=== PATIENT | female | born 1960 | race Two or more races ===

== ENCOUNTER 2023-05-12 13:50 | Inpatient (IN) | payer BC, OTHER ==
[~2023-05-12] VITALS: Ht 157.5 cm; Wt 95.5 kg
[2023-05-12 15:27] LABS: Red Cell Distribution Width 15.4 % (11.8-14.3)
[2023-05-12 15:30] LABS: Hematocrit 18.1 % (36.0-46.0); Mean Corpuscular Hemoglobin 36.2 pg (28.0-32.0); Mean Corpuscular Hgb Conc. 34.4 g/dL (32.0-36.0); Mean Corpuscular Volume 105.3 fL (80.0-100.0); Red Blood Cells 1.72 10^6/uL (4.0-5.20)
[2023-05-12 15:32] LABS: Anion Gap 6 (5-15); Carbon Dioxide 26 mmol/L (20-30); Chloride 99 mmol/L (98-107); Potassium 3.9 mmol/L (3.5-5.1); Sodium 131 mmol/L (136-145)
[2023-05-12 15:33] LABS: Calcium 8.7 mg/dL (8.7-10.4)
[2023-05-12 15:36] LABS: White Blood Cell 0.9 10^3/uL (4.4-10.8)
[2023-05-12 15:37] LABS: Basophils % (manual) 0 (0.0-2.0); Blast Cells 0; Eosinophils % (manual) 0 (0-7); Hemoglobin 6.2 g/dL (12.2-16.2); Metamyelocytes % 0; Myelocytes % 0; Promyelocytes % 0; Reactive Lymphocytes 0
[2023-05-12 15:38] LABS: Blood Urea Nitrogen 12 mg/dL (9-23); Glucose 89 mg/dL (74-106)
[2023-05-12 15:45] LABS: INR 0.95 (0.9-1.15); Partial Thromboplastin Time 32.9 SEC (24.5-34.5)
[2023-05-12 16:24] LABS: Anisocytosis Slight; Band Neutrophils % (manual) 1; Lymphocytes % (manual) 29 (10.0-50.0); Macrocytosis Moderate; Monocytes % (manual) 7 (0-12); Platelet Estimate Decreased
[2023-05-12 23:29] VITALS: PULSE 58; RESP 20; O2SAT 100
[2023-05-12] MEDS ORDERED: ACETAMINOPHEN 325 MG TAB PO PRN (23:30)
[2023-05-12] MEDS ORDERED: ONDANSETRON HCL 4 MG/2 ML VIAL IV PRN (23:30)
[2023-05-12] MEDS ORDERED: MORPHINE SULFATE INJ 2 MG/ml SYRG IV PRN (23:30)
[2023-05-12] MEDS ORDERED: METOCLOPRAMIDE HCL 5MG/ml INJ 2ml VIAL IV PRN (23:30)
[2023-05-12] MEDS ORDERED: NITROGLYCERIN 0.4 MG SL TAB SL PRN (23:30)
[2023-05-13] VITALS (7 sets, daily range): BP systolic 123–154; BP diastolic 51–68; PULSE 70–83; RESP 11–20; TEMP 97.7–98.8; O2SAT 93–97
[2023-05-13] MEDS ORDERED: ATOR20TA50 PO (10:54)
[2023-05-13] MEDS ORDERED: LEVO112T4 PO (10:55)
[2023-05-13] MEDS ORDERED: CLOP75TA70 PO (10:56)
[2023-05-13] MEDS ORDERED: BENZ1TAB6 PO (10:57)
[2023-05-13] MEDS ORDERED: METO25TA93 PO (10:58)
[2023-05-13] MEDS ORDERED: FLUO20TA36 PO (10:59)
[2023-05-13] MEDS ORDERED: RIS1T PO (10:59)
[2023-05-13] MEDS ORDERED: PRIM125T PO (11:00)
[2023-05-13] MEDS: HYDROcodone-ACET 5/325MG TAB PO PRN (12:43)
[2023-05-13 14:22] LABS: Hemoglobin 7.4 g/dL (12.2-16.2)
[2023-05-13 14:24] LABS: Hematocrit 22.2 % (36.0-46.0)
[2023-05-13 14:31] LABS: Chloride 106 mmol/L (98-107); Potassium 3.8 mmol/L (3.5-5.1); Sodium 139 mmol/L (136-145)
[2023-05-13 14:32] LABS: Anion Gap 6 (5-15); Carbon Dioxide 27 mmol/L (20-30)
[2023-05-13 14:33] LABS: Calcium 8.8 mg/dL (8.5-10.1)
[2023-05-13 14:37] LABS: Glucose 101 mg/dL (74-106)
[2023-05-13 14:38] LABS: BUN/Creatinine Ratio 14.8 (10.0-20.0); Blood Urea Nitrogen 8 mg/dL (9-23)
[2023-05-13] MEDS ORDERED: RISP3TAB44 PO (15:12)
[2023-05-13] MEDS ORDERED: METO-289 PO (15:12)
[2023-05-13] MEDS ORDERED: HYDR2.5L TOP (15:16)
[2023-05-13] MEDS ORDERED: PROC10TA6 PO (15:16)
[2023-05-13 20:07] LABS: Hematocrit 22.7 % (36.0-46.0); Hemoglobin 7.7 g/dL (12.2-16.2)
[2023-05-14] VITALS (7 sets, daily range): BP systolic 125–165; BP diastolic 53–75; PULSE 71–86; RESP 18–20; TEMP 98–98.4; O2SAT 95–98
[2023-05-14 01:22] LABS: Hematocrit 25.7 % (36.0-46.0); Hemoglobin 8.6 g/dL (12.2-16.2)
[2023-05-14] MEDS: PANTOPRAZOLE 40 MG/10 ML VIAL INJ IV SCH (09:19)
[2023-05-14 10:11] LABS: Basophils # (auto) 0 10 ^3/uL (0-0.2); Eosinophils # (auto) 0 10 ^3/uL (0-0.8); Lymphocytes # (auto) 0.3 10 ^3/uL (0.4-5.4); Monocytes # (auto) 0.1 10 ^3/uL (0-1.3); Red Blood Cells 2.62 10^6/uL (4.0-5.20)
[2023-05-14 10:13] LABS: Basophils % (auto) 0.4 % (0.0-2.0); Eosinophils % (auto) 2.2 % (0.0-7.0); Hematocrit 26.6 % (36.0-46.0); Lymphocytes % (auto) 25.5 % (10.0-50.0); Mean Corpuscular Hemoglobin 34.5 pg (28.0-32.0); Mean Corpuscular Volume 101.6 fL (80.0-100.0); Monocytes % (auto) 12.6 % (0.0-12.0); Neutrophils # (auto) 0.6 10 ^3/uL (1.6-8.6); Neutrophils % (auto) 59.3 % (37.0-80.0); Nucleated Red Blood Cells % 0.3 %
[2023-05-14 10:23] LABS: Chloride 104 mmol/L (98-107); Potassium 3.7 mmol/L (3.5-5.1); Sodium 137 mmol/L (136-145)
[2023-05-14 10:24] LABS: Anion Gap 8 (5-15); Carbon Dioxide 25 mmol/L (20-30); Red Cell Distribution Width 21.2 % (11.8-14.3)
[2023-05-14 10:25] LABS: Calcium 9.3 mg/dL (8.5-10.1)
[2023-05-14 10:26] LABS: White Blood Cell 1.1 10^3/uL (4.4-10.8)
[2023-05-14 10:29] LABS: Blood Urea Nitrogen 6 mg/dL (9-23); Glucose 99 mg/dL (74-106)
[2023-05-14 14:19] LABS: Anisocytosis Slight; Macrocytosis Slight
[2023-05-14 14:20] LABS: Platelet Estimate Decreased
[2023-05-14] MEDS: PRIMIDONE 50 MG TAB PO SCH (19:01)
[2023-05-14] MEDS: FILGRASTIM(TBO) 480 MCG/0.8 ML SYRG SC SCH (19:01)
[2023-05-14] MEDS: risperiDONE 1 MG TAB PO SCH (21:26)
[2023-05-14] MEDS: BENZTROPINE MESY 0.5 MG TAB PO SCH (21:27)
[2023-05-15] VITALS (7 sets, daily range): BP systolic 114–159; BP diastolic 56–101; PULSE 74–98; RESP 17–22; TEMP 98–98.4; O2SAT 93–100
[2023-05-15 08:48] LABS: Hepatitis B Surface Antigen Negative (Negative)
[2023-05-15 09:01] LABS: Hepatitis C Antibody Negative (Negative)
[2023-05-15] MEDS ORDERED: FLUoxetine HCL 20 MG CAP PO SCH (10:00)
[2023-05-15] MEDS ORDERED: CLOPIDOGREL BISULFATE 75 MG TAB PO SCH (10:00)
[2023-05-15] MEDS: ATORVASTATIN 20 MG TAB PO SCH (10:11)
[2023-05-15] MEDS: LEVOTHYROXINE SODIUM 112 MCG TAB PO SCH (10:11)
[2023-05-15] MEDS: METOPROLOL SUCCINATE XL 50 MG TAB PO SCH (10:15)
[2023-05-15 10:18] LABS: Basophils # (auto) 0 10 ^3/uL (0-0.2); Basophils % (auto) 0.3 % (0.0-2.0); Eosinophils # (auto) 0 10 ^3/uL (0-0.8); Eosinophils % (auto) 2.9 % (0.0-7.0); Hematocrit 27.2 % (36.0-46.0); Hemoglobin 9.1 g/dL (12.2-16.2); Lymphocytes # (auto) 0.2 10 ^3/uL (0.4-5.4); Lymphocytes % (auto) 23.6 % (10.0-50.0); Mean Corpuscular Hemoglobin 33.2 pg (28.0-32.0); Mean Corpuscular Hgb Conc. 33.6 g/dL (32.0-36.0); Monocytes # (auto) 0.1 10 ^3/uL (0-1.3); Monocytes % (auto) 12.5 % (0.0-12.0); Neutrophils # (auto) 0.6 10 ^3/uL (1.6-8.6); Neutrophils % (auto) 60.7 % (37.0-80.0); Nucleated Red Blood Cells % 0.3 %; Red Blood Cells 2.75 10^6/uL (4.0-5.20)
[2023-05-15 10:21] LABS: Red Cell Distribution Width 20.9 % (11.8-14.3)
[2023-05-15 10:24] LABS: White Blood Cell 1.1 10^3/uL (4.4-10.8)
[2023-05-15 10:33] LABS: Albumin 4.1 g/dL (3.2-4.8); Alkaline Phosphatase 100 U/L (46-116); Anion Gap 10 (5-15); Aspartate Aminotransferase 17 U/L (13-40); Bilirubin, Total 0.2 mg/dL (0.2-1.0); Calcium 9.5 mg/dL (8.5-10.1); Carbon Dioxide 23 mmol/L (20-30); Chloride 104 mmol/L (98-107); Glucose 102 mg/dL (74-106); Potassium 3.9 mmol/L (3.5-5.1); Sodium 137 mmol/L (136-145); Total Protein 7.2 g/dL (5.7-8.2)
[2023-05-15 10:41] LABS: Alanine Aminotransferase < 9 U/L (7-40); BUN/Creatinine Ratio 8.9 (10.0-20.0); Blood Urea Nitrogen < 5 mg/dL (9-23)
[2023-05-16 05:00] VITALS: BP 139/52; PULSE 80; RESP 22; TEMP 98.3; O2SAT 93
[2023-05-16 07:24] LABS: Anion Gap 9 (5-15); Carbon Dioxide 25 mmol/L (20-30); Chloride 103 mmol/L (98-107); Potassium 3.9 mmol/L (3.5-5.1); Sodium 137 mmol/L (136-145)
[2023-05-16 07:25] LABS: Basophils # (auto) 0 10 ^3/uL (0-0.2); Calcium 9.1 mg/dL (8.5-10.1); Eosinophils # (auto) 0 10 ^3/uL (0-0.8); Lymphocytes # (auto) 0.2 10 ^3/uL (0.4-5.4); Mean Corpuscular Volume 101.1 fL (80.0-100.0); Monocytes # (auto) 0.2 10 ^3/uL (0-1.3); Neutrophils # (auto) 1.8 10 ^3/uL (1.6-8.6)
[2023-05-16 07:28] LABS: Basophils % (auto) 0.1 % (0.0-2.0); Eosinophils % (auto) 1.1 % (0.0-7.0); Hematocrit 23.7 % (36.0-46.0); Lymphocytes % (auto) 9.3 % (10.0-50.0); Mean Corpuscular Hemoglobin 34.2 pg (28.0-32.0); Mean Corpuscular Hgb Conc. 33.9 g/dL (32.0-36.0); Neutrophils % (auto) 79.5 % (37.0-80.0); Nucleated Red Blood Cells % 0.3 %; Red Blood Cells 2.35 10^6/uL (4.0-5.20); Red Cell Distribution Width 21.1 % (11.8-14.3); White Blood Cell 2.2 10^3/uL (4.4-10.8)
[2023-05-16 07:30] LABS: BUN/Creatinine Ratio 16.1 (10.0-20.0); Blood Urea Nitrogen 9 mg/dL (9-23); Glucose 89 mg/dL (74-106)
[2023-05-16 08:00] VITALS: PULSE 86
[2023-05-16 09:00] VITALS: BP 138/61; PULSE 77; RESP 16; TEMP 98.4; O2SAT 99
[2023-05-16] MEDS: FLUoxetine HCL 20 MG CAP PO SCH (10:12)
[2023-05-16 12:48] VITALS: BP 144/52; PULSE 76; RESP 17; TEMP 98.8; O2SAT 96
[2023-05-16 15:31] VITALS: BP 138/61; PULSE 77; TEMP 37.1
== END 2023-05-16 15:50 | disposition home health service (06) | DRG 810 ==
LOC: ER 13:50 → TELE 23:29 → TELE-WESTW 05-13 14:19
PROVIDERS: ADMIT Nurse Practitioner Family; ATTEND Internal Medicine
PROC: 30233N1 Transfusion of Nonautologous Red Blood Cells into Peripheral Vein, Percutaneous Approach (ICD-10-PCS; principal; 2023-05-13)
PROC: 05HC33Z Insertion of Infusion Device into Left Basilic Vein, Percutaneous Approach (ICD-10-PCS; 2023-05-13)
PROC: B54NZZA Ultrasonography of Left Upper Extremity Veins, Guidance (ICD-10-PCS; 2023-05-13)
DX: D61.810 Antineoplastic chemotherapy induced pancytopenia (principal); D64.9 Anemia, unspecified; D72.819 Decreased white blood cell count, unspecified; D69.6 Thrombocytopenia, unspecified; I10 Essential (primary) hypertension; R53.1 Weakness; R19.7 Diarrhea, unspecified; F32.A Depression, unspecified; F41.9 Anxiety disorder, unspecified; C54.1 Malignant neoplasm of endometrium; E03.9 Hypothyroidism, unspecified; G40.909 Epilepsy, unspecified, not intractable, without status epilepticus; Z85.43 Personal history of malignant neoplasm of ovary; Z85.42 Personal history of malignant neoplasm of other parts of uterus; Z88.0 Allergy status to penicillin; Z92.21 Personal history of antineoplastic chemotherapy; Z90.710 Acquired absence of both cervix and uterus; Z92.3 Personal history of irradiation; Z95.2 Presence of prosthetic heart valve
CPT/HCPCS: 36415; 36430; 70551; 80048; 80053; 85007; 85014; 85018; 85025; 85027; 85610; 85730; 86803; 86850; 86900; 86901; 86920; 87340; 93005; C9113; G0378; J1447

== ENCOUNTER 2023-12-02 06:18 | Inpatient (IN) | payer BC ==
[~2023-12-02] VITALS: Ht 157.5 cm; Wt 111.2 kg
[~2023-12-02 06:18] MED LIST: ATOR40TA52 PO; BENZ1TAB6 PO; CLOP75TA70 PO; FLUO20TA42 PO; METO-289 PO; PRIM125T PO; RISP3TAB44 PO
[2023-12-02] MEDS ORDERED: PROPOFOL 10 MG/ML 20 ML IV ONE (06:51)
[2023-12-02] MEDS ORDERED: ONDANSETRON HCL 4 MG/2 ML VIAL ONE (06:51)
[2023-12-02] MEDS ORDERED: LIDOCAINE 1% INJ PF 5ML AMP ONE ×2 (06:51→07:59)
[2023-12-02] MEDS ORDERED: KETOROLAC TROMETH 30 MG/ML 1ML VIAL ONE (06:51)
[2023-12-02] MEDS ORDERED: GLYCOPYRROLATE 0.2 MG/ML 1ML VIAL ONE (06:51)
[2023-12-02] MEDS ORDERED: DexAMETHasone SOD PHOS 10MG/1ML VIAL INJ ONE (06:51)
[2023-12-02] MEDS: GABAPENTIN 400 MG CAP PO ONE (07:05)
[2023-12-02] MEDS: ACETAMINOPHEN IV 1000 MG/100ML (10MG/ML) IV ONE (07:05)
[2023-12-02] MEDS: CELECOXIB 100 MG CAP PO ONE (07:05)
[2023-12-02] MEDS: CEFEPIME 1GM/ 50ML 50 ML IV ONE (07:17)
[2023-12-02] MEDS: ceFAZolin 2 GM/D5W50ml 50 ML IV ONE (07:17)
[2023-12-02] MEDS ORDERED: ROCURONIUM 10MG/ML 10ML VIAL IV ONE ×2 (07:43→08:45)
[2023-12-02] MEDS ORDERED: LIDOCAINE 2% (LOCAL ANESTH.) PF 5ml SDV ONE (07:55)
[2023-12-02] MEDS ORDERED: SUGAMMADEX 200mg/2ml Vial (100MG/ML) IV ONE (07:56)
[2023-12-02] MEDS ORDERED: ePHEDrine SULFATE 50 MG/ML AMP ONE ×2 (07:57→09:53)
[2023-12-02] MEDS ORDERED: fentaNYL CITRATE 100 MCG/2 ML VL ONE (08:33)
[2023-12-02] MEDS: VANCOMYCIN HCL 1000 MG VL ONE (08:40)
[2023-12-02] MEDS: BUPIVACAINE 0.25% INJ 50ML VIAL ONE (08:41)
[2023-12-02] MEDS: KETOROLAC TROMETH 30 MG/ML 1ML VIAL ONE (08:42)
[2023-12-02] MEDS: MORPHINE SULF PF 5 MG/10 ML VIAL ONE (08:43)
[2023-12-02] MEDS ORDERED: ONDANSETRON HCL 4 MG/2 ML VIAL IV PRN ×2 (10:30→11:00)
[2023-12-02] MEDS ORDERED: oxyCODONE HCL 5MG TAB PO PRN ×2 (11:00→11:30)
[2023-12-02] MEDS ORDERED: ePHEDrine SULFATE 50 MG/ML AMP IV PRN (11:00)
[2023-12-02] MEDS ORDERED: NALOXONE HCL 0.4 MG/ML VIAL IV PRN (11:00)
[2023-12-02] MEDS ORDERED: hydrALAZINE HCL 20 MG/ML VL IV PRN (11:00)
[2023-12-02] MEDS ORDERED: FLUMAZENIL 0.1 MG/ML INJ 10ML MDV IV PRN (11:00)
[2023-12-02] MEDS ORDERED: fentaNYL CITRATE 100 MCG/2 ML VL IV PRN (11:00)
[2023-12-02] MEDS ORDERED: HYDROmorphone HCL 2 MG/ML VL/or syr IV PRN (11:00)
[2023-12-02 13:42] VITALS: PULSE 85; RESP 17; O2SAT 96
[2023-12-02] MEDS: PRIMIDONE 50 MG TAB PO SCH (14:00)
[2023-12-02 14:12] VITALS: BP 93/49; PULSE 76; RESP 14; TEMP 97.6; O2SAT 91
[2023-12-02] MEDS: DexAMETHasone SOD PHOS 4 MG/1ML SDV INJ ONE (16:15)
[2023-12-02] MEDS: EPINEPHrine HCL 1 MG/1 ML AMP ONE (16:15)
[2023-12-02] MEDS: KETOROLAC TROMETH 30 MG/ML 1ML VIAL IV SCH (16:16)
[2023-12-02] MEDS: TRANEXAMIC ACID 20 ML ONE (16:16)
[2023-12-02] MEDS: ACETAMINOPHEN 325 MG TAB PO SCH (16:16)
[2023-12-02] MEDS: SODIUM CHLORIDE 0.9% 1,000 ML IV SCH (16:33)
[2023-12-02] MEDS: ceFAZolin 2 GM/D5W50ml 50 ML IV SCH (16:33)
[2023-12-02 16:37] VITALS: BP 113/61; PULSE 85; RESP 17; TEMP 98.4; O2SAT 96
[2023-12-02] MEDS: risperiDONE 1 MG TAB PO SCH (20:41)
[2023-12-02 21:00] VITALS: BP 98/45; PULSE 80; RESP 18; TEMP 98.6; O2SAT 98
[2023-12-02 21:29] VITALS: BP 100/50
[2023-12-02] MEDS: BENZTROPINE MESY 0.5 MG TAB PO SCH (21:29)
[2023-12-02] MEDS: PREGABALIN 25 MG CAP PO SCH (21:29)
[2023-12-02 22:00] VITALS: BP 105/48; PULSE 74; RESP 14; TEMP 95.3; O2SAT 97
[2023-12-03] VITALS (12 sets, daily range): BP systolic 87–130; BP diastolic 36–57; PULSE 76–86; RESP 14–18; TEMP 97.2–98.4; O2SAT 96–100
[2023-12-03 05:38] LABS: Basophils # (auto) 0 10 ^3/uL (0-0.2); Basophils % (auto) 0.3 % (0.0-2.0); Eosinophils # (auto) 0 10 ^3/uL (0-0.8); Eosinophils % (auto) 1.2 % (0.0-7.0); Monocytes # (auto) 0.3 10 ^3/uL (0-1.3)
[2023-12-03 05:42] LABS: Hematocrit 18.7 % (36.0-46.0); Lymphocytes # (auto) 0.3 10 ^3/uL (0.4-5.4); Lymphocytes % (auto) 9.3 % (10.0-50.0); Mean Corpuscular Hemoglobin 35.1 pg (28.0-32.0); Mean Corpuscular Hgb Conc. 35.4 g/dL (32.0-36.0); Mean Corpuscular Volume 99.3 fL (80.0-100.0); Monocytes % (auto) 9.4 % (0.0-12.0); Neutrophils % (auto) 79.8 % (37.0-80.0); Platelet Count (auto) 137 10^3/uL (140-450); Red Blood Cells 1.88 10^6/uL (4.0-5.20); Red Cell Distribution Width 14.4 % (11.8-14.3); White Blood Cell 3.7 10^3/uL (4.4-10.8)
[2023-12-03 05:46] LABS: Anion Gap 4 (5-15); Carbon Dioxide 29 mmol/L (20-30); Chloride 103 mmol/L (98-107); Sodium 136 mmol/L (136-145)
[2023-12-03 05:47] LABS: Calcium 8.3 mg/dL (8.7-10.4)
[2023-12-03 05:52] LABS: BUN/Creatinine Ratio 18.8 (10.0-20.0); Blood Urea Nitrogen 13 mg/dL (9-23); Glucose 111 mg/dL (74-106)
[2023-12-03 05:55] LABS: Hemoglobin 6.6 g/dL (12.2-16.2)
[2023-12-03] MEDS: APIXABAN 2.5 MG TAB PO SCH (09:13)
[2023-12-03] MEDS: FLUoxetine HCL 20 MG CAP PO SCH (09:13)
[2023-12-03] MEDS: METOPROLOL SUCCINATE XL 50 MG TAB PO SCH (09:57)
[2023-12-03] MEDS: ATORVASTATIN 20 MG TAB PO SCH (09:57)
[2023-12-03 12:30] LABS: Basophils # (auto) 0 10 ^3/uL (0-0.2); Basophils % (auto) 0.5 % (0.0-2.0); Eosinophils # (auto) 0.1 10 ^3/uL (0-0.8); Eosinophils % (auto) 1.9 % (0.0-7.0); Hematocrit 27.1 % (36.0-46.0); Hemoglobin 8.6 g/dL (12.2-16.2); Lymphocytes # (auto) 0.4 10 ^3/uL (0.4-5.4); Lymphocytes % (auto) 10.5 % (10.0-50.0); Mean Corpuscular Hemoglobin 32.8 pg (28.0-32.0); Mean Corpuscular Hgb Conc. 31.8 g/dL (32.0-36.0); Monocytes # (auto) 0.3 10 ^3/uL (0-1.3); Monocytes % (auto) 9.9 % (0.0-12.0); Neutrophils # (auto) 2.6 10 ^3/uL (1.6-8.6); Neutrophils % (auto) 77.2 % (37.0-80.0); Nucleated Red Blood Cells % 0.2 %; Platelet Count (auto) 133 10^3/uL (140-450); Red Blood Cells 2.63 10^6/uL (4.0-5.20); Red Cell Distribution Width 17.3 % (11.8-14.3); White Blood Cell 3.4 10^3/uL (4.4-10.8)
[2023-12-03 14:40] LABS: Lactic Acid w/Reflex 2.1 mmol/L (0.4-2.0)
[2023-12-03] MEDS: oxyCODONE HCL 5MG TAB PO PRN (23:18)
[2023-12-04] VITALS (8 sets, daily range): BP systolic 109–148; BP diastolic 42–61; PULSE 74–91; RESP 16–20; TEMP 97.6–98.6; O2SAT 90–96
[2023-12-04 09:55] LABS: Alanine Aminotransferase 13 U/L (7-40); Albumin 3.4 g/dL (3.2-4.8); Alkaline Phosphatase 84 U/L (46-116); Anion Gap 8 (5-15); Aspartate Aminotransferase 37 U/L (13-40); BUN/Creatinine Ratio 10.7 (10.0-20.0); Bilirubin, Total < 0.2 mg/dL (0.2-1.0); Blood Urea Nitrogen 6 mg/dL (9-23); Calcium 8.8 mg/dL (8.7-10.4); Carbon Dioxide 24 mmol/L (20-30); Chloride 106 mmol/L (98-107); Glucose 113 mg/dL (74-106); Potassium 4.5 mmol/L (3.5-5.1); Sodium 138 mmol/L (136-145); Total Protein 6.1 g/dL (5.7-8.2)
[2023-12-04] MEDS: METOPROLOL SUCCINATE XL 50 MG TAB PO SCH (10:52)
[2023-12-04 11:54] LABS: Hematocrit 22.7 % (36.0-46.0); Hemoglobin 8.1 g/dL (12.2-16.2); Mean Corpuscular Hemoglobin 34.4 pg (28.0-32.0); Mean Corpuscular Hgb Conc. 35.5 g/dL (32.0-36.0); Mean Corpuscular Volume 96.9 fL (80.0-100.0); Platelet Count (auto) 181 10^3/uL (140-450); Red Blood Cells 2.34 10^6/uL (4.0-5.20); Red Cell Distribution Width 17.8 % (11.8-14.3); White Blood Cell 5.5 10^3/uL (4.4-10.8)
[2023-12-04 11:57] LABS: Basophils % (manual) 0 (0.0-2.0); Blast Cells 0; Eosinophils % (manual) 0 (0-7); Metamyelocytes % 0; Myelocytes % 0; Promyelocytes % 0; Reactive Lymphocytes 0
[2023-12-04 14:19] LABS: Band Neutrophils % (manual) 8; Lymphocytes % (manual) 3 (10.0-50.0); Monocytes % (manual) 2 (0-12)
[2023-12-04 14:20] LABS: Platelet Estimate Adequate
[2023-12-05 01:00] VITALS: BP 136/61; PULSE 91; RESP 20; TEMP 98.3; O2SAT 96
[2023-12-05 05:00] VITALS: BP 144/64; PULSE 91; RESP 20; TEMP 98.2; O2SAT 92
[2023-12-05 08:00] VITALS: PULSE 92; RESP 18; O2SAT 96
[2023-12-05 08:05] VITALS: BP 110/62; PULSE 95; RESP 18; TEMP 97.8; O2SAT 96
[2023-12-05 11:52] VITALS: BP 110/62; PULSE 95; RESP 18; TEMP 97.8; O2SAT 96
[2023-12-05 12:00] VITALS: BP 131/56; PULSE 90; RESP 20; TEMP 98.6; O2SAT 95
== END 2023-12-05 15:22 | disposition home health service (06) | DRG 470 ==
LOC: SUR 06:18 → OVERFLOW 10:18 → EAST 13:40
PROVIDERS: ADMIT Orthopaedic Surgery; ATTEND Orthopaedic Surgery
PROC: 0SRB04Z Replacement of Left Hip Joint with Ceramic on Polyethylene Synthetic Substitute, Open Approach (ICD-10-PCS; principal; 2023-12-02 07:17)
PROC: 0QS704Z Reposition Left Upper Femur with Internal Fixation Device, Open Approach (ICD-10-PCS; 2023-12-02 07:17)
PROC: 30233N1 Transfusion of Nonautologous Red Blood Cells into Peripheral Vein, Percutaneous Approach (ICD-10-PCS; 2023-12-03)
DX: M16.12 Unilateral primary osteoarthritis, left hip (principal); D64.9 Anemia, unspecified
CPT/HCPCS: 36415; 72170; 73502; 80048; 80053; 83605; 85007; 85025; 85027; 86850; 86900; 86901; 86920; 97110; 97116; 97163; 97530; A4565; G0378; J0131; J0171; J1100; J1885; J2001; J2405; J2704; J3490

== ENCOUNTER 2024-03-11 10:25 | Inpatient (IN) | payer BC ==
[~2024-03-11] VITALS: Ht 157.5 cm; Wt 116.2 kg
[2024-03-11 11:06] LABS: Basophils # (auto) 0 10 ^3/uL (0-0.2); Basophils % (auto) 0.7 % (0.0-2.0); Eosinophils # (auto) 0.1 10 ^3/uL (0-0.8); Eosinophils % (auto) 2.9 % (0.0-7.0); Hematocrit 29.8 % (36.0-46.0); Hemoglobin 9.9 g/dL (12.2-16.2); Lymphocytes # (auto) 0.4 10 ^3/uL (0.4-5.4); Lymphocytes % (auto) 12.9 % (10.0-50.0); Mean Corpuscular Hgb Conc. 33.2 g/dL (32.0-36.0); Mean Corpuscular Volume 96.5 fL (80.0-100.0); Monocytes # (auto) 0.2 10 ^3/uL (0-1.3); Monocytes % (auto) 7.4 % (0.0-12.0); Neutrophils # (auto) 2.2 10 ^3/uL (1.6-8.6); Neutrophils % (auto) 76.1 % (37.0-80.0); Platelet Count (auto) 234 10^3/uL (140-450); Red Blood Cells 3.09 10^6/uL (4.0-5.20); Red Cell Distribution Width 14.7 % (11.8-14.3)
[2024-03-11 11:21] LABS: Alanine Aminotransferase 10 U/L (7-40); Albumin 4.1 g/dL (3.2-4.8); Alkaline Phosphatase 116 U/L (46-116); Anion Gap 5 (5-15); BUN/Creatinine Ratio 14.1 (10.0-20.0); Blood Urea Nitrogen 11 mg/dL (9-23); Calcium 9.5 mg/dL (8.7-10.4); Carbon Dioxide 28 mmol/L (20-31); Chloride 101 mmol/L (98-107); Glucose 79 mg/dL (74-106); Magnesium 1.7 mg/dL (1.6-2.6); Potassium 3.9 mmol/L (3.5-5.1)
--- NOTE | 2024-03-11 11:21 | ED.PDOC ---
History of Present Illness HPI Comments 63F presents to the ER w/ spouse and a walker as well as a prior Hx of right sided hip total replacement of 2 years and left hip Sx 3 months ago, Hysterectomy, Uterus cancer, which all may be associated to the c/c of a wound check. Pt reports on having a total replacement Sx on her right hip 2 years ago and noticed that 1.5 months ago, the wound was oozing and had a sore. notes that Dr. Abad did the Sx on the pt's hip, as well as the pt going to her PCP and they gave her 10 days use of Keflex. Pt notes that she has also been feeling very lightheaded as well. PMHx of High Lipids, HTN, SZ, Sepsis and a Blood Transfusion. SHx of a Cardiac procedure and Carpal Tunnel Sx on both hands. 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 Family Hx of Dementia. Denies chills, fever, N/V/D, SOB, CP or other associated symptom's, modifiers, or recent injuries or sick contact at this time. Chief Complaint: Wound Check Time Seen by MD: 11:00 Primary Care Provider: HARITHA Reviewed Notes: Nurses Notes, Medications, Allergies Allergies: Coded Allergies: Penicillins (Verified Allergy, Unknown, 05/12/23) Home Meds Reported Medications Atorvastatin Calcium (ATORVASTATIN CALCIUM) 40 Mg Tab, 40 MG PO DAILY, TAB 12/01/23 Risperidone (Risperidone) 3 Mg Tab, 1 TAB PO BID 05/13/23 Metoprolol Succinate (Metoprolol Succinate Er) 50 Mg Tab, 1 TAB PO DAILY Take 1/2 tablet qam 05/13/23 Primidone (Primidone) 125 Mg Tab, 250 MG PO TID, TAB 05/13/23 Fluoxetine Hcl (Fluoxetine Hcl) 20 Mg Tab, 1 TAB PO DAILY, #90 TAB 3 Refills 05/13/23 Benztropine Mesylate (Benztropine Mesylate) 1 Mg Tab, 0.5 TAB PO BID, #60 TAB 0.5 mg tab 05/13/23 Clopidogrel Bisulfate (CLOPIDOGREL) 75 Mg Tab, 1 TAB PO DAILY, #90 TAB 1 Refill 05/13/23 Information Source: Patient, Spouse Mode of Arrival: Uses a walker Severity: Moderate Timing: Weeks Duration: Since onset Prehospital treatment: None Past Medical History PAST MEDICAL HISTORY: Cancer (uterus cancer), High Lipids, HTN, Seizures Past Medical History (Other): sepsis and blood transfusion Surgical History: Hysterectomy Surgical History (Other): Cardiac Procedure, Carpal Tunnel Sx both hands, and right hip total replacement and left hip unknown but surgery was done EQUITY STRUCTURER History: Endometrial Cancer, Endometriosis Family History Family History: Reviewed,noncontributory to illness Family History (Other): Family Hx of Dementia Social History Smoker: Non-Smoker Alcohol: Denies ETOH Use Drugs: Denies Drug Use Lives In: Home Constitutional: denies: chills, diaphoresis, fatigue, fever, malaise, sweats, weakness, others EENTM: denies: blurred vision, double vision, ear bleeding, ear discharge, ear drainage, ear pain, ear ringing, eye pain, eye redness, hearing loss, mouth pain, mouth swelling, nasal discharge, nose bleeding, nose congestion, nose pain, photophobia, tearing, throat pain, throat swelling, voice changes, others Respiratory: denies: cough, hemoptysis, orthopnea, SOB at rest, shortness of breath, SOB with excertion, stridor, wheezing, others Cardiovascular: denies: chest pain, dizzy spells, diaphoresis, Dyspnea on exertion, edema, irregular heart beat, left arm pain, lightheadedness, palpitations, PND, syncope, others Gastrointestinal: denies: abdomen distended, abdominal pain, blood streaked bowels, constipated, diarrhea, dysphagia, difficulty swallowing, hematemesis, melena, nausea, poor appetite, poor fluid intake, rectal bleeding, rectal pain, vomiting, others Genitourinary: denies: abnormal vagina bleeding, burning, dyspareunia, dysuria, flank pain, frequency, hematuria, incontinence, pain, , vagina discharge, urgency, others Neurological: reports: others (lightheadedness); denies: dizziness, fainting, headache, left sided numbness, left sided weakness, numbness, paresthesia, pre- existing deficit, right sided numbness, right sided weakness, seizure, speech problems, tingling, tremors, weakness Musculoskeletal: denies: back pain, gout, joint pain, joint swelling, muscle pain, muscle stiffness, neck pain, others Integumetry: reports: wounds; denies: bruises, change in color, change in hair/nails, dryness, laceration, lesions, lumps, rash, others Allergic/Immunocompromised: denies: Difficulty Healing, Frequent Infections, Hives, Itching, others Hematologic/Lymphatic: denies: anemia, blood clots, easy bleeding, easy bruising, swollen glands, others Endocrine: denies: excessive hunger, excessive sweating, excessive thirst, excessive urination, flushing, intolerance to cold, intolerance to heat, unexplained weight gain, unexplained weight loss, others Psychiatric: denies: anxiety, bipolar disorder, depression, hopeless, panic disorder, schizophrenia, sleepless, suicidal, others All Other Systems: Reviewed and Negative Physical Exam General Appearance: Mild Distress HEENT: Normal ENT Inspection, Pharynx Normal, TMs Normal Neck: Full Range of Motion, Non-Tender, Normal, Normal Inspection Respiratory: Chest Non-Tender, Lungs Clear, No Accessory Muscle Use, No Respiratory Distress, Normal Breath Sounds Cardiovascular: No Edema, No JVD, No Murmur, No Gallop, Normal Peripheral Pulses, Regular Rate/Rhythm Breast Exam: Deferred Gastrointestinal: No Organomegaly, Non Tender, No Pulsatile Mass, Normal Bowel Sounds, Soft Genitalia: Deferred Pelvic: Deferred Rectal: Deferred Extremities: No calf tenderness, Normal capillary refill, Normal inspection, Normal range of motion, Non-tender, No pedal edema Musculoskeletal : Apperance: Normal Neurologic: Alert, 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 Was a procedure done?: No Differential Dx Considerations may include: Abscess, cellulitis X-Ray, Labs, Meds, VS Vital Signs Date Time Temp Pulse Resp B/P (MAP) Pulse Ox O2 Delivery O2 Flow Rate FiO2 03/11/24 10:42 97.1 75 18 164/74 (104) 92 Lab Test 03/11/24 10:50 Range/Units White Blood Count 3.0 L 4.4-10.8 10^3/uL Red Blood Count 3.09 L 4.0-5.20 10^6/uL Hemoglobin 9.9 L 12.2-16.2 g/dL Hematocrit 29.8 L 36.0-46.0 % Mean Corpuscular Volume 96.5 80.0-100.0 fL Mean Corpuscular Hemoglobin 32.0 28.0-32.0 pg Mean Corpuscular Hemoglobin Concent 33.2 32.0-36.0 g/dL Red Cell Distribution Width 14.7 H 11.8-14.3 % Platelet Count 234 140-450 10^3/uL Mean Platelet Volume 7.1 6.9-10.8 fL Neutrophils (%) (Auto) 76.1 37.0-80.0 % Lymphocytes (%) (Auto) 12.9 10.0-50.0 % Monocytes (%) (Auto) 7.4 0.0-12.0 % Eosinophils (%) (Auto) 2.9 0.0-7.0 % Basophils (%) (Auto) 0.7 0.0-2.0 % Neutrophils # (Auto) 2.2 1.6-8.6 10 ^3/uL Lymphocytes # (Auto) 0.4 0.4-5.4 10 ^3/uL Monocytes # (Auto) 0.2 0-1.3 10 ^3/uL Eosinophils # (Auto) 0.1 0-0.8 10 ^3/uL Basophils # (Auto) 0 0-0.2 10 ^3/uL Nucleated Red Blood Cells 0.0 % Erythrocyte Sedimentation Rate 105 H 0-20 mm/hr Sodium Level 134 L 136-145 mmol/L Potassium Level 3.9 3.5-5.1 mmol/L Chloride Level 101 98-107 mmol/L Carbon Dioxide Level 28 20-31 mmol/L Anion Gap 5 5-15 Blood Urea Nitrogen 11 9-23 mg/dL Creatinine 0.78 0.550-1.02 mg/dL Glomerular Filtration Rate Calc 86 >90 mL/min BUN/Creatinine Ratio 14.1 10.0-20.0 Serum Glucose 79 74-106 mg/dL Lactic Acid Level 0.9 0.4-2.0 mmol/L Calcium Level 9.5 8.7-10.4 mg/dL Magnesium Level 1.7 1.6-2.6 mg/dL Total Bilirubin < 0.2 L 0.2-1.0 mg/dL Aspartate Amino Transferase (AST) 11 L 13-40 U/L Alanine Aminotransferase (ALT) 10 7-40 U/L Alkaline Phosphatase 116 46-116 U/L C-Reactive Protein High Sensitivity 3.40 H <1.0 mg/dL Total Protein 7.3 5.7-8.2 g/dL Albumin 4.1 3.2-4.8 g/dL CT scan of the right hip shows: IMPRESSION: 1. Status post right hip replacement with right hip joint effusion extending to the subcutaneous tissues, and loosening of the femoral and acetabular components, suspicious for underlying infection. Fracture through the posterior medial proximal femur. The patient's CBC shows anemia with a hemoglobin of 9.9 hematocrit 29.8 The chemistry panel is within normal limits The C reactive protein is 3.40 ESR is also elevated at 105 An IV Hep-Lock has been established The patient was started on clindamycin IV piggyback We spoke with the orthopedic surgeon (Dr. Abad) and he stated that the patien t will be admitted by the hospitalist and he will consult The patient was being admitted at this time Images Reviewed?: Images reviewed and evaluated by me Time of 1ST Reevaluation: 11:30 Reevaluation 1ST: Unchanged Patient Education/Counseling: Diagnosis, Treatment, Prognosis Family Education/Counseling: Diagnosis, Treatment, Prognosis Departure 1 Departure Time of Disposition: 12:37 Impression: Primary Impression: Infection of right prosthetic hip joint Qualified Codes: T84.51XA - Infection and inflammatory reaction due to internal right hip prosthesis, initial encounter Disposition: ADMITTED INPATIENT Admit to: Med Surg Condition: Fair Critical Care Note Critical Care Time?: No Stability Stability form required: Yes Unstable for transfer: ED Physician Assesment (Clinical assesment) Heart Score Heart Score: Heart Score Response (Comments) Value History N/A 0 EKG N/A 0 Age N/A 0 Risk Factors N/A 0 Troponin N/A 0 Total 0 I personally scribed for MAEGAN BARRIGA MD ([email or web address]) on 03/11/24 at 11:21. Electronically submitted by Stephane Roth ([email or web address]). MAEGAN BARRIGA MD Mar 11, 2024 11:21
[2024-03-11 11:22] LABS: Total Protein 7.3 g/dL (5.7-8.2)
[2024-03-11 11:29] LABS: Aspartate Aminotransferase 11 U/L (13-40); Bilirubin, Total < 0.2 mg/dL (0.2-1.0); Sodium 134 mmol/L (136-145)
--- NOTE | 2024-03-11 11:41 | DVH ---
CLINICAL INDICATION: 63 years old, Female; possible infection. TECHNIQUE: Noncontrast CT of the right hip was performed. Sagittal and coronal reformatted images are provided. COMPARISON: None CT Dose: CTDI volume is 35.05 mGy. Dose-length product is 933.7 mGy*cm FINDINGS: There is a right total hip replacement. There is irregular lucency surrounding the acetabular compone nt measuring up to 8 mm. There is also lucency surrounding the lateral and proximal femoral component compared with hardware loosening. There is a fracture through the posterior medial margin of the pro ximal femur (coronal image 48- 50 ). There is a right hip joint effusion which extends into the deep subcutaneous soft tissues and outside the field of view. There is fatty infiltration of the right gluteal muscles. IMPRESSION: 1. Status post right hip replacement with right hip joint effusion extending to the subcutaneous tiss ues, and loosening of the femoral and acetabular components, suspicious for underlying infection. Fr acture through the posterior medial proximal femur. All CT scans at this medical facility are performed using dose modulation techniques as appropriate t o a performed exam including the following: Automated exposure control was utilized; Adjustment of th e MA And/or KV according to patient size; And use of iterative reconstruction technique.
[2024-03-11] MEDS: CLINDAMYCIN 600MG IV 50 ML IV ONE (12:15)
[2024-03-11 12:28] LABS: Erythrocyte Sedimentation Rate 105 mm/hr (0-20)
--- NOTE | 2024-03-11 13:09 | DVH ---
CLINICAL INDICATION: pain/possible fracture TECHNIQUE: 1 radiographic views of the pelvis and 2 views of the right hip were obtained. Comparison: XY L HIP COMPLETE XRAY on DOS: 12/02/23 FINDINGS/IMPRESSION: There is no evidence of acute fracture or dislocation. Status post bilateral hip arthroplasties.
--- NOTE | 2024-03-11 14:33 | DVH ---
EXAM: US RIGHT LOWER EXTREMITY ULTRASOU Clinical History: FLUID CHECK FOR POSSIBLE ASPIRATION Comparison: None Technique: Grayscale ultrasound of the right hip soft tissues performed with color Doppler and spect ral/pulsed waveform as indicated. Findings/Impression: Along the right lateral hip, there is a 5.7 x 4.2 x 4.4 cm complex fluid collection.
[2024-03-11] MEDS ORDERED: ONDANSETRON HCL 4 MG/2 ML VIAL IV PRN (15:30)
[2024-03-11] MEDS ORDERED: MORPHINE SULFATE INJ 2 MG/ml SYRG IV PRN ×2 (15:30)
[2024-03-11] MEDS ORDERED: NITROGLYCERIN 0.4 MG SL TAB SL PRN (15:30)
[2024-03-11] MEDS ORDERED: HYDROcodone-ACET 5/325MG TAB PO PRN (15:30)
[2024-03-11 15:53] LABS: Urine Bacteria None Seen /hpf (None Seen)
[2024-03-11 16:03] LABS: Urine Blood Negative /uL (Negative); Urine Clarity Clear (Clear); Urine Color Colorless (Yellow); Urine Protein, UAD Negative (Negative); Urine Specific Gravity 1.008 (1.001-1.035); Urine Squamous Epithelial Cell FEW /hpf (<5); Urine Urobilinogen Normal (Negative); Urine WBC 1 /hpf (0 - 5); Urine pH 5.5 (5.0-9.0)
[2024-03-11 16:32] LABS: INR 0.99 (0.9-1.15); Partial Thromboplastin Time 28.1 SEC (24.5-34.5); Prothrombin Time 10.5 sec (9.3-11.8)
[2024-03-11 20:10] VITALS: BP 109/69; PULSE 76; RESP 21; TEMP 98.1; O2SAT 99
[2024-03-11] MEDS: risperiDONE 1 MG TAB PO SCH (22:00)
[2024-03-11] MEDS: PRIMIDONE 50 MG TAB PO SCH (22:00)
[2024-03-11] MEDS: ATORVASTATIN 20 MG TAB PO SCH (22:00)
[2024-03-11] MEDS: BENZTROPINE MESY 0.5 MG TAB PO SCH (22:00)
[2024-03-12] VITALS (8 sets, daily range): BP systolic 100–145; BP diastolic 41–58; PULSE 52–82; RESP 17–19; TEMP 97.2–98.3; O2SAT 94–97
--- NOTE | 2024-03-12 01:44 | DVHHP2 ---
SONY ESTEVES GLUE SPRAYER 03/12/24 0144: History of Present Illness Reason for Visit: Right hip swelling History of Present Illness 63-year-old female presents with complaints of swelling to the right hip. Patient had Hip Replacement completed in November. Patient endorsed Swelling is oozing. There are no complaints of fevers, chills, shortness of breath, chest pain, nausea, vomiting, abdominal pain,Urinary symptoms. Cardiovascular: HTN, hyperipidemia Past Surgical History: Total hip replacement Smoke: No ALCOHOL: none Drugs: None Lives: with Family Review of Systems Constitutional: No: Fever, Chills, Sweats, Weakness, Malaise, Other Eyes: No: Pain, Vision change, Conjunctivae inflammation, Eyelid inflammation, Other, Redness ENT: No: Ear pain, Ear discharge, Nose pain, Nose discharge, Nose congestion, Mouth pain, Mouth swelling, Throat pain, Throat swelling, Other Respiratory: No: Cough, Dry, Shortness of breath, SOB with excertion, Wheezing, Hemoptysis, Pleuritic Pain, Sputum, Wheezing, Other Cardiovascular: No: Chest Pain, Palpitations, Orthopnea, Paroxysmal Noc. Dyspnea, Edema, Lt Headedness, Other Gastrointestinal: No: Nausea, Vomiting, Abdominal Pain, Diarrhea, Constipation, Melena, Hematochezia, Other Genitourinary: No Dysuria, No Frequency, No Incontinence, No Hematuria, No Ret ention, No Other Musculoskeletal: other (Swelling to hip with oozing), leg pain Skin: No: Rash, Lesions, Jaundice, Bruising, Other Neurological: No: Weakness, Numbness, Incoordination, Change in speech, Confusion, Seizures, Other Allergies: Coded Allergies: Penicillins (Verified Allergy, Unknown, 05/12/23) Medications Current Medications Medications Dose Ordered Sig/Los Route Start Time Stop Time Status Last Admin Dose Admin Metoprolol Succinate 50 mg DAILY PO 03/12/24 10:00 Atorvastatin Calcium 40 mg HS PO 03/11/24 22:00 Benztropine Mesylate 0.5 mg BID PO 03/11/24 22:00 Fluoxetine HCl 20 mg DAILY PO 03/12/24 10:00 Primidone 250 mg TID PO 03/11/24 22:00 Risperidone 3 mg BID PO 03/11/24 22:00 Nitroglycerin 0.4 mg Q5MINP PRN SL 03/11/24 15:30 Morphine Sulfate 2 mg Q30M PRN IV 03/11/24 15:30 Acetaminophen/ Hydrocodone Bitart 1 tab Q4HPRN PRN PO 03/11/24 15:30 Ondansetron HCl 4 mg Q4HPRN PRN IV 03/11/24 15:30 Morphine Sulfate 2 mg Q4HPRN PRN IV 03/11/24 15:30 Exam Vital Signs Vital Signs Date Time Temp Pulse Resp B/P (MAP) Pulse Ox O2 Delivery O2 Flow Rate FiO2 03/12/24 01:00 97.8 52 17 123/51 (75) 95 97.8 03/11/24 13:15 Room Air* 0 N/A Bi-Pap+ Hi-Flow NC General Appearance: Alert, Oriented X3, Cooperative, No acute distress HEENT: Atraumatic, PERRLA, EOMI Respiratory: Clear to auscultation, Normal air movement Cardiovascular: Regular rate, Normal S1, Normal S2 Abdominal: Normal bowel sounds, Soft, No tenderness Extremities: No clubbing, No cyanosis, Other (Swelling to lateral right hip, Oozing at site) Neuro: Normal speech Psych/Mental Status: Mental status NL, Mood NL Labs/Xrays Labs Test 03/11/24 16:02 03/11/24 15:00 03/11/24 10:50 Range/Units Prothrombin Time 10.5 9.3-11.8 sec Prothrombin Time INR 0.99 0.9-1.15 Activated Partial Thromboplast Time 28.1 24.5-34.5 SEC Urine Color Colorless Yellow Urine Clarity Clear Clear Urine pH 5.5 5.0-9.0 Urine Specific [place] 1.008 1.001-1.035 Urine Protein Negative Negative Urine Ketones Negative Negative Urine Blood Negative Negative /uL Urine Nitrite Negative Negative Urine Bilirubin Negative Negative Urine Urobilinogen Normal Negative mg/dL Urine Leukocyte Esterase Negative Negative /uL Urine RBC <1 0 - 4 /hpf Urine WBC 1 0 - 5 /hpf Urine Squamous Epithelial Cells Few <5 /hpf Urine Bacteria None seen None Seen /hpf Urine Glucose Normal Normal mg/dL White Blood Count 3.0 L 4.4-10.8 10^3/uL Red Blood Count 3.09 L 4.0-5.20 10^6/uL Hemoglobin 9.9 L 12.2-16.2 g/dL Hematocrit 29.8 L 36.0-46.0 % Mean Corpuscular Volume 96.5 80.0-100.0 fL Mean Corpuscular Hemoglobin 32.0 28.0-32.0 pg Mean Corpuscular Hemoglobin Concent 33.2 32.0-36.0 g/dL Red Cell Distribution Width 14.7 H 11.8-14.3 % Platelet Count 234 140-450 10^3/uL Mean Platelet Volume 7.1 6.9-10.8 fL Neutrophils (%) (Auto) 76.1 37.0-80.0 % Lymphocytes (%) (Auto) 12.9 10.0-50.0 % Monocytes (%) (Auto) 7.4 0.0-12.0 % Eosinophils (%) (Auto) 2.9 0.0-7.0 % Basophils (%) (Auto) 0.7 0.0-2.0 % Neutrophils # (Auto) 2.2 1.6-8.6 10 ^3/uL Lymphocytes # (Auto) 0.4 0.4-5.4 10 ^3/uL Monocytes # (Auto) 0.2 0-1.3 10 ^3/uL Eosinophils # (Auto) 0.1 0-0.8 10 ^3/uL Basophils # (Auto) 0 0-0.2 10 ^3/uL Nucleated Red Blood Cells 0.0 % Erythrocyte Sedimentation Rate 105 H 0-20 mm/hr Sodium Level 134 L 136-145 mmol/L Potassium Level 3.9 3.5-5.1 mmol/L Chloride Level 101 98-107 mmol/L Carbon Dioxide Level 28 20-31 mmol/L Anion Gap 5 5-15 Blood Urea Nitrogen 11 9-23 mg/dL Creatinine 0.78 0.550-1.02 mg/dL Glomerular Filtration Rate Calc 86 >90 mL/min BUN/Creatinine Ratio 14.1 10.0-20.0 Serum Glucose 79 74-106 mg/dL Lactic Acid Level 0.9 0.4-2.0 mmol/L Calcium Level 9.5 8.7-10.4 mg/dL Magnesium Level 1.7 1.6-2.6 mg/dL Total Bilirubin < 0.2 L 0.2-1.0 mg/dL Aspartate Amino Transferase (AST) 11 L 13-40 U/L Alanine Aminotransferase (ALT) 10 7-40 U/L Alkaline Phosphatase 116 46-116 U/L C-Reactive Protein High Sensitivity 3.40 H <1.0 mg/dL Total Protein 7.3 5.7-8.2 g/dL Albumin 4.1 3.2-4.8 g/dL Assessment/Plan Assessment/Plan Right hip hematoma S/p right hip arthroplasty Plan Admit telemetry Orthopedic consult Interventional radiology consult Continue home medication. Monitor CBC/BMP GI ppx pepcid / DVT ppx SCD Plan discussed with: Patient Date of Service: Mar 12, 2024 Billing Provider: PAVITHRA OLIVEIRA MD Common Visit Codes: NOT BILLABLE PAVITHRA OLIVEIRA MD 03/12/24 1619: Review of Systems Allergies: Coded Allergies: Penicillins (Verified Allergy, Unknown, 05/12/23) Additional Comments Additional Comments Additional Comments Patient is seen and evaluated by me this afternoon. 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 I agree with his evaluation, documentation, assessment and care plan as outlined. SONY ESTEVES NP Mar 12, 2024 01:44 PAVITHRA OLIVEIRA MD Mar 12, 2024 16:19
[2024-03-12] MEDS: FLUoxetine HCL 20 MG CAP PO SCH (09:54)
[2024-03-12] MEDS: METOPROLOL SUCCINATE XL 50 MG TAB PO SCH (09:55)
--- NOTE | 2024-03-12 12:06 | DVHINCON2 ---
Date of service: Mar 12, 2024 Referring Physician Self Reason for Consultation Right hip infection History of Present Illness This patient underwent left total hip arthroplasty approximately three months ago which went very well however she came to the office and stated that she had developed a draining wound of the right hip which she attributed to some exercises she had been doing. In fact, she had been seen by her PCP who had given her a 10 day course of Keflex without resolution. She had a total hip arthroplasty on the right side in 2021 and has had no pain, fevers or chills. No flu-like symptoms. On examination of the office she was noted to have a draining wound with some fluctuance of the right hip so she was admitted for further workup. X-ray and CT scan suggested implant loosening which would be consistent with a chronic deep infection. In addition her ER sed rate C- reactive protein were elevated. At this time, she has been set up for explant with cement spacer placement on Friday pending cardiology workup and optimization. Past Medical History Valvular heart replacement, hypertension, hyperlipidemia, history of during carcinoma, history of sepsis, morbid obesity, seizure disorder Past Surgical History Bilateral total hip arthroplasty Valvular heart replacement Hysterectomy Carpal tunnel release Family History: FH: breast cancer G8 MOTHER FH: stroke G8 FATHER, Social History No smoking drinking or drugs Allergies: Coded Allergies: Penicillins (Verified Allergy, Unknown, 05/12/23) Home Meds Reported Medications Atorvastatin Calcium (ATORVASTATIN CALCIUM) 40 Mg Tab, 40 MG PO DAILY, TAB 12/01/23 Risperidone (Risperidone) 3 Mg Tab, 1 TAB PO BID 05/13/23 Metoprolol Succinate (Metoprolol Succinate Er) 50 Mg Tab, 1 TAB PO DAILY Take 1/2 tablet qam 05/13/23 Primidone (Primidone) 125 Mg Tab, 250 MG PO TID, TAB 05/13/23 Fluoxetine Hcl (Fluoxetine Hcl) 20 Mg Tab, 1 TAB PO DAILY, #90 TAB 3 Refills 05/13/23 Benztropine Mesylate (Benztropine Mesylate) 1 Mg Tab, 0.5 TAB PO BID, #60 TAB 0.5 mg tab 05/13/23 Clopidogrel Bisulfate (CLOPIDOGREL) 75 Mg Tab, 1 TAB PO DAILY, #90 TAB 1 Refill 05/13/23 Current Medications Current Medications Medications (Trade) Dose Ordered Sig/Los Route PRN Reason Start Time Stop Time Status Last Admin Metoprolol Succinate (Toprol Xl) 50 mg DAILY PO 03/12/24 10:00 03/12/24 09:55 Atorvastatin Calcium (Lipitor) 40 mg HS PO 03/11/24 22:00 Benztropine Mesylate (Cogentin Tablet) 0.5 mg BID PO 03/11/24 22:00 03/12/24 09:54 Fluoxetine HCl (PROzac CAPSULE) 20 mg DAILY PO 03/12/24 10:00 03/12/24 09:54 Primidone (Mysoline Tablet) 250 mg TID PO 03/11/24 22:00 03/12/24 05:30 Risperidone (RisperDAL TABLET) 3 mg BID PO 03/11/24 22:00 03/12/24 09:55 Nitroglycerin (Ntrostat Sublingual) 0.4 mg Q5MINP PRN SL FOR CHEST PAIN 03/11/24 15:30 Morphine Sulfate 2 mg Q30M PRN IV FOR CHEST PAIN 03/11/24 15:30 Acetaminophen/ Hydrocodone Bitart ([place] 5/325MG Tab) 1 tab Q4HPRN PRN PO MODERATE PAIN (4-6 PAIN SCALE) 03/11/24 15:30 Ondansetron HCl (Zofran) 4 mg Q4HPRN PRN IV NAUSEA / VOMITING 03/11/24 15:30 Morphine Sulfate 2 mg Q4HPRN PRN IV SEVERE PAIN (7-10 PAIN SCALE) 03/11/24 15:30 Review of Systems Patient denies fever chills or flu-like symptoms. No recent weight loss. Denies right hip pain. Has been recovering from a left hip procedure. No additional findings except as above. Vital Signs Vital Signs Date Time Temp Pulse Resp B/P (MAP) Pulse Ox O2 Delivery O2 Flow Rate FiO2 03/12/24 09:55 66 130/53 03/12/24 08:34 98.1 18 97 98.1 03/11/24 20:10 Room Air* 0 21 Physical Exam Well-developed well-nourished female in no acute distress Alert and oriented x4 She has a small wound of the right hip the mid point of the previous surgical scar with some purulent exudate. No distal edema Neurovascularly intact X-rays and CT scan of the right hip suggest lucencies around the acetabular implant with some migration. Heterotopic ossification. Sed rate and C-reactive protein are markedly elevated Labs/Diagnostic Data Labs Test 03/11/24 16:02 03/11/24 15:00 03/11/24 10:50 Range/Units Prothrombin Time 10.5 9.3-11.8 sec Prothrombin Time INR 0.99 0.9-1.15 Activated Partial Thromboplast Time 28.1 24.5-34.5 SEC Urine Color Colorless Yellow Urine Clarity Clear Clear Urine pH 5.5 5.0-9.0 Urine Specific [place] 1.008 1.001-1.035 Urine Protein Negative Negative Urine Ketones Negative Negative Urine Blood Negative Negative /uL Urine Nitrite Negative Negative Urine Bilirubin Negative Negative Urine Urobilinogen Normal Negative mg/dL Urine Leukocyte Esterase Negative Negative /uL Urine RBC <1 0 - 4 /hpf Urine WBC 1 0 - 5 /hpf Urine Squamous Epithelial Cells Few <5 /hpf Urine Bacteria None seen None Seen /hpf Urine Glucose Normal Normal mg/dL White Blood Count 3.0 L 4.4-10.8 10^3/uL Red Blood Count 3.09 L 4.0-5.20 10^6/uL Hemoglobin 9.9 L 12.2-16.2 g/dL Hematocrit 29.8 L 36.0-46.0 % Mean Corpuscular Volume 96.5 80.0-100.0 fL Mean Corpuscular Hemoglobin 32.0 28.0-32.0 pg Mean Corpuscular Hemoglobin Concent 33.2 32.0-36.0 g/dL Red Cell Distribution Width 14.7 H 11.8-14.3 % Platelet Count 234 140-450 10^3/uL Mean Platelet Volume 7.1 6.9-10.8 fL Neutrophils (%) (Auto) 76.1 37.0-80.0 % Lymphocytes (%) (Auto) 12.9 10.0-50.0 % Monocytes (%) (Auto) 7.4 0.0-12.0 % Eosinophils (%) (Auto) 2.9 0.0-7.0 % Basophils (%) (Auto) 0.7 0.0-2.0 % Neutrophils # (Auto) 2.2 1.6-8.6 10 ^3/uL Lymphocytes # (Auto) 0.4 0.4-5.4 10 ^3/uL Monocytes # (Auto) 0.2 0-1.3 10 ^3/uL Eosinophils # (Auto) 0.1 0-0.8 10 ^3/uL Basophils # (Auto) 0 0-0.2 10 ^3/uL Nucleated Red Blood Cells 0.0 % Erythrocyte Sedimentation Rate 105 H 0-20 mm/hr Sodium Level 134 L 136-145 mmol/L Potassium Level 3.9 3.5-5.1 mmol/L Chloride Level 101 98-107 mmol/L Carbon Dioxide Level 28 20-31 mmol/L Anion Gap 5 5-15 Blood Urea Nitrogen 11 9-23 mg/dL Creatinine 0.78 0.550-1.02 mg/dL Glomerular Filtration Rate Calc 86 >90 mL/min BUN/Creatinine Ratio 14.1 10.0-20.0 Serum Glucose 79 74-106 mg/dL Lactic Acid Level 0.9 0.4-2.0 mmol/L Calcium Level 9.5 8.7-10.4 mg/dL Magnesium Level 1.7 1.6-2.6 mg/dL Total Bilirubin < 0.2 L 0.2-1.0 mg/dL Aspartate Amino Transferase (AST) 11 L 13-40 U/L Alanine Aminotransferase (ALT) 10 7-40 U/L Alkaline Phosphatase 116 46-116 U/L C-Reactive Protein High Sensitivity 3.40 H <1.0 mg/dL Total Protein 7.3 5.7-8.2 g/dL Albumin 4.1 3.2-4.8 g/dL Microbiology Date/Time Source Procedure Growth Status 03/11/24 10:50 Blood Blood Culture - Preliminary NO GROWTH AFTER 24 HOURS OF INCUBATION. Resulted Assessment Probable deep infection right total hip arthroplasty Anemia chronic Morbid obesity Plan/Recommendation The plan is for explant with cement spacer application on Friday. Pending cardiac optimization and risk assessment. Echo is pending. Blood cultures are pending. PICC line consult has been placed. Infectious disease consult requested. Recent ultrasound reveals superficial abscess though no comment was made about right hip effusion. Awaiting deep aspiration to confirm diagnosis and for antibiotic planning. Patient is not to receive any preop antibiotics as this will compromise culture results. Plan discussed with: Patient, Spouse OBIE IBRAHIM MD Mar 12, 2024 12:06
[2024-03-12 13:41] LABS: INR 1.02 (0.9-1.15); Partial Thromboplastin Time 30.8 SEC (24.5-34.5); Prothrombin Time 10.8 sec (9.3-11.8)
--- NOTE | 2024-03-12 14:51 | DVHSR ---
APPROVED REPORT EXAM: Two-dimensional and M-mode echocardiogram with Doppler and color Doppler. Blood Pressure: 130/53 mmHg INDICATION Pre-Op Surgery/Intervention Valve Replacement: Bioprosthetic Type: Aortic RISK FACTORS Height: 62, Weight: 219 DIMENSIONS LVDd (3.8-5.7cm)LA (2D)4.9 (1.9-4.0cm)Aortic Root (2.0-3.7cm) EF (%) 60.0 (55-70%)Rt. Atrium4.1 (1.9-4.0cm)Asc. Aorta cm Mitral Valve MitralMitral Stenosis E wave1.05m/sMV Mean GR.mmHg A wave1.21m/sMV Peak GR.84mmHg E/A ratio0.92D MVAcm2 DECEL [id number] 1/2 [id number] IVRTmsDop MVA2.12cm2 Aortic Valve Aortic ValveAortic Stenosis V10.99m/Andrés Mean GR.9mmHg V22.21m/Andrés Peak GR.20mmHg LVOT Diameter2.1 (1.8-2.4cm)Doppler AVA1.55cm2 Pulmonic Valve V20.92m/s Tricuspid Valve TR Velocity2.41m/s [id number] Conclusion Technically difficult study. Difficult acoustic windows. Left atrial enlargement with mild concentric LVH. LV outflow tract enlargement. There is mild mitral annular calcification. There is mild aortic sclerosis without stenosis. Possib ly a TAVR valve. Left ventricular function is preserved at 60% with normal RV function. Moderate pulmonic insufficiency. Mild to moderate tricuspid regurgitation. No pericardial effusion masses or vegetations discernible.
--- NOTE | 2024-03-12 16:42 | DVHINCON2 ---
Date Seen: Mar 12, 2024 Referring Physician Hospitalist Reason for Consultation Cardiac clearance History of Present Illness 63-year-old lady with a previous history of hip surgery has an infection in her right hip. She is going for hip revision. She has had an inability to walk. She denies any chest pain shortness of breath congestive heart failure angina or CAD. Patient state that she sees Dr. Chi and recent evaluation with stress test and echo were normal Past Medical History Her past medical history is significant for a total hip replacement two years ago on the right and a left hip replacement three months ago. Hysterectomy. History of uterine cancer. History of hyperlipidemia hypertension sepsis and history of blood transfusion. Carpal tunnel surgery. Endometrial cancer and endometriosis.She feels dizzy and lightheaded at times. Past Surgical History As noted above she has had a history of hip surgeries and carpal tunnel. Hysterectomy. Family History: FH: breast cancer G8 MOTHER FH: stroke G8 FATHER, Allergies: Coded Allergies: Penicillins (Verified Allergy, Unknown, 05/12/23) Home Meds Reported Medications Atorvastatin Calcium (ATORVASTATIN CALCIUM) 40 Mg Tab, 40 MG PO DAILY, TAB 12/01/23 Risperidone (Risperidone) 3 Mg Tab, 1 TAB PO BID 05/13/23 Metoprolol Succinate (Metoprolol Succinate Er) 50 Mg Tab, 1 TAB PO DAILY Take 1/2 tablet qam 05/13/23 Primidone (Primidone) 125 Mg Tab, 250 MG PO TID, TAB 05/13/23 Fluoxetine Hcl (Fluoxetine Hcl) 20 Mg Tab, 1 TAB PO DAILY, #90 TAB 3 Refills 05/13/23 Benztropine Mesylate (Benztropine Mesylate) 1 Mg Tab, 0.5 TAB PO BID, #60 TAB 0.5 mg tab 05/13/23 Clopidogrel Bisulfate (CLOPIDOGREL) 75 Mg Tab, 1 TAB PO DAILY, #90 TAB 1 Refill 05/13/23 Current Medications Current Medications Medications (Trade) Dose Ordered Sig/Los Route PRN Reason Start Time Stop Time Status Last Admin Metoprolol Succinate (Toprol Xl) 50 mg DAILY PO 03/12/24 10:00 03/12/24 09:55 Atorvastatin Calcium (Lipitor) 40 mg HS PO 03/11/24 22:00 Benztropine Mesylate (Cogentin Tablet) 0.5 mg BID PO 03/11/24 22:00 03/12/24 09:54 Fluoxetine HCl (PROzac CAPSULE) 20 mg DAILY PO 03/12/24 10:00 03/12/24 09:54 Primidone (Mysoline Tablet) 250 mg TID PO 03/11/24 22:00 03/12/24 15:17 DC 03/12/24 14:17 Risperidone (RisperDAL TABLET) 3 mg BID PO 03/11/24 22:00 03/12/24 09:55 Primidone (Mysoline Tablet) 250 mg TIDWM PO 03/13/24 08:00 Review of Systems Review of systems from a constitutional standpoint negative for fevers chills or weight loss. Neurologically as noted above with a history of dizziness. Cardiac and respiratory negative. GI musculoskeletal as noted above. Endocrine hematologic oncologic and dermatologic negative with the exception of oozing of the right hip lesion. discharge and purulence noted. Vital Signs Vital Signs Date Time Temp Pulse Resp B/P (MAP) Pulse Ox O2 Delivery O2 Flow Rate FiO2 03/12/24 12:42 97.6 70 18 145/51 (82) 96 97.6 03/12/24 08:15 Room Air* 0 21 Physical Exam Alert and oriented no acute distress. Lying in bed. HEENT examination is otherwise unremarkable or well hydrated. Trachea central neck supple thyroid is nonpalpable there is no jugular distention no bruits. Lungs reveal good air entry no rales or rhonchi. Heart exam reveals a regular S1-S2 soft S4. Abdominal examination is unremarkable. Extremities reveal adequate perfusion without clubbing cyanosis no edema. Neurologically intact. Integumentary is otherwise within normal limits. Labs/Diagnostic Data Labs Test 03/12/24 13:09 03/11/24 15:00 03/11/24 10:50 Range/Units Prothrombin Time 10.8 9.3-11.8 sec Prothrombin Time INR 1.02 0.9-1.15 Activated Partial Thromboplast Time 30.8 24.5-34.5 SEC Urine Color Colorless Yellow Urine Clarity Clear Clear Urine pH 5.5 5.0-9.0 Urine Specific [place] 1.008 1.001-1.035 Urine Protein Negative Negative Urine Ketones Negative Negative Urine Blood Negative Negative /uL Urine Nitrite Negative Negative Urine Bilirubin Negative Negative Urine Urobilinogen Normal Negative mg/dL Urine Leukocyte Esterase Negative Negative /uL Urine RBC <1 0 - 4 /hpf Urine WBC 1 0 - 5 /hpf Urine Squamous Epithelial Cells Few <5 /hpf Urine Bacteria None seen None Seen /hpf Urine Glucose Normal Normal mg/dL White Blood Count 3.0 L 4.4-10.8 10^3/uL Red Blood Count 3.09 L 4.0-5.20 10^6/uL Hemoglobin 9.9 L 12.2-16.2 g/dL Hematocrit 29.8 L 36.0-46.0 % Mean Corpuscular Volume 96.5 80.0-100.0 fL Mean Corpuscular Hemoglobin 32.0 28.0-32.0 pg Mean Corpuscular Hemoglobin Concent 33.2 32.0-36.0 g/dL Red Cell Distribution Width 14.7 H 11.8-14.3 % Platelet Count 234 140-450 10^3/uL Mean Platelet Volume 7.1 6.9-10.8 fL Neutrophils (%) (Auto) 76.1 37.0-80.0 % Lymphocytes (%) (Auto) 12.9 10.0-50.0 % Monocytes (%) (Auto) 7.4 0.0-12.0 % Eosinophils (%) (Auto) 2.9 0.0-7.0 % Basophils (%) (Auto) 0.7 0.0-2.0 % Neutrophils # (Auto) 2.2 1.6-8.6 10 ^3/uL Lymphocytes # (Auto) 0.4 0.4-5.4 10 ^3/uL Monocytes # (Auto) 0.2 0-1.3 10 ^3/uL Eosinophils # (Auto) 0.1 0-0.8 10 ^3/uL Basophils # (Auto) 0 0-0.2 10 ^3/uL Nucleated Red Blood Cells 0.0 % Erythrocyte Sedimentation Rate 105 H 0-20 mm/hr Sodium Level 134 L 136-145 mmol/L Potassium Level 3.9 3.5-5.1 mmol/L Chloride Level 101 98-107 mmol/L Carbon Dioxide Level 28 20-31 mmol/L Anion Gap 5 5-15 Blood Urea Nitrogen 11 9-23 mg/dL Creatinine 0.78 0.550-1.02 mg/dL Glomerular Filtration Rate Calc 86 >90 mL/min BUN/Creatinine Ratio 14.1 10.0-20.0 Serum Glucose 79 74-106 mg/dL Lactic Acid Level 0.9 0.4-2.0 mmol/L Calcium Level 9.5 8.7-10.4 mg/dL Magnesium Level 1.7 1.6-2.6 mg/dL Total Bilirubin < 0.2 L 0.2-1.0 mg/dL Aspartate Amino Transferase (AST) 11 L 13-40 U/L Alanine Aminotransferase (ALT) 10 7-40 U/L Alkaline Phosphatase 116 46-116 U/L C-Reactive Protein High Sensitivity 3.40 H <1.0 mg/dL Total Protein 7.3 5.7-8.2 g/dL Albumin 4.1 3.2-4.8 g/dL Microbiology Date/Time Source Procedure Growth Status 03/11/24 10:50 Blood Blood Culture - Preliminary NO GROWTH AFTER 24 HOURS OF INCUBATION. Resulted Assessment History of right hip replacement with right hip joint effusion extending into the subcutaneous tissue with loosening of the femoral and acetabular components. Infection possible osteomyelitis.Hypertension. Increased BMI. Plan/Recommendation From a cardiac standpoint given no history of coronary artery disease congestive heart failure angina or CHF and recent evaluation by cardiology suggest patient is stable and should be able to undergo orthopedic procedures without issues or complications. She appears to be a [id number] risk. Recommendations proceed with orthopedic surgery and revision of right hip is planned. Plan discussed with: Patient Date of Service: Mar 12, 2024 Billing Provider: MODESTO HULL Sr., MD Cardiology Common Codes: [id number] INP/OBS CARE (High) MODESTO HULL Sr., MD Mar 12, 2024 16:42
--- NOTE | 2024-03-12 21:20 | DVHINCON2 ---
Date of service: Mar 12, 2024 Family History: FH: breast cancer G8 MOTHER FH: stroke G8 FATHER, Allergies: Coded Allergies: Penicillins (Verified Allergy, Unknown, 05/12/23) Home Meds Reported Medications Atorvastatin Calcium (ATORVASTATIN CALCIUM) 40 Mg Tab, 40 MG PO DAILY, TAB 12/01/23 Risperidone (Risperidone) 3 Mg Tab, 1 TAB PO BID 05/13/23 Metoprolol Succinate (Metoprolol Succinate Er) 50 Mg Tab, 1 TAB PO DAILY Take 1/2 tablet qam 05/13/23 Primidone (Primidone) 125 Mg Tab, 250 MG PO TID, TAB 05/13/23 Fluoxetine Hcl (Fluoxetine Hcl) 20 Mg Tab, 1 TAB PO DAILY, #90 TAB 3 Refills 05/13/23 Benztropine Mesylate (Benztropine Mesylate) 1 Mg Tab, 0.5 TAB PO BID, #60 TAB 0.5 mg tab 05/13/23 Clopidogrel Bisulfate (CLOPIDOGREL) 75 Mg Tab, 1 TAB PO DAILY, #90 TAB 1 Refill 05/13/23 Current Medications Current Medications Medications (Trade) Dose Ordered Sig/Los Route PRN Reason Start Time Stop Time Status Last Admin Metoprolol Succinate (Toprol Xl) 50 mg DAILY PO 03/12/24 10:00 03/12/24 09:55 Atorvastatin Calcium (Lipitor) 40 mg HS PO 03/11/24 22:00 Benztropine Mesylate (Cogentin Tablet) 0.5 mg BID PO 03/11/24 22:00 03/12/24 09:54 Fluoxetine HCl (PROzac CAPSULE) 20 mg DAILY PO 03/12/24 10:00 03/12/24 09:54 Primidone (Mysoline Tablet) 250 mg TID PO 03/11/24 22:00 03/12/24 15:17 DC 03/12/24 14:17 Risperidone (RisperDAL TABLET) 3 mg BID PO 03/11/24 22:00 03/12/24 09:55 Primidone (Mysoline Tablet) 250 mg TIDWM PO 03/13/24 08:00 Vital Signs Vital Signs Date Time Temp Pulse Resp B/P (MAP) Pulse Ox O2 Delivery O2 Flow Rate FiO2 03/12/24 20:00 Room Air* 0 21 03/12/24 17:00 98.3 69 18 100/55 (70) 95 98.3 Labs/Diagnostic Data Labs Test 03/12/24 13:09 03/11/24 15:00 03/11/24 10:50 Range/Units Prothrombin Time 10.8 9.3-11.8 sec Prothrombin Time INR 1.02 0.9-1.15 Activated Partial Thromboplast Time 30.8 24.5-34.5 SEC Urine Color Colorless Yellow Urine Clarity Clear Clear Urine pH 5.5 5.0-9.0 Urine Specific [place] 1.008 1.001-1.035 Urine Protein Negative Negative Urine Ketones Negative Negative Urine Blood Negative Negative /uL Urine Nitrite Negative Negative Urine Bilirubin Negative Negative Urine Urobilinogen Normal Negative mg/dL Urine Leukocyte Esterase Negative Negative /uL Urine RBC <1 0 - 4 /hpf Urine WBC 1 0 - 5 /hpf Urine Squamous Epithelial Cells Few <5 /hpf Urine Bacteria None seen None Seen /hpf Urine Glucose Normal Normal mg/dL White Blood Count 3.0 L 4.4-10.8 10^3/uL Red Blood Count 3.09 L 4.0-5.20 10^6/uL Hemoglobin 9.9 L 12.2-16.2 g/dL Hematocrit 29.8 L 36.0-46.0 % Mean Corpuscular Volume 96.5 80.0-100.0 fL Mean Corpuscular Hemoglobin 32.0 28.0-32.0 pg Mean Corpuscular Hemoglobin Concent 33.2 32.0-36.0 g/dL Red Cell Distribution Width 14.7 H 11.8-14.3 % Platelet Count 234 140-450 10^3/uL Mean Platelet Volume 7.1 6.9-10.8 fL Neutrophils (%) (Auto) 76.1 37.0-80.0 % Lymphocytes (%) (Auto) 12.9 10.0-50.0 % Monocytes (%) (Auto) 7.4 0.0-12.0 % Eosinophils (%) (Auto) 2.9 0.0-7.0 % Basophils (%) (Auto) 0.7 0.0-2.0 % Neutrophils # (Auto) 2.2 1.6-8.6 10 ^3/uL Lymphocytes # (Auto) 0.4 0.4-5.4 10 ^3/uL Monocytes # (Auto) 0.2 0-1.3 10 ^3/uL Eosinophils # (Auto) 0.1 0-0.8 10 ^3/uL Basophils # (Auto) 0 0-0.2 10 ^3/uL Nucleated Red Blood Cells 0.0 % Erythrocyte Sedimentation Rate 105 H 0-20 mm/hr Sodium Level 134 L 136-145 mmol/L Potassium Level 3.9 3.5-5.1 mmol/L Chloride Level 101 98-107 mmol/L Carbon Dioxide Level 28 20-31 mmol/L Anion Gap 5 5-15 Blood Urea Nitrogen 11 9-23 mg/dL Creatinine 0.78 0.550-1.02 mg/dL Glomerular Filtration Rate Calc 86 >90 mL/min BUN/Creatinine Ratio 14.1 10.0-20.0 Serum Glucose 79 74-106 mg/dL Lactic Acid Level 0.9 0.4-2.0 mmol/L Calcium Level 9.5 8.7-10.4 mg/dL Magnesium Level 1.7 1.6-2.6 mg/dL Total Bilirubin < 0.2 L 0.2-1.0 mg/dL Aspartate Amino Transferase (AST) 11 L 13-40 U/L Alanine Aminotransferase (ALT) 10 7-40 U/L Alkaline Phosphatase 116 46-116 U/L C-Reactive Protein High Sensitivity 3.40 H <1.0 mg/dL Total Protein 7.3 5.7-8.2 g/dL Albumin 4.1 3.2-4.8 g/dL Microbiology Date/Time Source Procedure Growth Status 03/11/24 10:50 Blood Blood Culture - Preliminary NO GROWTH AFTER 24 HOURS OF INCUBATION. Resulted Problems(with codes): (1) Endometrial cancer (2) Pancytopenia (3) Severe anemia (4) Infection of right prosthetic hip joint Plan/Recommendation ASSESSMENT AND PLAN: ID Problem List: - Right hip prosthetic joint infection - Bilateral total hip replacements - Hypertension - Hyperlipidemia - Seizure disorder - Valvular heart replacement - Morbid obesity - History of lung carcinoma Assessment This is a 63 y.o. female with a past medical history of hypertension, hyperlipidemia, bilateral total hip replacements (right hip in 2021, left hip in November 2023), valvular heart replacement, seizure disorder, morbid obesity, and history of lung carcinoma, who presents with swelling over the right hip. She has been experiencing drainage and fluctuance around the right hip surgical site. Imaging studies (X-ray and CT) suggest implant loosening consistent with chronic deep infection. CT hip shows prosthetic right hip replacement with right hip joint effusion extending to the subcutaneous tissue and loosening of the femoral and acetabular components, suspicious for underlying infection and fracture through the posterior medial proximal femur. Ultrasound reveals a 5.7 x 4.2 x 4.4 cm complex fluid collection along the right lateral hip consistent with an abscess. Laboratory studies notable for ESR 105, CRP 3.4, WBC 3.4, hemoglobin 8.6, platelets 133. Plan: - Recommend superficial wound culture. - in the setting of prosthetic heart valve, recommend start vancomycin and ceftriaxone empirically - recommend TTE to rule any valvular endocarditis developed during this chronic infection. - during explant of prosthetic, Collect cultures both from the abscess seen on ultrasound as well as swabbing various infected appearing components of the periprosthetic site and prosthetic itself. Isolation Precautions: standard Assessment and plan was discussed with the patient as written above Plan is subject to change pending incorporation of new incoming information/diagnostics. Updates may be added as addendum at the bottom (OR TOP) of this note Thank you for interesting consult. ID will continue to follow. Please contact Infectious Disease for any questions or concerns. Radha Canales M.D. [facility] Ph: ? History: The patient's chart and medications were reviewed in detail and the patient was seen and examined. History obtained from: patient The patient is a 63 y.o. female with a past medical history of hypertension, hyperlipidemia, seizure disorder, valvular heart replacement, morbid obesity, history of lung carcinoma, and bilateral total hip replacements (right hip in 2021, left hip in November 2023), who presents with swelling over the right hip. She had a right total hip arthroplasty in 2021. She has been experiencing drainage and fluctuance around the right hip. Imaging (X-ray and CT) suggested implant loosening consistent with chronic deep infection. She is planned for explant of the prosthetic and cement spacer placement. She underwent a left total hip arthroplasty in November 2023. In November, she was admitted for a hematoma with hemoglobin of 6.6. Since then, the hematoma has improved, and her left hip is feeling well. Review of Systems: A complete 10 system review of systems was completed and negative except as noted in the HPI or here. ROS: - CONSTITUTIONAL: Denies weight loss, fever, and chills. - HEENT: Denies changes in vision and hearing. - RESPIRATORY: Denies shortness of breath and cough. - CV: Denies palpitations and chest pain. - GI: Denies abdominal pain, nausea, vomiting, and diarrhea. - : Denies dysuria and urinary frequency. - MSK: Reports swelling and pain over right hip. - SKIN: Reports drainage over right hip surgical site. - NEUROLOGICAL: Denies headache and syncope. - PSYCHIATRIC: Denies recent changes in mood. Denies anxiety and depression. Past Medical History: Diagnosis Date Hypertension Hyperlipidemia Seizure disorder Valvular heart replacement Morbid obesity History of lung carcinoma Bilateral total hip replacements (right hip in 2021, left hip in November 2023) Past Surgical History: History reviewed. Significant surgical history includes: Right total hip arthroplasty (2021) Left total hip arthroplasty (November 2023) Valvular heart replacement Hysterectomy Carpal tunnel release surgery Home Medications: Prior to Admission medications Medication Sig Clopidogrel (Plavix) tablet, take as directed. Fluoxetine capsule, take as directed. Benztropine tablet, take as directed. Primidone tablet, take as directed. Risperidone tablet, take as directed. Metoprolol tablet, take as directed. Atorvastatin tablet, take as directed. Allergies: Allergies Penicillin (unknown reaction) Family History: Family History Problem Relation Breast cancer Mother Stroke Father Social History: Social History Tobacco Use Smoking status: Never smoked Substance Use Alcohol use: Denies alcohol use Illicit drug use: Denies illicit drug use Occupational History Not on file Other Topics Concern No IV drug use Social Determinants of Health Financial Resource Strain: Not on file Food Insecurity: Not on file Transportation Needs: Not on file Physical Activity: Not on file Stress: Not on file Social Connections: Not on file Intimate Partner Violence: Not on file Objective: Vital Signs on Arrival: Temp: 98.1 F BP: 131/53 mmHg Pulse: 66 bpm Resp: 18 breaths/min SpO2: 97% on room air Most Recent Vital Signs: Temp: 98.1 F BP: 131/53 mmHg Pulse: 66 bpm Resp: 18 breaths/min SpO2: 97% on room air Admission Weight: Not provided Physical Exam: General: NAD Neck: Supple. No masses. HEENT: PERRL. Normal lids and conjunctiva. Moist mucous membranes. Oropharynx without lesions, exudates or excessive erythema. Normal appearance of the external aspects of the nose and ears. Heart: Regular rhythm, normal rate. No murmur. No lower extremity edema. Lungs: Normal respiratory effort. Clear to auscultation bilaterally. No wheezes. No crackles. Abdomen: Soft. Non-tender. Non-distended. No masses or abdominal hernia. Msk: Swelling and fluctuance over right hip with purulent exudate at scar site. Left hip surgical site clean, dry, and intact. Normal strength and tone in all 4 limbs. Skin: Warm and dry. Purulent exudate and fluctuance over right hip surgical site. Neuro: Alert. No facial droop or slurred speech. Extra-ocular movements intact. Sensation intact to soft touch in all 4 limbs. Psych: Appropriate mood. Full affect. Oriented to person, place, time, and situation. Lines: Active Lines None documented Diagnostic Studies: Available diagnostic studies were reviewed personally. Significant relevant results and findings are outlined below or addressed in the Assessment and Plan above. Laboratory Results: - WBC: 3.4 x10/?L - Hemoglobin: 8.6 g/dL - Platelets: 133 x10/?L - ESR: 105 mm/hr - CRP: 3.4 mg/dL - Sodium: 138 mEq/L - BUN: 6 mg/dL - Creatinine: 0.56 mg/dL Pertinent Imaging: CT Hip - Impression IMPRESSION: - Prosthetic right hip replacement with right hip joint effusion extending to the subcutaneous tissue and loosening of the femoral and acetabular components, suspicious for underlying infection. - Fracture through the posterior medial proximal femur. Ultrasound Right Hip - Impression IMPRESSION: - Along the right lateral hip, there is a 5.7 x 4.2 x 4.4 cm complex fluid collection consistent with an abscess. X-ray KUB - Impression IMPRESSION: - No evidence of acute fracture or dislocation. Plan discussed with: Patient RADHA CANALES MD Mar 12, 2024 21:19
[2024-03-12] MEDS: PRIMIDONE 50 MG TAB PO ONE (22:00)
[2024-03-13] VITALS (7 sets, daily range): BP systolic 114–142; BP diastolic 47–66; PULSE 63–93; RESP 14–21; TEMP 97.2–98.8; O2SAT 92–98
[2024-03-13] MEDS ORDERED: VANCOMYCIN 1GM/250ML KIT 250 ML IV SCH (03:00)
[2024-03-13] MEDS: PRIMIDONE 50 MG TAB PO SCH (09:12)
[2024-03-13] MEDS: THROAT LOZENGES(CEPASTAT) MT PRN (11:45)
[2024-03-13] MEDS ORDERED: VANCOMYCIN PER PHARMACY 0 MG IV SCH (16:00)
--- NOTE | 2024-03-13 18:30 | DVHPN2 ---
Subjective Events noted. Patient has a right hip complex fluid collection. Patient does have known history of transaortic valve replacement, Infectious Disease has started the patient on IV antibiotics. Reviewed: Care Plan Changes from previous H/P or p: No Changes Eyes: No Pain, No Vision change, No Conjunctivae inflammation, No Eyelid inflammation, No Other, No Redness ENT: No Ear pain, No Ear discharge, No Nose pain, No Nose discharge, No Nose congestion, No Mouth pain, No Mouth swelling, No Throat pain, No Throat swelling, No Other Cardiovascular: No Chest Pain, No Palpitations, No Orthopnea, No Paroxysmal Noc. Dyspnea, No Edema, No Lt Headedness, No Other Respiratory: No Cough, No Dry, No Shortness of breath, No SOB with excertion, No Wheezing, No Hemoptysis, No Pleuritic Pain, No Sputum, No Other Gastrointestinal: No Nausea, No Vomiting, No Abdominal Pain, No Diarrhea, No Constipation, No Melena, No Hematochezia, No Other Genitourinary: No Dysuria, No Frequency, No Incontinence, No Hematuria, No Retention, No Other Musculoskeletal: other (Swelling to hip with oozing), leg pain Skin: No Rash, No Lesions, No Jaundice, No Bruising, No Other Objective Vitals Vital Signs Date Time Temp Pulse Resp B/P (MAP) Pulse Ox O2 Delivery O2 Flow Rate FiO2 03/13/24 17:00 98.2 68 16 142/66 (91) 92 98.2 03/12/24 20:00 Room Air* 0 21 Intake/Output Intake and Output 03/13/24 07:00 Intake Total 1000 ml Balance 1000 ml Intake Oral 1000 ml # Voids 11 # Bowel Movements 3 Exam HEENT pupils are reactive Neck is supple CV is S1-S2 regular rate and rhythm Respiratory are clear GI positive bowel sound Extremity no edema [employer] no motor deficit. Medications Current Medications Medications Dose Ordered Sig/Los Route Start Time Stop Time Status Last Admin Dose Admin Metoprolol Succinate 50 mg DAILY PO 03/12/24 10:00 03/13/24 09:12 50 MG Atorvastatin Calcium 40 mg HS PO 03/11/24 22:00 03/12/24 21:58 40 MG Benztropine Mesylate 0.5 mg BID PO 03/11/24 22:00 03/13/24 09:12 0.5 MG Fluoxetine HCl 20 mg DAILY PO 03/12/24 10:00 03/13/24 09:11 20 MG Risperidone 3 mg BID PO 03/11/24 22:00 03/13/24 09:13 3 MG Nitroglycerin 0.4 mg Q5MINP PRN SL 03/11/24 15:30 Morphine Sulfate 2 mg Q30M PRN IV 03/11/24 15:30 Acetaminophen/ Hydrocodone Bitart 1 tab Q4HPRN PRN PO 03/11/24 15:30 Ondansetron HCl 4 mg Q4HPRN PRN IV 03/11/24 15:30 Morphine Sulfate 2 mg Q4HPRN PRN IV 03/11/24 15:30 Primidone 250 mg TIDWM PO 03/13/24 08:00 03/13/24 14:48 250 MG Throat Lozenges 1 milagros Q2HP PRN MT 03/13/24 11:30 03/13/24 14:49 1 MILAGROS Vancomycin HCl 0 ml @ 0 mls/hr UD IV 03/13/24 16:00 Ceftriaxone Sodium/Dextrose 50 ml @ 50 mls/hr DAILY IV 03/14/24 10:00 Vancomycin HCl 250 ml @ 250 mls/hr Q8H IV 03/13/24 16:00 Laboratory Results Laboratory Tests 03/11/24 10:50 Urinalysis Test 03/11/24 15:00 Urine Color Colorless (Yellow) Urine Clarity Clear (Clear) Urine pH 5.5 (5.0-9.0) Urine Specific [place] 1.008 (1.001-1.035) Urine Protein Negative (Negative) Urine Ketones Negative (Negative) Urine Blood Negative /uL (Negative) Urine Nitrite Negative (Negative) Urine Bilirubin Negative (Negative) Urine Urobilinogen Normal mg/dL (Negative) Urine Leukocyte Esterase Negative /uL (Negative) Urine RBC <1 /hpf (0 - 4) Urine WBC 1 /hpf (0 - 5) Urine Squamous Epithelial Cells Few /hpf (<5) Urine Bacteria None seen /hpf (None Seen) Urine Glucose Normal mg/dL (Normal) Microbiology Microbiology Date/Time Source Procedure Growth Status 03/11/24 10:50 Blood Blood Culture - Preliminary NO GROWTH AFTER 48 HOURS OF INCUBATION. Resulted Assessment/Plan Assessment/Plan 63-year-old female with a known history of hypertension, dyslipidemia, status post TAVR, bilateral hip replacement who initially presented to the hospital with a right hip draining wound found to have 1. Right hip wound rule out underlying abscess 2. Right hip complex fluid collection rule out abscess 3. Status post TAVR 4. Hypertension 5. Dyslipidemia -IV antibiotics, orthopedic surgery intervention, follow up Infectious Disease recommendations. Plan discussed with: Patient My Orders Orders - SUAD RUVALCABA MD Procedure Category Date Status Time Throat Lozenges PHA 03/13/24 In Process (Cepastat Lozenges) 11:30 Rapid Influenza A&B LAB 03/13/24 Logged 15:56 Covid19 Antigen [facility] LAB 03/13/24 Logged Date of Service: Mar 13, 2024 Billing Provider: SUAD RUVALCABA MD Common Visit Codes: NOT BILLABLE SUAD RUVALCABA MD Mar 13, 2024 18:30
[2024-03-13] MEDS: VANCOMYCIN 1GM/250ML KIT 250 ML IV SCH (19:00)
--- NOTE | 2024-03-13 23:28 | DVHPN2 ---
Consult Progress Note Date Seen: Mar 13, 2024 Subjective Patient reports: Other (tolerating antibiotics , no chest pain and is obese . has bloody drainage coming from middle of incision on her right hip but no signs of active sepsis at this time ) Objective vital signs Vital Sign Date Time Temp Pulse Resp B/P (MAP) Pulse Ox O2 Delivery O2 Flow Rate FiO2 03/13/24 17:00 98.2 68 16 142/66 (91) 92 98.2 03/13/24 08:15 Room Air* 0 21 Total Intake and Output 03/12/24 03/12/24 03/13/24 15:00 23:00 07:00 Intake Total 600 ml 400 ml Balance 600 ml 400 ml medications Current Medications Medications Dose Ordered Sig/Los Route Start Time Stop Time Status Last Admin Dose Admin Metoprolol Succinate 50 mg DAILY PO 03/12/24 10:00 03/13/24 09:12 50 MG Atorvastatin Calcium 40 mg HS PO 03/11/24 22:00 03/13/24 22:47 40 MG Benztropine Mesylate 0.5 mg BID PO 03/11/24 22:00 03/13/24 22:48 0.5 MG Fluoxetine HCl 20 mg DAILY PO 03/12/24 10:00 03/13/24 09:11 20 MG Risperidone 3 mg BID PO 03/11/24 22:00 03/13/24 22:48 3 MG Nitroglycerin 0.4 mg Q5MINP PRN SL 03/11/24 15:30 Morphine Sulfate 2 mg Q30M PRN IV 03/11/24 15:30 Acetaminophen/ Hydrocodone Bitart 1 tab Q4HPRN PRN PO 03/11/24 15:30 Ondansetron HCl 4 mg Q4HPRN PRN IV 03/11/24 15:30 Morphine Sulfate 2 mg Q4HPRN PRN IV 03/11/24 15:30 Primidone 250 mg TIDWM PO 03/13/24 08:00 03/13/24 19:01 250 MG Throat Lozenges 1 milagros Q2HP PRN MT 03/13/24 11:30 03/13/24 22:58 1 MILAGROS Vancomycin HCl 0 ml @ 0 mls/hr UD IV 03/13/24 16:00 Ceftriaxone Sodium/Dextrose 50 ml @ 50 mls/hr DAILY IV 03/14/24 10:00 Vancomycin HCl 250 ml @ 250 mls/hr Q8H IV 03/13/24 16:00 03/13/24 19:00 250 MLS/HR laboratory and microbiology Laboratory Tests 03/11/24 10:50 Test 03/11/24 10:50 Range/Units Serum Glucose 79 74-106 mg/dL Problem List/Assessment/Plan Problems(with codes): (1) Pancytopenia (2) Infection of right prosthetic hip joint (3) Endometrial cancer (4) Severe anemia (5) Status post chemotherapy Problem List/Assessment/Plan ASSESSMENT AND PLAN: ID Problem List: - Right hip prosthetic joint infection - Bilateral total hip replacements - Hypertension - Hyperlipidemia - Seizure disorder - Valvular heart replacement - Morbid obesity - History of lung carcinoma Assessment This is a 63 y.o. female with a past medical history of hypertension, hyperlipidemia, bilateral total hip replacements (right hip in 2021, left hip in November 2023), valvular heart replacement, seizure disorder, morbid obesity, and history of lung carcinoma, who presents with swelling over the right hip. She has been experiencing drainage and fluctuance around the right hip surgical site. Imaging studies (X-ray and CT) suggest implant loosening consistent with chronic deep infection. CT hip shows prosthetic right hip replacement with right hip joint effusion extending to the subcutaneous tissue and loosening of the femoral and acetabular components, suspicious for underlying infection and fracture through the posterior medial proximal femur. Ultrasound reveals a 5.7 x 4.2 x 4.4 cm complex fluid collection along the right lateral hip consistent with an abscess. Laboratory studies notable for ESR 105, CRP 3.4, WBC 3.4, hemoglobin 8.6, platelets 133. TTE- Technically difficult study. Difficult acoustic windows. Left atrial enlargement with mild concentric LVH. LV outflow tract enlargement. There is mild mitral annular calcification. There is mild aortic sclerosis without stenosis. Possibly a TAVR valve. Left ventricular function is preserved at 60% with normal RV function. Moderate pulmonic insufficiency. Mild to moderate tricuspid regurgitation. No pericardial effusion masses or vegetations discernible. Plan: - Recommend superficial wound culture. - in the setting of prosthetic heart valve, recommend start vancomycin and ceftriaxone empirically - recommend TTE to rule any valvular endocarditis developed during this chronic infection. - during explant of prosthetic, Collect cultures both from the abscess seen on ultrasound as well as swabbing various infected appearing components of the periprosthetic site and prosthetic itself. Plan discussed with: RADHA Tam MD Mar 13, 2024 23:28
[2024-03-14] VITALS (8 sets, daily range): BP systolic 104–147; BP diastolic 35–60; PULSE 61–82; RESP 16–18; TEMP 97.4–98.6; O2SAT 92–100
[2024-03-14] LABS: Rapid Influenza A Negative (Negative); Rapid Influenza B Negative (Negative)
[2024-03-14 00:01] LABS: COVID19 ANTIGEN SOFIA FIA NEGATIVE (NEGATIVE)
[2024-03-14] MEDS: VANCOMYCIN 1GM/250ML KIT 250 ML IV SCH (02:55)
[2024-03-14 07:30] LABS: Basophils # (auto) 0 10 ^3/uL (0-0.2)
[2024-03-14 08:03] LABS: Basophils % (auto) 0.5 % (0.0-2.0); Eosinophils # (auto) 0.1 10 ^3/uL (0-0.8); Eosinophils % (auto) 3.1 % (0.0-7.0); Hematocrit 32.5 % (36.0-46.0); Hemoglobin 10.4 g/dL (12.2-16.2); Lymphocytes # (auto) 0.3 10 ^3/uL (0.4-5.4); Lymphocytes % (auto) 12.1 % (10.0-50.0); Mean Corpuscular Hemoglobin 32.8 pg (28.0-32.0); Mean Corpuscular Hgb Conc. 31.9 g/dL (32.0-36.0); Mean Corpuscular Volume 102.8 fL (80.0-100.0); Monocytes # (auto) 0.2 10 ^3/uL (0-1.3); Monocytes % (auto) 10.6 % (0.0-12.0); Neutrophils # (auto) 1.7 10 ^3/uL (1.6-8.6); Neutrophils % (auto) 73.7 % (37.0-80.0); Platelet Count (auto) 199 10^3/uL (140-450); Red Blood Cells 3.16 10^6/uL (4.0-5.20); Red Cell Distribution Width 15.4 % (11.8-14.3); White Blood Cell 2.3 10^3/uL (4.4-10.8)
[2024-03-14] MEDS: cefTRIAXone 2GM/50ML D5W 50 ML IV SCH (10:05)
[2024-03-14] MEDS: LIDOCAINE 1% (LOCAL ANESTH.) PF 5ml SDV ID ONE (12:22)
[2024-03-14] MEDS: VANCOMYCIN 1.5GM/300ML 300 ML IV SCH (15:42)
--- NOTE | 2024-03-14 15:43 | DVHPN2 ---
Subjective Overnight Events noted. Patient has a right hip complex fluid collection. Patient does have known history of transaortic valve replacement, Infectious Disease has started the patient on IV antibiotics. Reviewed: Care Plan Changes from previous H/P or p: No Changes Eyes: No Pain, No Vision change, No Conjunctivae inflammation, No Eyelid inflammation, No Other, No Redness ENT: No Ear pain, No Ear discharge, No Nose pain, No Nose discharge, No Nose congestion, No Mouth pain, No Mouth swelling, No Throat pain, No Throat swelling, No Other Cardiovascular: No Chest Pain, No Palpitations, No Orthopnea, No Paroxysmal Noc. Dyspnea, No Edema, No Lt Headedness, No Other Respiratory: No Cough, No Dry, No Shortness of breath, No SOB with excertion, No Wheezing, No Hemoptysis, No Pleuritic Pain, No Sputum, No Other Gastrointestinal: No Nausea, No Vomiting, No Abdominal Pain, No Diarrhea, No Constipation, No Melena, No Hematochezia, No Other Genitourinary: No Dysuria, No Frequency, No Incontinence, No Hematuria, No Retention, No Other Musculoskeletal: other (Swelling to hip with oozing), leg pain Skin: No Rash, No Lesions, No Jaundice, No Bruising, No Other Objective Vitals Vital Signs Date Time Temp Pulse Resp B/P (MAP) Pulse Ox O2 Delivery O2 Flow Rate FiO2 03/14/24 12:40 98.1 61 16 147/57 (87) 97 98.1 03/14/24 08:05 Room Air* 0 21 Intake/Output Intake and Output 03/14/24 07:00 Intake Total 1900 ml Balance 1900 ml Intake Oral 1400 ml IV Total 500 ml # Voids 9 # Bowel Movements 2 Exam HEENT pupils are reactive Neck is supple CV is S1-S2 regular rate and rhythm Respiratory are clear GI positive bowel sound 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 Medications Current Medications Medications Dose Ordered Sig/Los Route Start Time Stop Time Status Last Admin Dose Admin Metoprolol Succinate 50 mg DAILY PO 03/12/24 10:00 03/14/24 10:04 50 MG Atorvastatin Calcium 40 mg HS PO 03/11/24 22:00 03/13/24 22:47 40 MG Benztropine Mesylate 0.5 mg BID PO 03/11/24 22:00 03/14/24 10:04 0.5 MG Fluoxetine HCl 20 mg DAILY PO 03/12/24 10:00 03/14/24 10:04 20 MG Risperidone 3 mg BID PO 03/11/24 22:00 03/14/24 10:05 3 MG Nitroglycerin 0.4 mg Q5MINP PRN SL 03/11/24 15:30 Morphine Sulfate 2 mg Q30M PRN IV 03/11/24 15:30 Acetaminophen/ Hydrocodone Bitart 1 tab Q4HPRN PRN PO 03/11/24 15:30 Ondansetron HCl 4 mg Q4HPRN PRN IV 03/11/24 15:30 Morphine Sulfate 2 mg Q4HPRN PRN IV 03/11/24 15:30 Primidone 250 mg TIDWM PO 03/13/24 08:00 03/14/24 13:18 250 MG Throat Lozenges 1 milagros Q2HP PRN MT 03/13/24 11:30 03/14/24 08:41 1 MILAGROS Vancomycin HCl 0 ml @ 0 mls/hr UD IV 03/13/24 16:00 Ceftriaxone Sodium/Dextrose 50 ml @ 50 mls/hr DAILY IV 03/14/24 10:00 03/14/24 10:05 50 MLS/HR Sodium Chloride 10 ml QSHIFT@,22 IV 03/14/24 22:00 Vancomycin HCl 300 ml @ 200 mls/hr Q12H IV 03/14/24 15:00 Laboratory Results Laboratory Tests 03/11/24 10:50 03/14/24 06:45 03/14/24 12:30 Urinalysis Test 03/11/24 15:00 Urine Color Colorless (Yellow) Urine Clarity Clear (Clear) Urine pH 5.5 (5.0-9.0) Urine Specific [place] 1.008 (1.001-1.035) Urine Protein Negative (Negative) Urine Ketones Negative (Negative) Urine Blood Negative /uL (Negative) Urine Nitrite Negative (Negative) Urine Bilirubin Negative (Negative) Urine Urobilinogen Normal mg/dL (Negative) Urine Leukocyte Esterase Negative /uL (Negative) Urine RBC <1 /hpf (0 - 4) Urine WBC 1 /hpf (0 - 5) Urine Squamous Epithelial Cells Few /hpf (<5) Urine Bacteria None seen /hpf (None Seen) Urine Glucose Normal mg/dL (Normal) Microbiology Microbiology Date/Time Source Procedure Growth Status 03/11/24 10:50 Blood Blood Culture - Preliminary NO GROWTH AFTER 72 HOURS OF INCUBATION. Resulted Assessment/Plan Assessment/Plan 63-year-old female with a known history of hypertension, dyslipidemia, status post TAVR, bilateral hip replacement who initially presented to the hospital with a right hip draining wound found to have 1. Right hip wound rule out underlying abscess 2. Right hip complex fluid collection rule out abscess 3. Status post TAVR 4. Hypertension 5. Dyslipidemia -IV antibiotics, orthopedic surgery intervention, follow up Infectious Disease recommendations. Plan discussed with: Patient My Orders Orders - SUAD RUVALCABA MD Procedure Category Date Status Time Change Dressing Prn [facility] 03/14/24 In Process 12:14 Sodium Chloride Lock PHA 03/14/24 In Process (Saline Lock Ns) 22:00 Do Not Use Picc For [facility] 03/14/24 In Process Blood Cult 12:14 May Draw Blood From [facility] 03/14/24 In Process Picc 12:14 Ok To Use Picc [facility] 03/14/24 In Process 12:14 Change Picc Dressing [facility] 03/14/24 In Process Q7 Days 12:14 [facility] US 03/14/24 Logged Access 12:14 Date of Service: Mar 14, 2024 Billing Provider: SUAD RUVALCABA MD Common Visit Codes: NOT BILLABLE SUAD RUVALCABA MD Mar 14, 2024 15:43
--- NOTE | 2024-03-14 20:59 | DVHINCON2 ---
Family History: FH: breast cancer G8 MOTHER FH: stroke G8 FATHER, Allergies: Coded Allergies: Penicillins (Verified Allergy, Unknown, 05/12/23) Home Meds Reported Medications Atorvastatin Calcium (ATORVASTATIN CALCIUM) 40 Mg Tab, 40 MG PO DAILY, TAB 12/01/23 Risperidone (Risperidone) 3 Mg Tab, 1 TAB PO BID 05/13/23 Metoprolol Succinate (Metoprolol Succinate Er) 50 Mg Tab, 1 TAB PO DAILY Take 1/2 tablet qam 05/13/23 Primidone (Primidone) 125 Mg Tab, 250 MG PO TID, TAB 05/13/23 Fluoxetine Hcl (Fluoxetine Hcl) 20 Mg Tab, 1 TAB PO DAILY, #90 TAB 3 Refills 05/13/23 Benztropine Mesylate (Benztropine Mesylate) 1 Mg Tab, 0.5 TAB PO BID, #60 TAB 0.5 mg tab 05/13/23 Clopidogrel Bisulfate (CLOPIDOGREL) 75 Mg Tab, 1 TAB PO DAILY, #90 TAB 1 Refill 05/13/23 Current Medications Current Medications Medications (Trade) Dose Ordered Sig/Los Route PRN Reason Start Time Stop Time Status Last Admin Ceftriaxone Sodium/Dextrose 50 ml @ 50 mls/hr DAILY IV 03/14/24 10:00 03/14/24 10:05 Vancomycin HCl 250 ml @ 250 mls/hr Q8H IV 03/14/24 23:45 03/13/24 23:48 DC Vancomycin HCl 250 ml @ 250 mls/hr Q8H IV 03/14/24 03:00 03/14/24 12:18 DC 03/14/24 02:55 Sodium Chloride (Saline Lock Ns) 10 ml QSHIFT@ IV 03/14/24 22:00 Vancomycin HCl 300 ml @ 200 mls/hr Q12H IV 03/14/24 15:00 03/14/24 15:42 Vital Signs Vital Signs Date Time Temp Pulse Resp B/P (MAP) Pulse Ox O2 Delivery O2 Flow Rate FiO2 03/14/24 16:53 97.4 73 18 127/60 (82) 94 97.4 03/14/24 08:05 Room Air* 0 21 Labs/Diagnostic Data Labs Test 03/14/24 12:30 03/14/24 06:45 03/13/24 23:23 03/12/24 13:09 Range/Units Creatinine 0.59 0.550-1.02 mg/dL Glomerular Filtration Rate Calc 102 >90 mL/min White Blood Count 2.3 L 4.4-10.8 10^3/uL Red Blood Count 3.16 L 4.0-5.20 10^6/uL Hemoglobin 10.4 L 12.2-16.2 g/dL Hematocrit 32.5 L 36.0-46.0 % Mean Corpuscular Volume 102.8 #H 80.0-100.0 fL Mean Corpuscular Hemoglobin 32.8 H 28.0-32.0 pg Mean Corpuscular Hemoglobin Concent 31.9 L 32.0-36.0 g/dL Red Cell Distribution Width 15.4 H 11.8-14.3 % Platelet Count 199 140-450 10^3/uL Mean Platelet Volume 7.4 6.9-10.8 fL Neutrophils (%) (Auto) 73.7 37.0-80.0 % Lymphocytes (%) (Auto) 12.1 10.0-50.0 % Monocytes (%) (Auto) 10.6 0.0-12.0 % Eosinophils (%) (Auto) 3.1 0.0-7.0 % Basophils (%) (Auto) 0.5 0.0-2.0 % Neutrophils # (Auto) 1.7 1.6-8.6 10 ^3/uL Lymphocytes # (Auto) 0.3 L 0.4-5.4 10 ^3/uL Monocytes # (Auto) 0.2 0-1.3 10 ^3/uL Eosinophils # (Auto) 0.1 0-0.8 10 ^3/uL Basophils # (Auto) 0 0-0.2 10 ^3/uL Nucleated Red Blood Cells 0.0 % Influenza Type A Antigen Negative Negative Influenza Type B Antigen Negative Negative SARS-CoV-2 Antigen (Rapid) Negative NEGATIVE Prothrombin Time 10.8 9.3-11.8 sec Prothrombin Time INR 1.02 0.9-1.15 Activated Partial Thromboplast Time 30.8 24.5-34.5 SEC Test 03/11/24 15:00 03/11/24 10:50 Range/Units Urine Color Colorless Yellow Urine Clarity Clear Clear Urine pH 5.5 5.0-9.0 Urine Specific [place] 1.008 1.001-1.035 Urine Protein Negative Negative Urine Ketones Negative Negative Urine Blood Negative Negative /uL Urine Nitrite Negative Negative Urine Bilirubin Negative Negative Urine Urobilinogen Normal Negative mg/dL Urine Leukocyte Esterase Negative Negative /uL Urine RBC <1 0 - 4 /hpf Urine WBC 1 0 - 5 /hpf Urine Squamous Epithelial Cells Few <5 /hpf Urine Bacteria None seen None Seen /hpf Urine Glucose Normal Normal mg/dL Erythrocyte Sedimentation Rate 105 H 0-20 mm/hr Sodium Level 134 L 136-145 mmol/L Potassium Level 3.9 3.5-5.1 mmol/L Chloride Level 101 98-107 mmol/L Carbon Dioxide Level 28 20-31 mmol/L Anion Gap 5 5-15 Blood Urea Nitrogen 11 9-23 mg/dL BUN/Creatinine Ratio 14.1 10.0-20.0 Serum Glucose 79 74-106 mg/dL Lactic Acid Level 0.9 0.4-2.0 mmol/L Calcium Level 9.5 8.7-10.4 mg/dL Magnesium Level 1.7 1.6-2.6 mg/dL Total Bilirubin < 0.2 L 0.2-1.0 mg/dL Aspartate Amino Transferase (AST) 11 L 13-40 U/L Alanine Aminotransferase (ALT) 10 7-40 U/L Alkaline Phosphatase 116 46-116 U/L C-Reactive Protein High Sensitivity 3.40 H <1.0 mg/dL Total Protein 7.3 5.7-8.2 g/dL Albumin 4.1 3.2-4.8 g/dL Microbiology Date/Time Source Procedure Growth Status 03/11/24 10:50 Blood Blood Culture - Preliminary NO GROWTH AFTER 72 HOURS OF INCUBATION. Resulted GABRIELA ADAMS MD Mar 14, 2024 20:59
[2024-03-14] MEDS: SODIUM CHLOR 0.9% PF (SALINE LOCK) 10ML VIAL/SYR IV SCH (22:11)
[2024-03-14] MEDS ORDERED: VANCOMYCIN 1GM/250ML KIT 250 ML IV SCH (23:45)
[2024-03-15] VITALS (8 sets, daily range): BP systolic 100–144; BP diastolic 43–72; PULSE 68–118; RESP 16–18; TEMP 97.5–97.9; O2SAT 94–98
[2024-03-15 06:12] LABS: Basophils # (auto) 0 10 ^3/uL (0-0.2); Basophils % (auto) 0.6 % (0.0-2.0); Eosinophils # (auto) 0.1 10 ^3/uL (0-0.8); Hemoglobin 9.9 g/dL (12.2-16.2); Lymphocytes # (auto) 0.2 10 ^3/uL (0.4-5.4); Lymphocytes % (auto) 10.6 % (10.0-50.0); Mean Corpuscular Hemoglobin 31.8 pg (28.0-32.0); Mean Corpuscular Volume 96.3 fL (80.0-100.0); Monocytes # (auto) 0.2 10 ^3/uL (0-1.3); Monocytes % (auto) 9.3 % (0.0-12.0); Neutrophils # (auto) 1.8 10 ^3/uL (1.6-8.6); Neutrophils % (auto) 76.5 % (37.0-80.0); Platelet Count (auto) 207 10^3/uL (140-450); Red Blood Cells 3.12 10^6/uL (4.0-5.20); Red Cell Distribution Width 14.9 % (11.8-14.3); White Blood Cell 2.3 10^3/uL (4.4-10.8)
[2024-03-15] MEDS: VANCOMYCIN HCL 1000 MG VL ONE ×2 (06:37→07:49)
[2024-03-15] MEDS: TRANEXAMIC ACID 20 ML ONE (06:38)
[2024-03-15] MEDS: ROPIVACAINE 0.5% (5MG/ML) 20ML AMPULE IJ ONE ×2 (06:38→07:28)
[2024-03-15] MEDS: ceFAZolin 2 GM/D5W100ml 100 ML IV ONE (06:59)
[2024-03-15] MEDS: BUPIVACAINE 0.25% INJ 50ML VIAL ONE (07:11)
[2024-03-15] MEDS ORDERED: MORPHINE SULF PF 5 MG/10 ML VIAL ONE (07:13)
[2024-03-15] MEDS ORDERED: KETOROLAC TROMETH 30 MG/ML 1ML VIAL ONE (07:13)
[2024-03-15] MEDS ORDERED: fentaNYL CITRATE 100 MCG/2 ML VL ONE (07:16)
[2024-03-15] MEDS ORDERED: MIDAZOLAM HCL 2MG/2ML 2ml VIAL (1mg/ml) ONE (07:16)
[2024-03-15] MEDS ORDERED: PROPOFOL 10 MG/ML 20 ML IV ONE ×2 (07:16→11:11)
[2024-03-15] MEDS ORDERED: LIDOCAINE HCL 2% TOP JELLY 5ML TOP ONE (07:16)
[2024-03-15] MEDS ORDERED: LIDOCAINE 1% INJ PF 5ML AMP ONE (07:16)
[2024-03-15] MEDS ORDERED: ROCURONIUM 10MG/ML 10ML VIAL IV ONE (07:16)
[2024-03-15] MEDS ORDERED: ONDANSETRON HCL 4 MG/2 ML VIAL ONE (07:16)
[2024-03-15] MEDS ORDERED: SODIUM CHLORIDE LOCK 10 ML ONE (07:16)
[2024-03-15] MEDS ORDERED: KETAMINE 50mg/ML 10ml Vial 10 ML ONE (07:16)
[2024-03-15] MEDS ORDERED: MEPERIDINE HCL (50 MG/ML) 1 ML VIAL ONE (07:16)
[2024-03-15] MEDS ORDERED: TOBRAMYCIN PER PHARMACY 0 ML IV SCH (07:30)
[2024-03-15] MEDS: TOBRAMYCIN IV ONE (08:00)
[2024-03-15] MEDS: SODIUM CHL 0.9% IV ONE (08:00)
[2024-03-15] MEDS: SODIUM CHLORIDE 0.9% 1,000 ML IV SCH (11:30)
[2024-03-15] MEDS ORDERED: oxyCODONE HCL 5MG TAB PO PRN ×2 (11:30)
--- NOTE | 2024-03-15 12:16 | DVHOP2 ---
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 These include but are not limited to complications of anesthesia, postoperative infection, incomplete relief of symptoms, recurrence of symptoms, damage to blood vessels, nerves and tendons, deep venous thrombosis, pulmonary embolism and possible need for repeat surgery in the future. Complications: None Estimated Blood Loss: 1100 cc Fluids: See anesthesia record Findings: Patient had obvious superficial and deep infection with a large area of granulation tissue in the deep subcutaneous tissue with a draining wound, this granulation tissue tracked down to the deep prosthetic space. The implants were well fixed unfortunately. Osteoporotic bone. Greater trochanter fracture preop. She did suffer iatrogenic fractures with implant removal. Indications for Surgery: Late right hip prosthetic infection Name of Procedure Performed Right total hip arthroplasty explant, irrigation debridement to bone level deep tissue, placement of antibiotic cement prosthetic spacer, insertion of antibiotic beads, open reduction internal fixation of proximal femur fractures with cerclage implants x3 Procedure Details Procedure Details: Patient was brought to the operating room and placed on the table in the supine position and given general anesthetic. She was given regional block. Preoperatively she had been on vancomycin and ceftriaxone. No additional antibiotics were given at this time to facilitate cultures. She was transferred to lateral decubitus position with the right hip up axillary roll applied and lower extremities well padded. Position stabilized with hip positioner. Right hip and lower extremity was prepped and draped in sterile fashion. Surgical time-out was performed verifying patient, laterality, and procedure. I utilized the previous incision and carried it proximally and distally a couple of cm. I sharply excise skin at the area of the draining wound. I sharply excise granulation tissue into the superficial and deep subcutaneous and fascial tissue with scalpel, Bovie, and rongeur. I used Aquamantys and Bovie for hemostasis. The patient oozed throughout the case from the soft tissues. I did my best to identify the tissue plane of the fascia. I exposed that as well as possible that incised that longitudinally. Sutures were removed in the process. I then inserted the Charnley retractor. We then attempted to identify the abductors in the abductor repair. I created a tissue plane with Bovie. It was noted that there was a preop greater trochanter fracture. I then incised the abductors off the anterior greater trochanter and inserted retractors to expose the acetabulum. I sharply excised granulation tissue throughout as encountered with Bovie, scalpel and rongeur. I also debrided soft infiltrative bone as encountered with rongeur and curette. I used a hook to dislocate the hip. With some difficulty I was able to tap off the femoral head. The femoral stem was well fixed and I had to use specialized osteotomes down the medial lateral anterior posterior sides. The bone was quite fragile and she did develop fractures as a result of this process. I was able to attach a stem remover to the stem and tapped it out after some time performing the loosening with the disposable osteotomes. I used a curette down the shaft remove granulation tissue. I then exposed the acetabulum and sharply excised scar tissue over the anterior acetabulum. I also required the use of osteotome to remove anterior osteophytes. I used a specialized osteotome with a 32 mm head 1st used in the short blade in the long blade to loosen up the well-fixed acetabular shell. Eventually I was able to tap it out. I again I used curette to scrape granulation tissue on the surface of the acetabulum including bone tissue. I used a brush to clean the acetabulum. I used normal saline Pulsavac lavage followed by experienced material irrigant. I then made my initial attempts to use the ostial remedy trials however on x-ray it was apparent that the trials had not pass into the distal bone. I then dissected down to the shaft distal extent of the iatrogenic fracture. I applied a beaded guidewire and then reamed to 12 mm sequentially. I was then able to pass the ostial remedy implant down the shaft and reduce it however the subsequent x-ray was not sufficient because of the ostial remedy trial was not radiopaque. So I had the rep provide me with the actual implants from the Osteo remedy system and I applied these to the hip and reduced it then obtain x-ray which revealed acceptable alignment for a cement spacer. At this point I reduced proximal fragments to the proximal shaft of the ostial remedy implant and used three [place] cables to repair the fracture to the implant and [place] bone using the cable Passer passing the cables and then cinched them down twisted the the tightening device. Once all three cables were in place the ends were cut with scalpel. I had previously made 30 cc of antibiotic cement chips with vancomycin on the back table and I placed some of the cyst chips in the deep tissue. I repaired the abductor with 5. Ethibond to the anterior greater trochanter and bone. I applied some additional trips to the intermediate tissue plane then repaired the fascia with 1. Ethibond interrupted [id number]. I then applied the remaining antibiotic cement chips to the subcutaneous tissue plane. I repaired the deep subcutaneous tissue with 0 Vicryl. Superficial subcu tissue with 2-0 Vicryl and skin with jesus. I applied the lauren closed wound suction. Patient did require transfusion of 2 units of packed red blood cells during the case due to blood loss with the additional risk of preop anemia. Patient tolerated the procedure well was brought to recovery room in stable condition. Specimen: Cultures aerobic and anaerobic were obtained from the superficial subcutaneous infection, deep tissue infection, femoral stem, acetabular shell, and acetabular bone. Condition Stable Disposition Still a Patient OBIE IBRAHIM MD Mar 15, 2024 12:16
--- NOTE | 2024-03-15 12:19 | DVH ---
INDICATION: INTRAOP RIGHT HIP TECHNIQUE: Single AP view of the pelvis was obtained. COMPARISON: XY R HIP COMPLETE XRAY on DOS: 03/11/24, XY L HIP COMPLETE XRAY on DOS: 12/02/23 FINDINGS: Intraoperative radiograph demonstrates total hip arthroplasty. Postoperative changes involv ing right hip. IMPRESSION: Right arthroplasty
[2024-03-15] MEDS ORDERED: MORPHINE SULFATE INJ 2 MG/ml SYRG IV PRN ×2 (12:30→12:45)
[2024-03-15] MEDS ORDERED: NITROGLYCERIN 0.4 MG SL TAB SL PRN (12:30)
[2024-03-15] MEDS: KETOROLAC TROMETH 30 MG/ML 1ML VIAL IV ONE (12:45)
[2024-03-15] MEDS ORDERED: HYDROmorphone HCL 2 MG/ML VL/or syr IV PRN (12:45)
[2024-03-15] MEDS ORDERED: fentaNYL CITRATE 100 MCG/2 ML VL IV PRN (12:45)
--- NOTE | 2024-03-15 12:50 | DVH ---
CLINICAL INDICATION: postop TECHNIQUE: XY PELVIS AP Comparison: XY PELVIS AP on DOS: 12/02/23 FINDINGS/IMPRESSION: : Interval placement of long stem right hip arthroplasty with antibiotic beads. Left hip arthroplasty.
[2024-03-15] MEDS: HYDROmorphone HCL 2 MG/ML VL/or syr IV PRN (13:30)
[2024-03-15] MEDS ORDERED: SUCCINYLCHOLINE CHLORIDE 20 MG/ML 10ML VIAL IV ONE (14:01)
[2024-03-15 14:03] LABS: Basophils # (auto) 0 10 ^3/uL (0-0.2); Basophils % (auto) 0.1 % (0.0-2.0); Eosinophils # (auto) 0 10 ^3/uL (0-0.8); Eosinophils % (auto) 0.2 % (0.0-7.0); Hematocrit 27.2 % (36.0-46.0); Hemoglobin 8.9 g/dL (12.2-16.2); Lymphocytes # (auto) 0.2 10 ^3/uL (0.4-5.4); Lymphocytes % (auto) 4.3 % (10.0-50.0); Mean Corpuscular Hemoglobin 31.9 pg (28.0-32.0); Mean Corpuscular Hgb Conc. 32.7 g/dL (32.0-36.0); Mean Corpuscular Volume 97.5 fL (80.0-100.0); Monocytes # (auto) 0.3 10 ^3/uL (0-1.3); Neutrophils # (auto) 4.8 10 ^3/uL (1.6-8.6); Neutrophils % (auto) 90.4 % (37.0-80.0); Platelet Count (auto) 152 10^3/uL (140-450); Red Blood Cells 2.79 10^6/uL (4.0-5.20); Red Cell Distribution Width 14.6 % (11.8-14.3); White Blood Cell 5.3 10^3/uL (4.4-10.8)
--- NOTE | 2024-03-15 14:08 | DVH ---
Exam: US US GUIDED VASCULAR ACCESS Clinical History: PICC Line Insertion Comparison: None Findings: Targeted sonographic evaluation of the upper extremitywas obtained utilizing grayscale and color Dopp ler imaging. IMPRESSION: Sonographic assistance for central line placement. Please refer to procedural report for detailed fin dings.
--- NOTE | 2024-03-15 16:20 | DVHPN2 ---
Subjective Overnight Events noted. Patient has a right hip complex fluid collection s/p Right total hip arthroplasty explant, irrigation debridement to bone level deep tissue, placement of antibiotic cement prosthetic spacer, insertion of antibiotic beads, open reduction internal fixation of proximal femur fractures with cerclage implants x3. Patient does have known history of transaortic valve replacement, Reviewed: Care Plan Changes from previous H/P or p: No Changes Eyes: No Pain, No Vision change, No Conjunctivae inflammation, No Eyelid inflammation, No Other, No Redness ENT: No Ear pain, No Ear discharge, No Nose pain, No Nose discharge, No Nose congestion, No Mouth pain, No Mouth swelling, No Throat pain, No Throat swelling, No Other Cardiovascular: No Chest Pain, No Palpitations, No Orthopnea, No Paroxysmal Noc. Dyspnea, No Edema, No Lt Headedness, No Other Respiratory: No Cough, No Dry, No Shortness of breath, No SOB with excertion, No Wheezing, No Hemoptysis, No Pleuritic Pain, No Sputum, No Other Gastrointestinal: No Nausea, No Vomiting, No Abdominal Pain, No Diarrhea, No Constipation, No Melena, No Hematochezia, No Other Genitourinary: No Dysuria, No Frequency, No Incontinence, No Hematuria, No Retention, No Other Musculoskeletal: other (Swelling to hip with oozing), leg pain Skin: No Rash, No Lesions, No Jaundice, No Bruising, No Other Objective Vitals Vital Signs Date Time Temp Pulse Resp B/P (MAP) Pulse Ox O2 Delivery O2 Flow Rate FiO2 03/15/24 13:40 97.6 87 16 100/55 (70) 97 97.6 03/15/24 08:21 Room Air* 0 21 Intake/Output Intake and Output 03/15/24 07:00 Intake Total 950 ml Balance 950 ml Intake Oral 500 ml IV Total 450 ml # Voids 13 # Bowel Movements 2 Exam HEENT pupils are reactive Neck is supple CV is S1-S2 regular rate and rhythm Respiratory are clear GI positive bowel sound 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 Medications Current Medications Medications Dose Ordered Sig/Los Route Start Time Stop Time Status Last Admin Dose Admin Metoprolol Succinate 50 mg DAILY PO 03/12/24 10:00 03/14/24 10:04 50 MG Atorvastatin Calcium 40 mg HS PO 03/11/24 22:00 12/22/24 22:12 40 MG Benztropine Mesylate 0.5 mg BID PO 03/11/24 22:00 03/14/24 22:11 0.5 MG Fluoxetine HCl 20 mg DAILY PO 03/12/24 10:00 03/14/24 10:04 20 MG Risperidone 3 mg BID PO 03/11/24 22:00 03/14/24 22:12 3 MG Acetaminophen/ Hydrocodone Bitart 1 tab Q4HPRN PRN PO 03/11/24 15:30 Primidone 250 mg TIDWM PO 03/13/24 08:00 03/14/24 18:17 250 MG Throat Lozenges 1 milagros Q2HP PRN MT 03/13/24 11:30 03/14/24 20:38 1 MILAGROS Vancomycin HCl 0 ml @ 0 mls/hr UD IV 03/13/24 16:00 Ceftriaxone Sodium/Dextrose 50 ml @ 50 mls/hr DAILY IV 03/14/24 10:00 03/14/24 10:05 50 MLS/HR Sodium Chloride 10 ml QSHIFT@, IV 03/14/24 22:00 03/14/24 22:11 10 ML Vancomycin HCl 300 ml @ 200 mls/hr Q12H IV 03/14/24 15:00 03/15/24 02:27 200 MLS/HR Tobramycin Sulfate 0 ml @ 0 mls/hr PER PHARMACY IV 03/15/24 07:30 UNV Pregabalin 50 mg BID PO 03/15/24 22:00 Apixaban 2.5 mg BID PO 03/16/24 10:00 04/20/24 09:59 Hydromorphone HCl 0.5 mg Q4H PRN IV 03/15/24 11:30 Sodium Chloride 1,000 ml @ 125 mls/hr Q8H IV 03/15/24 11:30 Acetaminophen 650 mg Q6HP PO 03/15/24 18:00 Ketorolac Tromethamine 15 mg Q6HR IV 03/15/24 18:00 03/20/24 17:59 Ondansetron HCl 4 mg Q4HP PRN IV 03/15/24 12:30 Oxycodone HCl 5 mg Q4HP PRN PO 03/15/24 11:30 Oxycodone HCl 10 mg Q4HP PRN PO 03/15/24 11:30 Nitroglycerin 0.4 mg Q5MINP PRN SL 03/15/24 12:30 Morphine Sulfate 2 mg Q30M PRN IV 03/15/24 12:30 Laboratory Results Laboratory Tests 03/11/24 10:50 03/15/24 04:55 03/15/24 13:30 Urinalysis Test 03/11/24 15:00 Urine Color Colorless (Yellow) Urine Clarity Clear (Clear) Urine pH 5.5 (5.0-9.0) Urine Specific [place] 1.008 (1.001-1.035) Urine Protein Negative (Negative) Urine Ketones Negative (Negative) Urine Blood Negative /uL (Negative) Urine Nitrite Negative (Negative) Urine Bilirubin Negative (Negative) Urine Urobilinogen Normal mg/dL (Negative) Urine Leukocyte Esterase Negative /uL (Negative) Urine RBC <1 /hpf (0 - 4) Urine WBC 1 /hpf (0 - 5) Urine Squamous Epithelial Cells Few /hpf (<5) Urine Bacteria None seen /hpf (None Seen) Urine Glucose Normal mg/dL (Normal) Microbiology Microbiology Date/Time Source Procedure Growth Status 03/14/24 03:58 Hip Right Gram Stain - Final Resulted 03/14/24 03:58 Hip Right Wound Culture - Preliminary Resulted 03/11/24 10:50 Blood Blood Culture - Preliminary NO GROWTH AFTER 72 HOURS OF INCUBATION. Resulted Assessment/Plan Assessment/Plan 63-year-old female with a known history of hypertension, dyslipidemia, status post TAVR, bilateral hip replacement who initially presented to the hospital with a right hip draining wound found to have 1. Right hip wound rule out underlying abscess 2. Right hip complex fluid collection Right total hip arthroplasty explant, irrigation debridement to bone level deep tissue, placement of antibiotic cement prosthetic spacer, insertion of antibiotic beads, open reduction internal fixation of proximal femur fractures with cerclage implants x3 3. Status post TAVR 4. Hypertension 5. Dyslipidemia -IV antibiotics, orthopedic surgery intervention appreciated follow up Infectious Disease recommendations. Plan discussed with: Patient Date of Service: Mar 15, 2024 Billing Provider: SUAD RUVALCABA MD Common Visit Codes: NOT BILLABLE SUAD RUVALCABA MD Mar 15, 2024 16:20
[2024-03-15] MEDS: ACETAMINOPHEN 325 MG TAB PO SCH (17:53)
[2024-03-15] MEDS: KETOROLAC TROMETH 30 MG/ML 1ML VIAL IV SCH (17:53)
[2024-03-15] MEDS: PREGABALIN 25 MG CAP PO SCH (21:36)
[2024-03-16] VITALS (12 sets, daily range): BP systolic 95–120; BP diastolic 30–54; PULSE 65–102; RESP 14–18; TEMP 97.5–99.9; O2SAT 81–98
[2024-03-16] MEDS: APIXABAN 2.5 MG TAB PO SCH (09:09)
[2024-03-16 09:38] LABS: Basophils # (auto) 0 10 ^3/uL (0-0.2); Eosinophils # (auto) 0 10 ^3/uL (0-0.8); Eosinophils % (auto) 0.2 % (0.0-7.0); Lymphocytes # (auto) 0.2 10 ^3/uL (0.4-5.4); Lymphocytes % (auto) 4.8 % (10.0-50.0); Monocytes # (auto) 0.1 10 ^3/uL (0-1.3)
[2024-03-16 09:40] LABS: Basophils % (auto) 0.1 % (0.0-2.0); Hematocrit 20.2 % (36.0-46.0); Mean Corpuscular Hemoglobin 32.8 pg (28.0-32.0); Mean Corpuscular Hgb Conc. 33.9 g/dL (32.0-36.0); Mean Corpuscular Volume 96.7 fL (80.0-100.0); Monocytes % (auto) 2.7 % (0.0-12.0); Neutrophils # (auto) 3.8 10 ^3/uL (1.6-8.6); Neutrophils % (auto) 92.2 % (37.0-80.0); Platelet Count (auto) 117 10^3/uL (140-450); Red Blood Cells 2.09 10^6/uL (4.0-5.20); Red Cell Distribution Width 14.7 % (11.8-14.3); White Blood Cell 4.1 10^3/uL (4.4-10.8)
[2024-03-16 09:46] LABS: Anion Gap 7 (5-15); Carbon Dioxide 23 mmol/L (20-31); Chloride 103 mmol/L (98-107); Potassium 3.8 mmol/L (3.5-5.1)
[2024-03-16 09:47] LABS: Calcium 8.7 mg/dL (8.7-10.4)
[2024-03-16 09:52] LABS: BUN/Creatinine Ratio 25.3 (10.0-20.0); Blood Urea Nitrogen 20 mg/dL (9-23)
[2024-03-16 10:01] LABS: Hemoglobin 6.9 g/dL (12.2-16.2)
[2024-03-16 10:23] LABS: Glucose 150 mg/dL (74-106); Sodium 133 mmol/L (136-145)
--- NOTE | 2024-03-16 12:06 | DVHPN2 ---
Progress Note - Dictate Date Seen: Mar 16, 2024 Medical Necessity Reason Pt with a Central, PICC or Fol: Yes The following are medically ne: Harrington Catheter Subjective Patient was sitting up comfortably in chair at bedside and reports some postoperative hip pain that is otherwise being well managed with the help of pain medication. Patient reports that she has not yet gotten up and walked with physical therapy but has tried performing some gentle qjsob-co-[id number] exercises while in bed that is limited due to postop pain. Patient is otherwise feeling well denying any other complaints or concerns during my evaluation. vital signs Vital Sign Date Time Temp Pulse Resp B/P (MAP) Pulse Ox O2 Delivery O2 Flow Rate FiO2 03/16/24 08:36 99.1 102 16 114/42 (66) 89 99.1 03/16/24 08:00 Room Air* 0 21 Total Intake and Output 03/15/24 03/15/24 03/16/24 15:00 23:00 07:00 Intake Total 600 ml 0 ml Output Total 50 ml 650 ml Balance 550 ml -650 ml medications Current Medications Medications Dose Ordered Sig/Lso Route Start Time Stop Time Status Last Admin Dose Admin Metoprolol Succinate 50 mg DAILY PO 03/12/24 10:00 03/14/24 10:04 50 MG Atorvastatin Calcium 40 mg HS PO 03/11/24 22:00 03/15/24 21:23 40 MG Benztropine Mesylate 0.5 mg BID PO 03/11/24 22:00 03/16/24 09:09 0.5 MG Fluoxetine HCl 20 mg DAILY PO 03/12/24 10:00 03/16/24 09:06 20 MG Risperidone 3 mg BID PO 03/11/24 22:00 03/16/24 09:07 3 MG Acetaminophen/ Hydrocodone Bitart 1 tab Q4HPRN PRN PO 03/11/24 15:30 Primidone 250 mg TIDWM PO 03/13/24 08:00 03/16/24 09:08 250 MG Throat Lozenges 1 milagros Q2HP PRN MT 03/13/24 11:30 03/15/24 18:04 1 MILAGROS Vancomycin HCl 0 ml @ 0 mls/hr UD IV 03/13/24 16:00 Ceftriaxone Sodium/Dextrose 50 ml @ 50 mls/hr DAILY IV 03/14/24 10:00 03/16/24 09:06 50 MLS/HR Sodium Chloride 10 ml QSHIFT@10,22 IV 03/14/24 22:00 03/16/24 08:34 10 ML Vancomycin HCl 300 ml @ 200 mls/hr Q12H IV 03/14/24 15:00 03/16/24 02:47 200 MLS/HR Tobramycin Sulfate 0 ml @ 0 mls/hr PER PHARMACY IV 03/15/24 07:30 UNV Pregabalin 50 mg BID PO 03/15/24 22:00 03/16/24 09:07 50 MG Apixaban 2.5 mg BID PO 03/16/24 10:00 04/20/24 09:59 03/16/24 09:09 2.5 MG Hydromorphone HCl 0.5 mg Q4H PRN IV 03/15/24 11:30 Sodium Chloride 1,000 ml @ 125 mls/hr Q8H IV 03/15/24 11:30 03/16/24 09:12 125 MLS/HR Acetaminophen 650 mg Q6HP PO 03/15/24 18:00 03/16/24 11:18 650 MG Ketorolac Tromethamine 15 mg Q6HR IV 03/15/24 18:00 03/20/24 17:59 03/16/24 11:19 15 MG Ondansetron HCl 4 mg Q4HP PRN IV 03/15/24 12:30 Oxycodone HCl 5 mg Q4HP PRN PO 03/15/24 11:30 Oxycodone HCl 10 mg Q4HP PRN PO 03/15/24 11:30 Nitroglycerin 0.4 mg Q5MINP PRN SL 03/15/24 12:30 Morphine Sulfate 2 mg Q30M PRN IV 03/15/24 12:30 objective A&O x4 in no acute distress Hip range of motion grossly limited with pain on movement Chuck dressing clean, dry, intact, and maintaining suction No distal edema or calf tenderness to palpation Neurovascularly intact with cap refill less than 2 seconds laboratory and microbiology Laboratory Tests 03/16/24 08:57 Test 03/16/24 08:57 Range/Units Serum Glucose 150 H 74-106 mg/dL Assessment/Plan Continue current management as well as pain control and advised patient to remain 10% flatfoot weight-bearing to the right lower extremity until her follow up visit with the assistance of a walker. I also instructed the patient to maintain her dressings clean, dry, intact, and maintaining suction. Placed an order for one packed red blood cells to be transfused as patient's hemoglobin was low at 6.9. I instructed the patient to follow up with our office in 10-14 days for her 1st postoperative evaluation once she has been discharged home. We will continue observing patient. Plan discussed with: Patient, Spouse GEORGE SAUNDERS Mar 16, 2024 12:06
[2024-03-16] MEDS: METOPROLOL SUCCINATE XL 50 MG TAB PO SCH (12:28)
[2024-03-16] MEDS: METOCLOPRAMIDE HCL 5MG/ml INJ 2ml VIAL IV ONE (12:33)
--- NOTE | 2024-03-16 17:16 | DVHPN2 ---
Subjective Overnight Events noted. Patient has a right hip complex fluid collection s/p Right total hip arthroplasty explant, irrigation debridement to bone level deep tissue, placement of antibiotic cement prosthetic spacer, insertion of antibiotic beads, open reduction internal fixation of proximal femur fractures with cerclage implants x3. Patient does have known history of transaortic valve replacement, overnight meds noted. Reviewed: Care Plan Changes from previous H/P or p: No Changes Eyes: No Pain, No Vision change, No Conjunctivae inflammation, No Eyelid inflammation, No Other, No Redness ENT: No Ear pain, No Ear discharge, No Nose pain, No Nose discharge, No Nose congestion, No Mouth pain, No Mouth swelling, No Throat pain, No Throat swelling, No Other Cardiovascular: No Chest Pain, No Palpitations, No Orthopnea, No Paroxysmal Noc. Dyspnea, No Edema, No Lt Headedness, No Other Respiratory: No Cough, No Dry, No Shortness of breath, No SOB with excertion, No Wheezing, No Hemoptysis, No Pleuritic Pain, No Sputum, No Other Gastrointestinal: No Nausea, No Vomiting, No Abdominal Pain, No Diarrhea, No Constipation, No Melena, No Hematochezia, No Other Genitourinary: No Dysuria, No Frequency, No Incontinence, No Hematuria, No Retention, No Other Musculoskeletal: other (Swelling to hip with oozing), leg pain Skin: No Rash, No Lesions, No Jaundice, No Bruising, No Other Objective Vitals Vital Signs Date Time Temp Pulse Resp B/P (MAP) Pulse Ox O2 Delivery O2 Flow Rate FiO2 03/16/24 17:00 99.7 87 18 110/36 (60) 81 99.7 03/16/24 08:00 Room Air* 0 21 Intake/Output Intake and Output 03/16/24 07:00 Intake Total 600 ml Output Total 700 ml Balance -100 ml Intake Oral 600 ml Output Urine Total 700 ml Exam HEENT pupils are reactive Neck is supple CV is S1-S2 regular rate and rhythm Respiratory are clear GI positive bowel sound 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 Medications Current Medications Medications Dose Ordered Sig/Los Route Start Time Stop Time Status Last Admin Dose Admin Atorvastatin Calcium 40 mg HS PO 03/11/24 22:00 03/15/24 21:23 40 MG Benztropine Mesylate 0.5 mg BID PO 03/11/24 22:00 03/16/24 09:09 0.5 MG Fluoxetine HCl 20 mg DAILY PO 03/12/24 10:00 03/16/24 09:06 20 MG Risperidone 3 mg BID PO 03/11/24 22:00 03/16/24 09:07 3 MG Acetaminophen/ Hydrocodone Bitart 1 tab Q4HPRN PRN PO 03/11/24 15:30 Primidone 250 mg TIDWM PO 03/13/24 08:00 03/16/24 12:27 250 MG Throat Lozenges 1 milagros Q2HP PRN MT 03/13/24 11:30 03/15/24 18:04 1 MILAGROS Vancomycin HCl 0 ml @ 0 mls/hr UD IV 03/13/24 16:00 Ceftriaxone Sodium/Dextrose 50 ml @ 50 mls/hr DAILY IV 03/14/24 10:00 03/16/24 09:06 50 MLS/HR Sodium Chloride 10 ml QSHIFT@10,22 IV 03/14/24 22:00 03/16/24 08:34 10 ML Tobramycin Sulfate 0 ml @ 0 mls/hr PER PHARMACY IV 03/15/24 07:30 UNV Pregabalin 50 mg BID PO 03/15/24 22:00 03/16/24 09:07 50 MG Apixaban 2.5 mg BID PO 03/16/24 10:00 04/20/24 09:59 03/16/24 09:09 2.5 MG Hydromorphone HCl 0.5 mg Q4H PRN IV 03/15/24 11:30 Sodium Chloride 1,000 ml @ 125 mls/hr Q8H IV 03/15/24 11:30 03/16/24 09:12 125 MLS/HR Acetaminophen 650 mg Q6HP PO 03/15/24 18:00 03/16/24 11:18 650 MG Ketorolac Tromethamine 15 mg Q6HR IV 03/15/24 18:00 03/20/24 17:59 03/16/24 11:19 15 MG Ondansetron HCl 4 mg Q4HP PRN IV 03/15/24 12:30 Oxycodone HCl 5 mg Q4HP PRN PO 03/15/24 11:30 Oxycodone HCl 10 mg Q4HP PRN PO 03/15/24 11:30 Nitroglycerin 0.4 mg Q5MINP PRN SL 03/15/24 12:30 Morphine Sulfate 2 mg Q30M PRN IV 03/15/24 12:30 Metoprolol Succinate 50 mg DAILY@1200 PO 03/16/24 12:00 03/16/24 12:28 50 MG Laboratory Results Laboratory Tests 03/16/24 08:57 Chemistry Test 03/16/24 08:57 Calcium Level 8.7 mg/dL (8.7-10.4) Urinalysis Test 03/11/24 15:00 Urine Color Colorless (Yellow) Urine Clarity Clear (Clear) Urine pH 5.5 (5.0-9.0) Urine Specific [place] 1.008 (1.001-1.035) Urine Protein Negative (Negative) Urine Ketones Negative (Negative) Urine Blood Negative /uL (Negative) Urine Nitrite Negative (Negative) Urine Bilirubin Negative (Negative) Urine Urobilinogen Normal mg/dL (Negative) Urine Leukocyte Esterase Negative /uL (Negative) Urine RBC <1 /hpf (0 - 4) Urine WBC 1 /hpf (0 - 5) Urine Squamous Epithelial Cells Few /hpf (<5) Urine Bacteria None seen /hpf (None Seen) Urine Glucose Normal mg/dL (Normal) Microbiology Microbiology Date/Time Source Procedure Growth Status 03/15/24 10:02 Hip Right Gram Stain - Final Resulted 03/15/24 10:02 Hip Right Anaerobic Culture - Preliminary Resulted 03/15/24 10:02 Hip Right Aerobic Culture - Preliminary Resulted 03/11/24 10:50 Blood Blood Culture - Final NO GROWTH AFTER 5 DAYS OF INCUBATION. Complete Assessment/Plan Assessment/Plan 63-year-old female with a known history of hypertension, dyslipidemia, status post TAVR, bilateral hip replacement who initially presented to the hospital with a right hip draining wound found to have 1. Right hip wound rule out underlying abscess 2. Right hip complex fluid collection Right total hip arthroplasty explant, irrigation debridement to bone level deep tissue, placement of antibiotic cement prosthetic spacer, insertion of antibiotic beads, open reduction internal fixation of proximal femur fractures with cerclage implants x3 3. Status post TAVR 4. Hypertension 5. Dyslipidemia 6. Acute anemia from exam so beating -follow up on Gram stain and culture from the OR., transfuse 1 unit of packed RBC -IV antibiotics, orthopedic surgery intervention appreciated follow up Infectious Disease recommendations. Plan discussed with: Patient Date of Service: Mar 16, 2024 Billing Provider: SUAD RUVALCABA MD Common Visit Codes: NOT BILLABLE SUAD RUVALCABA MD Mar 16, 2024 17:16
[2024-03-17] VITALS (37 sets, daily range): BP systolic 95–172; BP diastolic 39–86; PULSE 78–99; RESP 16–21; TEMP 97.6–99.6; O2SAT 94–98
[2024-03-17 07:04] LABS: Basophils # (auto) 0 10 ^3/uL (0-0.2); Basophils % (auto) 0.1 % (0.0-2.0); Eosinophils # (auto) 0 10 ^3/uL (0-0.8); Lymphocytes # (auto) 0.3 10 ^3/uL (0.4-5.4); Mean Corpuscular Volume 96.5 fL (80.0-100.0); Monocytes # (auto) 0.3 10 ^3/uL (0-1.3); White Blood Cell 4.6 10^3/uL (4.4-10.8)
[2024-03-17 07:06] LABS: Eosinophils % (auto) 0.7 % (0.0-7.0); Hematocrit 20.3 % (36.0-46.0); Lymphocytes % (auto) 6.6 % (10.0-50.0); Mean Corpuscular Hemoglobin 31.7 pg (28.0-32.0); Mean Corpuscular Hgb Conc. 32.9 g/dL (32.0-36.0); Monocytes % (auto) 5.7 % (0.0-12.0); Neutrophils % (auto) 86.9 % (37.0-80.0); Platelet Count (auto) 105 10^3/uL (140-450); Red Cell Distribution Width 16.3 % (11.8-14.3)
[2024-03-17 07:10] LABS: Alanine Aminotransferase 15 U/L (7-40); Alkaline Phosphatase 62 U/L (46-116); Anion Gap 8 (5-15); Aspartate Aminotransferase 35 U/L (13-40); BUN/Creatinine Ratio 19.6 (10.0-20.0); Blood Urea Nitrogen 11 mg/dL (9-23); Calcium 8.8 mg/dL (8.7-10.4); Carbon Dioxide 22 mmol/L (20-31); Chloride 105 mmol/L (98-107); Glucose 99 mg/dL (74-106); Potassium 3.5 mmol/L (3.5-5.1)
[2024-03-17 07:18] LABS: Albumin 2.8 g/dL (3.2-4.8); Bilirubin, Total 0.2 mg/dL (0.2-1.0); Magnesium 1.2 mg/dL (1.6-2.6); Sodium 135 mmol/L (136-145)
[2024-03-17 07:26] LABS: Hemoglobin 6.7 g/dL (12.2-16.2)
[2024-03-17] MEDS: VANCOMYCIN 1.5GM/300ML 300 ML IV SCH (13:05)
--- NOTE | 2024-03-17 13:15 | DVHPN2 ---
Subjective Overnight Events noted. Patient has a right hip complex fluid collection s/p Right total hip arthroplasty explant, irrigation debridement to bone level deep tissue, placement of antibiotic cement prosthetic spacer, insertion of antibiotic beads, open reduction internal fixation of proximal femur fractures with cerclage implants x3. Patient does have known history of transaortic valve replacement, overnight events noted. Patient has not walked yet. Reviewed: Care Plan Changes from previous H/P or p: No Changes Eyes: No Pain, No Vision change, No Conjunctivae inflammation, No Eyelid inflammation, No Other, No Redness ENT: No Ear pain, No Ear discharge, No Nose pain, No Nose discharge, No Nose congestion, No Mouth pain, No Mouth swelling, No Throat pain, No Throat swelling, No Other Cardiovascular: No Chest Pain, No Palpitations, No Orthopnea, No Paroxysmal Noc. Dyspnea, No Edema, No Lt Headedness, No Other Respiratory: No Cough, No Dry, No Shortness of breath, No SOB with excertion, No Wheezing, No Hemoptysis, No Pleuritic Pain, No Sputum, No Other Gastrointestinal: No Nausea, No Vomiting, No Abdominal Pain, No Diarrhea, No Constipation, No Melena, No Hematochezia, No Other Genitourinary: No Dysuria, No Frequency, No Incontinence, No Hematuria, No Retention, No Other Musculoskeletal: other (Swelling to hip with oozing), leg pain Skin: No Rash, No Lesions, No Jaundice, No Bruising, No Other Objective Vitals Vital Signs Date Time Temp Pulse Resp B/P (MAP) Pulse Ox O2 Delivery O2 Flow Rate FiO2 03/17/24 09:00 97.6 79 18 131/53 (79) 95 97.6 03/17/24 08:00 Nasal Cannula* 2 28 Intake/Output Intake and Output 03/17/24 07:00 Intake Total 1725 ml Output Total 900 ml Balance 825 ml Intake Oral 1000 ml IV Total 425 ml Blood Product 300 ml Output Urine Total 900 ml Exam HEENT pupils are reactive Neck is supple CV is S1-S2 regular rate and rhythm Respiratory are clear GI positive bowel sound 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 Medications Current Medications Medications Dose Ordered Sig/Los Route Start Time Stop Time Status Last Admin Dose Admin Atorvastatin Calcium 40 mg HS PO 03/11/24 22:00 03/16/24 22:00 40 MG Benztropine Mesylate 0.5 mg BID PO 03/11/24 22:00 03/17/24 09:23 0.5 MG Fluoxetine HCl 20 mg DAILY PO 03/12/24 10:00 03/16/24 09:06 20 MG Risperidone 3 mg BID PO 03/11/24 22:00 03/16/24 09:07 3 MG Acetaminophen/ Hydrocodone Bitart 1 tab Q4HPRN PRN PO 03/11/24 15:30 Hold Primidone 250 mg TIDWM PO 03/13/24 08:00 03/17/24 13:05 250 MG Throat Lozenges 1 milagros Q2HP PRN MT 03/13/24 11:30 03/15/24 18:04 1 MILAGROS Vancomycin HCl 0 ml @ 0 mls/hr UD IV 03/13/24 16:00 Ceftriaxone Sodium/Dextrose 50 ml @ 50 mls/hr DAILY IV 03/14/24 10:00 03/17/24 09:23 50 MLS/HR Sodium Chloride 10 ml QSHIFT@10,22 IV 03/14/24 22:00 03/17/24 09:08 10 ML Tobramycin Sulfate 0 ml @ 0 mls/hr PER PHARMACY IV 03/15/24 07:30 UNV Pregabalin 50 mg BID PO 03/15/24 22:00 03/17/24 11:09 50 MG Hydromorphone HCl 0.5 mg Q4H PRN IV 03/15/24 11:30 Acetaminophen 650 mg Q6HP PO 03/15/24 18:00 03/16/24 17:41 650 MG Ketorolac Tromethamine 15 mg Q6HR IV 03/15/24 18:00 03/20/24 17:59 03/17/24 06:03 15 MG Ondansetron HCl 4 mg Q4HP PRN IV 03/15/24 12:30 Oxycodone HCl 5 mg Q4HP PRN PO 03/15/24 11:30 Oxycodone HCl 10 mg Q4HP PRN PO 03/15/24 11:30 Nitroglycerin 0.4 mg Q5MINP PRN SL 03/15/24 12:30 Morphine Sulfate 2 mg Q30M PRN IV 03/15/24 12:30 Metoprolol Succinate 50 mg DAILY@1200 PO 03/16/24 12:00 03/16/24 12:28 50 MG Vancomycin HCl 300 ml @ 200 mls/hr Q24H IV 03/17/24 13:00 03/17/24 13:05 200 MLS/HR Laboratory Results Laboratory Tests 03/17/24 06:08 Chemistry Test 03/17/24 06:08 Albumin 2.8 g/dL (3.2-4.8) L Calcium Level 8.8 mg/dL (8.7-10.4) Magnesium Level 1.2 mg/dL (1.6-2.6) L Total Protein 5.0 g/dL (5.7-8.2) L LFT Test 03/17/24 06:08 Alanine Aminotransferase (ALT) 15 U/L (7-40) Alkaline Phosphatase 62 U/L (46-116) Aspartate Amino Transferase (AST) 35 U/L (13-40) Total Bilirubin 0.2 mg/dL (0.2-1.0) Urinalysis Test 03/11/24 15:00 Urine Color Colorless (Yellow) Urine Clarity Clear (Clear) Urine pH 5.5 (5.0-9.0) Urine Specific [place] 1.008 (1.001-1.035) Urine Protein Negative (Negative) Urine Ketones Negative (Negative) Urine Blood Negative /uL (Negative) Urine Nitrite Negative (Negative) Urine Bilirubin Negative (Negative) Urine Urobilinogen Normal mg/dL (Negative) Urine Leukocyte Esterase Negative /uL (Negative) Urine RBC <1 /hpf (0 - 4) Urine WBC 1 /hpf (0 - 5) Urine Squamous Epithelial Cells Few /hpf (<5) Urine Bacteria None seen /hpf (None Seen) Urine Glucose Normal mg/dL (Normal) Microbiology Microbiology Date/Time Source Procedure Growth Status 03/15/24 10:02 Hip Right Gram Stain - Final Resulted 03/15/24 10:02 Hip Right Anaerobic Culture - Preliminary Resulted 03/15/24 10:02 Hip Right Aerobic Culture - Preliminary Resulted 03/11/24 10:50 Blood Blood Culture - Final NO GROWTH AFTER 5 DAYS OF INCUBATION. Complete Assessment/Plan Assessment/Plan 63-year-old female with a known history of hypertension, dyslipidemia, status post TAVR, bilateral hip replacement who initially presented to the hospital with a right hip draining wound found to have 1. Right hip complex fluid collection Right total hip arthroplasty explant, irrigation debridement to bone level deep tissue, placement of antibiotic cement prosthetic spacer, insertion of antibiotic beads, open reduction internal fixation of proximal femur fractures with cerclage implants x3 2. Status post TAVR 3. Hypertension 5. Dyslipidemia 6. Acute anemia expected postop anemia status post packed RBC's -follow up on Gram stain and culture from the OR., Infectious Disease follow up -arrange rehab for right lower extremity toe-touch weight training -continue current IV antibiotics, Plan discussed with: Patient Date of Service: Mar 17, 2024 Billing Provider: SUAD RUVALCABA MD Common Visit Codes: NOT BILLABLE SUAD RUVALCABA MD Mar 17, 2024 13:15
--- NOTE | 2024-03-17 14:59 | DVHPN2 ---
Progress Note - Dictate Date Seen: Mar 17, 2024 Medical Necessity Reason Pt with a Central, PICC or Fol: Yes The following are medically ne: Harrington Catheter Subjective Up to chair yesterday. No pain at rest but painful with movement No chest pain or SOB vital signs Vital Sign Date Time Temp Pulse Resp B/P (MAP) Pulse Ox O2 Delivery O2 Flow Rate FiO2 03/17/24 13:15 95 119/58 (78) 03/17/24 13:00 98.2 18 98 98.2 03/17/24 08:00 Nasal Cannula* 2 28 Total Intake and Output 03/16/24 03/16/24 03/17/24 15:00 23:00 07:00 Intake Total 425 ml 900 ml 400 ml Output Total 900 ml Balance 425 ml 900 ml -500 ml medications Current Medications Medications Dose Ordered Sig/Los Route Start Time Stop Time Status Last Admin Dose Admin Atorvastatin Calcium 40 mg HS PO 03/11/24 22:00 03/16/24 22:00 40 MG Benztropine Mesylate 0.5 mg BID PO 03/11/24 22:00 03/17/24 09:23 0.5 MG Fluoxetine HCl 20 mg DAILY PO 03/12/24 10:00 03/16/24 09:06 20 MG Risperidone 3 mg BID PO 03/11/24 22:00 03/16/24 09:07 3 MG Acetaminophen/ Hydrocodone Bitart 1 tab Q4HPRN PRN PO 03/11/24 15:30 Hold Primidone 250 mg TIDWM PO 03/13/24 08:00 03/17/24 13:05 250 MG Throat Lozenges 1 milagros Q2HP PRN MT 03/13/24 11:30 03/15/24 18:04 1 MILAGROS Vancomycin HCl 0 ml @ 0 mls/hr UD IV 03/13/24 16:00 Ceftriaxone Sodium/Dextrose 50 ml @ 50 mls/hr DAILY IV 03/14/24 10:00 03/17/24 09:23 50 MLS/HR Sodium Chloride 10 ml QSHIFT@10,22 IV 03/14/24 22:00 03/17/24 09:08 10 ML Tobramycin Sulfate 0 ml @ 0 mls/hr PER PHARMACY IV 03/15/24 07:30 UNV Pregabalin 50 mg BID PO 03/15/24 22:00 03/17/24 11:09 50 MG Hydromorphone HCl 0.5 mg Q4H PRN IV 03/15/24 11:30 Acetaminophen 650 mg Q6HP PO 03/15/24 18:00 03/16/24 17:41 650 MG Ketorolac Tromethamine 15 mg Q6HR IV 03/15/24 18:00 03/20/24 17:59 03/17/24 06:03 15 MG Ondansetron HCl 4 mg Q4HP PRN IV 03/15/24 12:30 Oxycodone HCl 5 mg Q4HP PRN PO 03/15/24 11:30 Oxycodone HCl 10 mg Q4HP PRN PO 03/15/24 11:30 Nitroglycerin 0.4 mg Q5MINP PRN SL 03/15/24 12:30 Morphine Sulfate 2 mg Q30M PRN IV 03/15/24 12:30 Metoprolol Succinate 50 mg DAILY@1200 PO 03/16/24 12:00 03/16/24 12:28 50 MG Vancomycin HCl 300 ml @ 200 mls/hr Q24H IV 03/17/24 13:00 03/17/24 13:05 200 MLS/HR objective alert and oriented x4 dressing with a few small blood spots - all look dry no calf edema or ttp distal nv intact laboratory and microbiology Laboratory Tests 03/17/24 06:08 Test 03/17/24 06:08 Range/Units Serum Glucose 99 74-106 mg/dL Assessment/Plan prosthetic infection right total hip POD #2 s/p explant, spacer application postop blood loss anemia requiring transfusions h/o TVAR Anemia chronic Morbid obesity Plan: Hgb <7 again today so will transfuse more PRBC's , hold eliquis continue PT Plan discussed with: Patient OBIE IBRAHIM MD Mar 17, 2024 14:59
[2024-03-18] VITALS (8 sets, daily range): BP systolic 135–168; BP diastolic 58–83; PULSE 65–97; RESP 16–20; TEMP 97.6–100; O2SAT 96–99
[2024-03-18 07:59] LABS: Chloride 107 mmol/L (98-107); Sodium 141 mmol/L (136-145)
[2024-03-18 08:00] LABS: Anion Gap 7 (5-15); Calcium 8.9 mg/dL (8.7-10.4); Carbon Dioxide 27 mmol/L (20-31)
[2024-03-18 08:04] LABS: Basophils # (auto) 0 10 ^3/uL (0-0.2); Basophils % (auto) 0.4 % (0.0-2.0); Eosinophils # (auto) 0.1 10 ^3/uL (0-0.8); Eosinophils % (auto) 2.7 % (0.0-7.0); Hematocrit 26.3 % (36.0-46.0); Hemoglobin 8.9 g/dL (12.2-16.2); Lymphocytes # (auto) 0.3 10 ^3/uL (0.4-5.4); Lymphocytes % (auto) 6.3 % (10.0-50.0); Mean Corpuscular Hemoglobin 30.2 pg (28.0-32.0); Mean Corpuscular Hgb Conc. 33.9 g/dL (32.0-36.0); Mean Corpuscular Volume 89.1 fL (80.0-100.0); Monocytes # (auto) 0.2 10 ^3/uL (0-1.3); Monocytes % (auto) 4.6 % (0.0-12.0); Neutrophils # (auto) 4.4 10 ^3/uL (1.6-8.6); Platelet Count (auto) 107 10^3/uL (140-450); Red Blood Cells 2.96 10^6/uL (4.0-5.20); Red Cell Distribution Width 18.4 % (11.8-14.3); White Blood Cell 5.1 10^3/uL (4.4-10.8)
[2024-03-18 08:05] LABS: BUN/Creatinine Ratio 18.2 (10.0-20.0); Blood Urea Nitrogen 10 mg/dL (9-23)
[2024-03-18 08:07] LABS: Glucose 120 mg/dL (74-106); Potassium 3.1 mmol/L (3.5-5.1)
[2024-03-18] MEDS: POTASSIUM CHL 20 Meq TABLET PO ONE (10:49)
--- NOTE | 2024-03-18 10:56 | DVHPN2 ---
Progress Note - Dictate Date Seen: Mar 18, 2024 Medical Necessity Reason Pt with a Central, PICC or Fol: Yes The following are medically ne: Harrington Catheter Subjective Patient was sitting up comfortably in chair at bedside and reports some continued postoperative hip pain that is being well managed with the help of pain medication. Patient reports that she has not yet gotten up and walked with physical therapy but has tried performing some gentle [id number] exercises while in bed that is limited due to postop pain. Patient is otherwise feeling well denying any other complaints or concerns during my evaluation. vital signs Vital Sign Date Time Temp Pulse Resp B/P (MAP) Pulse Ox O2 Delivery O2 Flow Rate FiO2 03/18/24 08:47 97.8 78 20 159/65 (96) 96 97.8 03/17/24 20:00 Nasal Cannula* 2 28 Total Intake and Output 03/17/24 03/17/24 03/18/24 15:00 23:00 07:00 Intake Total 800 ml 850 ml Output Total 1800 ml Balance 800 ml -950 ml medications Current Medications Medications Dose Ordered Sig/Los Route Start Time Stop Time Status Last Admin Dose Admin Atorvastatin Calcium 40 mg HS PO 03/11/24 22:00 03/17/24 21:42 40 MG Benztropine Mesylate 0.5 mg BID PO 03/11/24 22:00 03/17/24 21:41 0.5 MG Fluoxetine HCl 20 mg DAILY PO 03/12/24 10:00 03/16/24 09:06 20 MG Risperidone 3 mg BID PO 03/11/24 22:00 03/17/24 21:41 3 MG Acetaminophen/ Hydrocodone Bitart 1 tab Q4HPRN PRN PO 03/11/24 15:30 Hold Primidone 250 mg TIDWM PO 03/13/24 08:00 03/17/24 18:13 250 MG Throat Lozenges 1 milagros Q2HP PRN MT 03/13/24 11:30 03/15/24 18:04 1 MILAGROS Vancomycin HCl 0 ml @ 0 mls/hr UD IV 03/13/24 16:00 Ceftriaxone Sodium/Dextrose 50 ml @ 50 mls/hr DAILY IV 03/14/24 10:00 03/17/24 09:23 50 MLS/HR Sodium Chloride 10 ml QSHIFT@,22 IV 03/14/24 22:00 03/17/24 21:42 10 ML Tobramycin Sulfate 0 ml @ 0 mls/hr PER PHARMACY IV 03/15/24 07:30 UNV Pregabalin 50 mg BID PO 03/15/24 22:00 03/17/24 21:41 50 MG Hydromorphone HCl 0.5 mg Q4H PRN IV 03/15/24 11:30 Acetaminophen 650 mg Q6HP PO 03/15/24 18:00 03/18/24 05:14 650 MG Ketorolac Tromethamine 15 mg Q6HR IV 03/15/24 18:00 03/20/24 17:59 03/18/24 05:14 15 MG Ondansetron HCl 4 mg Q4HP PRN IV 03/15/24 12:30 Oxycodone HCl 5 mg Q4HP PRN PO 03/15/24 11:30 Oxycodone HCl 10 mg Q4HP PRN PO 03/15/24 11:30 Nitroglycerin 0.4 mg Q5MINP PRN SL 03/15/24 12:30 Morphine Sulfate 2 mg Q30M PRN IV 03/15/24 12:30 Metoprolol Succinate 50 mg DAILY@1200 PO 03/16/24 12:00 03/16/24 12:28 50 MG Vancomycin HCl 300 ml @ 200 mls/hr Q24H IV 03/17/24 13:00 03/17/24 13:05 200 MLS/HR Potassium Chloride 100 ml @ 50 mls/hr Q2H IV 03/18/24 10:00 03/18/24 13:59 objective A&O x4 in no acute distress Hip range of motion grossly limited with pain on movement Chuck dressing clean, dry, intact, and maintaining suction with small amounts of dry blood No distal edema or calf tenderness to palpation Neurovascularly intact with cap refill less than 2 seconds laboratory and microbiology Laboratory Tests 03/18/24 06:35 Test 03/18/24 06:35 Range/Units Serum Glucose 120 H 74-106 mg/dL Assessment/Plan Continue current management as well as pain control and advised patient to remain 10% flatfoot weight-bearing to the right lower extremity until her follow up visit with the assistance of a walker. I also instructed the patient to maintain her dressings clean, dry, intact, and maintaining suction. I instructed the patient to follow up with our office in 10-14 days for her 1st postoperative evaluation once she has been discharged. Placed an order for forensic social worker consult to [facility] patient in a [facility] facility for further assistance with her rehabilitation. Plan discussed with: Patient GEORGE SAUNDERS Mar 18, 2024 10:56
[2024-03-18] MEDS: POTASSIUM CHL 20MEQ/100ML 100 ML IV SCH (15:56)
--- NOTE | 2024-03-18 16:30 | DVHDS2 ---
Discharge Summary Date of Admission Mar 11, 2024 at 15:22 Date of Discharge: Mar 18, 2024 Labs/Diagnostic Data: Laboratory Results Test 03/18/24 06:35 03/17/24 06:08 03/16/24 14:08 03/13/24 23:23 White Blood Count 5.1 10^3/uL (4.4-10.8) Red Blood Count 2.96 10^6/uL (4.0-5.20) Hemoglobin 8.9 g/dL (12.2-16.2) Hematocrit 26.3 % (36.0-46.0) Mean Corpuscular Volume 89.1 fL (80.0-100.0) Mean Corpuscular Hemoglobin 30.2 pg (28.0-32.0) Mean Corpuscular Hemoglobin Concent 33.9 g/dL (32.0-36.0) Red Cell Distribution Width 18.4 % (11.8-14.3) Platelet Count 107 10^3/uL (140-450) Mean Platelet Volume 8.2 fL (6.9-10.8) Neutrophils (%) (Auto) 86.0 % (37.0-80.0) Lymphocytes (%) (Auto) 6.3 % (10.0-50.0) Monocytes (%) (Auto) 4.6 % (0.0-12.0) Eosinophils (%) (Auto) 2.7 % (0.0-7.0) Basophils (%) (Auto) 0.4 % (0.0-2.0) Neutrophils # (Auto) 4.4 10 ^3/uL (1.6-8.6) Lymphocytes # (Auto) 0.3 10 ^3/uL (0.4-5.4) Monocytes # (Auto) 0.2 10 ^3/uL (0-1.3) Eosinophils # (Auto) 0.1 10 ^3/uL (0-0.8) Basophils # (Auto) 0 10 ^3/uL (0-0.2) Nucleated Red Blood Cells 0.0 % Sodium Level 141 mmol/L (136-145) Potassium Level 3.1 mmol/L (3.5-5.1) Chloride Level 107 mmol/L (98-107) Carbon Dioxide Level 27 mmol/L (20-31) Anion Gap 7 (5-15) Blood Urea Nitrogen 10 mg/dL (9-23) Creatinine 0.55 mg/dL (0.550-1.02) Glomerular Filtration Rate Calc 104 mL/min (>90) BUN/Creatinine Ratio 18.2 (10.0-20.0) Serum Glucose 120 mg/dL (74-106) Calcium Level 8.9 mg/dL (8.7-10.4) Magnesium Level 1.2 mg/dL (1.6-2.6) Total Bilirubin 0.2 mg/dL (0.2-1.0) Aspartate Amino Transferase (AST) 35 U/L (13-40) Alanine Aminotransferase (ALT) 15 U/L (7-40) Alkaline Phosphatase 62 U/L (46-116) Total Protein 5.0 g/dL (5.7-8.2) Albumin 2.8 g/dL (3.2-4.8) Random Vancomycin Level 14.9 ug/mL (5-10) Vancomycin Level Trough 33.7 ug/mL (5-10) Influenza Type A Antigen Negative (Negative) Influenza Type B Antigen Negative (Negative) SARS-CoV-2 Antigen (Rapid) Negative (NEGATIVE) Test 03/12/24 13:09 03/11/24 15:00 03/11/24 10:50 Prothrombin Time 10.8 sec (9.3-11.8) Prothrombin Time INR 1.02 (0.9-1.15) Activated Partial Thromboplast Time 30.8 SEC (24.5-34.5) Urine Color Colorless (Yellow) Urine Clarity Clear (Clear) Urine pH 5.5 (5.0-9.0) Urine Specific [place] 1.008 (1.001-1.035) Urine Protein Negative (Negative) Urine Ketones Negative (Negative) Urine Blood Negative /uL (Negative) Urine Nitrite Negative (Negative) Urine Bilirubin Negative (Negative) Urine Urobilinogen Normal mg/dL (Negative) Urine Leukocyte Esterase Negative /uL (Negative) Urine RBC <1 /hpf (0 - 4) Urine WBC 1 /hpf (0 - 5) Urine Squamous Epithelial Cells Few /hpf (<5) Urine Bacteria None seen /hpf (None Seen) Urine Glucose Normal mg/dL (Normal) Erythrocyte Sedimentation Rate 105 mm/hr (0-20) Lactic Acid Level 0.9 mmol/L (0.4-2.0) C-Reactive Protein High Sensitivity 3.40 mg/dL (<1.0) Other Laboratory Tests 03/18/24 06:35 Brief Hx & Hospital Course: 63-year-old female with a known history of hypertension, dyslipidemia, status post TAVR, bilateral hip replacement who initially presented to the hospital with a right hip draining wound found to have right hip complex fluid collection. Patient underwent orthopedic surgery intervention in which right total hip arthroplasty explantation, irrigation debridement to the wound deep tissue level, placement of antibiotic cement prosthetic spacer, insertion of antibiotic beads, open reduction and internal fixation of proximal femur fractures with the implants x3. Postoperatively patient had anemia requiring multiple units of packed RBC without any active evidence of bleeding. Patient was recommended to be on toe-touch weight training for the right lower extremity need rehab for that. Also patient has will be discharged on IV antibiotics as per infectious disease specialist. All the questions of patient were answered. Plavix is resumed. Condition at Discharge: Stable Final Diagnosis/Problems List 1. Right hip complex fluid collection Right total hip arthroplasty explant, irrigation debridement to bone level deep tissue, placement of antibiotic cement prosthetic spacer, insertion of antibiotic beads, open reduction internal fixation of proximal femur fractures with cerclage implants x3 2. Status post TAVR 3. Hypertension 5. Dyslipidemia 6. Acute anemia expected postop anemia status post packed RBC's [facility] Discharge Will this Physician continue t: No Discharge Instruct/Medications Diet: Cardiac 2g Na,low cholest Activity: See Comment Activity comment: Right lower extremity toe-touch training as tolerated Follow Up/Referral: PCP in 1-2 weeks Follow up with the Orthopedics upon discharge in one week Medications: Resume home medication, reconciled medications IV antibiotics per Infectious Disease specialist. Discharge Statement: "Patient was advised to return to the ER or call 911 if any headaches, dizziness, shortness of breath, chest pain, abdominal pain, bleeding, fevers, or worsening of medical condition. Patient was counseled about treatment plan, medications, possible side effects, patientverbalized understanding. All questions were answered to the best of my ability. This discharge took greater then 30 minutes in planning, reviewing documentation, counseling the patient, and discussing with other team members." ASSESSMENT ASSESSMENT Assessment 63-year-old female with a known history of hypertension, dyslipidemia, status post TAVR, bilateral hip replacement who initially presented to the hospital with a right hip draining wound found to have 1. Right hip complex fluid collection Right total hip arthroplasty explant, irrigation debridement to bone level deep tissue, placement of antibiotic cement prosthetic spacer, insertion of antibiotic beads, open reduction internal fixation of proximal femur fractures with cerclage implants x3 2. Status post TAVR 3. Hypertension 5. Dyslipidemia 6. Acute anemia expected postop anemia status post packed RBC's Date of Service: Mar 18, 2024 Billing Provider: SUAD RUVALCABA MD Common Visit Codes: NOT BILLABLE SUAD RUVALCABA MD Mar 18, 2024 16:30
--- NOTE | 2024-03-18 17:26 | DVHPN2 ---
Consult Progress Note Date Seen: Mar 17, 2024 Subjective Patient reports: Feels better (no diarrhea or rash) Objective vital signs Vital Sign Date Time Temp Pulse Resp B/P (MAP) Pulse Ox O2 Delivery O2 Flow Rate FiO2 03/18/24 17:00 98.3 84 20 154/83 (106) 99 98.3 03/18/24 08:00 Nasal Cannula* 2 28 Total Intake and Output 03/17/24 03/17/24 03/18/24 15:00 23:00 07:00 Intake Total 800 ml 850 ml Output Total 1800 ml Balance 800 ml -950 ml medications Current Medications Medications Dose Ordered Sig/Los Route Start Time Stop Time Status Last Admin Dose Admin Atorvastatin Calcium 40 mg HS PO 03/11/24 22:00 03/17/24 21:42 40 MG Benztropine Mesylate 0.5 mg BID PO 03/11/24 22:00 03/18/24 10:49 0.5 MG Fluoxetine HCl 20 mg DAILY PO 03/12/24 10:00 03/18/24 10:49 20 MG Risperidone 3 mg BID PO 03/11/24 22:00 03/18/24 10:49 3 MG Acetaminophen/ Hydrocodone Bitart 1 tab Q4HPRN PRN PO 03/11/24 15:30 Hold Primidone 250 mg TIDWM PO 03/13/24 08:00 03/18/24 12:46 250 MG Throat Lozenges 1 milagros Q2HP PRN MT 03/13/24 11:30 03/15/24 18:04 1 MILAGROS Vancomycin HCl 0 ml @ 0 mls/hr UD IV 03/13/24 16:00 Ceftriaxone Sodium/Dextrose 50 ml @ 50 mls/hr DAILY IV 03/14/24 10:00 03/18/24 10:50 50 MLS/HR Sodium Chloride 10 ml QSHIFT@10,22 IV 03/14/24 22:00 03/18/24 10:00 10 ML Tobramycin Sulfate 0 ml @ 0 mls/hr PER PHARMACY IV 03/15/24 07:30 UNV Pregabalin 50 mg BID PO 03/15/24 22:00 03/18/24 10:49 50 MG Hydromorphone HCl 0.5 mg Q4H PRN IV 03/15/24 11:30 Acetaminophen 650 mg Q6HP PO 03/15/24 18:00 03/18/24 05:14 650 MG Ketorolac Tromethamine 15 mg Q6HR IV 03/15/24 18:00 03/20/24 17:59 03/18/24 05:14 15 MG Ondansetron HCl 4 mg Q4HP PRN IV 03/15/24 12:30 Oxycodone HCl 5 mg Q4HP PRN PO 03/15/24 11:30 Oxycodone HCl 10 mg Q4HP PRN PO 03/15/24 11:30 Nitroglycerin 0.4 mg Q5MINP PRN SL 03/15/24 12:30 Morphine Sulfate 2 mg Q30M PRN IV 03/15/24 12:30 Metoprolol Succinate 50 mg DAILY@1200 PO 03/16/24 12:00 03/18/24 12:46 50 MG Vancomycin HCl 300 ml @ 200 mls/hr Q24H IV 03/17/24 13:00 03/18/24 14:20 200 MLS/HR PHYSICAL EXAM: - GENERAL: Alert and oriented x 3. No acute distress. Well-nourished. - EYES: EOMI. Anicteric. - HENT: Moist mucous membranes. No scleral icterus. No cervical lymphadenopathy. - LUNGS: Clear to auscultation bilaterally. No accessory muscle use. - CARDIOVASCULAR: Regular rate and rhythm. No murmur. No JVD. - ABDOMEN: Soft, non-tender and non-distended. No palpable masses. - EXTREMITIES: No edema. Non-tender.?SKIN: No rashes or lesions. Warm. - NEUROLOGIC: No focal neurological deficits. CN II-XII grossly intact, but not individually tested - PSYCHIATRIC: Cooperative. Appropriate mood and affect. laboratory and microbiology Laboratory Tests 03/18/24 06:35 Test 03/18/24 06:35 Range/Units Serum Glucose 120 H 74-106 mg/dL Problem List/Assessment/Plan Problem List/Assessment/Plan ASSESSMENT AND PLAN: ID Problem List: - Right hip prosthetic joint infection - Bilateral total hip replacements - Hypertension - Hyperlipidemia - Seizure disorder - Valvular heart replacement - Morbid obesity - History of lung carcinoma Assessment This is a 63 y.o. female with a past medical history of hypertension, hyperlipidemia, bilateral total hip replacements (right hip in 2021, left hip in November 2023), valvular heart replacement, seizure disorder, morbid obesity, and history of lung carcinoma, who presents with swelling over the right hip. She has been experiencing drainage and fluctuance around the right hip surgical site. Imaging studies (X-ray and CT) suggest implant loosening consistent with chronic deep infection. CT hip shows prosthetic right hip replacement with right hip joint effusion extending to the subcutaneous tissue and loosening of the femoral and acetabular components, suspicious for underlying infection and fracture through the posterior medial proximal femur. Ultrasound reveals a 5.7 x 4.2 x 4.4 cm complex fluid collection along the right lateral hip consistent with an abscess. Laboratory studies notable for ESR 105, CRP 3.4, WBC 3.4, hemoglobin 8.6, platelets 133. TTE- Technically difficult study. Difficult acoustic windows. Left atrial enlargement with mild concentric LVH. LV outflow tract enlargement. There is mild mitral annular calcification. There is mild aortic sclerosis without stenosis. Possibly a TAVR valve. Left ventricular function is preserved at 60% with normal RV function. Moderate pulmonic insufficiency. Mild to moderate tricuspid regurgitation. No pericardial effusion masses or vegetations discernible. sp InD- Findings: Patient had obvious superficial and deep infection with a large area of granulation tissue in the deep subcutaneous tissue with a draining wound, this granulation tissue tracked down to the deep prosthetic space. The implants were well fixed unfortunately. Osteoporotic bone. Greater trochanter fracture preop. She did suffer iatrogenic fractures with implant removal. Indications for Surgery: Late right hip prosthetic infection culture are NGTD Plan: - will fu on operative cultures - continue vancomycin and ceftriaxone, will need 6 weeks of IV antibiotics, followed by a prolonged course of oral antibiotics as outpatient Plan discussed with: Patient RADHA PETERSEN MD Mar 18, 2024 17:26
--- NOTE | 2024-03-18 17:26 | DVHPN2 ---
Consult Progress Note Date Seen: Mar 14, 2024 Subjective Patient reports: No new complaints, Feels better (no fever or chills ) Objective vital signs Vital Sign Date Time Temp Pulse Resp B/P (MAP) Pulse Ox O2 Delivery O2 Flow Rate FiO2 03/18/24 17:00 98.3 84 20 154/83 (106) 99 98.3 03/18/24 08:00 Nasal Cannula* 2 28 Total Intake and Output 03/17/24 03/17/24 03/18/24 15:00 23:00 07:00 Intake Total 800 ml 850 ml Output Total 1800 ml Balance 800 ml -950 ml medications Current Medications Medications Dose Ordered Sig/Los Route Start Time Stop Time Status Last Admin Dose Admin Atorvastatin Calcium 40 mg HS PO 03/11/24 22:00 03/17/24 21:42 40 MG Benztropine Mesylate 0.5 mg BID PO 03/11/24 22:00 03/18/24 10:49 0.5 MG Fluoxetine HCl 20 mg DAILY PO 03/12/24 10:00 03/18/24 10:49 20 MG Risperidone 3 mg BID PO 03/11/24 22:00 03/18/24 10:49 3 MG Acetaminophen/ Hydrocodone Bitart 1 tab Q4HPRN PRN PO 03/11/24 15:30 Hold Primidone 250 mg TIDWM PO 03/13/24 08:00 03/18/24 12:46 250 MG Throat Lozenges 1 milagros Q2HP PRN MT 03/13/24 11:30 03/15/24 18:04 1 MILAGROS Vancomycin HCl 0 ml @ 0 mls/hr UD IV 03/13/24 16:00 Ceftriaxone Sodium/Dextrose 50 ml @ 50 mls/hr DAILY IV 03/14/24 10:00 03/18/24 10:50 50 MLS/HR Sodium Chloride 10 ml QSHIFT@10,22 IV 03/14/24 22:00 03/18/24 10:00 10 ML Tobramycin Sulfate 0 ml @ 0 mls/hr PER PHARMACY IV 03/15/24 07:30 UNV Pregabalin 50 mg BID PO 03/15/24 22:00 03/18/24 10:49 50 MG Hydromorphone HCl 0.5 mg Q4H PRN IV 03/15/24 11:30 Acetaminophen 650 mg Q6HP PO 03/15/24 18:00 03/18/24 05:14 650 MG Ketorolac Tromethamine 15 mg Q6HR IV 03/15/24 18:00 03/20/24 17:59 03/18/24 05:14 15 MG Ondansetron HCl 4 mg Q4HP PRN IV 03/15/24 12:30 Oxycodone HCl 5 mg Q4HP PRN PO 03/15/24 11:30 Oxycodone HCl 10 mg Q4HP PRN PO 03/15/24 11:30 Nitroglycerin 0.4 mg Q5MINP PRN SL 03/15/24 12:30 Morphine Sulfate 2 mg Q30M PRN IV 03/15/24 12:30 Metoprolol Succinate 50 mg DAILY@1200 PO 03/16/24 12:00 03/18/24 12:46 50 MG Vancomycin HCl 300 ml @ 200 mls/hr Q24H IV 03/17/24 13:00 03/18/24 14:20 200 MLS/HR PHYSICAL EXAM: - GENERAL: Alert and oriented x 3. No acute distress. Well-nourished. - EYES: EOMI. Anicteric. - HENT: Moist mucous membranes. No scleral icterus. No cervical lymphadenopathy. - LUNGS: Clear to auscultation bilaterally. No accessory muscle use. - CARDIOVASCULAR: Regular rate and rhythm. No murmur. No JVD. - ABDOMEN: Soft, non-tender and non-distended. No palpable masses. - EXTREMITIES: No edema. Non-tender.?SKIN: No rashes or lesions. Warm. - NEUROLOGIC: No focal neurological deficits. CN II-XII grossly intact, but not individually tested - PSYCHIATRIC: Cooperative. Appropriate mood and affect. laboratory and microbiology Laboratory Tests 03/18/24 06:35 Test 03/18/24 06:35 Range/Units Serum Glucose 120 H 74-106 mg/dL Problem List/Assessment/Plan Problem List/Assessment/Plan ASSESSMENT AND PLAN: ID Problem List: - Right hip prosthetic joint infection - Bilateral total hip replacements - Hypertension - Hyperlipidemia - Seizure disorder - Valvular heart replacement - Morbid obesity - History of lung carcinoma Assessment This is a 63 y.o. female with a past medical history of hypertension, hyperlipidemia, bilateral total hip replacements (right hip in 2021, left hip in November 2023), valvular heart replacement, seizure disorder, morbid obesity, and history of lung carcinoma, who presents with swelling over the right hip. She has been experiencing drainage and fluctuance around the right hip surgical site. Imaging studies (X-ray and CT) suggest implant loosening consistent with chronic deep infection. CT hip shows prosthetic right hip replacement with right hip joint effusion extending to the subcutaneous tissue and loosening of the femoral and acetabular components, suspicious for underlying infection and fracture through the posterior medial proximal femur. Ultrasound reveals a 5.7 x 4.2 x 4.4 cm complex fluid collection along the right lateral hip consistent with an abscess. Laboratory studies notable for ESR 105, CRP 3.4, WBC 3.4, hemoglobin 8.6, platelets 133. TTE- Technically difficult study. Difficult acoustic windows. Left atrial enlargement with mild concentric LVH. LV outflow tract enlargement. There is mild mitral annular calcification. There is mild aortic sclerosis without stenosis. Possibly a TAVR valve. Left ventricular function is preserved at 60% with normal RV function. Moderate pulmonic insufficiency. Mild to moderate tricuspid regurgitation. No pericardial effusion masses or vegetations discernible. Plan: - Recommend superficial wound culture. - in the setting of prosthetic heart valve, recommend start vancomycin and ceftriaxone empirically - recommend TTE to rule any valvular endocarditis developed during this chronic infection. - during explant of prosthetic, Collect cultures both from the abscess seen on ultrasound as well as swabbing various infected appearing components of the periprosthetic site and prosthetic itself. Plan discussed with: Patient RADHA PETERSEN MD Mar 18, 2024 17:26
[2024-03-18] MEDS: ONDANSETRON HCL 4 MG/2 ML VIAL IV PRN (20:37)
[2024-03-18] MEDS: HYDROmorphone HCL 2 MG/ML VL/or syr IV PRN (20:38)
== END 2024-03-18 21:46 | DRG 466 ==
LOC: ER 10:25 → TELE 15:22 → TELE-CENTR 18:57
PROVIDERS: ADMIT Orthopaedic Surgery; ATTEND Internal Medicine
PROC: 0QB60ZZ Excision of Right Upper Femur, Open Approach (ICD-10-PCS; 1934-03-15)
PROC: 5A09357 Assistance with Respiratory Ventilation, Less than 24 Consecutive Hours, Continuous Positive Airway Pressure (ICD-10-PCS; 2024-03-11)
PROC: 5A0935A Assistance with Respiratory Ventilation, Less than 24 Consecutive Hours, High Flow/Velocity Cannula (ICD-10-PCS; 2024-03-11)
PROC: 02HV33Z Insertion of Infusion Device into Superior Vena Cava, Percutaneous Approach (ICD-10-PCS; 2024-03-14)
PROC: B548ZZA Ultrasonography of Superior Vena Cava, Guidance (ICD-10-PCS; 2024-03-14)
PROC: 30233N1 Transfusion of Nonautologous Red Blood Cells into Peripheral Vein, Percutaneous Approach (ICD-10-PCS; 2024-03-15)
PROC: 0SR90EZ Replacement of Right Hip Joint with Articulating Spacer, Open Approach (ICD-10-PCS; 2024-03-15)
PROC: 0SP90JZ Removal of Synthetic Substitute from Right Hip Joint, Open Approach (ICD-10-PCS; principal; 2024-03-15 07:20)
DX: T84.51XA Infection and inflammatory reaction due to internal right hip prosthesis, initial encounter (principal); S72.111A Displaced fracture of greater trochanter of right femur, initial encounter for closed fracture; D62 Acute posthemorrhagic anemia; Z68.42 Body mass index [BMI] 45.0-49.9, adult; S70.01XA Contusion of right hip, initial encounter; I10 Essential (primary) hypertension; Z20.822 Contact with and (suspected) exposure to COVID-19; E78.5 Hyperlipidemia, unspecified; G40.909 Epilepsy, unspecified, not intractable, without status epilepticus; E66.01 Morbid (severe) obesity due to excess calories; I08.1 Rheumatic disorders of both mitral and tricuspid valves; Y84.8 Other medical procedures as the cause of abnormal reaction of the patient, or of later complication, without mention of misadventure at the time of the procedure; X58.XXXA Exposure to other specified factors, initial encounter; Y92.89 Other specified places as the place of occurrence of the external cause; Z96.641 Presence of right artificial hip joint; M81.0 Age-related osteoporosis without current pathological fracture; Z90.710 Acquired absence of both cervix and uterus; Z81.8 Family history of other mental and behavioral disorders; Z88.0 Allergy status to penicillin; Z80.3 Family history of malignant neoplasm of breast; Z82.3 Family history of stroke; Z85.118 Personal history of other malignant neoplasm of bronchus and lung; Z95.2 Presence of prosthetic heart valve; Z85.42 Personal history of malignant neoplasm of other parts of uterus; Y99.8 Other external cause status; Y93.89 Activity, other specified
CPT/HCPCS: 36415; 36569; 72170; 73501; 73502; 73700; 76881; 76937; 80048; 80053; 80202; 81001; 82565; 83605; 83735; 85025; 85610; 85652; 85730; 86141; 86850; 86900; 86901; 86920; 87040; 87070; 87075; 87205; 87426; 87804; 93306; 97116; 97163; 97530; G0378; J0330; J1885; J2250; J2405; J2704; J3480; J3490

== ENCOUNTER 2024-04-08 10:55 | Inpatient (IN) | payer BC ==
[~2024-04-08] VITALS: Ht 154.9 cm; Wt 92.5 kg
[2024-04-08 11:27] VITALS: PULSE 76; RESP 14; O2SAT 90
--- NOTE | 2024-04-08 11:42 | ED.PDOC ---
History of Present Illness HPI Comments 63-year-old female who comes in with chief complaint of right hip pain as well as drainage from the wound. The patient is status post right hip surgery in the past and now is having some wound drainage as well as redness and tenderness. She saw her orthopedic surgeon today and was sent to the emergency department's for re-evaluation. The patient most likely will be taken back into the surgery for incision and drainage. She states that the pain is a 5/10. Chief Complaint: Wound Check Time Seen by MD: 11:00 Primary Care Provider: UNKNOWN Reviewed Notes: Nurses Notes, Manager Wholesale Notes, Medications, Allergies (Allergies to penicillin) Allergies: Coded Allergies: Penicillins (Verified Allergy, Unknown, 05/12/23) Home Meds Reported Medications Atorvastatin Calcium (ATORVASTATIN CALCIUM) 40 Mg Tab, 40 MG PO DAILY, TAB 12/01/23 Risperidone (Risperidone) 3 Mg Tab, 1 TAB PO BID 05/13/23 Metoprolol Succinate (Metoprolol Succinate Er) 50 Mg Tab, 1 TAB PO DAILY Take 1/2 tablet qam 05/13/23 Primidone (Primidone) 125 Mg Tab, 250 MG PO TID, TAB 05/13/23 Fluoxetine Hcl (Fluoxetine Hcl) 20 Mg Tab, 1 TAB PO DAILY, #90 TAB 3 Refills 05/13/23 Benztropine Mesylate (Benztropine Mesylate) 1 Mg Tab, 0.5 TAB PO BID, #60 TAB 0.5 mg tab 05/13/23 Clopidogrel Bisulfate (CLOPIDOGREL) 75 Mg Tab, 1 TAB PO DAILY, #90 TAB 1 Refill 05/13/23 Information Source: Patient, Emergency Med Personnel Mode of Arrival: EMS Severity: Moderate Timing: Days Duration: Since onset 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 Right hip pain with drainage from the wound Past Medical History PAST MEDICAL HISTORY: Cancer, Depression, High Lipids, HTN, Seizures Surgical History: Hernia Repair, Hysterectomy Surgical History (Other): Left hip surgery, PICC line to the left arm, carpal tunnel surgery 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 History: Endometrial Cancer, Endometriosis Family History Family History: Reviewed,noncontributory to illness Family History (Other): Family Hx of Dementia Social History Smoker: Non-Smoker Alcohol: Denies ETOH Use Drugs: Denies Drug Use Lives In: Home Constitutional: denies: chills, diaphoresis, fatigue, fever, malaise, sweats, weakness, others EENTM: denies: blurred vision, double vision, ear bleeding, ear discharge, ear drainage, ear pain, ear ringing, eye pain, eye redness, hearing loss, mouth pain, mouth swelling, nasal discharge, nose bleeding, nose congestion, nose pain, photophobia, tearing, throat pain, throat swelling, voice changes, others Respiratory: denies: cough, hemoptysis, orthopnea, SOB at rest, shortness of breath, SOB with excertion, stridor, wheezing, others Cardiovascular: denies: chest pain, dizzy spells, diaphoresis, Dyspnea on exertion, edema, irregular heart beat, left arm pain, lightheadedness, palpit ations, PND, syncope, others Gastrointestinal: denies: abdomen distended, abdominal pain, blood streaked b owels, constipated, diarrhea, dysphagia, difficulty swallowing, hematemesis, melena, nausea, poor appetite, poor fluid intake, rectal bleeding, rectal pain, vomiting, others Genitourinary: denies: abnormal vagina bleeding, burning, dyspareunia, dysuria, flank pain, frequency, hematuria, incontinence, pain, , vagina discharge, urgency, others Neurological: denies: dizziness, fainting, headache, left sided numbness, left sided weakness, numbness, paresthesia, pre-existing deficit, right sided numbness, right sided weakness, seizure, speech problems, tingling, tremors, weakness, others Musculoskeletal: reports: others (Right hip pain with drainage from the wound and tenderness with decreased range of motion); denies: back pain, gout, joint pain, joint swelling, muscle pain, muscle stiffness, neck pain Integumetry: denies: bruises, change in color, change in hair/nails, dryness, laceration, lesions, lumps, rash, wounds, others Allergic/Immunocompromised: denies: Difficulty Healing, Frequent Infections, Hives, Itching, others Hematologic/Lymphatic: denies: anemia, blood clots, easy bleeding, easy bruising, swollen glands, others Endocrine: denies: excessive hunger, excessive sweating, excessive thirst, excessive urination, flushing, intolerance to cold, intolerance to heat, unexplained weight gain, unexplained weight loss, others Psychiatric: denies: anxiety, bipolar disorder, depression, hopeless, panic disorder, schizophrenia, sleepless, suicidal, others Physical Exam General Appearance: Mild Distress, Obese HEENT: Normal ENT Inspection, Pharynx Normal, TMs Normal Neck: Full Range of Motion, Non-Tender, Normal, Normal Inspection Respiratory: Chest Non-Tender, Lungs Clear, No Accessory Muscle Use, No Respiratory Distress, Normal Breath Sounds Cardiovascular: No Edema, No JVD, No Murmur, No Gallop, Normal Peripheral Pulses, Regular Rate/Rhythm Breast Exam: Deferred Gastrointestinal: No Organomegaly, Non Tender, No Pulsatile Mass, Normal Bowel Sounds, Soft Genitalia: Deferred Pelvic: Deferred Rectal: Deferred Extremities: No calf tenderness, Normal capillary refill, No pedal edema, Other (The right hip with redness as well as drainage around the area and tenderness and decreased range of motion) Musculoskeletal : Apperance: Normal Neurologic: 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 Was a procedure done?: No Differential Dx Considerations may include: Septic joint, cellulitis, abscess X-Ray, Labs, Meds, VS Vital Signs Date Time Temp Pulse Resp B/P (MAP) Pulse Ox O2 Delivery O2 Flow Rate FiO2 04/08/24 11:27 76 14 90 Nasal Cannula* 2 28 04/08/24 11:27 98.0 76 14 119/35 (63) 90 98.0 04/08/24 11:07 99.0 80 18 138/80 (99) 98 Lab Test 04/08/24 11:37 Range/Units White Blood Count 5.2 4.4-10.8 10^3/uL Red Blood Count 3.39 L 4.0-5.20 10^6/uL Hemoglobin 10.2 L 12.2-16.2 g/dL Hematocrit 31.3 L 36.0-46.0 % Mean Corpuscular Volume 92.4 80.0-100.0 fL Mean Corpuscular Hemoglobin 30.1 28.0-32.0 pg Mean Corpuscular Hemoglobin Concent 32.6 32.0-36.0 g/dL Red Cell Distribution Width 19.8 H 11.8-14.3 % Platelet Count 157 140-450 10^3/uL Mean Platelet Volume 8.2 6.9-10.8 fL Neutrophils (%) (Auto) 83.7 H 37.0-80.0 % Lymphocytes (%) (Auto) 6.1 L 10.0-50.0 % Monocytes (%) (Auto) 5.9 0.0-12.0 % Eosinophils (%) (Auto) 3.9 0.0-7.0 % Basophils (%) (Auto) 0.4 0.0-2.0 % Neutrophils # (Auto) 4.3 1.6-8.6 10 ^3/uL Lymphocytes # (Auto) 0.3 L 0.4-5.4 10 ^3/uL Monocytes # (Auto) 0.3 0-1.3 10 ^3/uL Eosinophils # (Auto) 0.2 0-0.8 10 ^3/uL Basophils # (Auto) 0 0-0.2 10 ^3/uL Nucleated Red Blood Cells 0.1 % Sodium Level 140 136-145 mmol/L Potassium Level 3.9 3.5-5.1 mmol/L Chloride Level 106 98-107 mmol/L Carbon Dioxide Level 29 20-31 mmol/L Anion Gap 5 5-15 Blood Urea Nitrogen 13 9-23 mg/dL Creatinine 0.72 0.550-1.02 mg/dL Glomerular Filtration Rate Calc 94 >90 mL/min BUN/Creatinine Ratio 18.1 10.0-20.0 Serum Glucose 83 74-106 mg/dL Lactic Acid Level Pending Calcium Level 9.2 8.7-10.4 mg/dL IV Hep-Lock has been established A wound culture has also been ordered. The CBC shows anemia with a hemoglobin of 10.2 and hematocrit 31.3 The rest of the CBC is within normal limits The chemistry panel is within normal limits At this time we did consult with the orthopedic surgeon and the patient will be admitted for possible I and D The patient understands and agrees with the management. Images Reviewed?: Images reviewed and evaluated by me Time of 1ST Reevaluation: 11:37 Reevaluation 1ST: Unchanged Patient Education/Counseling: Diagnosis, Treatment, Prognosis Family Education/Counseling: Diagnosis, Treatment, Prognosis Departure 1 Departure Time of Disposition: 11:37 Impression: Primary Impression: Infection of right prosthetic hip joint Qualified Codes: T84.51XA - Infection and inflammatory reaction due to internal right hip prosthesis, initial encounter Disposition: 09 ADMITTED INPATIENT Admit to: Med Surg Condition: Fair Critical Care Note Critical Care Time?: No Stability Stability form required: Yes Unstable for transfer: ED Physician Assesment (Clinical assesment) Heart Score Heart Score: Heart Score Response (Comments) Value History N/A 0 EKG N/A 0 Age N/A 0 Risk Factors N/A 0 Troponin N/A 0 Total 0 MAEGAN BARRIGA MD Apr 08, 2024 11:42
[2024-04-08 12:16] LABS: Basophils # (auto) 0 10 ^3/uL (0-0.2); Basophils % (auto) 0.4 % (0.0-2.0); Eosinophils # (auto) 0.2 10 ^3/uL (0-0.8); Eosinophils % (auto) 3.9 % (0.0-7.0); Hematocrit 31.3 % (36.0-46.0); Hemoglobin 10.2 g/dL (12.2-16.2); Lymphocytes # (auto) 0.3 10 ^3/uL (0.4-5.4); Lymphocytes % (auto) 6.1 % (10.0-50.0); Mean Corpuscular Hemoglobin 30.1 pg (28.0-32.0); Mean Corpuscular Hgb Conc. 32.6 g/dL (32.0-36.0); Mean Corpuscular Volume 92.4 fL (80.0-100.0); Monocytes # (auto) 0.3 10 ^3/uL (0-1.3); Monocytes % (auto) 5.9 % (0.0-12.0); Neutrophils # (auto) 4.3 10 ^3/uL (1.6-8.6); Neutrophils % (auto) 83.7 % (37.0-80.0); Nucleated Red Blood Cells % 0.1 %; Platelet Count (auto) 157 10^3/uL (140-450); Red Blood Cells 3.39 10^6/uL (4.0-5.20); Red Cell Distribution Width 19.8 % (11.8-14.3); White Blood Cell 5.2 10^3/uL (4.4-10.8)
[2024-04-08 12:25] LABS: Chloride 106 mmol/L (98-107); Potassium 3.9 mmol/L (3.5-5.1); Sodium 140 mmol/L (136-145)
[2024-04-08 12:26] LABS: Anion Gap 5 (5-15); Calcium 9.2 mg/dL (8.7-10.4); Carbon Dioxide 29 mmol/L (20-31)
[2024-04-08 12:31] LABS: BUN/Creatinine Ratio 18.1 (10.0-20.0); Blood Urea Nitrogen 13 mg/dL (9-23); Glucose 83 mg/dL (74-106)
[2024-04-08 13:19] LABS: Partial Thromboplastin Time 27.6 SEC (24.5-34.5); Prothrombin Time 10.6 sec (9.3-11.8)
--- NOTE | 2024-04-08 13:21 | DVH ---
EXAM: CT CT R HIP WITH OUT CONTRAST INDICATION: infection EXAM DATE: 04/08/2024 12:42 PM COMPARISON: CT CT R HIP WITH OUT CONTRAST on DOS: 03/11/24 TECHNIQUE: Multiple axial CT images of the right hip were obtained using bone algorithm. Axial and co lidia reformatting was done. Bone and soft tissue windows were reviewed. Radiation Dose Information: CT Dose: CTDI volume is 50.76 mGy. Dose-length product is 1931.57 mGy*cm Findings: Limited evaluation given noncontrast technique. Right total hip arthroplasty limits evaluation due to beam hardening artifact. There is no evidence of an acute fracture, dislocation, blastic, or lytic lesions. Heterotopic ossifi cation. No joint effusion or superficial soft tissue abnormalities. Mildly prominent right inguinal nodes. No definite focal fluid collections. Impression: 1. Limited evaluation due to noncontrast technique and beam hardening artifact. 2. If there is high clinical suspicion for an infection, recommend a nuclear medicine WBC scan for fu rther evaluation. 3. Mildly prominent right inguinal nodes, nonspecific. 4. No acute osseous abnormality.
[2024-04-08] MEDS ORDERED: MORPHINE SULFATE INJ 2 MG/ml SYRG IV PRN (13:45)
[2024-04-08] MEDS: SODIUM CHLORIDE 0.9% 1,000 ML IV SCH (13:45)
[2024-04-08] MEDS ORDERED: NITROGLYCERIN 0.4 MG SL TAB SL PRN (13:45)
[2024-04-08] MEDS ORDERED: ACETAMINOPHEN 325 MG TAB PO PRN (13:45)
--- NOTE | 2024-04-08 14:00 | DVHINCON2 ---
Date of service: Apr 08, 2024 Reason for Consultation Right hip drainage S/P right total hip arthroplasty History of Present Illness Mrs. Umanzor is a 63-year-old female who was approximately three weeks out from a right total hip arthroplasty explant with continued pain, swelling, erythema, and drainage from her wound that has not slowed down since surgery. Patient reports continued pain to her right hip and has been having difficulty a mbulating due to the pain. Patient also notes that due to the pain she has been having trouble with her balance and had a fall recently but denied any head trauma, loss of consciousness, chest pain, shortness of breath, nausea, vomiting, fever, or chills. Past Medical History Cancer, Depression, High Lipids, HTN, Seizures, endometriosis Past Surgical History Hernia Repair, Hysterectomy, right hip surgery, carpal tunnel surgery Family History: FH: breast cancer G8 MOTHER FH: stroke G8 FATHER, Family History Noncontributory Social History Patient denies smoking, EtOH, or illicit substance abuse Allergies: Coded Allergies: Penicillins (Verified Allergy, Unknown, 05/12/23) Home Meds Reported Medications Atorvastatin Calcium (ATORVASTATIN CALCIUM) 40 Mg Tab, 40 MG PO DAILY, TAB 12/01/23 Risperidone (Risperidone) 3 Mg Tab, 1 TAB PO BID 05/13/23 Metoprolol Succinate (Metoprolol Succinate Er) 50 Mg Tab, 1 TAB PO DAILY Take 1/2 tablet qam 05/13/23 Primidone (Primidone) 125 Mg Tab, 250 MG PO TID, TAB 05/13/23 Fluoxetine Hcl (Fluoxetine Hcl) 20 Mg Tab, 1 TAB PO DAILY, #90 TAB 3 Refills 05/13/23 Benztropine Mesylate (Benztropine Mesylate) 1 Mg Tab, 0.5 TAB PO BID, #60 TAB 0.5 mg tab 05/13/23 Clopidogrel Bisulfate (CLOPIDOGREL) 75 Mg Tab, 1 TAB PO DAILY, #90 TAB 1 Refill 05/13/23 Current Medications Current Medications Medications (Trade) Dose Ordered Sig/Los Route PRN Reason Start Time Stop Time Status Last Admin Sodium Chloride 1,000 ml @ 120 mls/hr Q8H20M IV 04/08/24 13:45 04/08/24 13:45 Ondansetron HCl (Zofran) 4 mg Q4HP PRN IV NAUSEA / VOMITING 04/08/24 13:45 Acetaminophen (Tylenol Tablet) 650 mg Q6HP PRN PO PAIN SCALE 1-3 OR TEMP>100.4 04/08/24 13:45 Morphine Sulfate 2 mg Q4HPRN PRN IV SEVERE PAIN (7-10 PAIN SCALE) 04/08/24 13:45 Acetaminophen/ Hydrocodone Bitart ([place]arker 5/325MG Tab) 1 tab Q4HP PRN PO MODERATE PAIN (4-6 PAIN SCALE) 04/08/24 13:45 Nitroglycerin (Ntrostat Sublingual) 0.4 mg Q5MINP PRN SL FOR CHEST PAIN 04/08/24 13:45 Morphine Sulfate 2 mg Q30M PRN IV FOR CHEST PAIN 04/08/24 13:45 Review of Systems 10 point review of systems negative except as per HPI Vital Signs Vital Signs Date Time Temp Pulse Resp B/P (MAP) Pulse Ox O2 Delivery O2 Flow Rate FiO2 04/08/24 11:27 76 14 90 Nasal Cannula* 2 28 04/08/24 11:27 98.0 119/35 (63) 98.0 Physical Exam General appearance: A&O x4 in no acute distress HEENT: Normal ENT inspection, pharynx normal, TMs normal Neck: Full range of motion, nontender, normal inspection Respiratory: Chest nontender, without accessory muscle use, no respiratory distress Cardiovascular: No edema, no JVD, normal peripheral pulses Gastrointestinal: Soft, nontender, no organomegaly. Musculoskeletal: Right hip range of motion grossly limited with pain on movement, swelling and erythema noted to her right hip without any active drainage, single staple noted to the center of the incision, no calf tenderness, normal capillary refill, no pedal edema, neurovascularly intact. Skin: Dry, normal color, warm Lymphatic: No adenopathy Labs/Diagnostic Data Labs Test 04/08/24 13:06 04/08/24 11:37 Range/Units White Blood Count 5.2 4.4-10.8 10^3/uL Red Blood Count 3.39 L 4.0-5.20 10^6/uL Hemoglobin 10.2 L 12.2-16.2 g/dL Hematocrit 31.3 L 36.0-46.0 % Mean Corpuscular Volume 92.4 80.0-100.0 fL Mean Corpuscular Hemoglobin 30.1 28.0-32.0 pg Mean Corpuscular Hemoglobin Concent 32.6 32.0-36.0 g/dL Red Cell Distribution Width 19.8 H 11.8-14.3 % Platelet Count 157 140-450 10^3/uL Mean Platelet Volume 8.2 6.9-10.8 fL Neutrophils (%) (Auto) 83.7 H 37.0-80.0 % Lymphocytes (%) (Auto) 6.1 L 10.0-50.0 % Monocytes (%) (Auto) 5.9 0.0-12.0 % Eosinophils (%) (Auto) 3.9 0.0-7.0 % Basophils (%) (Auto) 0.4 0.0-2.0 % Neutrophils # (Auto) 4.3 1.6-8.6 10 ^3/uL Lymphocytes # (Auto) 0.3 L 0.4-5.4 10 ^3/uL Monocytes # (Auto) 0.3 0-1.3 10 ^3/uL Eosinophils # (Auto) 0.2 0-0.8 10 ^3/uL Basophils # (Auto) 0 0-0.2 10 ^3/uL Nucleated Red Blood Cells 0.1 % Prothrombin Time 10.6 9.3-11.8 sec Prothrombin Time INR 1.00 0.9-1.15 Activated Partial Thromboplast Time 27.6 24.5-34.5 SEC Sodium Level 140 136-145 mmol/L Potassium Level 3.9 3.5-5.1 mmol/L Chloride Level 106 98-107 mmol/L Carbon Dioxide Level 29 20-31 mmol/L Anion Gap 5 5-15 Blood Urea Nitrogen 13 9-23 mg/dL Creatinine 0.72 0.550-1.02 mg/dL Glomerular Filtration Rate Calc 94 >90 mL/min BUN/Creatinine Ratio 18.1 10.0-20.0 Serum Glucose 83 74-106 mg/dL Lactic Acid Level 1.2 0.4-2.0 mmol/L Calcium Level 9.2 8.7-10.4 mg/dL C-Reactive Protein High Sensitivity 5.23 H <1.0 mg/dL Right hip CT scan reviewed and demonstrated: 1. Limited evaluation due to noncontrast technique and beam hardening artifact. 2. If there is high clinical suspicion for an infection, recommend a nuclear medicine WBC scan for further evaluation. 3. Mildly prominent right inguinal nodes, nonspecific. 4. No acute osseous abnormality. Assessment Infection of right prosthetic hip joint Plan/Recommendation I had a lengthy discussion with the patient and after discussing her case with Dr. Aabd we have recommended an I and D of her right hip given her continued swelling, pain, and drainage. I discussed all of the risks and complications involved with surgery including but not limited to bleeding, infection, nerve injury, chronic pain, nonunion, malunion, need for further surgery, blood clots, DVT, PE, cardiac and pulmonary complications, and even . She understood and agreed to proceed with the surgery. We will plan to undergo surgery tomorrow if schedule allows and patient remains medically stable. Thank you for allowing us to participate in the care of your patient. Plan discussed with: Patient, Spouse GEORGE SAUNDERS Apr 08, 2024 14:00
[2024-04-08 14:49] LABS: Urine Bacteria FEW /hpf (None Seen); Urine Blood Negative /uL (Negative); Urine Clarity Clear (Clear); Urine Color Light-Yellow (Yellow); Urine Mucus FEW (None Seen); Urine Protein, UAD Negative (Negative); Urine Specific Gravity 1.019 (1.001-1.035); Urine Squamous Epithelial Cell None Seen /hpf (<5); Urine Urobilinogen Normal (Negative); Urine WBC 1 /hpf (0 - 5); Urine pH 5.5 (5.0-9.0)
[2024-04-08 16:45] LABS: Erythrocyte Sedimentation Rate 90 mm/hr (0-20)
[2024-04-08 19:35] VITALS: PULSE 72; RESP 13; O2SAT 96
[2024-04-08 22:57] VITALS: BP 104/35; PULSE 64; RESP 17; TEMP 98.6; O2SAT 95
[2024-04-08 23:09] VITALS: BP 104/55; PULSE 64; RESP 17; TEMP 98.6; O2SAT 95
[2024-04-09] VITALS (9 sets, daily range): BP systolic 95–152; BP diastolic 27–61; PULSE 58–96; RESP 10–18; TEMP 98.1–99.1; O2SAT 91–97
[2024-04-09] MEDS ORDERED: VANCOMYCIN PER PHARMACY 0 MG IV SCH (03:15)
--- NOTE | 2024-04-09 03:24 | DVHHP2 ---
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 Patient has been had been difficulty ambulating due to pain to the right hip. Patient also recently underwent I&D of fluid pocket. At this time patient denies fevers, chills, shortness of breath, chest pain,Palpitations, nausea, vomiting. Cardiovascular: HTN Endocrine: Diabetes Past Surgical History: Total hip replacement Smoke: No ALCOHOL: none Drugs: None Lives: with Family Review of Systems Constitutional: No: Fever, Chills, Sweats, Weakness, Malaise, Other Eyes: No: Pain, Vision change, Conjunctivae inflammation, Eyelid inflammation, Other, Redness ENT: No: Ear pain, Ear discharge, Nose pain, Nose discharge, Nose congestion, Mouth pain, Mouth swelling, Throat pain, Throat swelling, Other Respiratory: No: Cough, Dry, Shortness of breath, SOB with excertion, Wheezing, Hemoptysis, Pleuritic Pain, Sputum, Wheezing, Other Cardiovascular: No: Chest Pain, Palpitations, Orthopnea, Paroxysmal Noc. Dyspnea, Edema, Lt Headedness, Other Gastrointestinal: No: Nausea, Vomiting, Abdominal Pain, Diarrhea, Constipation, Melena, Hematochezia, Other Genitourinary: No Dysuria, No Frequency, No Incontinence, No Hematuria, No Retention, No Other Musculoskeletal: leg pain; No: other, neck pain, shoulder pain, arm pain, back pain, hand pain, foot pain Skin: Other (Left hip wound draining); No: Rash, Lesions, Jaundice, Bruising Neurological: No: Weakness, Numbness, Incoordination, Change in speech, Confusion, Seizures, Other Allergies: Coded Allergies: Penicillins (Verified Allergy, Unknown, 05/12/23) Medications Current Medications Medications Dose Ordered Sig/Los Route Start Time Stop Time Status Last Admin Dose Admin Sodium Chloride 1,000 ml @ 120 mls/hr Q8H20M IV 04/08/24 13:45 04/08/24 22:06 120 MLS/HR Ondansetron HCl 4 mg Q4HP PRN IV 04/08/24 13:45 Acetaminophen 650 mg Q6HP PRN PO 04/08/24 13:45 Morphine Sulfate 2 mg Q4HPRN PRN IV 04/08/24 13:45 Acetaminophen/ Hydrocodone Bitart 1 tab Q4HP PRN PO 04/08/24 13:45 Nitroglycerin 0.4 mg Q5MINP PRN SL 04/08/24 13:45 Morphine Sulfate 2 mg Q30M PRN IV 04/08/24 13:45 Piperacillin Sod/ Tazobactam Sod 100 ml @ 25 mls/hr Q8HR IV 04/09/24 06:00 UNV Vancomycin HCl 0 ml @ 0 mls/hr UD IV 04/09/24 03:15 UNV Exam Vital Signs Vital Signs Date Time Temp Pulse Resp B/P (MAP) Pulse Ox O2 Delivery O2 Flow Rate FiO2 04/09/24 01:00 98.1 64 17 95/27 (49) 95 98.1 04/08/24 23:09 Room Air* 0 21 General Appearance: Alert, Oriented X3, Cooperative HEENT: Atraumatic, PERRLA, EOMI Respiratory: Clear to auscultation, Normal air movement Cardiovascular: Regular rate, Normal S1, Normal S2 Abdominal: Normal bowel sounds, Soft, No tenderness Extremities: No clubbing, No cyanosis, No edema Skin: No breakdown (Wound to Right hip Draining) Neuro: Normal speech, Strength at 5/5 X4 ext Psych/Mental Status: Mental status NL, Mood NL Labs/Xrays Labs Test 04/08/24 14:42 04/08/24 13:32 04/08/24 11:37 Range/Units Erythrocyte Sedimentation Rate 90 H 0-20 mm/hr Urine Color Light-yellow Yellow Urine Clarity Clear Clear Urine pH 5.5 5.0-9.0 Urine Specific [place] 1.019 1.001-1.035 Urine Protein Negative Negative Urine Ketones Negative Negative Urine Blood Negative Negative /uL Urine Nitrite Negative Negative Urine Bilirubin Negative Negative Urine Urobilinogen Normal Negative mg/dL Urine Leukocyte Esterase Negative Negative /uL Urine RBC <1 0 - 4 /hpf Urine WBC 1 0 - 5 /hpf Urine Squamous Epithelial Cells None seen <5 /hpf Urine Bacteria Few H None Seen /hpf Urine Mucus Few None Seen Urine Glucose Normal Normal mg/dL White Blood Count 5.2 4.4-10.8 10^3/uL Red Blood Count 3.39 L 4.0-5.20 10^6/uL Hemoglobin 10.2 L 12.2-16.2 g/dL Hematocrit 31.3 L 36.0-46.0 % Mean Corpuscular Volume 92.4 80.0-100.0 fL Mean Corpuscular Hemoglobin 30.1 28.0-32.0 pg Mean Corpuscular Hemoglobin Concent 32.6 32.0-36.0 g/dL Red Cell Distribution Width 19.8 H 11.8-14.3 % Platelet Count 157 140-450 10^3/uL Mean Platelet Volume 8.2 6.9-10.8 fL Neutrophils (%) (Auto) 83.7 H 37.0-80.0 % Lymphocytes (%) (Auto) 6.1 L 10.0-50.0 % Monocytes (%) (Auto) 5.9 0.0-12.0 % Eosinophils (%) (Auto) 3.9 0.0-7.0 % Basophils (%) (Auto) 0.4 0.0-2.0 % Neutrophils # (Auto) 4.3 1.6-8.6 10 ^3/uL Lymphocytes # (Auto) 0.3 L 0.4-5.4 10 ^3/uL Monocytes # (Auto) 0.3 0-1.3 10 ^3/uL Eosinophils # (Auto) 0.2 0-0.8 10 ^3/uL Basophils # (Auto) 0 0-0.2 10 ^3/uL Nucleated Red Blood Cells 0.1 % Prothrombin Time 10.6 9.3-11.8 sec Prothrombin Time INR 1.00 0.9-1.15 Activated Partial Thromboplast Time 27.6 24.5-34.5 SEC Sodium Level 140 136-145 mmol/L Potassium Level 3.9 3.5-5.1 mmol/L Chloride Level 106 98-107 mmol/L Carbon Dioxide Level 29 20-31 mmol/L Anion Gap 5 5-15 Blood Urea Nitrogen 13 9-23 mg/dL Creatinine 0.72 0.550-1.02 mg/dL Glomerular Filtration Rate Calc 94 >90 mL/min BUN/Creatinine Ratio 18.1 10.0-20.0 Serum Glucose 83 74-106 mg/dL Lactic Acid Level 1.2 0.4-2.0 mmol/L Calcium Level 9.2 8.7-10.4 mg/dL C-Reactive Protein High Sensitivity 5.23 H <1.0 mg/dL Assessment/Plan Assessment/Plan Right hip infection S/p right hip arthroplasty Hypertension Plan Admit to telemetry Consult orthopedic surgeon Consult infectious disease. Wound culture pending. Wound care consult Continue home medication after medication reconciliation has been completed. As needed anti hypertensive for optimal BP management IVF IV ABX GI ppx protonix / dvt ppx SCD Plan discussed with: Patient My Orders Orders - SONY ESTEVES NP Procedure Category Date Status Time Piperacillin-Tazob PHA 04/09/24 Logged 3.375gm (Zosyn 3.375g 06:00 Vancomycin Per PHA 04/09/24 Logged Pharmacy 03:15 Wound Culture W/ Gs BERNARDO 04/09/24 Logged 03:14 Date of Service: Apr 09, 2024 Billing Provider: SUAD RUVALCABA MD Common Visit Codes: NOT BILLABLE SUAD RUVALCABA MD 04/09/24 1614: Review of Systems Allergies: Coded Allergies: Penicillins (Verified Allergy, Unknown, 05/12/23) Additional Comments Additional Comments Additional Comments 63-year-old female with a known history of hypertension, dyslipidemia, status post TAVR, previous history of bilateral total hip arthroplasty, right total hip arthroplasty two years ago, status post explantation and irrigation and debridement to bone level deep tissue and placement of antibiotic cement prostatic pace spacer, open reduction and internal fixation of proximal femur fracture with the implants on March 15, presented to the hospital with r ight hip pain unable to ambulate and drainage found to have 1. Right hip seroma status post incision and drainage postop day 0 2. Right hip pain secondary to 1. 3. Recent right hip complex fluid collection status post explantation and irrigation and debridement to the bone depth level with antibiotic spacer placement. 4. Status post TAVR 5. Hypertension 6. Dyslipidemia -follow up wound Gram stain and culture, continue IV antibiotics, infectious disease consultation SONY ESTEVES NP Apr 09, 2024 03:24 SUAD RUVALCABA MD Apr 09, 2024 16:14
--- NOTE | 2024-04-09 06:17 | DVH ---
CHEST RADIOGRAPH Indication: pain Technique: Single frontal view of the chest was obtained Comparison: None FINDINGS: Lines and Tubes: Left PICC tip in svc Lungs: No focal consolidation. Pleura: No effusion. No pneumothorax. Cardiomediastinal contours: Unremarkable Bones: No acute osseous abnormality. IMPRESSION: No acute cardiopulmonary disease.
[2024-04-09] MEDS: VANCOMYCIN 1GM/250mL NS or D5W KIT IV SCH (07:01)
[2024-04-09] MEDS ORDERED: PIPERACILLIN-TAZOB 3.375GM 100 ML IV SCH (11:00)
[2024-04-09] MEDS ORDERED: MIDAZOLAM HCL 2MG/2ML 2ml VIAL (1mg/ml) ONE (12:12)
[2024-04-09] MEDS ORDERED: ETOMIDATE (2MG/ML) 20ML VIAL IV ONE (12:12)
[2024-04-09] MEDS ORDERED: ROCURONIUM 10MG/ML 10ML VIAL IV ONE (12:12)
[2024-04-09] MEDS ORDERED: GLYCOPYRROLATE 0.2 MG/ML 1ML VIAL ONE (12:12)
[2024-04-09] MEDS ORDERED: LIDOCAINE 2% (LOCAL ANESTH.) PF 5ml SDV ONE (12:12)
[2024-04-09] MEDS ORDERED: ONDANSETRON HCL 4 MG/2 ML VIAL ONE (12:12)
[2024-04-09] MEDS ORDERED: fentaNYL CITRATE 100 MCG/2 ML VL ONE (12:12)
[2024-04-09] MEDS ORDERED: HYDROmorphone HCL 2 MG/ML VL/or syr ONE (12:12)
[2024-04-09] MEDS ORDERED: ePHEDrine SULFATE 50 MG/ML AMP ONE (12:12)
[2024-04-09] MEDS: BUPIVACAINE 0.25% INJ 50ML VIAL ONE (12:17)
[2024-04-09] MEDS: KETOROLAC TROMETH 30 MG/ML 1ML VIAL ONE (12:19)
[2024-04-09] MEDS ORDERED: MORPHINE SULF PF 5 MG/10 ML VIAL ONE (12:21)
[2024-04-09] MEDS ORDERED: ceFAZolin 1GM VL ONE (12:49)
[2024-04-09] MEDS ORDERED: SUGAMMADEX 200mg/2ml Vial (100MG/ML) IV ONE (12:57)
--- NOTE | 2024-04-09 13:04 | DVHOP2 ---
Operative Report - 2 Report Details Date: 04/09/24 Preop Diagnosis: Right hip postop seroma Postop Diagnosis: Right hip postop seroma deep subcutaneous Surgeon: Ferny Ibrahim MD Anesthesiologist: Lester Anesthesia: General Consent: The patient was informed of the risks and benefits of the procedure. These include but are not limited to complications of anesthesia, postoperative infection, incomplete relief of symptoms, recurrence of symptoms, damage to blood vessels, nerves and tendons, deep venous thrombosis, pulmonary embolism and possible need for repeat surgery in the future. Complications: None Estimated Blood Loss: None Fluids: See anesthesia record Findings: Patient had a large amount of serous fluid on the dressing though I was not able to express it with pressure however after opening the skin there was a large deep subcutaneous pocket with about 750 cc of serosanguineous fluid. no foul smell. Patient had an area of erythema that appeared to be related to wound irritation around the wound. In her posterior buttock and thighs were a deep erythema with some skin sloughing consistent with what appeared to be a fungal infection. Indications for Surgery: Persistent wound drainage postop explant for late prosthetic infection right hip Name of Procedure Performed Right hip seroma incision and drainage Procedure Details Procedure Details: Patient was brought to the operating room and placed on the table in the supine position. Patient was given general anesthetic. She was transferred to a lateral decubitus position with the right hip up stabilized with hip positioners lower extremities well padded axillary roll inserted. The left hip and lower extremity were prepped and draped in sterile fashion. Surgical time-out was performed verifying patient, laterality, and procedure. As stated above, I attempted to express fluid from the wound which was not successful. I used scissors to open up several cm along the mid point of the wound and serosanguineous fluid immediately extruded. Cultures were obtained then the patient was given 2 g IV Ancef. As stated above, it was approximately 750 cc. I irrigated the wound with Pulsavac lavage normal saline followed by xperience antibacterial irrigant. I then packed the wound with a moist normal saline Kerlix roll. Wound was then dressed sterilely. Patient tolerated the procedure well was brought to recovery room in stable condition. Specimen: Gram stain, aerobic and anaerobic cultures sent right hip wound Condition Stable Disposition Still a Patient FERNY IBRAHIM MD Apr 09, 2024 13:04
[2024-04-09] MEDS ORDERED: HYDROmorphone HCL 2 MG/ML VL/or syr IV PRN (13:15)
--- NOTE | 2024-04-09 14:26 | ECG ---
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
[2024-04-09] MEDS: PIPERACILLIN-TAZOB 3.375GM 100 ML IV SCH (17:31)
[2024-04-09] MEDS: ATORVASTATIN 20 MG TAB PO SCH (21:30)
[2024-04-09] MEDS: risperiDONE 1 MG TAB PO SCH (21:30)
[2024-04-09] MEDS: VANCOMYCIN 1GM/250ML KIT 250 ML IV SCH (21:35)
[2024-04-10] VITALS (8 sets, daily range): BP systolic 127–149; BP diastolic 40–69; PULSE 70–90; RESP 16–20; TEMP 97.8–99.1; O2SAT 93–98
[2024-04-10] MEDS: HYDROcodone-ACET 5/325MG TAB PO PRN (00:56)
[2024-04-10] MEDS: PRIMIDONE 50 MG TAB PO SCH (06:19)
[2024-04-10] MEDS: FLUoxetine HCL 20 MG CAP PO SCH (09:54)
[2024-04-10] MEDS: BENZTROPINE MESY 0.5 MG TAB PO SCH (09:54)
[2024-04-10] MEDS: CLOPIDOGREL BISULFATE 75 MG TAB PO SCH (09:54)
[2024-04-10] MEDS: METOPROLOL SUCCINATE XL 50 MG TAB PO SCH (09:55)
[2024-04-10] MEDS: ONDANSETRON HCL 4 MG/2 ML VIAL IV PRN (13:04)
--- NOTE | 2024-04-10 14:09 | DVHPN2 ---
Progress Note - Dictate Date Seen: Apr 10, 2024 Medical Necessity Reason Pt with a Central, PICC or Fol: No Subjective Patient was lying comfortably in bed during my evaluation and reports some postoperative hip pain that is being well managed with the help of pain medication. Patient reports that her dressings and packing was changed this morning and was able to get up and walk with physical therapy and the assistance of a walker remaining toe-touch weight-bearing on her operative leg and was able to get to a chair a couple steps near her bed and back to her bed earlier today. Patient also complained of difficulty sleeping at night feeling restless and anxious. Patient was otherwise feeling well denying any other complaint or concern during my evaluation. vital signs Vital Sign Date Time Temp Pulse Resp B/P (MAP) Pulse Ox O2 Delivery O2 Flow Rate FiO2 04/10/24 09:55 82 149/69 04/10/24 09:00 99.1 19 98 99.1 04/09/24 20:00 Nasal Cannula* 2 28 Total Intake and Output 04/09/24 04/09/24 04/10/24 15:00 23:00 07:00 Intake Total 550 ml 1395 ml 300 ml Output Total 550 ml 2100 ml Balance 550 ml 845 ml -1800 ml medications Current Medications Medications Dose Ordered Sig/Los Route Start Time Stop Time Status Last Admin Dose Admin Sodium Chloride 1,000 ml @ 120 mls/hr Q8H20M IV 04/08/24 13:45 04/10/24 07:25 120 MLS/HR Ondansetron HCl 4 mg Q4HP PRN IV 04/08/24 13:45 04/10/24 13:04 4 MG Acetaminophen 650 mg Q6HP PRN PO 04/08/24 13:45 Morphine Sulfate 2 mg Q4HPRN PRN IV 04/08/24 13:45 Acetaminophen/ Hydrocodone Bitart 1 tab Q4HP PRN PO 04/08/24 13:45 04/10/24 09:55 1 TAB Nitroglycerin 0.4 mg Q5MINP PRN SL 04/08/24 13:45 Morphine Sulfate 2 mg Q30M PRN IV 04/08/24 13:45 Vancomycin HCl 0 ml @ 0 mls/hr UD IV 04/09/24 03:15 Vancomycin HCl 250 ml @ 250 mls/hr Q12H IV 04/09/24 19:00 04/10/24 06:21 250 MLS/HR Piperacillin Sod/ Tazobactam Sod 100 ml @ 25 mls/hr Q8H IV 04/09/24 16:00 04/10/24 08:36 25 MLS/HR Atorvastatin Calcium 40 mg HS PO 04/09/24 22:00 04/09/24 21:30 40 MG Benztropine Mesylate 0.5 mg DAILY PO 04/10/24 10:00 04/10/24 09:54 0.5 MG Clopidogrel Bisulfate 75 mg DAILY PO 04/10/24 10:00 04/10/24 09:54 75 MG Fluoxetine HCl 20 mg DAILY PO 04/10/24 10:00 04/10/24 09:54 20 MG Primidone 250 mg Q8HR PO 04/10/24 06:00 04/10/24 06:19 250 MG Risperidone 3 mg BID PO 04/09/24 22:00 04/10/24 09:54 3 MG Metoprolol Succinate 25 mg DAILY PO 04/10/24 10:00 04/10/24 09:55 25 MG objective A&O x4 in no acute distress Hip range of motion grossly limited with pain on movement Dressing clean, dry, and intact Mild distal edema and right calf tender to palpation Neurovascularly intact with cap refill less than 2 seconds laboratory and microbiology Laboratory Tests 04/10/24 04:25 04/08/24 11:37 Test 04/08/24 11:37 Range/Units Serum Glucose 83 74-106 mg/dL Assessment/Plan Infection of right prosthetic hip joint Continue current management as well as pain control and physical therapy advised patient to remain toe-touch weight-bearing with the assistance of a walker. Advised continuing with daily dressing and packing changes, wound vac can be used. Pending culture results and recommendations per Infectious Disease. Rx Benadryl at night to help patients insomnia. I instructed the patient to follow up with our office in 10-14 days for her 1st postoperative evaluation once she has been discharged home. We will continue observing patient for now. Plan discussed with: Patient GEORGE SAUNDERS Apr 10, 2024 14:09
[2024-04-10] MEDS ORDERED: diphenhdrAMINE HCL 25 MG CAP PO PRN (14:30)
--- NOTE | 2024-04-10 16:38 | DVH ---
Right lower extremity venous duplex Clinical History: RLE edema and calf TTP s/p R hip PER Comparison: None Technique: Duplex Doppler evaluation of the deep venous system of the right lower extremity from the common femo ral vein to the popliteal vein including color Doppler and spectral/pulsed waveform analysis was perf ormed. Findings: The common femoral vein demonstrates appropriate compressibility and waveform variability. There is compressibility/patency of the great saphenous vein at the proximal thigh. The femoral vein demonstrates appropriate compressibility and waveform variability. The deep femoral vein demonstrates appropriate compressibility and waveform variability. The popliteal vein demonstrates appropriate compressibility and waveform variability. There is normal compressibility at the tibioperoneal trunk. Impression: No right femoropopliteal venous thrombosis.
--- NOTE | 2024-04-10 16:48 | DVHPN2 ---
Subjective Patient denies any complaints, wound Gram stain culture came back with VRE and Citrobacter. Discontinue vanco and Zosyn start daptomycin and cefepime. Reviewed: Care Plan Changes from previous H/P or p: No Changes Eyes: No Pain, No Vision change, No Conjunctivae inflammation, No Eyelid inflammation, No Other, No Redness ENT: No Ear pain, No Ear discharge, No Nose pain, No Nose discharge, No Nose congestion, No Mouth pain, No Mouth swelling, No Throat pain, No Throat swelling, No Other Cardiovascular: No Chest Pain, No Palpitations, No Orthopnea, No Paroxysmal Noc. Dyspnea, No Edema, No Lt Headedness, No Other Respiratory: No Cough, No Dry, No Shortness of breath, No SOB with excertion, No Wheezing, No Hemoptysis, No Pleuritic Pain, No Sputum, No Other Gastrointestinal: No Nausea, No Vomiting, No Abdominal Pain, No Diarrhea, No Constipation, No Melena, No Hematochezia, No Other Genitourinary: No Dysuria, No Frequency, No Incontinence, No Hematuria, No Retention, No Other Musculoskeletal: No other, No neck pain, No shoulder pain, No arm pain, No back pain, No hand pain; leg pain; No foot pain Skin: No Rash, No Lesions, No Jaundice, No Bruising; Other (Left hip wound draining) Objective Vitals Vital Signs Date Time Temp Pulse Resp B/P (MAP) Pulse Ox O2 Delivery O2 Flow Rate FiO2 04/10/24 13:00 97.9 81 18 148/53 (84) 95 97.9 04/09/24 20:00 Nasal Cannula* 2 28 Intake/Output Intake and Output 04/10/24 07:00 Intake Total 2245 ml Output Total 2650 ml Balance -405 ml Intake Oral 1125 ml IV Total 1120 ml Output Urine Total 2650 ml # Bowel Movements 2 Exam HEENT pupils are reactive Neck is supple CV is S1-S2 regular rate and rhythm Respiratory are clear GI positive bowel sound Extremity no edema [employer]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 Medications Current Medications Medications Dose Ordered Sig/Los Route Start Time Stop Time Status Last Admin Dose Admin Sodium Chloride 1,000 ml @ 120 mls/hr Q8H20M IV 04/08/24 13:45 04/10/24 15:52 120 MLS/HR Ondansetron HCl 4 mg Q4HP PRN IV 04/08/24 13:45 04/10/24 13:04 4 MG Acetaminophen 650 mg Q6HP PRN PO 04/08/24 13:45 Morphine Sulfate 2 mg Q4HPRN PRN IV 04/08/24 13:45 Acetaminophen/ Hydrocodone Bitart 1 tab Q4HP PRN PO 04/08/24 13:45 04/10/24 16:30 1 TAB Nitroglycerin 0.4 mg Q5MINP PRN SL 04/08/24 13:45 Morphine Sulfate 2 mg Q30M PRN IV 04/08/24 13:45 Atorvastatin Calcium 40 mg HS PO 04/09/24 22:00 04/09/24 21:30 40 MG Benztropine Mesylate 0.5 mg DAILY PO 04/10/24 10:00 04/10/24 09:54 0.5 MG Clopidogrel Bisulfate 75 mg DAILY PO 04/10/24 10:00 04/10/24 09:54 75 MG Fluoxetine HCl 20 mg DAILY PO 04/10/24 10:00 04/10/24 09:54 20 MG Primidone 250 mg Q8HR PO 04/10/24 06:00 04/10/24 15:01 250 MG Risperidone 3 mg BID PO 04/09/24 22:00 04/10/24 09:54 3 MG Metoprolol Succinate 25 mg DAILY PO 04/10/24 10:00 04/10/24 09:55 25 MG Diphenhydramine HCl 50 mg QHSP PRN PO 04/10/24 14:30 Daptomycin 250 mg/ Sodium Chloride 50 ml @ 100 mls/hr DAILY IV 04/11/24 10:00 Laboratory Results Laboratory Tests 04/08/24 11:37 04/10/24 04:25 Urinalysis Test 04/08/24 13:32 Urine Color Light-yellow (Yellow) Urine Clarity Clear (Clear) Urine pH 5.5 (5.0-9.0) Urine Specific [place] 1.019 (1.001-1.035) Urine Protein Negative (Negative) Urine Ketones Negative (Negative) Urine Blood Negative /uL (Negative) Urine Nitrite Negative (Negative) Urine Bilirubin Negative (Negative) Urine Urobilinogen Normal mg/dL (Negative) Urine Leukocyte Esterase Negative /uL (Negative) Urine RBC <1 /hpf (0 - 4) Urine WBC 1 /hpf (0 - 5) Urine Squamous Epithelial Cells None seen /hpf (<5) Urine Bacteria Few /hpf (None Seen) H Urine Mucus Few (None Seen) Urine Glucose Normal mg/dL (Normal) Microbiology Microbiology Date/Time Source Procedure Growth Status 04/09/24 12:50 Hip Right Received 04/08/24 11:37 Blood Blood Culture - Preliminary NO GROWTH AFTER 48 HOURS OF INCUBATION. Resulted Assessment/Plan Assessment/Plan 63-year-old female with a known history of hypertension, dyslipidemia, status post TAVR, previous history of bilateral total hip arthroplasty, right total hip arthroplasty two years ago, status post explantation and irrigation and debridement to bone level deep tissue and placement of antibiotic cement prostatic pace spacer, open reduction and internal fixation of proximal femur fracture with the implants on March 15, presented to the hospital with right hip pain unable to ambulate and drainage found to have 1. Right hip seroma status post incision and drainage postop day 1 2. Right hip pain secondary to 1. 3. Recent right hip complex fluid collection status post explantation and irrigation and debridement to the bone depth level with antibiotic spacer placement. 4. Status post TAVR 5. Hypertension 6. Dyslipidemia -discontinue vancomycin and Zosyn, start daptomycin and cefepime -follow up Infectious Disease recommendations -discharge plan. Plan discussed with: Patient My Orders Orders - SUAD RUVALCABA MD Procedure Category Date Status Time Atorvastatin (Lipitor) PHA 04/09/24 In Process 22:00 Benztropine Tablet PHA 04/10/24 In Process (Cogentin Tablet) 10:00 Clopidogrel Bisulfate PHA 04/10/24 In Process (Plavix) 10:00 Fluoxetine Capsule PHA 04/10/24 In Process (Prozac Capsule) 10:00 Primidone Tablet PHA 04/10/24 In Process (Mysoline Tablet) 06:00 Risperidone Tablet PHA 04/09/24 In Process (Risperdal Tablet) 22:00 Metoprolol Xl PHA 04/10/24 In Process Succinate (Toprol Xl) 10:00 Daptomycin (Cubicin) PHA 04/11/24 In Process 10:00 Cefepime 2gm Extended PHA 04/10/24 Verified Infusion 22:00 Date of Service: Apr 10, 2024 Billing Provider: SUAD RUVALCABA MD Common Visit Codes: NOT BILLABLE SUAD RUVALCABA MD Apr 10, 2024 16:48
--- NOTE | 2024-04-10 18:12 | DVHINCON2 ---
Date of service: Apr 10, [address] Clement Reason for Consultation Antibiotic management. History of Present Illness Patient is a 63-year-old female, with a history of hypertension and hyperlipidemia, presents for a follow-up. The patient has undergone bilateral total hip replacement, with the right hip replaced in 2021 and the left hip in November 2023. She presented on April 09 with a draining wound from the right hip arthroplasty. Previously admitted in February for fluctuance at the right hip surgical site, imaging revealed loosening of the implant consistent with a chronic deep infection. The patient underwent explantation of the right hip prosthesis and was discharged with IV Vancomycin and Ceftriaxone for 6 weeks. During the period between hospitalizations, the patient was cared for at a facility. Superficial cultures identified Enterococcus faecium VRE, Citrobacter freundii and gabriel, while deep cultures from April 09 showed no growth. Initially treated with Vancomycin and Zosyn, her regimen was switched to Daptomycin and Cefepime. She underwent I&D, which shows no growth. The patient is planned for wound vac placement and discharge to SNF facility. Review of cultures: 03/11, blood cultures were negative, 03/14, Gram-positive resembling diphtheroids from the drainage. 03/15, right hip superficial abscess from right hip shows no growth. 03/15, Deep tissue right hip culture shows no growth. 03/15, Femoral stem right hip shows no growth During this hospitalization, 04/08 blood cultures showed no growth. Patient has a superficial wound culture, which is showing VRE, Citrobacter fluently. However, the deep cultures from 04/09 shows no growth. Past Medical History Patient's Past Medical History is significant for Hypertension, Hyperlipidemia, Bilateral total hip replacement (right hip in 2021, left hip in November 2023), Morbid obesity,Right hip prosthetic joint infection (admitted in February 2024 for explant) and Hospitalization in March 2024 for draining wound from right hip arthroplasty. Family History: Diabetes mellitus G8 FATHER, FH: breast cancer G8 MOTHER FH: stroke G8 FATHER, Hypertension G8 MOTHER G8 FATHER, Allergies: Coded Allergies: Penicillins (Verified Allergy, Unknown, 05/12/23) Home Meds Reported Medications Atorvastatin Calcium (ATORVASTATIN CALCIUM) 40 Mg Tab, 40 MG PO DAILY, TAB 12/01/23 Risperidone (Risperidone) 3 Mg Tab, 1 TAB PO BID 2/20/24 Metoprolol Succinate (Metoprolol Succinate Er) 50 Mg Tab, 1 TAB PO DAILY Take 1/2 tablet qam 05/13/23 Primidone (Primidone) 125 Mg Tab, 250 MG PO TID, TAB 05/13/23 Fluoxetine Hcl (Fluoxetine Hcl) 20 Mg Tab, 1 TAB PO DAILY, #90 TAB 3 Refills 05/13/23 Benztropine Mesylate (Benztropine Mesylate) 1 Mg Tab, 0.5 TAB PO BID, #60 TAB 0.5 mg tab 05/13/23 Clopidogrel Bisulfate (CLOPIDOGREL) 75 Mg Tab, 1 TAB PO DAILY, #90 TAB 1 Refill 05/13/23 Current Medications Current Medications Medications (Trade) Dose Ordered Sig/Los Route PRN Reason Start Time Stop Time Status Last Admin Vancomycin HCl 250 ml @ 250 mls/hr Q12H IV 04/09/24 19:00 04/10/24 15:53 DC 04/10/24 06:21 Atorvastatin Calcium (Lipitor) 40 mg HS PO 04/09/24 22:00 04/09/24 21:30 Benztropine Mesylate (Cogentin Tablet) 0.5 mg DAILY PO 04/10/24 10:00 04/10/24 09:54 Clopidogrel Bisulfate (Plavix) 75 mg DAILY PO 04/10/24 10:00 04/10/24 09:54 Fluoxetine HCl (PROzac CAPSULE) 20 mg DAILY PO 04/10/24 10:00 04/10/24 09:54 Primidone (Mysoline Tablet) 250 mg Q8HR PO 04/10/24 06:00 04/10/24 15:01 Risperidone (RisperDAL TABLET) 3 mg BID PO 04/09/24 22:00 04/10/24 09:54 Metoprolol Succinate (Toprol Xl) 25 mg DAILY PO 04/10/24 10:00 04/10/24 09:55 Diphenhydramine HCl (Benadryl Capsule) 50 mg QHSP PRN PO FOR INSOMNIA 04/10/24 14:30 Daptomycin 250 mg/ Sodium Chloride 50 ml @ 100 mls/hr DAILY IV 04/11/24 10:00 Cefepime HCl 50 ml @ 12.5 mls/hr Q8HR IV 04/10/24 22:00 Review of Systems General: No Fever, chills, night sweats or weight loss HEENT: No Sinus pain, headache, vision changes or sore throat Respiratory: No Cough, dyspnea, sputum production Cardiovascular: No Chest pain, palpitations or leg edema Gastrointestinal: No Nausea, vomiting, diarrhea, abdominal pain Genitourinary: No Dysuria, urinary frequency, hematuria, pelvic pain Skin: No Rashes, ulcers, abscesses, redness or swelling Musculoskeletal: No Joint pain, muscle pain or swelling Neurologic: No Altered mental status, headaches or focal neurological deficits Psychiatric: No Anxiety, depression or confusion Vital Signs Vital Signs Date Time Temp Pulse Resp B/P (MAP) Pulse Ox O2 Delivery O2 Flow Rate FiO2 04/10/24 17:00 99.1 82 18 140/40 (73) 95 99.1 04/10/24 08:00 Nasal Cannula* 2 28 Physical Exam General Appearance: Alert, Oriented X3, Cooperative HEENT: Atraumatic, PERRLA, EOMI Respiratory: Clear to auscultation, Normal air movement Cardiovascular: Regular rate, Normal S1, Normal S2 Abdominal: Normal bowel sounds, Soft, No tenderness Extremities: No clubbing, No cyanosis, No edema Skin: No breakdown (Wound to Right hip Draining) Neuro: Normal speech, Strength at 5/5 X4 ext Psych/Mental Status: Mental status NL, Mood NL Labs/Diagnostic Data Labs Test 04/10/24 04:25 04/09/24 05:57 04/08/24 14:42 04/08/24 13:32 Range/Units Creatinine 0.60 0.550-1.02 mg/dL Glomerular Filtration Rate Calc 101 >90 mL/min Erythrocyte Sedimentation Rate 90 H 0-20 mm/hr Urine Color Light-yellow Yellow Urine Clarity Clear Clear Urine pH 5.5 5.0-9.0 Urine Specific [place] 1.019 1.001-1.035 Urine Protein Negative Negative Urine Ketones Negative Negative Urine Blood Negative Negative /uL Urine Nitrite Negative Negative Urine Bilirubin Negative Negative Urine Urobilinogen Normal Negative mg/dL Urine Leukocyte Esterase Negative Negative /uL Urine RBC <1 0 - 4 /hpf Urine WBC 1 0 - 5 /hpf Urine Squamous Epithelial Cells None seen <5 /hpf Urine Bacteria Few H None Seen /hpf Urine Mucus Few None Seen Urine Glucose Normal Normal mg/dL Test 04/08/24 11:37 Range/Units White Blood Count 5.2 4.4-10.8 10^3/uL Red Blood Count 3.39 L 4.0-5.20 10^6/uL Hemoglobin 10.2 L 12.2-16.2 g/dL Hematocrit 31.3 L 36.0-46.0 % Mean Corpuscular Volume 92.4 80.0-100.0 fL Mean Corpuscular Hemoglobin 30.1 28.0-32.0 pg Mean Corpuscular Hemoglobin Concent 32.6 32.0-36.0 g/dL Red Cell Distribution Width 19.8 H 11.8-14.3 % Platelet Count 157 140-450 10^3/uL Mean Platelet Volume 8.2 6.9-10.8 fL Neutrophils (%) (Auto) 83.7 H 37.0-80.0 % Lymphocytes (%) (Auto) 6.1 L 10.0-50.0 % Monocytes (%) (Auto) 5.9 0.0-12.0 % Eosinophils (%) (Auto) 3.9 0.0-7.0 % Basophils (%) (Auto) 0.4 0.0-2.0 % Neutrophils # (Auto) 4.3 1.6-8.6 10 ^3/uL Lymphocytes # (Auto) 0.3 L 0.4-5.4 10 ^3/uL Monocytes # (Auto) 0.3 0-1.3 10 ^3/uL Eosinophils # (Auto) 0.2 0-0.8 10 ^3/uL Basophils # (Auto) 0 0-0.2 10 ^3/uL Nucleated Red Blood Cells 0.1 % Prothrombin Time 10.6 9.3-11.8 sec Prothrombin Time INR 1.00 0.9-1.15 Activated Partial Thromboplast Time 27.6 24.5-34.5 SEC Sodium Level 140 136-145 mmol/L Potassium Level 3.9 3.5-5.1 mmol/L Chloride Level 106 98-107 mmol/L Carbon Dioxide Level 29 20-31 mmol/L Anion Gap 5 5-15 Blood Urea Nitrogen 13 9-23 mg/dL BUN/Creatinine Ratio 18.1 10.0-20.0 Serum Glucose 83 74-106 mg/dL Lactic Acid Level 1.2 0.4-2.0 mmol/L Calcium Level 9.2 8.7-10.4 mg/dL C-Reactive Protein High Sensitivity 5.23 H <1.0 mg/dL Microbiology Date/Time Source Procedure Growth Status 04/09/24 12:50 Hip Right Received 04/08/24 11:37 Blood Blood Culture - Preliminary NO GROWTH AFTER 48 HOURS OF INCUBATION. Resulted Assessment Patient is a 77-sewe-tdu-female presented to the hospital with: Right hip prostatic joint infections [Post-explant on March 15, Most of the cultures were negative] Post-op seroma. Valve heart replacement Non-healing of the wound Recommendations: Continue aggressive wound care Patient S/P I&D, the deep culture shows no growth Patient currently on Vancomycin and Zosyn, Continue Follow OR cultures Prognosis guarded Thank you for consultation. GABRIELA ADAMS MD Apr 10, 2024 18:12
[2024-04-10] MEDS: CEFEPIME 2GM/50ML NS 50 ML IV SCH (21:32)
[2024-04-11] VITALS (7 sets, daily range): BP systolic 110–147; BP diastolic 51–70; PULSE 82–110; RESP 16–19; TEMP 97.4–98.9; O2SAT 94–99
[2024-04-11] MEDS: DAPTOmycin 250 MG in SODIUM CHL 0.9% 50 ML IV SCH (10:00)
[2024-04-11 11:36] LABS: Basophils # (auto) 0 10 ^3/uL (0-0.2); Basophils % (auto) 0.4 % (0.0-2.0); Eosinophils # (auto) 0.1 10 ^3/uL (0-0.8); Eosinophils % (auto) 3.5 % (0.0-7.0); Mean Corpuscular Volume 91.4 fL (80.0-100.0); Monocytes # (auto) 0.4 10 ^3/uL (0-1.3)
[2024-04-11 11:38] LABS: Hemoglobin 8.3 g/dL (12.2-16.2); Lymphocytes # (auto) 0.4 10 ^3/uL (0.4-5.4); Lymphocytes % (auto) 9.1 % (10.0-50.0); Mean Corpuscular Hemoglobin 30.4 pg (28.0-32.0); Mean Corpuscular Hgb Conc. 33.3 g/dL (32.0-36.0); Monocytes % (auto) 9.2 % (0.0-12.0); Neutrophils % (auto) 77.8 % (37.0-80.0); Platelet Count (auto) 145 10^3/uL (140-450); Red Blood Cells 2.73 10^6/uL (4.0-5.20); Red Cell Distribution Width 19.9 % (11.8-14.3); White Blood Cell 3.8 10^3/uL (4.4-10.8)
--- NOTE | 2024-04-11 12:09 | DVHPN2 ---
Progress Note - Dictate Date Seen: Apr 11, 2024 Medical Necessity Reason Pt with a Central, PICC or Fol: No Subjective Patient was lying comfortably in bed during my evaluation and reports some postoperative hip pain that is being well managed with the help of pain medication. Patient reports that her dressings and packing was changed this morning again and was able to get up and walk with physical therapy and the assistance of a walker putting more weight on her operative leg and was able to get to the chair a couple steps near her bed and back to her bed this morning. Patient reports having a good nights rest last night. Patient was otherwise feeling well denying any other complaint or concern during my evaluation. vital signs Vital Sign Date Time Temp Pulse Resp B/P (MAP) Pulse Ox O2 Delivery O2 Flow Rate FiO2 04/11/24 10:32 87 122/53 04/11/24 09:00 97.4 19 96 97.4 04/11/24 08:00 Nasal Cannula* 2 28 Total Intake and Output 04/10/24 04/10/24 04/11/24 15:00 23:00 07:00 Intake Total 234 ml 564 ml 700 ml Output Total 3700 ml 2000 ml Balance 234 ml -3136 ml -1300 ml medications Current Medications Medications Dose Ordered Sig/Los Route Start Time Stop Time Status Last Admin Dose Admin Sodium Chloride 1,000 ml @ 120 mls/hr Q8H20M IV 04/08/24 13:45 04/11/24 08:27 120 MLS/HR Ondansetron HCl 4 mg Q4HP PRN IV 04/08/24 13:45 04/10/24 13:04 4 MG Acetaminophen 650 mg Q6HP PRN PO 04/08/24 13:45 Morphine Sulfate 2 mg Q4HPRN PRN IV 04/08/24 13:45 Acetaminophen/ Hydrocodone Bitart 1 tab Q4HP PRN PO 04/08/24 13:45 04/11/24 10:33 1 TAB Nitroglycerin 0.4 mg Q5MINP PRN SL 04/08/24 13:45 Morphine Sulfate 2 mg Q30M PRN IV 04/08/24 13:45 Atorvastatin Calcium 40 mg HS PO 04/09/24 22:00 04/10/24 21:32 40 MG Benztropine Mesylate 0.5 mg DAILY PO 04/10/24 10:00 04/11/24 10:31 0.5 MG Clopidogrel Bisulfate 75 mg DAILY PO 04/10/24 10:00 04/11/24 10:31 75 MG Fluoxetine HCl 20 mg DAILY PO 04/10/24 10:00 04/11/24 10:33 20 MG Primidone 250 mg Q8HR PO 04/10/24 06:00 04/11/24 05:48 250 MG Risperidone 3 mg BID PO 04/09/24 22:00 04/11/24 10:31 3 MG Metoprolol Succinate 25 mg DAILY PO 04/10/24 10:00 04/11/24 10:32 25 MG Diphenhydramine HCl 50 mg QHSP PRN PO 04/10/24 14:30 Daptomycin 250 mg/ Sodium Chloride 50 ml @ 100 mls/hr DAILY IV 04/11/24 10:00 Cefepime HCl 50 ml @ 12.5 mls/hr Q8HR IV 04/10/24 22:00 04/11/24 05:47 12.5 MLS/HR objective A&O x4 in no acute distress Hip range of motion grossly limited with pain on movement Dressing clean, dry, and intact Mild distal edema and right calf tender to palpation Neurovascularly intact with cap refill less than 2 seconds laboratory and microbiology Laboratory Tests 04/11/24 06:00 04/10/24 04:25 04/08/24 11:37 Test 04/08/24 11:37 Range/Units Serum Glucose 83 74-106 mg/dL Assessment/Plan Infection of right prosthetic hip joint Continue current management as well as pain control and physical therapy advised patient to remain WBAT with the assistance of a walker. Advised continuing with daily dressing and packing changes, wound vac can be used. Right lower extremity venous Doppler ultrasound and reviewed and demonstrated: No evidence of a right DVT. Pending culture results from surgery and recommendations per Infectious Disease. Continue Benadryl at night to help patients insomnia. I instructed the patient to follow up with our office in 10-14 days for her 1st postoperative evaluation once she has been discharged home. We will continue observing patient for now. Plan discussed with: Patient GEORGE SAUNDERS Apr 11, 2024 12:09
--- NOTE | 2024-04-11 15:22 | DVHPN2 ---
Subjective Patient denies any complaints, wound Gram stain culture came back with VRE and Citrobacter. Orthopedics is recommending wound VAC. Reviewed: Care Plan Changes from previous H/P or p: No Changes Eyes: No Pain, No Vision change, No Conjunctivae inflammation, No Eyelid inflammation, No Other, No Redness ENT: No Ear pain, No Ear discharge, No Nose pain, No Nose discharge, No Nose congestion, No Mouth pain, No Mouth swelling, No Throat pain, No Throat swelling, No Other Cardiovascular: No Chest Pain, No Palpitations, No Orthopnea, No Paroxysmal Noc. Dyspnea, No Edema, No Lt Headedness, No Other Respiratory: No Cough, No Dry, No Shortness of breath, No SOB with excertion, No Wheezing, No Hemoptysis, No Pleuritic Pain, No Sputum, No Other Gastrointestinal: No Nausea, No Vomiting, No Abdominal Pain, No Diarrhea, No Constipation, No Melena, No Hematochezia, No Other Genitourinary: No Dysuria, No Frequency, No Incontinence, No Hematuria, No Retention, No Other Musculoskeletal: No other, No neck pain, No shoulder pain, No arm pain, No back pain, No hand pain; leg pain; No foot pain Skin: No Rash, No Lesions, No Jaundice, No Bruising; Other (Left hip wound draining) Objective Vitals Vital Signs Date Time Temp Pulse Resp B/P (MAP) Pulse Ox O2 Delivery O2 Flow Rate FiO2 04/11/24 13:27 98.0 92 19 140/51 (80) 96 98.0 04/11/24 08:00 Nasal Cannula* 2 28 Intake/Output Intake and Output 04/11/24 07:00 Intake Total 1498 ml Output Total 5700 ml Balance -4202 ml Intake Oral 1498 ml Output Urine Total 5700 ml # Bowel Movements 2 Exam HEENT pupils are reactive Neck is supple CV is S1-S2 regular rate and rhythm Respiratory are clear GI positive bowel sound Extremity no edema 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 Medications Current Medications Medications Dose Ordered Sig/Los Route Start Time Stop Time Status Last Admin Dose Admin Sodium Chloride 1,000 ml @ 120 mls/hr Q8H20M IV 04/08/24 13:45 04/11/24 08:27 120 MLS/HR Ondansetron HCl 4 mg Q4HP PRN IV 04/08/24 13:45 04/10/24 13:04 4 MG Acetaminophen 650 mg Q6HP PRN PO 04/08/24 13:45 Morphine Sulfate 2 mg Q4HPRN PRN IV 04/08/24 13:45 Acetaminophen/ Hydrocodone Bitart 1 tab Q4HP PRN PO 04/08/24 13:45 04/11/24 10:33 1 TAB Nitroglycerin 0.4 mg Q5MINP PRN SL 04/08/24 13:45 Morphine Sulfate 2 mg Q30M PRN IV 04/08/24 13:45 Atorvastatin Calcium 40 mg HS PO 04/09/24 22:00 04/10/24 21:32 40 MG Benztropine Mesylate 0.5 mg DAILY PO 04/10/24 10:00 04/11/24 10:31 0.5 MG Clopidogrel Bisulfate 75 mg DAILY PO 04/10/24 10:00 04/11/24 10:31 75 MG Fluoxetine HCl 20 mg DAILY PO 04/10/24 10:00 04/11/24 10:33 20 MG Primidone 250 mg Q8HR PO 04/10/24 06:00 04/11/24 05:48 250 MG Risperidone 3 mg BID PO 04/09/24 22:00 04/11/24 10:31 3 MG Metoprolol Succinate 25 mg DAILY PO 04/10/24 10:00 04/11/24 10:32 25 MG Diphenhydramine HCl 50 mg QHSP PRN PO 04/10/24 14:30 Daptomycin 250 mg/ Sodium Chloride 50 ml @ 100 mls/hr DAILY IV 04/11/24 10:00 04/11/24 10:00 100 MLS/HR Cefepime HCl 50 ml @ 12.5 mls/hr Q8HR IV 04/10/24 22:00 04/11/24 14:56 12.5 MLS/HR Laboratory Results Laboratory Tests 04/08/24 11:37 04/10/24 04:25 04/11/24 06:00 Urinalysis Test 04/08/24 13:32 Urine Color Light-yellow (Yellow) Urine Clarity Clear (Clear) Urine pH 5.5 (5.0-9.0) Urine Specific [place] 1.019 (1.001-1.035) Urine Protein Negative (Negative) Urine Ketones Negative (Negative) Urine Blood Negative /uL (Negative) Urine Nitrite Negative (Negative) Urine Bilirubin Negative (Negative) Urine Urobilinogen Normal mg/dL (Negative) Urine Leukocyte Esterase Negative /uL (Negative) Urine RBC <1 /hpf (0 - 4) Urine WBC 1 /hpf (0 - 5) Urine Squamous Epithelial Cells None seen /hpf (<5) Urine Bacteria Few /hpf (None Seen) H Urine Mucus Few (None Seen) Urine Glucose Normal mg/dL (Normal) Microbiology Microbiology Date/Time Source Procedure Growth Status 04/09/24 12:50 Hip Right Received 04/08/24 11:37 Blood Blood Culture - Preliminary NO GROWTH AFTER 72 HOURS OF INCUBATION. Resulted Assessment/Plan Assessment/Plan 63-year-old female with a known history of hypertension, dyslipidemia, status post TAVR, previous history of bilateral total hip arthroplasty, right total hip arthroplasty two years ago, status post explantation and irrigation and debridement to bone level deep tissue and placement of antibiotic cement prostatic pace spacer, open reduction and internal fixation of proximal femur fracture with the implants on March 15, presented to the hospital with right hip pain unable to ambulate and drainage found to have 1. Right hip seroma status post incision and drainage postop day 1 2. Right hip pain secondary to 1. 3. Recent right hip complex fluid collection status post explantation and irrigation and debridement to the bone depth level with antibiotic spacer placement. 4. Status post TAVR 5. Hypertension 6. Dyslipidemia -continue daptomycin and cefepime, follow up Orthopedics and Infectious Disease, -wound VAC has been ordered. -discharge plan. Plan discussed with: Patient My Orders Orders - SUAD RUVALCABA MD Procedure Category Date Status Time Daptomycin (Cubicin) PHA 04/11/24 In Process 10:00 Cefepime 2gm/50ml Ns PHA 04/10/24 In Process (Maxipime 2gm/50ml) 22:00 Date of Service: Apr 11, 2024 Billing Provider: SUAD RUVALCABA MD Common Visit Codes: NOT BILLABLE SUAD RUVALCABA MD Apr 11, 2024 15:22
[2024-04-12] VITALS (7 sets, daily range): BP systolic 119–141; BP diastolic 52–65; PULSE 65–98; RESP 16–18; TEMP 97.6–98.1; O2SAT 93–99
--- NOTE | 2024-04-12 07:56 | DVHDS2 ---
Discharge Summary Date of Admission Apr 08, 2024 at 13:37 Date of Discharge: Apr 12, 2024 Labs/Diagnostic Data: Laboratory Results Test 04/11/24 06:00 04/10/24 18:26 04/10/24 04:25 04/09/24 05:57 White Blood Count 3.8 10^3/uL (4.4-10.8) Red Blood Count 2.73 10^6/uL (4.0-5.20) Hemoglobin 8.3 g/dL (12.2-16.2) Hematocrit 25.0 % (36.0-46.0) Mean Corpuscular Volume 91.4 fL (80.0-100.0) Mean Corpuscular Hemoglobin 30.4 pg (28.0-32.0) Mean Corpuscular Hemoglobin Concent 33.3 g/dL (32.0-36.0) Red Cell Distribution Width 19.9 % (11.8-14.3) Platelet Count 145 10^3/uL (140-450) Mean Platelet Volume 8.0 fL (6.9-10.8) Neutrophils (%) (Auto) 77.8 % (37.0-80.0) Lymphocytes (%) (Auto) 9.1 % (10.0-50.0) Monocytes (%) (Auto) 9.2 % (0.0-12.0) Eosinophils (%) (Auto) 3.5 % (0.0-7.0) Basophils (%) (Auto) 0.4 % (0.0-2.0) Neutrophils # (Auto) 3.0 10 ^3/uL (1.6-8.6) Lymphocytes # (Auto) 0.4 10 ^3/uL (0.4-5.4) Monocytes # (Auto) 0.4 10 ^3/uL (0-1.3) Eosinophils # (Auto) 0.1 10 ^3/uL (0-0.8) Basophils # (Auto) 0 10 ^3/uL (0-0.2) Nucleated Red Blood Cells 0.0 % Creatine Kinase 34 U/L (34-145) Vancomycin Level Trough 16.8 ug/mL (5-10) Creatinine 0.60 mg/dL (0.550-1.02) Glomerular Filtration Rate Calc 101 mL/min (>90) Test 04/08/24 14:42 04/08/24 13:32 04/08/24 11:37 Erythrocyte Sedimentation Rate 90 mm/hr (0-20) Urine Color Light-yellow (Yellow) Urine Clarity Clear (Clear) Urine pH 5.5 (5.0-9.0) Urine Specific [place] 1.019 (1.001-1.035) Urine Protein Negative (Negative) Urine Ketones Negative (Negative) Urine Blood Negative /uL (Negative) Urine Nitrite Negative (Negative) Urine Bilirubin Negative (Negative) Urine Urobilinogen Normal mg/dL (Negative) Urine Leukocyte Esterase Negative /uL (Negative) Urine RBC <1 /hpf (0 - 4) Urine WBC 1 /hpf (0 - 5) Urine Squamous Epithelial Cells None seen /hpf (<5) Urine Bacteria Few /hpf (None Seen) Urine Mucus Few (None Seen) Urine Glucose Normal mg/dL (Normal) Prothrombin Time 10.6 sec (9.3-11.8) Prothrombin Time INR 1.00 (0.9-1.15) Activated Partial Thromboplast Time 27.6 SEC (24.5-34.5) Sodium Level 140 mmol/L (136-145) Potassium Level 3.9 mmol/L (3.5-5.1) Chloride Level 106 mmol/L (98-107) Carbon Dioxide Level 29 mmol/L (20-31) Anion Gap 5 (5-15) Blood Urea Nitrogen 13 mg/dL (9-23) BUN/Creatinine Ratio 18.1 (10.0-20.0) Serum Glucose 83 mg/dL (74-106) Lactic Acid Level 1.2 mmol/L (0.4-2.0) Calcium Level 9.2 mg/dL (8.7-10.4) C-Reactive Protein High Sensitivity 5.23 mg/dL (<1.0) Other Laboratory Tests 04/11/24 06:00 04/10/24 04:25 04/08/24 11:37 Brief Hx & Hospital Course: Patient was brought to the hospital on Friday to undergo a I and D of her right total hip arthroplasty. She was previously brought in approximately two weeks ago for an infection to her total hip arthroplasty and an ex splint was performed with antibiotics but the patient continued to drain from her wound and was brought back to the hospital for another I and D. a seroma was found during surgery and cultures were obtained which currently show no growth. Patient reports improvement of her symptoms since being admitted to the hospital and has been able to walk a little bit better than before. Patient continues to undergo daily wound dressing changes and is currently pending a wound VAC. I discussed possible discharge home versus [facility] facility and given the patient does not have a lot of help at home she has decided to transfer to the [facility] facility for further assistance with her post acute phase of her rehabilitation to help her with physical therapy, wound care, and antibiotics. Patient is otherwise feeling well denying any other complaint or concern during my evaluation. Condition at Discharge: Stable Final Diagnosis/Problems List Right hip postop seroma deep subcutaneous Discharge Disposition: Intermediate Facility Discharge Instruct/Medications Diet: Cardiac 2g Na,low cholest Activity: See Comment Activity comment: Patient advised to remain weight-bearing as tolerated with the assistance of a walker Follow Up/Referral: I instructed the patient to follow up with our office in 10-14 days for her 1st postoperative evaluation Medications: Rx sent via our outpatient EMR system Discharge Statement: "Patient was advised to return to the ER or call 911 if any headaches, dizziness, shortness of breath, chest pain, abdominal pain, bleeding, fevers, or worsening of medical condition. Patient was counseled about treatment plan, medications, possible side effects, patientverbalized understanding. All questions were answered to the best of my ability. This discharge took greater then 30 minutes in planning, reviewing documentation, counseling the patient, and discussing with other team members." ASSESSMENT ASSESSMENT Assessment Right hip postop seroma deep subcutaneous GEORGE SAUNDERS Apr 12, 2024 07:56
--- NOTE | 2024-04-12 07:58 | DVHPN2 ---
Progress Note - Dictate Date Seen: Apr 12, 2024 Medical Necessity Reason Pt with a Central, PICC or Fol: No Subjective Patient was lying comfortably in bed during my evaluation and reports some postoperative hip pain that is being well managed with the help of pain medication. Patient reports that her dressings and packing was changed yesterday and was able to get up and walk with physical therapy and the assistance of a walker putting more weight on her operative leg and was able to get to the chair a couple steps near her bed and back to her bed this morning. Patient was otherwise feeling well denying any other complaint or concern during my evaluation. vital signs Vital Sign Date Time Temp Pulse Resp B/P (MAP) Pulse Ox O2 Delivery O2 Flow Rate FiO2 04/12/24 05:00 98.1 78 16 130/65 (86) 99 98.1 04/11/24 19:30 Nasal Cannula* 2 28 Total Intake and Output 04/11/24 04/11/24 04/12/24 15:00 23:00 07:00 Intake Total 50 ml 1735 ml 1020 ml Output Total 1900 ml 5550 ml Balance 50 ml -165 ml -4530 ml medications Current Medications Medications Dose Ordered Sig/Los Route Start Time Stop Time Status Last Admin Dose Admin Sodium Chloride 1,000 ml @ 120 mls/hr Q8H20M IV 04/08/24 13:45 04/11/24 22:49 120 MLS/HR Ondansetron HCl 4 mg Q4HP PRN IV 04/08/24 13:45 04/10/24 13:04 4 MG Acetaminophen 650 mg Q6HP PRN PO 04/08/24 13:45 Morphine Sulfate 2 mg Q4HPRN PRN IV 04/08/24 13:45 Acetaminophen/ Hydrocodone Bitart 1 tab Q4HP PRN PO 04/08/24 13:45 04/11/24 15:46 1 TAB Nitroglycerin 0.4 mg Q5MINP PRN SL 04/08/24 13:45 Morphine Sulfate 2 mg Q30M PRN IV 04/08/24 13:45 Atorvastatin Calcium 40 mg HS PO 04/09/24 22:00 04/11/24 22:49 40 MG Benztropine Mesylate 0.5 mg DAILY PO 04/10/24 10:00 04/11/24 10:31 0.5 MG Clopidogrel Bisulfate 75 mg DAILY PO 04/10/24 10:00 04/11/24 10:31 75 MG Fluoxetine HCl 20 mg DAILY PO 04/10/24 10:00 04/11/24 10:33 20 MG Primidone 250 mg Q8HR PO 04/10/24 06:00 04/12/24 06:09 250 MG Risperidone 3 mg BID PO 04/09/24 22:00 04/11/24 22:49 3 MG Metoprolol Succinate 25 mg DAILY PO 04/10/24 10:00 04/11/24 10:32 25 MG Diphenhydramine HCl 50 mg QHSP PRN PO 04/10/24 14:30 Daptomycin 250 mg/ Sodium Chloride 50 ml @ 100 mls/hr DAILY IV 04/11/24 10:00 04/11/24 10:00 100 MLS/HR Cefepime HCl 50 ml @ 12.5 mls/hr Q8HR IV 04/10/24 22:00 04/12/24 06:09 12.5 MLS/HR objective A&O x4 in no acute distress Hip range of motion grossly limited with pain on movement Dressing clean, dry, and intact Mild distal edema and right calf tender to palpation Neurovascularly intact with cap refill less than 2 seconds laboratory and microbiology Laboratory Tests 04/11/24 06:00 04/10/24 04:25 04/08/24 11:37 Test 04/08/24 11:37 Range/Units Serum Glucose 83 74-106 mg/dL Assessment/Plan Infection of right prosthetic hip joint Planning to transfer patient to a long term facility to further assist her in the post acute phase of rehabilitation with physical therapy, wound care, and antibiotic administration. Patient reports significant improvement of her pain although she still has some postoperative hip pain but has been able to put more weight on it yesterday when walking with physical therapy. Patient is currently pending wound VAC placement. Orders were placed for social science analyst to transfer patient to a long term facility with wound care and antibiotic administration. I advised the patient to remain weight-bearing as tolerated with the assistance of a walker and to follow up with our office in 10-14 days for her 1st postoperative evaluation. She understood and agreed. Plan discussed with: Patient GEORGE SAUNDERS Apr 12, 2024 07:58
[2024-04-12] MEDS: MORPHINE SULFATE INJ 2 MG/ml SYRG IV PRN (08:52)
[2024-04-12 10:07] LABS: Hepatitis B Surface Antigen Negative (Negative); Hepatitis C Antibody Negative (Negative)
--- NOTE | 2024-04-12 12:18 | DVHPN2 ---
Progress Note - Dictate Date Seen: Apr 12, 2024 Medical Necessity Reason Pt with a Central, PICC or Fol: No Subjective No new acute complaint noted at this time. Wound Gram stain culture came back with VRE and Citrobacter. Orthopedics recommended wound VAC. vital signs Vital Sign Date Time Temp Pulse Resp B/P (MAP) Pulse Ox O2 Delivery O2 Flow Rate FiO2 04/12/24 10:34 87 141/52 04/12/24 09:00 97.6 18 96 97.6 04/12/24 08:00 Nasal Cannula* 2 28 Total Intake and Output 04/11/24 04/11/24 04/12/24 15:00 23:00 07:00 Intake Total 50 ml 1735 ml 1020 ml Output Total 1900 ml 5550 ml Balance 50 ml -165 ml -4530 ml medications Current Medications Medications Dose Ordered Sig/Los Route Start Time Stop Time Status Last Admin Dose Admin Sodium Chloride 1,000 ml @ 120 mls/hr Q8H20M IV 04/08/24 13:45 04/12/24 10:32 120 MLS/HR Ondansetron HCl 4 mg Q4HP PRN IV 04/08/24 13:45 04/10/24 13:04 4 MG Acetaminophen 650 mg Q6HP PRN PO 04/08/24 13:45 Morphine Sulfate 2 mg Q4HPRN PRN IV 04/08/24 13:45 Acetaminophen/ Hydrocodone Bitart 1 tab Q4HP PRN PO 04/08/24 13:45 04/12/24 08:57 1 TAB Nitroglycerin 0.4 mg Q5MINP PRN SL 04/08/24 13:45 Morphine Sulfate 2 mg Q30M PRN IV 04/08/24 13:45 Atorvastatin Calcium 40 mg HS PO 04/09/24 22:00 04/11/24 22:49 40 MG Benztropine Mesylate 0.5 mg DAILY PO 04/10/24 10:00 04/12/24 10:34 0.5 MG Clopidogrel Bisulfate 75 mg DAILY PO 04/10/24 10:00 04/12/24 10:33 75 MG Fluoxetine HCl 20 mg DAILY PO 04/10/24 10:00 04/12/24 10:33 20 MG Primidone 250 mg Q8HR PO 04/10/24 06:00 04/12/24 06:09 250 MG Risperidone 3 mg BID PO 04/09/24 22:00 04/12/24 10:33 3 MG Metoprolol Succinate 25 mg DAILY PO 04/10/24 10:00 04/12/24 10:34 25 MG Diphenhydramine HCl 50 mg QHSP PRN PO 04/10/24 14:30 Daptomycin 250 mg/ Sodium Chloride 50 ml @ 100 mls/hr DAILY IV 04/11/24 10:00 04/12/24 10:32 100 MLS/HR Cefepime HCl 50 ml @ 12.5 mls/hr Q8HR IV 04/10/24 22:00 04/12/24 06:09 12.5 MLS/HR objective General Appearance: Alert, Oriented X3, Cooperative HEENT: Atraumatic, PERRLA, EOMI Respiratory: Clear to auscultation, Normal air movement Cardiovascular: Regular rate, Normal S1, Normal S2 Abdominal: Normal bowel sounds, Soft, No tenderness Extremities: No clubbing, No cyanosis, No edema Skin: No breakdown (Wound to Right hip Draining) Neuro: Normal speech, Strength at 5/5 X4 ext Psych/Mental Status: Mental status NL, Mood NL laboratory and microbiology Laboratory Tests 04/11/24 06:00 04/10/24 04:25 04/08/24 11:37 Test 04/08/24 11:37 Range/Units Serum Glucose 83 74-106 mg/dL Assessment/Plan Patient is a [age]-female presented to the hospital with: Right hip prostatic joint infections [Post-explant on March 15, Most of the cultures were negative] Post-op seroma. Valve heart replacement Non-healing of the wound Recommendations: Continue aggressive wound care Patient S/P I&D, the deep culture shows no growth Patient currently on Vancomycin and Zosyn, Continue Follow OR cultures She was on IV Vancomycin/ Ceftriaxone 2g daily for 6 weeks from 03/15 s/p explant of right hip prosthesis; stop date apr 2605/2024 SNF to with IV daptomycin 250mg daily , IV cefepime 2g q8 hours for 3 weeks. weekly cbc with diff, cmp , esr and CPK. fax to [phone] wound vac f/u with ID/ ortho Prognosis guarded Thank you for consultation. GABRIELA ADAMS MD Apr 12, 2024 12:18
--- NOTE | 2024-04-12 16:22 | DVHPN2 ---
Subjective Patient denies any complaints, wound Gram stain culture came back with VRE and Citrobacter. Patient was to be discharged to halfway facility for IV antibiotics with a wound VAC placement. Reviewed: Care Plan Changes from previous H/P or p: No Changes Eyes: No Pain, No Vision change, No Conjunctivae inflammation, No Eyelid inflammation, No Other, No Redness ENT: No Ear pain, No Ear discharge, No Nose pain, No Nose discharge, No Nose congestion, No Mouth pain, No Mouth swelling, No Throat pain, No Throat swelling, No Other Cardiovascular: No Chest Pain, No Palpitations, No Orthopnea, No Paroxysmal Noc. Dyspnea, No Edema, No Lt Headedness, No Other Respiratory: No Cough, No Dry, No Shortness of breath, No SOB with excertion, No Wheezing, No Hemoptysis, No Pleuritic Pain, No Sputum, No Other Gastrointestinal: No Nausea, No Vomiting, No Abdominal Pain, No Diarrhea, No Constipation, No Melena, No Hematochezia, No Other Genitourinary: No Dysuria, No Frequency, No Incontinence, No Hematuria, No Retention, No Other Musculoskeletal: No other, No neck pain, No shoulder pain, No arm pain, No back pain, No hand pain; leg pain; No foot pain Skin: No Rash, No Lesions, No Jaundice, No Bruising; Other (Left hip wound draining) Objective Vitals Vital Signs Date Time Temp Pulse Resp B/P (MAP) Pulse Ox O2 Delivery O2 Flow Rate FiO2 04/12/24 14:18 97.9 98 18 95 04/12/24 13:00 119/63 (81) 04/12/24 08:00 Nasal Cannula* 2 28 Intake/Output Intake and Output 04/12/24 07:00 Intake Total 2805 ml Output Total 7450 ml Balance -4645 ml Intake Oral 1670 ml IV Total 1135 ml Output Urine Total 7450 ml # Bowel Movements 1 Exam HEENT pupils are reactive Neck is supple CV is S1-S2 regular rate and rhythm Respiratory are clear GI positive bowel sound Extremity no 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 Medications Current Medications Medications Dose Ordered Sig/Los Route Start Time Stop Time Status Last Admin Dose Admin Sodium Chloride 1,000 ml @ 120 mls/hr Q8H20M IV 04/08/24 13:45 04/12/24 10:32 120 MLS/HR Ondansetron HCl 4 mg Q4HP PRN IV 04/08/24 13:45 04/10/24 13:04 4 MG Acetaminophen 650 mg Q6HP PRN PO 04/08/24 13:45 Morphine Sulfate 2 mg Q4HPRN PRN IV 04/08/24 13:45 Acetaminophen/ Hydrocodone Bitart 1 tab Q4HP PRN PO 04/08/24 13:45 04/12/24 08:57 1 TAB Nitroglycerin 0.4 mg Q5MINP PRN SL 04/08/24 13:45 Morphine Sulfate 2 mg Q30M PRN IV 04/08/24 13:45 Atorvastatin Calcium 40 mg HS PO 04/09/24 22:00 04/11/24 22:49 40 MG Benztropine Mesylate 0.5 mg DAILY PO 04/10/24 10:00 04/12/24 10:34 0.5 MG Clopidogrel Bisulfate 75 mg DAILY PO 04/10/24 10:00 04/12/24 10:33 75 MG Fluoxetine HCl 20 mg DAILY PO 04/10/24 10:00 04/12/24 10:33 20 MG Primidone 250 mg Q8HR PO 04/10/24 06:00 04/12/24 13:47 250 MG Risperidone 3 mg BID PO 04/09/24 22:00 04/12/24 10:33 3 MG Metoprolol Succinate 25 mg DAILY PO 04/10/24 10:00 04/12/24 10:34 25 MG Diphenhydramine HCl 50 mg QHSP PRN PO 04/10/24 14:30 Daptomycin 250 mg/ Sodium Chloride 50 ml @ 100 mls/hr DAILY IV 04/11/24 10:00 04/12/24 10:32 100 MLS/HR Cefepime HCl 50 ml @ 12.5 mls/hr Q8HR IV 04/10/24 22:00 04/12/24 13:48 12.5 MLS/HR Laboratory Results Laboratory Tests 04/08/24 11:37 04/10/24 04:25 04/11/24 06:00 Urinalysis Test 04/08/24 13:32 Urine Color Light-yellow (Yellow) Urine Clarity Clear (Clear) Urine pH 5.5 (5.0-9.0) Urine Specific [place] 1.019 (1.001-1.035) Urine Protein Negative (Negative) Urine Ketones Negative (Negative) Urine Blood Negative /uL (Negative) Urine Nitrite Negative (Negative) Urine Bilirubin Negative (Negative) Urine Urobilinogen Normal mg/dL (Negative) Urine Leukocyte Esterase Negative /uL (Negative) Urine RBC <1 /hpf (0 - 4) Urine WBC 1 /hpf (0 - 5) Urine Squamous Epithelial Cells None seen /hpf (<5) Urine Bacteria Few /hpf (None Seen) H Urine Mucus Few (None Seen) Urine Glucose Normal mg/dL (Normal) Microbiology Microbiology Date/Time Source Procedure Growth Status 04/09/24 12:50 Hip Right Received 04/08/24 11:37 Blood Blood Culture - Preliminary NO GROWTH AFTER 72 HOURS OF INCUBATION. Resulted Assessment/Plan Assessment/Plan 63-year-old female with a known history of hypertension, dyslipidemia, status post TAVR, previous history of bilateral total hip arthroplasty, right total hip arthroplasty two years ago, status post explantation and irrigation and debridement to bone level deep tissue and placement of antibiotic cement prostatic pace spacer, open reduction and internal fixation of proximal femur fracture with the implants on March 15, presented to the hospital with right hip pain unable to ambulate and drainage found to have 1. Right hip seroma status post incision and drainage postop day 1 2. Right hip pain secondary to 1. 3. Recent right hip complex fluid collection status post explantation and irrigation and debridement to the bone depth level with antibiotic spacer placement. 4. Status post TAVR 5. Hypertension 6. Dyslipidemia -continue daptomycin and cefepime, follow up Orthopedics and Infectious Disease, -wound VAC has been ordered. -discharge plan for orthopedics. Plan discussed with: Patient My Orders Orders - SUAD RUVALCABA MD Procedure Category Date Status Time Basic Metabolic Panel LAB 04/13/24 Verified 04:00 Discharge DISCHARGE 04/12/24 Verified 16:21 Date of Service: Apr 12, 2024 Billing Provider: SUAD RUVALCABA MD Common Visit Codes: NOT BILLABLE SUAD RUVALCABA MD Apr 12, 2024 16:22
== END 2024-04-12 18:10 | DRG 560 ==
LOC: EDBD 10:55 → EDUNIT# 10:55 → ER 10:55 → TELE 13:37 → TELE-E-ADS 22:55
PROVIDERS: ADMIT Internal Medicine; ATTEND Internal Medicine
PROC: 0Y9C0ZZ Drainage of Right Upper Leg, Open Approach (ICD-10-PCS; principal; 2024-04-09 12:18)
DX: T84.51XA Infection and inflammatory reaction due to internal right hip prosthesis, initial encounter (principal); L76.34 Postprocedural seroma of skin and subcutaneous tissue following other procedure; I10 Essential (primary) hypertension; E78.5 Hyperlipidemia, unspecified; G47.00 Insomnia, unspecified; F32.A Depression, unspecified; E11.9 Type 2 diabetes mellitus without complications; Y83.8 Other surgical procedures as the cause of abnormal reaction of the patient, or of later complication, without mention of misadventure at the time of the procedure; Y82.8 Other medical devices associated with adverse incidents; Z95.2 Presence of prosthetic heart valve; Z90.710 Acquired absence of both cervix and uterus; Z88.0 Allergy status to penicillin; Z85.42 Personal history of malignant neoplasm of other parts of uterus; Z81.8 Family history of other mental and behavioral disorders; Z80.3 Family history of malignant neoplasm of breast; Z82.3 Family history of stroke; Z83.3 Family history of diabetes mellitus; Z82.49 Family history of ischemic heart disease and other diseases of the circulatory system
CPT/HCPCS: 36415; 71045; 73700; 80048; 80202; 81001; 82550; 82565; 83605; 85025; 85610; 85652; 85730; 86141; 86803; 86850; 86900; 86901; 87040; 87075; 87077; 87081; 87186; 87205; 87340; 93005; 93971; 97110; 97116; 97163; 97530; A4565; G0378; J0690; J0692; J1885; J2003; J2250; J2405; J2543; J3490

== ENCOUNTER 2024-06-18 15:07 | Emergency (ER) | payer BC ==
[~2024-06-18] VITALS: Ht 162.6 cm; Wt 91.0 kg
--- NOTE | 2024-06-18 15:24 | ED.PDOC ---
History of Present Illness HPI Comments 64Y F with PMHx HTN, HLD, CA, seizures, and depression presents to ED via EMS for chief complaint generalized body shaking x few hours. Pt states that her legs hurt from the shaking. Pt recently had surgery of the left hip and reports that the right hip became infected. Per EMS, pt has recurrent infections. No other history or symptoms reported. Time Seen by MD: 15:15 Primary Care Provider: UNKNOWN Reviewed Notes: Nurses Notes, Parts Cataloger Notes, Medications, Allergies Allergies: Coded Allergies: Penicillins (Verified Allergy, Unknown, 05/12/23) Home Meds Reported Medications Atorvastatin Calcium (ATORVASTATIN CALCIUM) 40 Mg Tab, 40 MG PO DAILY, TAB 12/01/23 Risperidone (Risperidone) 3 Mg Tab, 1 TAB PO BID 05/13/23 Metoprolol Succinate (Metoprolol Succinate Er) 50 Mg Tab, 1 TAB PO DAILY Take 1/2 tablet qam 05/13/23 Primidone (Primidone) 125 Mg Tab, 250 MG PO TID, TAB 05/13/23 Fluoxetine Hcl (Fluoxetine Hcl) 20 Mg Tab, 1 TAB PO DAILY, #90 TAB 3 Refills 05/13/23 Benztropine Mesylate (Benztropine Mesylate) 1 Mg Tab, 0.5 TAB PO BID, #60 TAB 0.5 mg tab 05/13/23 Clopidogrel Bisulfate (CLOPIDOGREL) 75 Mg Tab, 1 TAB PO DAILY, #90 TAB 1 Refill 05/13/23 Information Source: Patient, Emergency Med Personnel Mode of Arrival: EMS Severity: Mild Timing: Hours Duration: Since onset Prehospital treatment: None Past Medical History PAST MEDICAL HISTORY: Cancer, Depression, High Lipids, HTN, Seizures Surgical History: Hernia Repair, Hysterectomy 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 History: Endometrial Cancer, Endometriosis Family History Family History: Reviewed,noncontributory to illness Family History (Other): Family Hx of Dementia Social History Smoker: Non-Smoker Alcohol: Denies ETOH Use Drugs: Denies Drug Use Lives In: Home Constitutional: denies: chills, diaphoresis, fatigue, fever, malaise, sweats, weakness, others EENTM: denies: blurred vision, double vision, ear bleeding, ear discharge, ear drainage, ear pain, ear ringing, eye pain, eye redness, hearing loss, mouth p ain, mouth swelling, nasal discharge, nose bleeding, nose congestion, nose pain, photophobia, tearing, throat pain, throat swelling, voice changes, others Respiratory: denies: cough, hemoptysis, orthopnea, SOB at rest, shortness of br eath, SOB with excertion, stridor, wheezing, others Cardiovascular: denies: chest pain, dizzy spells, diaphoresis, Dyspnea on exertion, edema, irregular heart beat, left arm pain, lightheadedness, palpitations, PND, syncope, others Gastrointestinal: denies: abdomen distended, abdominal pain, blood streaked bowels, constipated, diarrhea, dysphagia, difficulty swallowing, hematemesis, melena, nausea, poor appetite, poor fluid intake, rectal bleeding, rectal pain, vomiting, others Genitourinary: denies: abnormal vagina bleeding, burning, dyspareunia, dysuria, flank pain, frequency, hematuria, incontinence, pain, , vagina discharge, urgency, others Neurological: reports: others (shaking); denies: dizziness, fainting, headache, left sided numbness, left sided weakness, numbness, paresthesia, pre-existing deficit, right sided numbness, right sided weakness, seizure, speech problems, tingling, tremors, weakness Musculoskeletal: reports: others (hip pain); denies: back pain, gout, joint pain, joint swelling, muscle pain, muscle stiffness, neck pain Integumetry: denies: bruises, change in color, change in hair/nails, dryness, laceration, lesions, lumps, rash, wounds, others Allergic/Immunocompromised: denies: Difficulty Healing, Frequent Infections, Hives, Itching, others Hematologic/Lymphatic: denies: anemia, blood clots, easy bleeding, easy bruising, swollen glands, others Endocrine: denies: excessive hunger, excessive sweating, excessive thirst, excessive urination, flushing, intolerance to cold, intolerance to heat, unexpla ined weight gain, unexplained weight loss, others Psychiatric: denies: anxiety, bipolar disorder, depression, hopeless, panic disorder, schizophrenia, sleepless, suicidal, others Physical Exam General Appearance: No Apparent Distress, Normal HEENT: Normal ENT Inspection, Pharynx Normal, TMs Normal Neck: Full Range of Motion, Non-Tender, Normal, Normal Inspection Respiratory: Chest Non-Tender, Lungs Clear, No Accessory Muscle Use, No Respiratory Distress, Normal Breath Sounds Cardiovascular: No Edema, No Murmur, No Gallop, Normal Peripheral Pulses, Regular Rate/Rhythm Breast Exam: Deferred Gastrointestinal: No Organomegaly, Non Tender, Normal Bowel Sounds, Soft Genitalia: Deferred Pelvic: Deferred Rectal: Deferred Extremities: No calf tenderness, Normal capillary refill, Normal inspection, Normal range of motion, Non-tender Musculoskeletal : Apperance: Normal Neurologic: Alert, 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 Was a procedure done?: No Differential Dx Considerations may include: Viral syndrome, wound infection X-Ray, Labs, Meds, VS Vital Signs Date Time Temp Pulse Resp B/P (MAP) Pulse Ox O2 Delivery O2 Flow Rate FiO2 06/18/24 21:49 101.1 06/18/24 21:30 101.1 108 17 127/50 (75) 95 101.1 06/18/24 20:30 100.3 06/18/24 18:59 101.4 06/18/24 18:54 110 19 92 Room Air* 0 21 06/18/24 18:52 101.4 110 19 167/49 (88) 91 101.4 06/18/24 15:25 99.2 115 20 122/44 (70) 96 99.2 Lab Test 06/18/24 20:24 06/18/24 16:52 Range/Units Urine Color Light-yellow Yellow Urine Clarity Clear Clear Urine pH 7.0 5.0-9.0 Urine Specific [place] 1.018 1.001-1.035 Urine Protein Trace H Negative Urine Ketones Negative Negative Urine Blood Trace H Negative /uL Urine Nitrite Negative Negative Urine Bilirubin Negative Negative Urine Urobilinogen Normal Negative mg/dL Urine Leukocyte Esterase Negative Negative /uL Urine RBC 6 0 - 4 /hpf Urine Microscopic WBC < 1 0-5 /HPF Urine Squamous Epithelial Cells None seen <5 /hpf Urine Bacteria None seen None Seen /hpf Urine Glucose Normal Normal mg/dL White Blood Count 7.6 4.4-10.8 10^3/uL Red Blood Count 3.22 L 4.0-5.20 10^6/uL Hemoglobin 10.8 L 12.2-16.2 g/dL Hematocrit 31.3 L 36.0-46.0 % Mean Corpuscular Volume 97.3 80.0-100.0 fL Mean Corpuscular Hemoglobin 33.4 H 28.0-32.0 pg Mean Corpuscular Hemoglobin Concent 34.3 32.0-36.0 g/dL Red Cell Distribution Width 15.6 H 11.8-14.3 % Platelet Count 218 140-450 10^3/uL Mean Platelet Volume 7.6 6.9-10.8 fL Neutrophils (%) (Auto) 91.6 H 37.0-80.0 % Lymphocytes (%) (Auto) 2.1 L 10.0-50.0 % Monocytes (%) (Auto) 5.3 0.0-12.0 % Eosinophils (%) (Auto) 0.9 0.0-7.0 % Basophils (%) (Auto) 0.1 0.0-2.0 % Neutrophils # (Auto) 6.9 1.6-8.6 10 ^3/uL Lymphocytes # (Auto) 0.2 L 0.4-5.4 10 ^3/uL Monocytes # (Auto) 0.4 0-1.3 10 ^3/uL Eosinophils # (Auto) 0.1 0-0.8 10 ^3/uL Basophils # (Auto) 0 0-0.2 10 ^3/uL Nucleated Red Blood Cells 0.0 % Sodium Level 129 L 136-145 mmol/L Potassium Level 3.9 3.5-5.1 mmol/L Chloride Level 91 L 98-107 mmol/L Carbon Dioxide Level 28 20-31 mmol/L Anion Gap 10 5-15 Blood Urea Nitrogen 18 9-23 mg/dL Creatinine 0.64 0.550-1.02 mg/dL Glomerular Filtration Rate Calc 99 >90 mL/min BUN/Creatinine Ratio 28.1 H 10.0-20.0 Serum Glucose 112 H 74-106 mg/dL Lactic Acid Level 1.6 0.4-2.0 mmol/L Calcium Level 9.6 8.7-10.4 mg/dL Total Bilirubin < 0.2 L 0.2-1.0 mg/dL Aspartate Amino Transferase (AST) 18 13-40 U/L Alanine Aminotransferase (ALT) 13 7-40 U/L Alkaline Phosphatase 101 46-116 U/L Total Protein 7.6 5.7-8.2 g/dL Albumin 4.4 3.2-4.8 g/dL Current Medications Medications (Trade) Dose Ordered Sig/Los Route Start Time Stop Time Status Last Admin Lorazepam (Ativan Inj) 1 mg ONCE ONCE IV 06/18/24 19:00 06/18/24 19:01 DC 06/18/24 18:59 Acetaminophen (Tylenol Tablet) 650 mg ONCE ONCE PO 06/18/24 19:00 06/18/24 19:01 DC 06/18/24 18:59 Levofloxacin/ Dextrose 100 ml @ 100 mls/hr ONCE ONCE IV 06/18/24 21:45 06/18/24 22:44 DC 06/18/24 21:49 Ibuprofen (Motrin Tablet) 800 mg ONCE ONCE PO 06/18/24 21:45 06/18/24 21:46 DC 06/18/24 21:49 Sodium Chloride 1,000 ml @ 1,000 mls/hr Q1H ONCE IV 06/18/24 21:45 06/18/24 22:44 DC 06/18/24 21:49 [place] [id number] Ph: [phone] DIAGNOSTIC IMAGING Diagnostic Imaging Report : [id number] Signed PATIENT: KADEN UPTONCCT: [id number] UNIT: [id number] : 1960 LOC: ER ROOM / BED: / AGE / SEX: 64 / F ADM STATUS: REG ER SERVICE [id number] ORDERING PHYSICIAN: JANELLE JOHNSON MD PROCEDURE(s): ABPL - CT AB PEL WO CON-NO ORAL OR IV REASON: HX OF FEMUR INFECTION AFTER THR ORDER NUMBER(s): [id number], ACCESSION NUMBER(s): [id number] Exam: CT CT AB PEL WO CON-NO ORAL OR IV History: HX OF FEMUR INFECTION AFTER THR Comparison Study: None Technique: Multidetector spiral CT of the abdomen was performed from lung bases to pubic symphysis. Imaging was performed without IV contrast. Axial, coronal and sagittal multiplanar reformats were obtained from the axial data set by the technologist. Radiation Dose : 1. Abdomen/Pelvis: CTDIvol 24.39 mGy, DLP 1328.31 mGy*cm. Findings: Evaluation of solid organs is limited due to lack of intravenous contrast use. Lung Bases: No acute or significant lung base finding. Borderline cardiomegaly No pleural or pericardial effusion. Liver: The liver is normal in size. No focal lesions. Gallbladder and Biliary Tree: Unremarkable Spleen: Unremarkable Pancreas: The pancreas is grossly normal in appearance. Adrenal Glands: Enlargement of the left adrenal head, axial image 20, series 2. Kidneys: Kidneys are grossly normal without calculi or hydronephrosis. Bladder: Grossly unremarkable for degree of distention. Bowel: Small hiatal hernia. Stomach mildly distended with fluid.. Small bowel and colon are normal in caliber and distribution. The appendix is not visualized; however, no secondary findings of acute appendicitis identified. Ascites: Absent Lymphadenopathy: No mesenteric, retroperitoneal or periportal lymphadenopathy. Abdominal Wall and Mesentery: Unremarkable. Vasculature: The visualized abdominal aorta is normal in size and caliber. Aruna luation of abdominal and pelvic vessels is limited due to lack of intravenous contrast. Moderately severe vascular calcification of the abdominal aorta without aneurysm formation. Pelvic Organs: Unremarkable Musculoskeletal: No aggressive focal bony lesions, acute fractures or dislocation. IMPRESSION: 1. Mild enlargement of the left adrenal head, axial image 20, series 2. Small adenoma can not be excluded Appendix not identified No bowel obstruction No abscess or free fluid Radiation optimization: All CT scans at this facility use at least one of these dose optimization techniques: automated exposure control mA and/or kV adjustment per patient size (includes targeted exams where dose is matched to clinical indication) or iterative reconstruction. ATED BY: GIO TAYLOR MD DICTATED DATE/TIME: 06/18/241625 SIGNED BY: GIO TAYLOR MD SIGNED DATE/TIME: 06/18/241625 CC: Olga Mendoza nurse practitioner evaluate the patient and decided that there was centered back home in do a MRI is outpatient. New also assigned her a home care nurse. As the patient had I and D of the hip back in March 2024. There appears no site of infection although the patient continues to to spike fevers. Time of 1ST Reevaluation: 15:45 Reevaluation 1ST: Unchanged Patient Education/Counseling: Diagnosis, Treatment Family Education/Counseling: No Family Present Departure 1 Departure Time of Disposition: 23:29 Impression: Primary Impression: Fever, unknown origin Disposition: HOME / SELF CARE / HOMELESS Condition: Stable Additional Instructions: Reassessed patient, vital signs stable. Denies any new symptoms. Patient is able to tolerate PO and ambulate/be mobile at their baseline without concern. Risks and benefits of all medications given or prescribed, if any, discussed. All lab work, imaging and diagnostic studies were reviewed by me. The patient was counseled extensively on my clinical impression, diagnosis, expected course of the disease, and plan, including their follow-up care. Will discharge patient. Patient instructed to follow up with Primary Care Physician within 24-48 hours. Strict return precautions given for further exacerbation of symptoms or for new symptoms. The patient was given the opportunity to ask questions and all questions were answered by myself and the nursing/tech staff. Patient is in agreement with the care plan. The patient verbally expressed understanding of the discharge instructions, including the reasons to return to the Emergency Department. Follow up with urgent care tomorrow e-Prescriptions Ibuprofen (Advil) 200 Mg Tab 800 MG PO TID, #30 TAB Prov: YVON EVANS MD 06/18/24 Discharged With: Relative Critical Care Note Critical Care Time?: Yes (35 min-critical care time only) Stability Stability form required: No Heart Score Heart Score: Heart Score Response (Comments) Value History N/A 0 EKG N/A 0 Age N/A 0 Risk Factors N/A 0 Troponin N/A 0 Total 0 I personally scribed for JANELLE JOHNSON MD ([email or web address]) on 06/18/24 at 15:24. Electronically submitted by Meera Pennington ([employer] I personally scribed for JANELLE JOHNSON MD ([email or web address]) on 06/18/24 at 17:09. Electronically submitted by Meera Pennington ([employer] JANELLE JOHNSON MD Jun 18, 2024 15:24 YVON EVANS MD Jun 18, 2024 23:31
--- NOTE | 2024-06-18 16:29 | DVH ---
Exam: CT CT AB PEL WO CON-NO ORAL OR IV History: HX OF FEMUR INFECTION AFTER THR Comparison Study: None Technique: Multidetector spiral CT of the abdomen was performed from lung bases to pubic symphysis. Imaging was performed without IV contrast. Axial, coronal and sagittal multiplanar reformats were ob tained from the axial data set by the technologist. Radiation Dose : 1. Abdomen/Pelvis: CTDIvol 24.39 mGy, DLP 1328.31 mGy*cm. Findings: Evaluation of solid organs is limited due to lack of intravenous contrast use. Lung Bases: No acute or significant lung base finding. Borderline cardiomegaly No pleural or pericar dial effusion. Liver: The liver is normal in size. No focal lesions. Gallbladder and Biliary Tree: Unremarkable Spleen: Unremarkable Pancreas: The pancreas is grossly normal in appearance. Adrenal Glands: Enlargement of the left adrenal head, axial image 20, series 2. Kidneys: Kidneys are grossly normal without calculi or hydronephrosis. Bladder: Grossly unremarkable for degree of distention. Bowel: Small hiatal hernia. Stomach mildly distended with fluid.. Small bowel and colon are normal i n caliber and distribution. The appendix is not visualized; however, no secondary findings of acute appendicitis identified. Ascites: Absent Lymphadenopathy: No mesenteric, retroperitoneal or periportal lymphadenopathy. Abdominal Wall and Mesentery: Unremarkable. Vasculature: The visualized abdominal aorta is normal in size and caliber. Evaluation of abdominal a nd pelvic vessels is limited due to lack of intravenous contrast. Moderately severe vascular calcific ation of the abdominal aorta without aneurysm formation. Pelvic Organs: Unremarkable Musculoskeletal: No aggressive focal bony lesions, acute fractures or dislocation. IMPRESSION: 1. Mild enlargement of the left adrenal head, axial image 20, series 2. Small adenoma can not be excl uded Appendix not identified No bowel obstruction No abscess or free fluid Radiation optimization: All CT scans at this facility use at least one of these dose optimization tito hniques: automated exposure control mA and/or kV adjustment per patient size (includes targeted exam s where dose is matched to clinical indication) or iterative reconstruction.
[2024-06-18] MEDS ORDERED: LORazepam 2MG/ML-1ML VIAL IV ONE (16:45)
[2024-06-18 17:18] LABS: Basophils # (auto) 0 10 ^3/uL (0-0.2); Basophils % (auto) 0.1 % (0.0-2.0); Eosinophils # (auto) 0.1 10 ^3/uL (0-0.8); Eosinophils % (auto) 0.9 % (0.0-7.0); Hematocrit 31.3 % (36.0-46.0); Hemoglobin 10.8 g/dL (12.2-16.2); Lymphocytes # (auto) 0.2 10 ^3/uL (0.4-5.4); Lymphocytes % (auto) 2.1 % (10.0-50.0); Mean Corpuscular Hemoglobin 33.4 pg (28.0-32.0); Mean Corpuscular Hgb Conc. 34.3 g/dL (32.0-36.0); Mean Corpuscular Volume 97.3 fL (80.0-100.0); Monocytes # (auto) 0.4 10 ^3/uL (0-1.3); Monocytes % (auto) 5.3 % (0.0-12.0); Neutrophils # (auto) 6.9 10 ^3/uL (1.6-8.6); Neutrophils % (auto) 91.6 % (37.0-80.0); Platelet Count (auto) 218 10^3/uL (140-450); Red Blood Cells 3.22 10^6/uL (4.0-5.20); Red Cell Distribution Width 15.6 % (11.8-14.3); White Blood Cell 7.6 10^3/uL (4.4-10.8)
[2024-06-18 17:28] LABS: Alanine Aminotransferase 13 U/L (7-40); Albumin 4.4 g/dL (3.2-4.8); Alkaline Phosphatase 101 U/L (46-116); Anion Gap 10 (5-15); Aspartate Aminotransferase 18 U/L (13-40); BUN/Creatinine Ratio 28.1 (10.0-20.0); Blood Urea Nitrogen 18 mg/dL (9-23); Calcium 9.6 mg/dL (8.7-10.4); Carbon Dioxide 28 mmol/L (20-31); Potassium 3.9 mmol/L (3.5-5.1); Total Protein 7.6 g/dL (5.7-8.2)
[2024-06-18 17:36] LABS: Bilirubin, Total < 0.2 mg/dL (0.2-1.0); Chloride 91 mmol/L (98-107); Glucose 112 mg/dL (74-106); Sodium 129 mmol/L (136-145)
[2024-06-18 18:54] VITALS: PULSE 110; RESP 19; O2SAT 92
[2024-06-18] MEDS: LORazepam 2MG/ML-1ML VIAL IV ONE (18:59)
[2024-06-18] MEDS: ACETAMINOPHEN 325 MG TAB PO ONE (18:59)
[2024-06-18 20:00] VITALS: PULSE 108; RESP 19; O2SAT 93
[2024-06-18 20:31] LABS: Urine Bacteria None Seen /hpf (None Seen)
[2024-06-18 21:22] LABS: Urine Blood TRACE /uL (Negative); Urine Clarity Clear (Clear); Urine Color Light-Yellow (Yellow); Urine Protein, UAD TRACE (Negative); Urine Specific Gravity 1.018 (1.001-1.035); Urine Squamous Epithelial Cell None Seen /hpf (<5); Urine Urobilinogen Normal (Negative); Urine WBC < 1 /HPF (0-5)
[2024-06-18] MEDS: levoFLOXacin 500MG 100 ML IV ONE (21:49)
[2024-06-18] MEDS: IBUPROFEN 800 MG TAB PO ONE (21:49)
[2024-06-18] MEDS: SODIUM CHLORIDE 0.9% 1,000 ML IV ONE (21:49)
--- NOTE | 2024-06-18 23:28 | DVHINCON2 ---
ARTURO DAMON [facility] 06/18/24 2328: Date of service: Jun 18, [address] Evans Reason for Consultation Medical Management History of Present Illness Mrs. Judi Umanzor is a 64 yo female with a past medical history of HTN, HLD, CA, seizures, and depression presents with a chief complaint of generalized body shaking x few hours. Patient recently had surgery of the left hip and reports that the right hip became infected. Patient reports she has wound care x3 times a week. Patient denies nausea, vomiting, chest pain, palpitations, diarrhea, constipation, dysuria, hematuria. 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 History: Endometrial Cancer, Endometriosis Past Surgical History Surgical History: Hernia Repair, Hysterectomy Family History: Diabetes mellitus G8 FATHER, FH: breast cancer G8 MOTHER FH: stroke G8 FATHER, Hypertension G8 MOTHER G8 FATHER, Family History Family History: Reviewed,noncontributory to illness Family History (Other): Family Hx of Dementia Social History Smoker: Non-Smoker Alcohol: Denies ETOH Use Drugs: Denies Drug Use Lives In: Home Allergies: Coded Allergies: Penicillins (Verified Allergy, Unknown, 05/12/23) Home Meds Active Scripts Ibuprofen (Advil) 200 Mg Tab, 800 MG PO TID, #30 TAB Prov:YVON EVANS MD 06/18/24 Reported Medications Atorvastatin Calcium (ATORVASTATIN CALCIUM) 40 Mg Tab, 40 MG PO DAILY, TAB 12/01/23 Risperidone (Risperidone) 3 Mg Tab, 1 TAB PO BID 05/13/23 Metoprolol Succinate (Metoprolol Succinate Er) 50 Mg Tab, 1 TAB PO DAILY Take 1/2 tablet qam 05/13/23 Primidone (Primidone) 125 Mg Tab, 250 MG PO TID, TAB 05/13/23 Fluoxetine Hcl (Fluoxetine Hcl) 20 Mg Tab, 1 TAB PO DAILY, #90 TAB 3 Refills 05/13/23 Benztropine Mesylate (Benztropine Mesylate) 1 Mg Tab, 0.5 TAB PO BID, #60 TAB 0.5 mg tab 05/13/23 Clopidogrel Bisulfate (CLOPIDOGREL) 75 Mg Tab, 1 TAB PO DAILY, #90 TAB 1 Refill 05/13/23 Review of Systems Constitutional: denies: chills, diaphoresis, fatigue, fever, malaise, sweats, weakness, others EENTM: denies: blurred vision, double vision, ear bleeding, ear discharge, ear drainage, ear pain, ear ringing, eye pain, eye redness, hearing loss, mouth pain, mouth swelling, nasal discharge, nose bleeding, nose congestion, nose pain, photophobia, tearing, throat pain, throat swelling, voice changes, others Respiratory: denies: cough, hemoptysis, orthopnea, SOB at rest, shortness of breath, SOB with excertion, stridor, wheezing, others Cardiovascular: denies: chest pain, dizzy spells, diaphoresis, Dyspnea on exertion, edema, irregular heart beat, left arm pain, lightheadedness, palpitations, PND, syncope, others Gastrointestinal: denies: abdomen distended, abdominal pain, blood streaked bowels, constipated, diarrhea, dysphagia, difficulty swallowing, hematemesis, melena, nausea, poor appetite, poor fluid intake, rectal bleeding, rectal pain, vomiting, others Genitourinary: denies: abnormal vagina bleeding, burning, dyspareunia, dysuria, flank pain, frequency, hematuria, incontinence, pain, , vagina discharge, urgency, others Neurological: reports: others (shaking); denies: dizziness, fainting, headache, left sided numbness, left sided weakness, numbness, paresthesia, pre-existing deficit, right sided numbness, right sided weakness, seizure, speech problems, tingling, tremors, weakness Musculoskeletal: reports: others (hip pain); denies: back pain, gout, joint pain, joint swelling, muscle pain, muscle stiffness, neck pain Integumetry: denies: bruises, change in color, change in hair/nails, dryness, laceration, lesions, lumps, rash, wounds, others Allergic/Immunocompromised: denies: Difficulty Healing, Frequent Infections, Hives, Itching, others Hematologic/Lymphatic: denies: anemia, blood clots, easy bleeding, easy bruising, swollen glands, others Endocrine: denies: excessive hunger, excessive sweating, excessive thirst, excessive urination, flushing, intolerance to cold, intolerance to heat, unexplained weight gain, unexplained weight loss, others Psychiatric: denies: anxiety, bipolar disorder, depression, hopeless, panic disorder, schizophrenia, sleepless, suicidal, others Vital Signs Vital Signs Date Time Temp Pulse Resp B/P (MAP) Pulse Ox O2 Delivery O2 Flow Rate FiO2 06/18/24 23:22 98.8 06/18/24 21:30 108 17 127/50 (75) 95 06/18/24 18:54 Room Air* 0 21 Physical Exam General Appearance: No Apparent Distress, Normal HEENT: Normal ENT Inspection, Pharynx Normal, TMs Normal Neck: Full Range of Motion, Non-Tender, Normal, Normal Inspection Respiratory: Chest Non-Tender, Lungs Clear, No Accessory Muscle Use, No Respiratory Distress, Normal Breath Sounds Cardiovascular: No Edema, No Murmur, No Gallop, Normal Peripheral Pulses, Regular Rate/Rhythm Breast Exam: Deferred Gastrointestinal: No Organomegaly, Non Tender, Normal Bowel Sounds, Soft Genitalia: Deferred Pelvic: Deferred Rectal: Deferred Extremities: No calf tenderness, Normal capillary refill, Normal inspection, Normal range of motion, Non-tender Musculoskeletal : right hip wound clean dry intact, packing without drainage or foul smell. wound culture taken. Apperance: Normal Neurologic: Alert, self propelled hot mix roller operator II-XII nml as Tested, No Motor Deficits, Normal Affect, Normal Mood, No Sensory Deficits Cerebellar Function: NOT DONE Reflexes: NOT DONE Skin: Dry, Normal Color, Warm Labs/Diagnostic Data Labs Test 06/18/24 20:24 06/18/24 16:52 Range/Units Urine Color Light-yellow Yellow Urine Clarity Clear Clear Urine pH 7.0 5.0-9.0 Urine Specific Stewart 1.018 1.001-1.035 Urine Protein Trace H Negative Urine Ketones Negative Negative Urine Blood Trace H Negative /uL Urine Nitrite Negative Negative Urine Bilirubin Negative Negative Urine Urobilinogen Normal Negative mg/dL Urine Leukocyte Esterase Negative Negative /uL Urine RBC 6 0 - 4 /hpf Urine Microscopic WBC < 1 0-5 /HPF Urine Squamous Epithelial Cells None seen <5 /hpf Urine Bacteria None seen None Seen /hpf Urine Glucose Normal Normal mg/dL White Blood Count 7.6 4.4-10.8 10^3/uL Red Blood Count 3.22 L 4.0-5.20 10^6/uL Hemoglobin 10.8 L 12.2-16.2 g/dL Hematocrit 31.3 L 36.0-46.0 % Mean Corpuscular Volume 97.3 80.0-100.0 fL Mean Corpuscular Hemoglobin 33.4 H 28.0-32.0 pg Mean Corpuscular Hemoglobin Concent 34.3 32.0-36.0 g/dL Red Cell Distribution Width 15.6 H 11.8-14.3 % Platelet Count 218 140-450 10^3/uL Mean Platelet Volume 7.6 6.9-10.8 fL Neutrophils (%) (Auto) 91.6 H 37.0-80.0 % Lymphocytes (%) (Auto) 2.1 L 10.0-50.0 % Monocytes (%) (Auto) 5.3 0.0-12.0 % Eosinophils (%) (Auto) 0.9 0.0-7.0 % Basophils (%) (Auto) 0.1 0.0-2.0 % Neutrophils # (Auto) 6.9 1.6-8.6 10 ^3/uL Lymphocytes # (Auto) 0.2 L 0.4-5.4 10 ^3/uL Monocytes # (Auto) 0.4 0-1.3 10 ^3/uL Eosinophils # (Auto) 0.1 0-0.8 10 ^3/uL Basophils # (Auto) 0 0-0.2 10 ^3/uL Nucleated Red Blood Cells 0.0 % Sodium Level 129 L 136-145 mmol/L Potassium Level 3.9 3.5-5.1 mmol/L Chloride Level 91 L 98-107 mmol/L Carbon Dioxide Level 28 20-31 mmol/L Anion Gap 10 5-15 Blood Urea Nitrogen 18 9-23 mg/dL Creatinine 0.64 0.550-1.02 mg/dL Glomerular Filtration Rate Calc 99 >90 mL/min BUN/Creatinine Ratio 28.1 H 10.0-20.0 Serum Glucose 112 H 74-106 mg/dL Lactic Acid Level 1.6 0.4-2.0 mmol/L Calcium Level 9.6 8.7-10.4 mg/dL Total Bilirubin < 0.2 L 0.2-1.0 mg/dL Aspartate Amino Transferase (AST) 18 13-40 U/L Alanine Aminotransferase (ALT) 13 7-40 U/L Alkaline Phosphatase 101 46-116 U/L Total Protein 7.6 5.7-8.2 g/dL Albumin 4.4 3.2-4.8 g/dL Assessment This is a 64 yo female with known history of hypertension, hyperlipidemia, cancer, seizures, depression who presents to the hospital with body shivers. Patient was found to have a 100.4-101.4 F temperature. Patient reported she had not taken any medication at home for her body shivers. Patient reported wound care three times a week and she uses a walker for mobility. Patient with MAD to groin area. Gooden catheter was placed by ED. Patient with WBC 7.6, H&H 10.8/3 1.3, Platelets 218, Na 129, K 3.9, BUN 18/0.64, Lactic 1.6, UA negative for UTI. CT abdomen and pelvis resulted 1. Mild enlargement of the left adrenal head, axial image 20, series 2. Small adenoma can not be excluded Appendix not identified No bowel obstruction No abscess or free fluid. No source of infection in patient ED workup. Blood cultures were drawn. Patient was given one time dose of Levaquin IV , Tylenol, and Ibuprofen. Patient oral temperature 98.8 F. Patient reports she feels better , with no more body shivers. Problems(with codes): (1) Fever, unknown origin Plan/Recommendation I was consulted for medical management by ED MD. Patient at this time does not meet admission criteria as there is no elevated WBC and no elevated lactic acid, urinalysis is clear of UTI. Patient with no other complaints other than the body shivers earlier today. Patient with temperature of 98.8 F post ibuprofen and acetaminophen PO. Recommendation for outpatient follow up at Urgent care in am for possible MRI of right hip for further evaluation, home with gooden catheter for MAD to groin area, home health arrangement , and follow up with PCP, and blood culture and wound culture results. Discussed all above with patient who verbalizes agreement and understanding. Patient was called and left a message by primary RN. Discussed arrangement with Urgent care for MRI hip , home health follow up with [facility]. Discussed all above with ED MD Dr. Evans. Patient to continue with home wound care. Plan discussed with: Patient, Other SUAD RUVALCABA MD 06/20/24 1527: Family History: Diabetes mellitus G8 FATHER, FH: breast cancer G8 MOTHER FH: stroke G8 FATHER, Hypertension G8 MOTHER G8 FATHER, Allergies: Coded Allergies: Penicillins (Verified Allergy, Unknown, 05/12/23) Home Meds Active Scripts Ibuprofen (Advil) 200 Mg Tab, 800 MG PO TID, #30 TAB Prov:YVON EVANS MD 06/18/24 Reported Medications Atorvastatin Calcium (ATORVASTATIN CALCIUM) 40 Mg Tab, 40 MG PO DAILY, TAB 12/01/23 Risperidone (Risperidone) 3 Mg Tab, 1 TAB PO BID 05/13/23 Metoprolol Succinate (Metoprolol Succinate Er) 50 Mg Tab, 1 TAB PO DAILY Take 1/2 tablet qam 05/13/23 Primidone (Primidone) 125 Mg Tab, 250 MG PO TID, TAB 05/13/23 Fluoxetine Hcl (Fluoxetine Hcl) 20 Mg Tab, 1 TAB PO DAILY, #90 TAB 3 Refills 05/13/23 Benztropine Mesylate (Benztropine Mesylate) 1 Mg Tab, 0.5 TAB PO BID, #60 TAB 0.5 mg tab 05/13/23 Clopidogrel Bisulfate (CLOPIDOGREL) 75 Mg Tab, 1 TAB PO DAILY, #90 TAB 1 Refill 05/13/23 Additional Comments Additional Comments Additional Comments I agree with the assessment and plan as outlined by my nurse practitioner. ARTURO DAMON Jun 18, 2024 23:28 SUAD RUVALCABA MD Jun 20, 2024 15:27
[2024-06-18] MEDS ORDERED: IBUP200T76 PO (23:30)
[2024-06-19 01:30] VITALS: BP 121/61; PULSE 80; RESP 16; TEMP 98.6; O2SAT 94
== END 2024-06-18 23:29 | disposition home or self-care (01) ==
LOC: EDBD 15:07 → ER 15:07
DX: R50.9 Fever, unspecified (principal); R25.1 Tremor, unspecified; E78.5 Hyperlipidemia, unspecified; F32.A Depression, unspecified; I10 Essential (primary) hypertension; Z79.02 Long term (current) use of antithrombotics/antiplatelets; Z79.1 Long term (current) use of non-steroidal anti-inflammatories (NSAID); Z79.899 Other long term (current) drug therapy; Z88.0 Allergy status to penicillin; Z90.710 Acquired absence of both cervix and uterus; Z98.890 Other specified postprocedural states
CPT/HCPCS: 36415; 74176; 80053; 81001; 83605; 85025; 87040; 96365; 96366; 96375; 99285; J1956; J2060; J7030

== ENCOUNTER 2024-08-02 06:17 | Inpatient (IN) | payer BC ==
[2024-08-02] VITALS (13 sets, daily range): BP systolic 81–112; BP diastolic 42–67; PULSE 58–86; RESP 9–16; TEMP 96.5–98.3; O2SAT 92–100
[~2024-08-02] VITALS: Ht 157.5 cm; Wt 97.5 kg
[~2024-08-02 06:17] MED LIST changes: +IBUP200T76 PO
[2024-08-02] MEDS: VANCOMYCIN HCL 1000 MG VL ONE ×2 (06:32→07:10)
[2024-08-02] MEDS: ceFAZolin 2 GM/D5W50ml 50 ML IV ONE (07:08)
[2024-08-02] MEDS: TRANEXAMIC ACID 20 ML ONE (07:08)
[2024-08-02] MEDS: BUPIVACAINE 0.25% INJ 50ML VIAL ONE (07:08)
[2024-08-02] MEDS: KETOROLAC TROMETH 30 MG/ML 1ML VIAL ONE (07:10)
[2024-08-02] MEDS ORDERED: ROCURONIUM 10MG/ML 10ML VIAL IV ONE (07:14)
[2024-08-02] MEDS ORDERED: NEOSTIGMINE 1 MG/ML INJ (10mg/10ML VIAL) ONE (07:14)
[2024-08-02] MEDS ORDERED: ONDANSETRON HCL 4 MG/2 ML VIAL ONE (07:14)
[2024-08-02] MEDS ORDERED: LIDOCAINE 2% (LOCAL ANESTH.) PF 5ml SDV ONE (07:14)
[2024-08-02] MEDS ORDERED: fentaNYL CITRATE 100 MCG/2 ML VL ONE (07:14)
[2024-08-02] MEDS ORDERED: PHENYLEPHRINE HCL 10 MG/ML VL ONE (07:14)
[2024-08-02] MEDS ORDERED: DexAMETHasone SOD PHOS 10MG/1ML VIAL INJ ONE (07:14)
[2024-08-02] MEDS ORDERED: PROPOFOL 10 MG/ML 20 ML IV ONE (07:14)
[2024-08-02] MEDS ORDERED: GLYCOPYRROLATE 0.2 MG/ML 1ML VIAL ONE (07:14)
[2024-08-02] MEDS ORDERED: SODIUM CHLORIDE LOCK 10 ML ONE (07:14)
[2024-08-02] MEDS: CELECOXIB 100 MG CAP PO ONE (07:15)
[2024-08-02] MEDS: PREGABALIN CAPSULE 75 MG CAP PO ONE (07:15)
[2024-08-02] MEDS: ACETAMINOPHEN IV 1000 MG/100ML (10MG/ML) IV ONE (07:15)
[2024-08-02] MEDS: SUCCINYLCHOLINE CHLORIDE 20 MG/ML 10ML VIAL IV ONE (07:18)
[2024-08-02] MEDS: ROPIVACAINE 0.5% (5MG/ML) 20ML AMPULE IJ ONE (07:58)
[2024-08-02] MEDS ORDERED: HYDROmorphone HCL 2 MG/ML VL/or syr ONE (09:01)
[2024-08-02] MEDS ORDERED: ePHEDrine SULFATE 50 MG/ML AMP ONE (09:29)
[2024-08-02] MEDS ORDERED: ONDANSETRON HCL 4 MG/2 ML VIAL IV PRN (09:45)
[2024-08-02] MEDS: LACTATED RINGER'S 1,000 ML IV SCH (09:45)
[2024-08-02] MEDS ORDERED: NITROGLYCERIN 0.4 MG SL TAB SL PRN (09:45)
[2024-08-02] MEDS ORDERED: VANCOMYCIN PER PHARMACY 0 MG IV SCH (09:45)
[2024-08-02] MEDS ORDERED: MORPHINE SULFATE INJ 2 MG/ml SYRG IV PRN (09:45)
[2024-08-02] MEDS: METOPROLOL SUCCINATE XL 50 MG TAB PO SCH (10:00)
[2024-08-02] MEDS ORDERED: PATIENTS OWN MEDICATION (Fluoxetine Hcl 1 TAB) PO SCH (10:00)
[2024-08-02] MEDS: DOCUSATE SOD 100 MG CAP PO SCH (10:00)
[2024-08-02] MEDS ORDERED: BENZTROPINE MESYLATE PO SCH (10:00)
[2024-08-02] MEDS ORDERED: PATIENTS OWN MEDICATION (Risperidone 1 TAB) PO SCH (10:00)
[2024-08-02] MEDS ORDERED: PATIENTS OWN MEDICATION (Atorvastatin Calcium 40 MG) PO SCH (10:00)
--- NOTE | 2024-08-02 10:51 | DVHOP2 ---
Operative Report - 2 Report Details Date: 08/02/24 Preop Diagnosis: Infected right hip replacement Postop Diagnosis: Infected right hip replacement Surgeon: Desmond Mireles DO Waterproof Bag Sewer: Micheal BOYD/ Johnnie Muhammad MD Anesthesiologist: Peter FLORES Anesthesia: General Implant: Cemented hip spacer -- see implant log Consent: The patient was informed of the risks and benefits of the procedure. These include but are not limited to complications of anesthesia, postoperative infection, incomplete relief of symptoms, recurrence of symptoms, damage to blood vessels, nerves and tendons, deep venous thrombosis, pulmonary embolism and possible need for repeat surgery in the future. Estimated Blood Loss: 1000 cc Name of Procedure Performed 1. Revision right hip with antibiotic spacer 2. Removal of hardware 3. excision of sinus tract (8x4 cm) 4. Irrigation and debridement of right hip Procedure Details Procedure Details: INDICATION: Preoperatively in the waiting area as well as in the office, I had a long discussion with the patient and family regarding the plan, the expected outcome, the risks, benefits, and alternatives of surgery. The risks include, but are not limited to, infection (which may require future surgery and removal of implants) , bleeding (which may require a transfusion), damage to nerves, arteries, veins, tendons, muscles and other adjacent structures. Also discussed the possibilities of dislocation, leg-length discrepancy, intraoperative fractures, implant loosening, heterotopic bone formation, and revision for variety of reasons, and medical complications etc. This was discussed at length and consent has been obtained. DESCRIPTION OF PROCEDURE: In the preoperative holding area, the consent was reviewed and the appropriate extremity was verified by the patient and marked with my initials. The patient was then transferred to the operating theatre. Appropriate anesthetia was induced. All bony prominences were well padded. A time out was performed verifying the side and site of surgery according to standard protocol. Preoperative antibiotics were given. Tranexamic acid was given. The patient was then placed in the lateral decubitus position and fixed with rigid pelvic fixation. All bony prominences were well padded and an axillary roll was placed. The affected hip area was then prepped and draped in the usual sterile fashion. We made a standard posterolateral incision sharply through the skin utilizing previous incision and carried our dissection down through subcutaneous tissue to the underlying fascia achieving hemostasis where necessary. Sinus tact noted measuring 8x5 cm which tracts to the joint. we incised the fascia in line with our incision. We identified and protected the sciatic nerve. We took down the external rotators and hip capsule from their insertion into the greater trochanter, tagged them and retracted them posteriorly for further protection of the sciatic nerve. Patient noted to have large defect on greater troch. Previous hip spacer removed. Joint washed out with 9L of normal saline. Tissue debrided aggressively of fat and muscle and bone. Attention was then turned to the femur. We used a box osteotome followed by a canal finder to gain entry to the canal. Intramedullary contents were suctioned and care was taken to ensure they did not touch the tissues. We sequentially reamed until gcortical contact, then broached up to out final size. We trialed with the appropriate femoral neck and head and reduced the hip. The hip was t aken through a full range of motion. The hip soft tissues were examined in extension and external rotation, the anterior capsule and IT band were palpated, and combined anteversion was determined to be 40 degrees. Patient hip is loose and dislocates which is known with this type of issue. The hip was then dislocated and trial components removed. We copiously irrigated the wound and impacted the final femoral stem into position. The femoral head was impacted onto a clean and dry trunion and confirmed to be seated. The hip was reduced ensuring to tissues in the acetabular cup. We again brought it through a full functional range of motion and there was no evidence for dislocation, instability, or impingement. The checkpoint was removed. A dilute betadine solution (17.5mL in 500mL saline) was used to wash the joint and left to sit for 3 minutes. This was then irrigated out with copious amounts of pulse lavage. We placed antibioitc beads into the wound. We copiously irrigated the wound and soft tissues. The short external rotators and capsule were repaired to the greater trochanter through drill holes, and the quadratus was repaired. We palpated the sciatic nerve in continuity without tension. The fascia was closed with vicryl and a barbed suture. We closed over the fascia with monocryll suture and re-approximated the skin with nylon and jesus. Wound vac placed. A sterile dressing was placed. We returned the patient to the supine position. We verified all lower extremity compartments were soft and compressible and that we had intact distal pulses and checked our leg length buddhist. The patient was then transferred to the recovery room in stable condition. Condition Fair Disposition Still a Patient JOHNNIE MUHAMMAD . August 02, 2024 10:51
[2024-08-02] MEDS: MORPHINE SULF PF 5 MG/10 ML VIAL ONE (11:00)
[2024-08-02] MEDS ORDERED: HYDROmorphone HCL 2 MG/ML VL/or syr IV PRN (12:15)
[2024-08-02] MEDS: ONDANSETRON HCL 4 MG/2 ML VIAL IV ONE (12:15)
[2024-08-02] MEDS ORDERED: NALOXONE HCL 0.4 MG/ML VIAL IV PRN (12:15)
[2024-08-02] MEDS ORDERED: ePHEDrine SULFATE 50 MG/ML AMP IV PRN (12:15)
[2024-08-02] MEDS ORDERED: fentaNYL CITRATE 100 MCG/2 ML VL IV PRN (12:15)
[2024-08-02] MEDS: ALBUMIN 25% 100 ML IV ONE (13:02)
[2024-08-02 13:14] LABS: Basophils # (auto) 0 10 ^3/uL (0-0.2); Basophils % (auto) 0.2 % (0.0-2.0); Eosinophils # (auto) 0 10 ^3/uL (0-0.8); Eosinophils % (auto) 0.3 % (0.0-7.0); Hematocrit 30.1 % (36.0-46.0); Hemoglobin 9.6 g/dL (12.2-16.2); Lymphocytes # (auto) 0.7 10 ^3/uL (0.4-5.4); Lymphocytes % (auto) 10.8 % (10.0-50.0); Mean Corpuscular Hemoglobin 30.4 pg (28.0-32.0); Mean Corpuscular Hgb Conc. 31.7 g/dL (32.0-36.0); Mean Corpuscular Volume 95.9 fL (80.0-100.0); Monocytes # (auto) 0.4 10 ^3/uL (0-1.3); Monocytes % (auto) 6.3 % (0.0-12.0); Neutrophils # (auto) 5.2 10 ^3/uL (1.6-8.6); Neutrophils % (auto) 82.4 % (37.0-80.0); Nucleated Red Blood Cells % 0.1 %; Platelet Count (auto) 151 10^3/uL (140-450); Red Blood Cells 3.14 10^6/uL (4.0-5.20); White Blood Cell 6.3 10^3/uL (4.4-10.8)
[2024-08-02 13:16] LABS: Red Cell Distribution Width 21.9 % (11.8-14.3)
--- NOTE | 2024-08-02 13:20 | DVHINCON2 ---
Date of service: August 02, [address] Blair Reason for Consultation Antibiotics recommendations History of Present Illness Patient is a 63-year-old female presents to the hospital for elective procedure. Patient is currently S/P explantation and irrigation with Antibiotic spacer placement again. Patient did have low blood pressure as she lost 1.7L of blood during the surgery. Patient is S/P 2 Units of packed RBC. 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 Please review my old notes from from previous admission. She was treated with IV daptomycin and meropenem for six weeks following which she has had a very complicated co urse of poor wound healing. She has been following with me as outpatient along with ortho and surgery for wound care Today she was brought in for wound debridement as well as explantation of antibiotics spacer. She has lost blood and is currently hypotensive concerning for septic shock or hypovolemic shock Past Medical History Patient's Past Medical History is significant for Hypertension and Dyslipidemia. Past Surgical History Past Surgical History is significant for Bilateral Hip Arthroplasty and Right hip Arthroplasty explantation and Debridement. Family History: Diabetes mellitus G8 FATHER, FH: breast cancer G8 MOTHER FH: stroke G8 FATHER, Hypertension G8 MOTHER G8 FATHER, Allergies: Coded Allergies: Penicillins (Verified Allergy, Unknown, 05/12/23) Home Meds Active Scripts Ibuprofen (Advil) 200 Mg Tab, 800 MG PO TID, #30 TAB Prov:YVON EVANS MD 06/18/24 Reported Medications Atorvastatin Calcium (ATORVASTATIN CALCIUM) 40 Mg Tab, 40 MG PO DAILY, TAB 12/01/23 Risperidone (Risperidone) 3 Mg Tab, 1 TAB PO BID 05/13/23 Metoprolol Succinate (Metoprolol Succinate Er) 50 Mg Tab, 1 TAB PO DAILY Take 1/2 tablet qam 05/13/23 Primidone (Primidone) 125 Mg Tab, 250 MG PO TID, TAB 05/13/23 Fluoxetine Hcl (Fluoxetine Hcl) 20 Mg Tab, 1 TAB PO DAILY, #90 TAB 3 Refills 05/13/23 Benztropine Mesylate (Benztropine Mesylate) 1 Mg Tab, 0.5 TAB PO BID, #60 TAB 0.5 mg tab 05/13/23 Clopidogrel Bisulfate (CLOPIDOGREL) 75 Mg Tab, 1 TAB PO DAILY, #90 TAB 1 Refill 05/13/23 Current Medications Current Medications Medications (Trade) Dose Ordered Sig/Los Route PRN Reason Start Time Stop Time Status Last Admin Metoprolol Succinate (Toprol Xl) 50 mg DAILY PO 08/02/24 10:00 Patient Own Medication 40 mg DAILY PO 08/02/24 10:00 Cancel Patient Own Medication 0.5 tab BID PO 08/02/24 10:00 Cancel Patient Own Medication 1 tab DAILY PO 08/02/24 10:00 UNV Patient Own Medication 250 mg TID PO 08/02/24 14:00 Patient Own Medication 1 tab BID PO 08/02/24 10:00 UNV Vancomycin HCl 0 ml @ 0 mls/hr UD IV 08/02/24 09:45 UNV Piperacillin Sod/ Tazobactam Sod 100 ml @ 25 mls/hr Q8HR IV 08/02/24 14:00 08/02/24 11:34 DC Clopidogrel Bisulfate (Plavix) 75 mg DAILY PO 08/03/24 10:00 Lactated Ringer's 1,000 ml @ 100 mls/hr Q10H IV 08/02/24 09:45 Sodium Chloride (Saline Lock Ns) 10 ml Q8HR IV 08/02/24 14:00 Hydromorphone HCl (Dilaudid Injection) 1 mg Q2HP PRN IV SEVERE PAIN (7-10 PAIN SCALE) 08/02/24 09:45 Ondansetron HCl (Zofran) 4 mg Q6HP PRN IV NAUSEA / VOMITING 08/02/24 09:45 Docusate Sodium (Colace Capsule) 100 mg Q12HR PO 08/02/24 10:00 Acetaminophen/ Hydrocodone Bitart ([place] 10/325MG Tab) 1 tab Q4HP PRN PO MILD PAIN (1-3 PAIN SCALE) 08/02/24 09:45 Nitroglycerin (Ntrostat Sublingual) 0.4 mg Q5MINP PRN SL FOR CHEST PAIN 08/02/24 09:45 Morphine Sulfate 2 mg Q30M PRN IV FOR CHEST PAIN 08/02/24 09:45 Atorvastatin Calcium (Lipitor) 40 mg HS PO 08/02/24 22:00 Benztropine Mesylate (Cogentin Tablet) 0.5 mg BID PO 08/02/24 22:00 Fluoxetine HCl (PROzac CAPSULE) 20 mg DAILY PO 08/03/24 10:00 Risperidone (RisperDAL TABLET) 3 mg BID PO 08/02/24 22:00 Piperacillin Sod/ Tazobactam Sod 100 ml @ 25 mls/hr Q8HR IV 08/02/24 14:00 Naloxone HCl (Narcan) 0.4 mg Q10M PRN IV NARCOTIC REVERSAL 08/02/24 12:15 08/02/24 13:13 DC Ephedrine Sulfate (ePHEDrine SULFATE) 10 mg Q10M PRN IV SBP LESS THAN 90 08/02/24 12:15 08/02/24 13:13 DC Fentanyl Citrate 25 mcg Q1HP PRN IV BREAKTHROUGH PAIN (7-10) 08/02/24 12:15 08/02/24 13:13 DC Hydromorphone HCl (Dilaudid Injection) 0.25 mg Q10M PRN IV MODERATE PAIN (4-6 PAIN SCALE) 08/02/24 12:15 08/02/24 13:13 DC Review of Systems Limited due to postsurgical anesthesia effect Vital Signs Vital Signs Date Time Temp Pulse Resp B/P (MAP) Pulse Ox O2 Delivery O2 Flow Rate FiO2 08/02/24 06:26 97.3 61 16 136/41 (72) 97 97.3 Physical Exam General lethargic, answers some questions HEENT: Atraumatic Neck: No swelling Lungs: Decreased in bases Cardiovascular: S2 heard no murmur Abdomen: Soft nontender, no organomegaly, nondistended Neuro: no focal deficit Right hip status post I and D with wound VAC placement Labs/Diagnostic Data Labs Test 08/02/24 12:48 Range/Units White Blood Count 6.3 4.4-10.8 10^3/uL Red Blood Count 3.14 L 4.0-5.20 10^6/uL Hemoglobin 9.6 L 12.2-16.2 g/dL Hematocrit 30.1 L 36.0-46.0 % Mean Corpuscular Volume 95.9 80.0-100.0 fL Mean Corpuscular Hemoglobin 30.4 28.0-32.0 pg Mean Corpuscular Hemoglobin Concent 31.7 L 32.0-36.0 g/dL Red Cell Distribution Width 21.9 H 11.8-14.3 % Platelet Count 151 140-450 10^3/uL Mean Platelet Volume 7.3 6.9-10.8 fL Neutrophils (%) (Auto) 82.4 H 37.0-80.0 % Lymphocytes (%) (Auto) 10.8 10.0-50.0 % Monocytes (%) (Auto) 6.3 0.0-12.0 % Eosinophils (%) (Auto) 0.3 0.0-7.0 % Basophils (%) (Auto) 0.2 0.0-2.0 % Neutrophils # (Auto) 5.2 1.6-8.6 10 ^3/uL Lymphocytes # (Auto) 0.7 0.4-5.4 10 ^3/uL Monocytes # (Auto) 0.4 0-1.3 10 ^3/uL Eosinophils # (Auto) 0 0-0.8 10 ^3/uL Basophils # (Auto) 0 0-0.2 10 ^3/uL Nucleated Red Blood Cells 0.1 % Assessment Patient is a 64-year-old female presents to the hospital with: Hypovolemic shock / septic shock currently on Levophed Acute Anemia S/P 2 units of packed RBC S/P Right hip explantation and placement of Antibiotic spacer 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 Plan discussed with Dr. Urbano Brasher guarded Thank you for consult. Plan discussed with: GABRIELA Eisenberg MD August 02, 2024 13:20
[2024-08-02 13:57] LABS: Platelet Estimate Adequate
[2024-08-02 13:59] LABS: Anisocytosis Slight
[2024-08-02] MEDS: PRIMIDONE 250 MG PO SCH (14:00)
[2024-08-02] MEDS ORDERED: PIPERACILLIN-TAZOB 3.375GM 100 ML IV SCH (14:00)
[2024-08-02] MEDS ORDERED: DAPTOmycin 400 MG in SODIUM CHL 0.9% 50 ML IV STA (14:11)
[2024-08-02] MEDS ORDERED: MEROPENEM 1GM IVPB 50 ML IV STA (14:11)
[2024-08-02] MEDS: SODIUM CHLOR 0.9% PF (SALINE LOCK) 10ML VIAL/SYR IV SCH (14:22)
--- NOTE | 2024-08-02 15:13 | DVH ---
EXAM: XY PELVIS AP CLINICAL INDICATION: sp right hip antibiotic spacer TECHNIQUE: XY PELVIS AP Comparison: XY PELVIS AP on DOS: 03/15/24, XY PELVIS AP on DOS: 12/02/23 FINDINGS/IMPRESSION: Bilateral hip arthroplasties.
[2024-08-02] MEDS: PIPERACILLIN-TAZOB 3.375GM 100 ML IV SCH (16:00)
[2024-08-02] MEDS: NYSTATIN TOPICAL POWDER 15GM TOP ONE (16:45)
--- NOTE | 2024-08-02 16:45 | DVHINCON2 ---
Date Seen: August 02, 2024 Referring Physician ORTHOPEDIC SURGEON. Reason for Consultation HYPOTENSION AND FOR MEDICAL MANAGEMENT. History of Present Illness 63-YEAR-OLD FEMALE WITH A KNOWN HISTORY OF HYPERTENSION, DYSLIPIDEMIA, STATUS POST TAVR, PREVIOUS HISTORY OF BILATERAL TOTAL HIP ARTHROPLASTY, PREVIOUS HISTORY OF RIGHT TOTAL HIP ARTHROPLASTY ABOUT TWO YEARS AGO, STATUS POST EXPLANTATION AND IRRIGATION AND DEBRIDEMENT WITH THE ANTIBIOTIC CEMENT SPACER PLACEMENT FEW TIMES PRESENTED TO THE HOSPITAL FOR ELECTIVE PROCEDURE. PATIENT IS CURRENTLY STATUS POST EXPLANTATION AND IRRIGATION WITH ANTIBIOTIC SPACER PLACEMENT AGAIN. PATIENT DID HAVE LOW BLOOD PRESSURE SHE LOST 1.7 L OF BLOOD DURING THE SURGERY. PATIENT IS STATUS POST 2 UNITS OF PACKED RBC. Past Medical History HYPERTENSION DYSLIPIDEMIA STATUS POST TAVR STATUS POST RIGHT HIP MULTIPLE SURGERIES Past Surgical History BILATERAL HIP ARTHROPLASTY RIGHT HIP ARTHROPLASTY, EXPLANTATION AND DEBRIDEMENT, FEW TIMES. Family History: Diabetes mellitus G8 FATHER, FH: breast cancer G8 MOTHER FH: stroke G8 FATHER, Hypertension G8 MOTHER G8 FATHER, Allergies: Coded Allergies: Penicillins (Verified Allergy, Unknown, 05/12/23) Home Meds Active Scripts Ibuprofen (Advil) 200 Mg Tab, 800 MG PO TID, #30 TAB Prov:YVON EVANS MD 06/18/24 Reported Medications Atorvastatin Calcium (ATORVASTATIN CALCIUM) 40 Mg Tab, 40 MG PO DAILY, TAB 12/01/23 Risperidone (Risperidone) 3 Mg Tab, 1 TAB PO BID 05/13/23 Metoprolol Succinate (Metoprolol Succinate Er) 50 Mg Tab, 1 TAB PO DAILY Take 1/2 tablet qam 05/13/23 Primidone (Primidone) 125 Mg Tab, 250 MG PO TID, TAB 05/13/23 Fluoxetine Hcl (Fluoxetine Hcl) 20 Mg Tab, 1 TAB PO DAILY, #90 TAB 3 Refills 05/13/23 Benztropine Mesylate (Benztropine Mesylate) 1 Mg Tab, 0.5 TAB PO BID, #60 TAB 0.5 mg tab 05/13/23 Clopidogrel Bisulfate (CLOPIDOGREL) 75 Mg Tab, 1 TAB PO DAILY, #90 TAB 1 Refill 05/13/23 Current Medications Current Medications Medications (Trade) Dose Ordered Sig/Los Route PRN Reason Start Time Stop Time Status Last Admin Metoprolol Succinate (Toprol Xl) 50 mg DAILY PO 08/02/24 10:00 Patient Own Medication 40 mg DAILY PO 08/02/24 10:00 Cancel Patient Own Medication 0.5 tab BID PO 08/02/24 10:00 Cancel Patient Own Medication 1 tab DAILY PO 08/02/24 10:00 UNV Patient Own Medication 250 mg TID PO 08/02/24 14:00 Patient Own Medication 1 tab BID PO 08/02/24 10:00 UNV Vancomycin HCl 0 ml @ 0 mls/hr UD IV 08/02/24 09:45 Piperacillin Sod/ Tazobactam Sod 100 ml @ 25 mls/hr Q8HR IV 08/02/24 14:00 08/02/24 11:34 DC Clopidogrel Bisulfate (Plavix) 75 mg DAILY PO 08/03/24 10:00 Lactated Ringer's 1,000 ml @ 100 mls/hr Q10H IV 08/02/24 09:45 08/02/24 09:45 Sodium Chloride (Saline Lock Ns) 10 ml Q8HR IV 08/02/24 14:00 08/02/24 14:22 Hydromorphone HCl (Dilaudid Injection) 1 mg Q2HP PRN IV SEVERE PAIN (7-10 PAIN SCALE) 08/02/24 09:45 Ondansetron HCl (Zofran) 4 mg Q6HP PRN IV NAUSEA / VOMITING 08/02/24 09:45 Docusate Sodium (Colace Capsule) 100 mg Q12HR PO 08/02/24 10:00 Acetaminophen/ Hydrocodone Bitart ([place] 10/325MG Tab) 1 tab Q4HP PRN PO MILD PAIN (1-3 PAIN SCALE) 08/02/24 09:45 Nitroglycerin (Ntrostat Sublingual) 0.4 mg Q5MINP PRN SL FOR CHEST PAIN 08/02/24 09:45 Morphine Sulfate 2 mg Q30M PRN IV FOR CHEST PAIN 08/02/24 09:45 Atorvastatin Calcium (Lipitor) 40 mg HS PO 08/02/24 22:00 Benztropine Mesylate (Cogentin Tablet) 0.5 mg BID PO 08/02/24 22:00 Fluoxetine HCl (PROzac CAPSULE) 20 mg DAILY PO 08/03/24 10:00 Risperidone (RisperDAL TABLET) 3 mg BID PO 08/02/24 22:00 Piperacillin Sod/ Tazobactam Sod 100 ml @ 25 mls/hr Q8HR IV 08/02/24 14:00 08/02/24 16:00 Naloxone HCl (Narcan) 0.4 mg Q10M PRN IV NARCOTIC REVERSAL 08/02/24 12:15 08/02/24 13:13 DC Ephedrine Sulfate (ePHEDrine SULFATE) 10 mg Q10M PRN IV SBP LESS THAN 90 08/02/24 12:15 08/02/24 13:13 DC Fentanyl Citrate 25 mcg Q1HP PRN IV BREAKTHROUGH PAIN (7-10) 08/02/24 12:15 08/02/24 13:13 DC Hydromorphone HCl (Dilaudid Injection) 0.25 mg Q10M PRN IV MODERATE PAIN (4-6 PAIN SCALE) 08/02/24 12:15 08/02/24 13:13 DC Daptomycin / Sodium Chloride 50 ml @ 100 mls/hr DAILY STAT IV 08/02/24 14:11 08/02/24 14:40 UNV Meropenem 50 ml @ 17 mls/hr Q8HR STAT IV 08/02/24 14:11 08/02/24 17:07 UNV Review of Systems TWELVE REVIEW OF SYSTEM ARE NEGATIVE BESIDES MENTIONED ABOVE. 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 Labs/Diagnostic Data Labs Test 08/02/24 12:48 Range/Units White Blood Count 6.3 4.4-10.8 10^3/uL Red Blood Count 3.14 L 4.0-5.20 10^6/uL Hemoglobin 9.6 L 12.2-16.2 g/dL Hematocrit 30.1 L 36.0-46.0 % Mean Corpuscular Volume 95.9 80.0-100.0 fL Mean Corpuscular Hemoglobin 30.4 28.0-32.0 pg Mean Corpuscular Hemoglobin Concent 31.7 L 32.0-36.0 g/dL Red Cell Distribution Width 21.9 H 11.8-14.3 % Platelet Count 151 140-450 10^3/uL Mean Platelet Volume 7.3 6.9-10.8 fL Neutrophils (%) (Auto) 82.4 H 37.0-80.0 % Lymphocytes (%) (Auto) 10.8 10.0-50.0 % Monocytes (%) (Auto) 6.3 0.0-12.0 % Eosinophils (%) (Auto) 0.3 0.0-7.0 % Basophils (%) (Auto) 0.2 0.0-2.0 % Neutrophils # (Auto) 5.2 1.6-8.6 10 ^3/uL Lymphocytes # (Auto) 0.7 0.4-5.4 10 ^3/uL Monocytes # (Auto) 0.4 0-1.3 10 ^3/uL Eosinophils # (Auto) 0 0-0.8 10 ^3/uL Basophils # (Auto) 0 0-0.2 10 ^3/uL Nucleated Red Blood Cells 0.1 % Platelet Estimate Adequate Anisocytosis (manual) Slight Assessment 63-YEAR-OLD FEMALE WITH A KNOWN HISTORY OF HYPERTENSION, DYSLIPIDEMIA, STATUS POST TAVR, PREVIOUS HISTORY OF BILATERAL TOTAL HIP ARTHROPLASTY, PREVIOUS HISTORY OF RIGHT TOTAL HIP ARTHROPLASTY ABOUT TWO YEARS AGO, STATUS POST EXPLANTATION AND IRRIGATION AND DEBRIDEMENT WITH THE ANTIBIOTIC CEMENT SPACER PLACEMENT FEW TIMES PRESENTED TO THE HOSPITAL FOR ELECTIVE PROCEDURE. 1. HYPOVOLEMIC SHOCK CURRENTLY ON LEVOPHED 2. ACUTE ANEMIA STATUS POST 2 UNITS OF PACKED RBC 3. STATUS POST RIGHT HIP EXPLANTATION AND PLACEMENT OF ANTIBIOTIC SPACER. 4. PREVIOUS HISTORY OF RIGHT HIP SURGERY AND EXPLANTATION IN THE PAST WELL 5. HYPERTENSION 6. DYSLIPIDEMIA 7. STATUS POST TAVR -CONTINUE IV ANTIBIOTICS, FOLLOW UP INFECTIOUS DISEASE AND ORTHOPEDICS RECOMMENDATIONS. Plan discussed with: Patient, Other Date of Service: August 03, 2024 Billing Provider: SUAD RUVALCABA MD Common Visit Codes: NOT BILLABLE SUAD RUVALCABA MD August 02, 2024 16:45
[2024-08-02] MEDS: DAPTOmycin 400 MG in SODIUM CHL 0.9% 50 ML IV STA (16:46)
[2024-08-02] MEDS: VANCOMYCIN 1GM/200ML PM 200 ML IV ONE (18:53)
[2024-08-02 19:05] LABS: Hematocrit 35.2 % (36.0-46.0); Hemoglobin 11.5 g/dL (12.2-16.2)
[2024-08-02 19:20] LABS: INR 0.98 (0.9-1.15); Partial Thromboplastin Time 22.3 SEC (24.5-34.5); Prothrombin Time 10.4 sec (9.3-11.8)
[2024-08-02] MEDS: ATORVASTATIN 20 MG TAB PO SCH (22:03)
[2024-08-02] MEDS: BENZTROPINE MESY 0.5 MG TAB PO SCH (22:04)
[2024-08-02] MEDS: PRIMIDONE 250 MG PO ONE (22:04)
[2024-08-02] MEDS: risperiDONE 1 MG TAB PO SCH (22:05)
[2024-08-02 23:17] LABS: Urine Bacteria FEW /hpf (None Seen); Urine Blood 2+ /uL (Negative); Urine Clarity Clear (Clear); Urine Color Light-Yellow (Yellow); Urine Hyaline Cast FEW /lpf (0 - 2); Urine Mucus FEW (None Seen); Urine Protein, UAD TRACE (Negative); Urine Specific Gravity 1.028 (1.001-1.035); Urine Squamous Epithelial Cell FEW /hpf (<5); Urine Urobilinogen Normal (Negative); Urine WBC 10 /HPF (0-5); Urine pH 5.5 (5.0-9.0)
[2024-08-02 23:25] LABS: Basophils # (auto) 0 10 ^3/uL (0-0.2); Basophils % (auto) 0.2 % (0.0-2.0); Eosinophils # (auto) 0 10 ^3/uL (0-0.8); Eosinophils % (auto) 0.5 % (0.0-7.0); Hematocrit 29.6 % (36.0-46.0); Hemoglobin 9.7 g/dL (12.2-16.2); Lymphocytes # (auto) 0.4 10 ^3/uL (0.4-5.4); Lymphocytes % (auto) 7.2 % (10.0-50.0); Mean Corpuscular Hemoglobin 30.2 pg (28.0-32.0); Mean Corpuscular Hgb Conc. 32.7 g/dL (32.0-36.0); Mean Corpuscular Volume 92.6 fL (80.0-100.0); Monocytes # (auto) 0.3 10 ^3/uL (0-1.3); Monocytes % (auto) 6.1 % (0.0-12.0); Neutrophils # (auto) 4.3 10 ^3/uL (1.6-8.6); Nucleated Red Blood Cells % 0.3 %; Platelet Count (auto) 153 10^3/uL (140-450); Red Blood Cells 3.19 10^6/uL (4.0-5.20); Red Cell Distribution Width 21.4 % (11.8-14.3)
[2024-08-02 23:35] LABS: Chloride 104 mmol/L (98-107); Potassium 4.7 mmol/L (3.5-5.1)
[2024-08-02 23:36] LABS: Carbon Dioxide 25 mmol/L (20-31)
[2024-08-02 23:37] LABS: Anion Gap 6 (5-15); Sodium 135 mmol/L (136-145)
[2024-08-02 23:42] LABS: BUN/Creatinine Ratio 21.3 (10.0-20.0); Blood Urea Nitrogen 13 mg/dL (9-23)
[2024-08-02 23:44] LABS: Glucose 158 mg/dL (74-106)
[2024-08-03] VITALS (75 sets, daily range): BP systolic 79–144; BP diastolic 27–66; PULSE 62–111; RESP 9–21; TEMP 98.3–99; O2SAT 74–100
[2024-08-03] MEDS: SODIUM CHLORIDE 0.9% 500 ML IV ONE (04:05)
[2024-08-03] MEDS: PRIMIDONE 250 MG PO SCH (05:40)
[2024-08-03] MEDS: SODIUM CHLORIDE 0.9% 1,000 ML IV SCH (06:47)
[2024-08-03] MEDS: NOREPINEPHRINE 8 MG/250ML KIT 250 ML IV SCH (06:47)
[2024-08-03] MEDS: NOREPINEPHRINE 8 MG/250ML KIT 250 ML IV ONE (06:48)
[2024-08-03 07:05] LABS: Basophils # (auto) 0 10 ^3/uL (0-0.2); Basophils % (auto) 0.5 % (0.0-2.0); Eosinophils # (auto) 0.2 10 ^3/uL (0-0.8); Hematocrit 27.4 % (36.0-46.0); Hemoglobin 9.2 g/dL (12.2-16.2); Lymphocytes # (auto) 0.5 10 ^3/uL (0.4-5.4); Mean Corpuscular Hemoglobin 30.4 pg (28.0-32.0); Mean Corpuscular Hgb Conc. 33.7 g/dL (32.0-36.0); Mean Corpuscular Volume 90.4 fL (80.0-100.0); Monocytes # (auto) 0.5 10 ^3/uL (0-1.3); Monocytes % (auto) 10.5 % (0.0-12.0); Neutrophils # (auto) 3.9 10 ^3/uL (1.6-8.6); Nucleated Red Blood Cells % 0.2 %; Platelet Count (auto) 148 10^3/uL (140-450); Red Blood Cells 3.03 10^6/uL (4.0-5.20)
[2024-08-03 07:11] LABS: Red Cell Distribution Width 20.9 % (11.8-14.3)
--- NOTE | 2024-08-03 07:52 | DVHPN2 ---
Progress Note Date Seen: August 03, 2024 Medical Necessity Reason Pt with a Central, PICC or Fol: Yes The following are medically ne: Harrington Catheter Subjective Patient reports: No new complaints Objective vital signs Vital Sign Date Time Temp Pulse Resp B/P (MAP) Pulse Ox O2 Delivery O2 Flow Rate FiO2 08/03/24 07:00 91 14 107/41 (63) 100 08/03/24 04:00 98.6 98.6 08/03/24 01:35 Simple Mask* 8 60 Total Intake and Output 08/02/24 08/02/24 08/03/24 15:00 23:00 07:00 Intake Total 70 ml 125 ml 2232.5 ml Output Total 550 ml 450 ml Balance -480 ml 125 ml 1782.5 ml medications Current Medications Medications Dose Ordered Sig/Los Route Start Time Stop Time Status Last Admin Dose Admin Metoprolol Succinate 50 mg DAILY PO 08/02/24 10:00 Patient Own Medication 40 mg DAILY PO 08/02/24 10:00 Cancel Patient Own Medication 0.5 tab BID PO 08/02/24 10:00 Cancel Patient Own Medication 1 tab DAILY PO 08/02/24 10:00 UNV Patient Own Medication 1 tab BID PO 08/02/24 10:00 UNV Vancomycin HCl 0 ml @ 0 mls/hr UD IV 08/02/24 09:45 Clopidogrel Bisulfate 75 mg DAILY PO 08/03/24 10:00 Lactated Ringer's 1,000 ml @ 100 mls/hr Q10H IV 08/02/24 09:45 08/02/24 09:45 100 MLS/HR Sodium Chloride 10 ml Q8HR IV 08/02/24 14:00 08/03/24 05:40 10 ML Hydromorphone HCl 1 mg Q2HP PRN IV 08/02/24 09:45 Ondansetron HCl 4 mg Q6HP PRN IV 08/02/24 09:45 Docusate Sodium 100 mg Q12HR PO 08/02/24 10:00 08/02/24 22:03 100 MG Acetaminophen/ Hydrocodone Bitart 1 tab Q4HP PRN PO 08/02/24 09:45 Nitroglycerin 0.4 mg Q5MINP PRN SL 08/02/24 09:45 Morphine Sulfate 2 mg Q30M PRN IV 08/02/24 09:45 Atorvastatin Calcium 40 mg HS PO 08/02/24 22:00 08/02/24 22:03 40 MG Benztropine Mesylate 0.5 mg BID PO 08/02/24 22:00 08/03/24 05:41 0.5 MG Fluoxetine HCl 20 mg DAILY PO 08/03/24 10:00 Risperidone 3 mg BID PO 08/02/24 22:00 08/02/24 22:05 3 MG Piperacillin Sod/ Tazobactam Sod 100 ml @ 25 mls/hr Q8HR IV 08/02/24 14:00 08/03/24 05:40 25 MLS/HR Daptomycin 400 mg/ Sodium Chloride 50 ml @ 100 mls/hr DAILY STAT IV 08/02/24 14:11 08/02/24 14:40 Cancel Meropenem 50 ml @ 17 mls/hr Q8HR STAT IV 08/02/24 14:11 08/02/24 17:07 UNV Primidone 250 mg TID PO 08/03/24 06:00 08/03/24 05:40 250 MG Norepinephrine Bitartrate 250 ml @ 3.75 mls/hr Q24H IV 08/03/24 06:30 08/03/24 06:47 3.75 MLS/HR Sodium Chloride 1,000 ml @ 100 mls/hr Q10H IV 08/03/24 06:30 08/03/24 06:47 100 MLS/HR Examination: GENERAL:Normal, MSK:Abnormal laboratory and microbiology Laboratory Tests 08/03/24 05:14 08/02/24 22:55 Test 08/02/24 22:55 Range/Units Serum Glucose 158 H 74-106 mg/dL Problem List/Assessment/Plan Problem List/Assessment/Plan 64 year old female who is s/p Right total hip explant with placement of antibiotic spacers POD 1 1. Pain control 2. Toe touch weight bearing to the right lower extremity 3. Continue with medical management 4. PICC line consult placed 5. Intraoperative cultures pending 6. Case management consult placed for SNF placement once medically optimized as patient will continue to require IV abx (patient prefers AV SNF) Plan discussed with: Patient Date of Service: August 03, 2024 Billing Provider: SUNDEEP MUHAMMAD MD Common Visit Codes: NOT BILLABLE NAMRATA TORRES NP August 03, 2024 07:52
[2024-08-03] MEDS: CLOPIDOGREL BISULFATE 75 MG TAB PO SCH (10:21)
[2024-08-03] MEDS: FLUoxetine HCL 20 MG CAP PO SCH (10:21)
[2024-08-03] MEDS: LIDOCAINE 1% (LOCAL ANESTH.) PF 5ml SDV ID ONE (10:45)
--- NOTE | 2024-08-03 12:49 | DVHPN2 ---
Progress Note - Dictate Date Seen: August 03, 2024 Medical Necessity Reason Pt with a Central, PICC or Fol: Yes The following are medically ne: Harrington Catheter Subjective No new acute complaints noted. Pain control. vital signs Vital Sign Date Time Temp Pulse Resp B/P (MAP) Pulse Ox O2 Delivery O2 Flow Rate FiO2 08/03/24 12:00 99.0 104 13 97 99.0 08/03/24 08:00 Nasal Cannula* 4 36 Total Intake and Output 08/02/24 08/02/24 08/03/24 15:00 23:00 07:00 Intake Total 70 ml 125 ml 2232.5 ml Output Total 550 ml 450 ml Balance -480 ml 125 ml 1782.5 ml medications Current Medications Medications Dose Ordered Sig/Los Route Start Time Stop Time Status Last Admin Dose Admin Metoprolol Succinate 50 mg DAILY PO 08/02/24 10:00 Hold Patient Own Medication 40 mg DAILY PO 08/02/24 10:00 Cancel Patient Own Medication 0.5 tab BID PO 08/02/24 10:00 Cancel Patient Own Medication 1 tab DAILY PO 08/02/24 10:00 UNV Patient Own Medication 1 tab BID PO 08/02/24 10:00 UNV Vancomycin HCl 0 ml @ 0 mls/hr UD IV 08/02/24 09:45 Clopidogrel Bisulfate 75 mg DAILY PO 08/03/24 10:00 08/03/24 10:21 75 MG Sodium Chloride 10 ml Q8HR IV 08/02/24 14:00 08/03/24 05:40 10 ML Hydromorphone HCl 1 mg Q2HP PRN IV 08/02/24 09:45 Ondansetron HCl 4 mg Q6HP PRN IV 08/02/24 09:45 Docusate Sodium 100 mg Q12HR PO 08/02/24 10:00 08/03/24 10:22 100 MG Acetaminophen/ Hydrocodone Bitart 1 tab Q4HP PRN PO 08/02/24 09:45 Nitroglycerin 0.4 mg Q5MINP PRN SL 08/02/24 09:45 Morphine Sulfate 2 mg Q30M PRN IV 08/02/24 09:45 Atorvastatin Calcium 40 mg HS PO 08/02/24 22:00 08/02/24 22:03 40 MG Benztropine Mesylate 0.5 mg BID PO 08/02/24 22:00 08/03/24 05:41 0.5 MG Fluoxetine HCl 20 mg DAILY PO 08/03/24 10:00 08/03/24 10:21 20 MG Risperidone 3 mg BID PO 08/02/24 22:00 08/03/24 10:21 3 MG Piperacillin Sod/ Tazobactam Sod 100 ml @ 25 mls/hr Q8HR IV 08/02/24 14:00 08/03/24 05:40 25 MLS/HR Daptomycin 400 mg/ Sodium Chloride 50 ml @ 100 mls/hr DAILY STAT IV 08/02/24 14:11 08/02/24 14:40 Cancel Meropenem 50 ml @ 17 mls/hr Q8HR STAT IV 08/02/24 14:11 08/02/24 17:07 UNV Primidone 250 mg TID PO 08/03/24 06:00 08/03/24 05:40 250 MG Norepinephrine Bitartrate 250 ml @ 3.75 mls/hr Q24H IV 08/03/24 06:30 08/03/24 06:47 3.75 MLS/HR Sodium Chloride 1,000 ml @ 100 mls/hr Q10H IV 08/03/24 06:30 08/03/24 06:47 100 MLS/HR Nystatin 1 applic BID TOP 08/03/24 10:00 Sodium Chloride 10 ml QSHIFT@10,22 IV 08/03/24 22:00 objective HEENT PUPILS ARE REACTIVE NECK IS SUPPLE CV IS S1-S2 REGULAR RATE AND RHYTHM RESPIRATORY DIMINISHED BREATH SOUNDS BASES GI POSITIVE BOWEL SOUND EXTREMITY 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 right hip s/p i and D, with wound vac laboratory and microbiology Laboratory Tests 08/03/24 05:14 08/02/24 22:55 Test 08/02/24 22:55 Range/Units Serum Glucose 158 H 74-106 mg/dL Assessment/Plan Patient is a 64-year-old female presents to the hospital with: Hypovolemic shock / septic shock currently on Levophed right hip joint infection with staphylococcus aureus Acute Anemia S/P 2 units of packed RBC S/P Right hip explantation and placement of Antibiotic spacer 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 complicated by wound dehiscence and 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 Hypertension Dyslipidemia S/P TAVR Recommendations: Patient is on pressor s/p 2 units of blood transfusion Due to recent surgery and manipulation of the wound this is a possibility of septic shock Due to her previous history of VRE and Gram-negative infection, recommend starting stat dose of IV daptomycin and meropenem, however what I see, she was switched to IV Vancomycin/ IV Zosyn Penicillin allergy is documented in the chart, but she is tolerating Zosyn 08/02, Blood culture preliminary showed no growth Repeated preliminary blood culture from 08/03 showed no growth Wound culture from OR 08/01, shows Staphylococcus aureus prelim; follow sensitivity MRSA Screening came back negative Reviewed Pelvis x-ray revealed Bilateral hip arthroplasties Antibiotic Status: Zosyn IV [Started on 08/02 - Ongoing] Vancomycin IV [Started on 08/02 - Ongoing] 08/03, Vancomycin Random is 7.2. Critical time 35 minutes spent in encounter. Plan discussed with Dr. Urbano aranda Thank you for consult. Plan discussed with: GABRIELA Eisenberg MD August 03, 2024 12:49
[2024-08-03] MEDS: HYDROcodone-ACET 10/325MG TAB PO PRN (14:43)
[2024-08-03] MEDS: NYSTATIN TOPICAL POWDER 15GM TOP SCH (15:17)
--- NOTE | 2024-08-03 16:27 | DVHPN2 ---
Subjective OVERNIGHT EVENTS NOTED. PATIENT IS FEELING MUCH BETTER STILL IN DE OU. 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 NO MOTOR DEFICIT Medications Current Medications Medications Dose Ordered Sig/Los Route Start Time Stop Time Status Last Admin Dose Admin Metoprolol Succinate 50 mg DAILY PO 08/02/24 10:00 Hold Patient Own Medication 40 mg DAILY PO 08/02/24 10:00 Cancel Patient Own Medication 0.5 tab BID PO 08/02/24 10:00 Cancel Patient Own Medication 1 tab DAILY PO 08/02/24 10:00 UNV Patient Own Medication 1 tab BID PO 08/02/24 10:00 UNV Vancomycin HCl 0 ml @ 0 mls/hr UD IV 08/02/24 09:45 Clopidogrel Bisulfate 75 mg DAILY PO 08/03/24 10:00 08/03/24 10:21 75 MG Sodium Chloride 10 ml Q8HR IV 08/02/24 14:00 08/03/24 14:00 10 ML Hydromorphone HCl 1 mg Q2HP PRN IV 08/02/24 09:45 Ondansetron HCl 4 mg Q6HP PRN IV 08/02/24 09:45 Docusate Sodium 100 mg Q12HR PO 08/02/24 10:00 08/03/24 10:22 100 MG Acetaminophen/ Hydrocodone Bitart 1 tab Q4HP PRN PO 08/02/24 09:45 08/03/24 14:43 1 TAB Nitroglycerin 0.4 mg Q5MINP PRN SL 08/02/24 09:45 Morphine Sulfate 2 mg Q30M PRN IV 08/02/24 09:45 Atorvastatin Calcium 40 mg HS PO 08/02/24 22:00 08/02/24 22:03 40 MG Benztropine Mesylate 0.5 mg BID PO 08/02/24 22:00 08/03/24 05:41 0.5 MG Fluoxetine HCl 20 mg DAILY PO 08/03/24 10:00 08/03/24 10:21 20 MG Risperidone 3 mg BID PO 08/02/24 22:00 08/03/24 10:21 3 MG Piperacillin Sod/ Tazobactam Sod 100 ml @ 25 mls/hr Q8HR IV 08/02/24 14:00 08/03/24 14:42 25 MLS/HR Daptomycin 400 mg/ Sodium Chloride 50 ml @ 100 mls/hr DAILY STAT IV 08/02/24 14:11 08/02/24 14:40 Cancel Meropenem 50 ml @ 17 mls/hr Q8HR STAT IV 08/02/24 14:11 08/02/24 17:07 UNV Primidone 250 mg TID PO 08/03/24 06:00 08/03/24 14:43 250 MG Norepinephrine Bitartrate 250 ml @ 3.75 mls/hr Q24H IV 08/03/24 06:30 08/03/24 06:47 3.75 MLS/HR Sodium Chloride 1,000 ml @ 100 mls/hr Q10H IV 08/03/24 06:30 08/03/24 06:47 100 MLS/HR Nystatin 1 applic BID TOP 08/03/24 10:00 08/03/24 15:17 1 APPLIC Sodium Chloride 10 ml QSHIFT@10,22 IV 08/03/24 22:00 Vancomycin HCl 200 ml @ 160 mls/hr Q12H IV 08/03/24 18:00 Laboratory Results Laboratory Tests 08/02/24 22:55 08/03/24 05:14 Chemistry Test 08/02/24 22:55 Calcium Level 8.0 mg/dL (8.7-10.4) L Coagulation Test 08/02/24 18:51 Prothrombin Time 10.4 sec (9.3-11.8) Prothrombin Time INR 0.98 (0.9-1.15) Activated Partial Thromboplast Time 22.3 SEC (24.5-34.5) L Cardiac Markers Test 08/03/24 05:14 B-Type Natriuretic Peptide 20.34 pg/mL (0-100) Urinalysis Test 08/02/24 21:45 Urine Color Light-yellow (Yellow) Urine Clarity Clear (Clear) Urine pH 5.5 (5.0-9.0) Urine Specific [place] 1.028 (1.001-1.035) Urine Protein Trace (Negative) H Urine Ketones Negative (Negative) Urine Blood 2+ /uL (Negative) H Urine Nitrite Negative (Negative) Urine Bilirubin Negative (Negative) Urine Urobilinogen Normal mg/dL (Negative) Urine Leukocyte Esterase Negative /uL (Negative) Urine RBC 62 /hpf (0 - 4) Urine Microscopic WBC 10 /HPF (0-5) H Urine Squamous Epithelial Cells Few /hpf (<5) Urine Bacteria Few /hpf (None Seen) H Urine Hyaline Casts Few /lpf (0 - 2) Urine Mucus Few (None Seen) Urine Glucose Normal mg/dL (Normal) Blood Gas Results Test 08/03/24 08:28 Arterial Blood pH 7.351 (7.350-7.450) FiO2 % 21.0 Microbiology Microbiology Date/Time Source Procedure Growth Status 08/02/24 18:34 Nose MRSA Screen - Final Complete Assessment/Plan Assessment/Plan 63-YEAR-OLD FEMALE WITH A KNOWN HISTORY OF HYPERTENSION, DYSLIPIDEMIA, STATUS POST TAVR, PREVIOUS HISTORY OF BILATERAL TOTAL HIP ARTHROPLASTY, PREVIOUS HISTORY OF RIGHT TOTAL HIP ARTHROPLASTY ABOUT TWO YEARS AGO, STATUS POST EXPLANTATION AND IRRIGATION AND DEBRIDEMENT WITH THE ANTIBIOTIC CEMENT SPACER PLACEMENT FEW TIMES PRESENTED TO THE HOSPITAL FOR ELECTIVE PROCEDURE. 1. HYPOVOLEMIC SHOCK CURRENTLY ON LEVOPHED 2. ACUTE ANEMIA STATUS POST 2 UNITS OF PACKED RBC 3. STATUS POST RIGHT HIP EXPLANTATION AND PLACEMENT OF ANTIBIOTIC SPACER. 4. PREVIOUS HISTORY OF RIGHT HIP SURGERY AND EXPLANTATION IN THE PAST WELL 5. HYPERTENSION 6. DYSLIPIDEMIA 7. STATUS POST TAVR -CONTINUE IV ANTIBIOTICS, FOLLOW UP INFECTIOUS DISEASE AND ORTHOPEDICS RECOMMENDATIONS. Plan discussed with: Patient My Orders Orders - SUAD RUVALCABA MD Procedure Category Date Status Time Urine Bacterial BERNARDO 08/02/24 In Process Culture 21:58 Blood Culture BERNARDO 08/03/24 In Process 06:49 Abg W/ Co-Ox RT 08/03/24 Logged 08:08 Transfer Orders XFER 08/03/24 Transmitted 08:43 Nystatin Powder PHA 08/03/24 In Process (Mycostatin Powder) 10:00 Transfer Orders XFER 08/03/24 Transmitted 15:08 Date of Service: August 03, 2024 Billing Provider: SUAD RUVALCABA MD Common Visit Codes: NOT BILLABLE SUAD RUVALCABA MD August 03, 2024 16:27
[2024-08-03] MEDS: VANCOMYCIN 1GM/200ML PM 200 ML IV SCH (18:18)
[2024-08-03] MEDS: SODIUM CHLOR 0.9% PF (SALINE LOCK) 10ML VIAL/SYR IV SCH (21:33)
[2024-08-04] VITALS (90 sets, daily range): BP systolic 89–151; BP diastolic 29–77; PULSE 72–103; RESP 9–28; TEMP 97.6–99.2; O2SAT 79–100
[2024-08-04] MEDS: NOREPINEPHRINE 8 MG/250ML KIT 250 ML IV SCH (05:04)
[2024-08-04 05:34] LABS: Basophils # (auto) 0 10 ^3/uL (0-0.2); Basophils % (auto) 0.6 % (0.0-2.0); Eosinophils # (auto) 0.2 10 ^3/uL (0-0.8); Hemoglobin 7.6 g/dL (12.2-16.2); Monocytes # (auto) 0.3 10 ^3/uL (0-1.3); Neutrophils # (auto) 2.4 10 ^3/uL (1.6-8.6); Red Blood Cells 2.48 10^6/uL (4.0-5.20); White Blood Cell 3.5 10^3/uL (4.4-10.8)
[2024-08-04 05:38] LABS: Eosinophils % (auto) 5.9 % (0.0-7.0); Hematocrit 22.2 % (36.0-46.0); Lymphocytes # (auto) 0.6 10 ^3/uL (0.4-5.4); Lymphocytes % (auto) 15.6 % (10.0-50.0); Mean Corpuscular Hemoglobin 30.7 pg (28.0-32.0); Mean Corpuscular Hgb Conc. 34.3 g/dL (32.0-36.0); Mean Corpuscular Volume 89.5 fL (80.0-100.0); Monocytes % (auto) 8.7 % (0.0-12.0); Neutrophils % (auto) 69.2 % (37.0-80.0); Nucleated Red Blood Cells % 0.1 %; Platelet Count (auto) 126 10^3/uL (140-450); Red Cell Distribution Width 20.6 % (11.8-14.3)
--- NOTE | 2024-08-04 08:49 | DVHPN2 ---
Progress Note - Dictate Date Seen: August 04, 2024 Medical Necessity Reason Pt with a Central, PICC or Fol: Yes The following are medically ne: Harrington Catheter Subjective No new acute complaints noted. has wound vac vital signs Vital Sign Date Time Temp Pulse Resp B/P (MAP) Pulse Ox O2 Delivery O2 Flow Rate FiO2 08/04/24 06:45 78 13 108/38 (61) 91 08/04/24 04:00 98.8 98.8 08/03/24 20:00 Room Air* 0 21 Total Intake and Output 08/03/24 08/03/24 08/04/24 15:00 23:00 07:00 Intake Total 72.50 ml 697.25 ml 942.50 ml Output Total 1784 ml 3850 ml Balance 72.50 ml -1086.75 ml -2907.50 ml medications Current Medications Medications Dose Ordered Sig/Los Route Start Time Stop Time Status Last Admin Dose Admin Metoprolol Succinate 50 mg DAILY PO 08/02/24 10:00 Hold Patient Own Medication 40 mg DAILY PO 08/02/24 10:00 Cancel Patient Own Medication 0.5 tab BID PO 08/02/24 10:00 Cancel Patient Own Medication 1 tab DAILY PO 08/02/24 10:00 UNV Patient Own Medication 1 tab BID PO 08/02/24 10:00 UNV Vancomycin HCl 0 ml @ 0 mls/hr UD IV 08/02/24 09:45 Clopidogrel Bisulfate 75 mg DAILY PO 08/03/24 10:00 08/03/24 10:21 75 MG Sodium Chloride 10 ml Q8HR IV 08/02/24 14:00 08/04/24 05:33 10 ML Hydromorphone HCl 1 mg Q2HP PRN IV 08/02/24 09:45 Ondansetron HCl 4 mg Q6HP PRN IV 08/02/24 09:45 Docusate Sodium 100 mg Q12HR PO 08/02/24 10:00 08/03/24 21:35 100 MG Acetaminophen/ Hydrocodone Bitart 1 tab Q4HP PRN PO 08/02/24 09:45 08/04/24 05:50 1 TAB Nitroglycerin 0.4 mg Q5MINP PRN SL 08/02/24 09:45 Morphine Sulfate 2 mg Q30M PRN IV 08/02/24 09:45 Atorvastatin Calcium 40 mg HS PO 08/02/24 22:00 08/03/24 21:35 40 MG Benztropine Mesylate 0.5 mg BID PO 08/02/24 22:00 08/03/24 21:35 0.5 MG Fluoxetine HCl 20 mg DAILY PO 08/03/24 10:00 08/03/24 10:21 20 MG Risperidone 3 mg BID PO 08/02/24 22:00 08/03/24 21:34 3 MG Piperacillin Sod/ Tazobactam Sod 100 ml @ 25 mls/hr Q8HR IV 08/02/24 14:00 08/04/24 05:33 25 MLS/HR Daptomycin 400 mg/ Sodium Chloride 50 ml @ 100 mls/hr DAILY STAT IV 08/02/24 14:11 08/02/24 14:40 Cancel Meropenem 50 ml @ 17 mls/hr Q8HR STAT IV 08/02/24 14:11 08/02/24 17:07 UNV Primidone 250 mg TID PO 08/03/24 06:00 08/04/24 05:33 250 MG Sodium Chloride 1,000 ml @ 100 mls/hr Q10H IV 08/03/24 06:30 08/04/24 05:50 100 MLS/HR Nystatin 1 applic BID TOP 08/03/24 10:00 08/03/24 21:36 1 APPLIC Sodium Chloride 10 ml QSHIFT@10,22 IV 08/03/24 22:00 08/03/24 21:33 10 ML Vancomycin HCl 200 ml @ 160 mls/hr Q12H IV 08/03/24 18:00 08/04/24 05:33 160 MLS/HR Norepinephrine Bitartrate 250 ml @ 3.75 mls/hr Q24H IV 08/04/24 05:00 08/04/24 05:04 3.75 MLS/HR objective HEENT PUPILS ARE REACTIVE NECK IS SUPPLE CV IS S1-S2 REGULAR RATE AND RHYTHM RESPIRATORY DIMINISHED BREATH SOUNDS BASES GI POSITIVE BOWEL SOUND EXTREMITY 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 microbiology Laboratory Tests 08/04/24 04:57 08/02/24 22:55 Test 08/02/24 22:55 Range/Units Serum Glucose 158 H 74-106 mg/dL Assessment/Plan A 64 yo F with right hip joint infection with staphylococcus aureus (MSSA) Hypovolemic shock / septic shock resolved Acute Anemia S/P 2 units of packed RBC S/P Right hip explantation and placement of Antibiotic spacer 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 complicated by wound dehiscence and 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 Hypertension Dyslipidemia S/P TAVR Recommendations: Patient is off pressor s/p 2 units of blood transfusion On IV Vancomycin/ IV Zosyn Penicillin allergy is documented in the chart, but she is tolerating Zosyn blood cx are negative OR cx shows MSSA, hence will taper to IV cefazolin 2g q8 hours, I am a nticipating IV cefazolin 2 g Q 8 hours for six weeks followed by oral antibiotics such as Keflex or doxycycline for six weeks asked RN to addendum allergy history 08/02, Blood culture preliminary showed no growth Repeated preliminary blood culture from 08/03 showed no growth Wound culture from OR 08/01, shows Staphylococcus aureus (MSSA) MRSA Screening came back negative Discussed with Dr. Johnnie Thapa, she had an abscess connecting to the joint, OR notes is not up yet. The old spacer is out and they placed a new spacer Discussed treatment plan with him, she will be discharged with wound VAC for four weeks Antibiotic Status: Zosyn IV [Started on 08/02 - 08/04] Vancomycin IV [Started on 08/02 -08/04] 08/03, Vancomycin Random is 7.2. Critical time 35 minutes spent in encounter. Plan discussed with Dr. Clement/ RN/ Dr Johnnie shepherded of hip joint Thank you for consult. Plan discussed with: GABRIELA Eisenberg MD August 04, 2024 08:49
--- NOTE | 2024-08-04 14:19 | MEDREC ---
[facility] Intervention Section I [facility] Intervention: Deescalate AB based on CS (PLEASE CONSIDER DEESCALATING ANTIBIOTICS BASED ON CULTURE RESULTS ) NIDIA BRENNAN PHARMACIST August 04, 2024 14:19
--- NOTE | 2024-08-04 14:56 | DVHPN2 ---
Subjective OVERNIGHT EVENTS NOTED. PATIENT IS FEELING MUCH BETTER, downgraded to telemetry. 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 Medications Current Medications Medications Dose Ordered Sig/Los Route Start Time Stop Time Status Last Admin Dose Admin Metoprolol Succinate 50 mg DAILY PO 08/02/24 10:00 Hold Patient Own Medication 40 mg DAILY PO 08/02/24 10:00 Cancel Patient Own Medication 0.5 tab BID PO 08/02/24 10:00 Cancel Patient Own Medication 1 tab DAILY PO 08/02/24 10:00 UNV Patient Own Medication 1 tab BID PO 08/02/24 10:00 UNV Vancomycin HCl 0 ml @ 0 mls/hr UD IV 08/02/24 09:45 Clopidogrel Bisulfate 75 mg DAILY PO 08/03/24 10:00 08/03/24 10:21 75 MG Sodium Chloride 10 ml Q8HR IV 08/02/24 14:00 08/04/24 05:33 10 ML Hydromorphone HCl 1 mg Q2HP PRN IV 08/02/24 09:45 Ondansetron HCl 4 mg Q6HP PRN IV 08/02/24 09:45 Docusate Sodium 100 mg Q12HR PO 08/02/24 10:00 08/03/24 21:35 100 MG Acetaminophen/ Hydrocodone Bitart 1 tab Q4HP PRN PO 08/02/24 09:45 08/04/24 05:50 1 TAB Nitroglycerin 0.4 mg Q5MINP PRN SL 08/02/24 09:45 Morphine Sulfate 2 mg Q30M PRN IV 08/02/24 09:45 Atorvastatin Calcium 40 mg HS PO 08/02/24 22:00 08/03/24 21:35 40 MG Benztropine Mesylate 0.5 mg BID PO 08/02/24 22:00 08/04/24 10:12 0.5 MG Fluoxetine HCl 20 mg DAILY PO 08/03/24 10:00 08/04/24 10:13 20 MG Risperidone 3 mg BID PO 08/02/24 22:00 08/04/24 10:12 3 MG Piperacillin Sod/ Tazobactam Sod 100 ml @ 25 mls/hr Q8HR IV 08/02/24 14:00 08/04/24 14:18 25 MLS/HR Daptomycin 400 mg/ Sodium Chloride 50 ml @ 100 mls/hr DAILY STAT IV 08/02/24 14:11 08/02/24 14:40 Cancel Meropenem 50 ml @ 17 mls/hr Q8HR STAT IV 08/02/24 14:11 08/02/24 17:07 UNV Primidone 250 mg TID PO 08/03/24 06:00 08/04/24 05:33 250 MG Sodium Chloride 1,000 ml @ 100 mls/hr Q10H IV 08/03/24 06:30 08/04/24 12:30 100 MLS/HR Nystatin 1 applic BID TOP 08/03/24 10:00 08/04/24 10:14 1 APPLIC Sodium Chloride 10 ml QSHIFT@10,22 IV 08/03/24 22:00 08/04/24 10:14 10 ML Vancomycin HCl 200 ml @ 160 mls/hr Q12H IV 08/03/24 18:00 08/04/24 05:33 160 MLS/HR Norepinephrine Bitartrate 250 ml @ 3.75 mls/hr Q24H IV 08/04/24 05:00 08/04/24 05:04 3.75 MLS/HR Acetaminophen 650 mg Q6HP PRN PO 08/04/24 14:30 UNV Laboratory Results Laboratory Tests 08/02/24 22:55 08/04/24 04:57 Urinalysis Test 08/02/24 21:45 Urine Color Light-yellow (Yellow) Urine Clarity Clear (Clear) Urine pH 5.5 (5.0-9.0) Urine Specific [place] 1.028 (1.001-1.035) Urine Protein Trace (Negative) H Urine Ketones Negative (Negative) Urine Blood 2+ /uL (Negative) H Urine Nitrite Negative (Negative) Urine Bilirubin Negative (Negative) Urine Urobilinogen Normal mg/dL (Negative) Urine Leukocyte Esterase Negative /uL (Negative) Urine RBC 62 /hpf (0 - 4) Urine Microscopic WBC 10 /HPF (0-5) H Urine Squamous Epithelial Cells Few /hpf (<5) Urine Bacteria Few /hpf (None Seen) H Urine Hyaline Casts Few /lpf (0 - 2) Urine Mucus Few (None Seen) Urine Glucose Normal mg/dL (Normal) Microbiology Microbiology Date/Time Source Procedure Growth Status 08/03/24 06:54 Blood Blood Culture - Preliminary NO GROWTH AFTER 24 HOURS OF INCUBATION. Resulted 08/02/24 21:45 Urine - [place] Urine Culture - Preliminary Resulted 08/02/24 18:34 Nose MRSA Screen - Final Complete Assessment/Plan Assessment/Plan 63-YEAR-OLD FEMALE WITH A KNOWN HISTORY OF HYPERTENSION, DYSLIPIDEMIA, STATUS POST TAVR, PREVIOUS HISTORY OF BILATERAL TOTAL HIP ARTHROPLASTY, PREVIOUS HISTORY OF RIGHT TOTAL HIP ARTHROPLASTY ABOUT TWO YEARS AGO, STATUS POST EXPLANTATION AND IRRIGATION AND DEBRIDEMENT WITH THE ANTIBIOTIC CEMENT SPACER PLACEMENT FEW TIMES PRESENTED TO THE HOSPITAL FOR ELECTIVE PROCEDURE. 1. HYPOVOLEMIC SHOCK CURRENTLY ON LEVOPHED 2. ACUTE ANEMIA STATUS POST 2 UNITS OF PACKED RBC 3. STATUS POST RIGHT HIP EXPLANTATION AND PLACEMENT OF ANTIBIOTIC SPACER. 4. PREVIOUS HISTORY OF RIGHT HIP SURGERY AND EXPLANTATION IN THE PAST WELL 5. HYPERTENSION 6. DYSLIPIDEMIA 7. STATUS POST TAVR -CONTINUE IV ANTIBIOTICS, FOLLOW UP INFECTIOUS DISEASE AND ORTHOPEDICS RECOMMENDATIONS. Plan discussed with: Patient My Orders Orders - SUAD RUVALCABA MD Procedure Category Date Status Time Transfer Orders XFER 08/03/24 Transmitted 15:08 Acetaminophen Tablet PHA 08/04/24 Logged (Tylenol Tablet) 14:30 Packedcell-Noactive BBK 08/04/24 Logged Bleeding 14:28 Date of Service: August 04, 2024 Billing Provider: SUAD RUVALCABA MD Common Visit Codes: NOT BILLABLE SUAD RUVALCABA MD August 04, 2024 14:56
[2024-08-04] MEDS: ceFAZolin 2 GM/D5W50ml 50 ML IV SCH (21:54)
[2024-08-05] VITALS (50 sets, daily range): BP systolic 107–182; BP diastolic 44–92; PULSE 82–110; RESP 11–25; TEMP 98.2–99.7; O2SAT 84–99
[2024-08-05 06:12] LABS: Hematocrit 23.9 % (36.0-46.0)
[2024-08-05 06:15] LABS: Hemoglobin 8.1 g/dL (12.2-16.2)
--- NOTE | 2024-08-05 08:01 | DVHPN2 ---
Progress Note Date Seen: August 05, 2024 Medical Necessity Reason Pt with a Central, PICC or Fol: Yes The following are medically ne: [place] Catheter Subjective Patient reports: No new complaints Objective vital signs Vital Sign Date Time Temp Pulse Resp B/P (MAP) Pulse Ox O2 Delivery O2 Flow Rate FiO2 08/05/24 07:30 84 15 133/64 (87) 96 08/05/24 04:00 98.8 98.8 08/05/24 02:00 Room Air* 0 21 Total Intake and Output 08/04/24 08/04/24 08/05/24 15:00 23:00 07:00 Intake Total 850 ml 1710 ml 1400 ml Output Total 3525 ml 1400 ml Balance 850 ml -1815 ml 0 ml medications Current Medications Medications Dose Ordered Sig/Los Route Start Time Stop Time Status Last Admin Dose Admin Metoprolol Succinate 50 mg DAILY PO 08/02/24 10:00 Hold Patient Own Medication 40 mg DAILY PO 08/02/24 10:00 Cancel Patient Own Medication 0.5 tab BID PO 08/02/24 10:00 Cancel Patient Own Medication 1 tab DAILY PO 08/02/24 10:00 UNV Patient Own Medication 1 tab BID PO 08/02/24 10:00 UNV Clopidogrel Bisulfate 75 mg DAILY PO 08/03/24 10:00 08/04/24 15:02 75 MG Sodium Chloride 10 ml Q8HR IV 08/02/24 14:00 08/05/24 05:48 10 ML Hydromorphone HCl 1 mg Q2HP PRN IV 08/02/24 09:45 Ondansetron HCl 4 mg Q6HP PRN IV 08/02/24 09:45 Docusate Sodium 100 mg Q12HR PO 08/02/24 10:00 08/03/24 21:35 100 MG Acetaminophen/ Hydrocodone Bitart 1 tab Q4HP PRN PO 08/02/24 09:45 08/04/24 15:05 1 TAB Nitroglycerin 0.4 mg Q5MINP PRN SL 08/02/24 09:45 Morphine Sulfate 2 mg Q30M PRN IV 08/02/24 09:45 Atorvastatin Calcium 40 mg HS PO 08/02/24 22:00 08/04/24 21:44 40 MG Benztropine Mesylate 0.5 mg BID PO 08/02/24 22:00 08/04/24 21:53 0.5 MG Fluoxetine HCl 20 mg DAILY PO 08/03/24 10:00 08/04/24 10:13 20 MG Risperidone 3 mg BID PO 08/02/24 22:00 08/04/24 21:53 3 MG Daptomycin 400 mg/ Sodium Chloride 50 ml @ 100 mls/hr DAILY STAT IV 08/02/24 14:11 08/02/24 14:40 Cancel Meropenem 50 ml @ 17 mls/hr Q8HR STAT IV 08/02/24 14:11 08/02/24 17:07 UNV Primidone 250 mg TID PO 08/03/24 06:00 08/05/24 05:50 250 MG Sodium Chloride 1,000 ml @ 100 mls/hr Q10H IV 08/03/24 06:30 08/04/24 23:08 100 MLS/HR Nystatin 1 applic BID TOP 08/03/24 10:00 08/04/24 22:01 1 APPLIC Sodium Chloride 10 ml QSHIFT@10,22 IV 08/03/24 22:00 08/04/24 10:14 10 ML Norepinephrine Bitartrate 250 ml @ 3.75 mls/hr Q24H IV 08/04/24 05:00 08/04/24 05:04 3.75 MLS/HR Acetaminophen 650 mg Q6HP PRN PO 08/04/24 14:30 Cefazolin Sodium/ Dextrose 50 ml @ 50 mls/hr Q8HR IV 08/04/24 22:00 08/05/24 06:02 50 MLS/HR Examination: GENERAL:Normal, MSK:Abnormal laboratory and microbiology Laboratory Tests 08/05/24 05:55 08/04/24 04:57 08/02/24 22:55 Test 08/02/24 22:55 Range/Units Serum Glucose 158 H 74-106 mg/dL Microbiology Date/Time Source Procedure Growth Status 08/03/24 06:54 Blood Blood Culture - Preliminary NO GROWTH AFTER 48 HOURS OF INCUBATION. Resulted 08/02/24 21:45 Urine - [place] Urine Culture - Preliminary Resulted 08/02/24 18:34 Nose MRSA Screen - Final Complete Problem List/Assessment/Plan Problem List/Assessment/Plan 64 year old female who is s/p Right total hip explant with placement of antibiotic spacers POD 3 1. Pain control 2. Toe touch weight bearing to the right lower extremity 3. Continue with medical management 4. PICC line 5. Intraoperative cultures pending 6. Case management consult placed for SNF placement once medically optimized as patient will continue to require IV abx (patient prefers [facility] SNF) 7. Patient cleared for discharge from orthopedic standpoint with the following discharge recommendations POSTOPERATIVE Posterior Total Hip INSTRUCTIONS Activity: 1. You can bear as much weight as you tolerate on your non-surgical leg and for the right leg you are to remain toe touch weight bearing only. You may use the walking aid which you were discharged with and switch to a cane whenever you feel comfortable doing so. You should use an assistive device until you can walk comfortably without it. Keep in mind that every patient moves at their own speed of recovery so take your time. 2. A physical therapist will visit you at home. 3. Although guarantees against a dislocation do not exist, the hip was noted to be sufficiently stable in surgery. Below are motions that you should dischargenot do for 4-6 weeks, depending on the surgical approach used. If there are questions, please call the office. a. Bend forward past 90 degrees b. Sit on a regular low chair, couch, car seat etc... c. Cross your legs d. Use a regular low toilet seat. e. Sleep on your stomach or on either side. 3. High impact activity such as jumping, aerobics, tennis, and skiing are not permitted during the first 3 months after surgery. These activities can contribute to accelerated wear and should be done with caution after this time. Discuss this with your surgeon if you have questions. 4. Although a bath or whirlpool is NOT permitted during the first 2-3 weeks, you may shower as soon as you get home from the hospital provided you are able to keep your bandage clean and dry and there is no wound drainage. If you are unable to place a secured covering over your bandage bed bath/sponge bath may likely be the more appropriate option. 5. Swimming is not permitted until the wound is healed, which typically occurs approximately 3-4 weeks after surgery. Wound Management: If the wound is draining please change the gauze pad on the wound until it stops. If drainage persists past 10 days please notify our office. If there is a sticky gel dressing over your wound, you may leave this in place for as long as it is clean and dry. If it becomes loose or causes skin irritation, it is OK to remove it and place clean gauze over your wound. 1. You might notice some bruising around the surgical site, this is normal. 2. Check your temperature on a daily basis. Please note that a low-grade temp below 101 is not uncommon after surgery especially during the first 3 days. Notify the office if your temperature spikes above 101.5 after the 3rd post- operative date. 3. Many patients experience significant swelling in the thigh, this may extend below the knee and sometimes to the ankle. Swelling increases during the first week and subsides during the following week. 4. Provided you have been on a blood thinner since surgery and have been up and about at least three times per day, the risk of a blood clot is low and this swelling is an expected part of recovery. It will largely or completely resolve by your first post-operative visit. 5. [place], if present, will be removed at 2 weeks during initial post-op visit. Medications: 1. You will be discharged with pain medication, Aspirin as a blood thinner and sometimes an anti-inflammatory medication such as Celebrex or Mobic might be prescribed. Please follow the instructions regarding these medicines as provided by your nurse at the hospital. 2. Narcotic pain medication has side effects, including constipation. Please ensure you continue to take stool softeners (Colace, Senna) while taking your pain medication to help protect against constipation. Getting up and moving around at least a few times per day helps with this also. 3. Lovenox 40 Sq x 12 days followed by one regular strength 325 mg coated aspirin daily for 4 weeks after surgery. Then, take one baby aspirin, 81 mg daily for 6 weeks more. A major, yet preventable, complication of Orthopaedic Surgery is a blood clot (DVT). It is important not to miss any doses of this important medication. 4. You should restart all of your prescription medications once discharged unless specifically instructed otherwise. 5. Herbal supplements may be restarted 2 weeks after surgery. Miscellaneous issues: 1. Driving is not permitted within the first 2 weeks. 2. Your first postoperative visit will take place 2weeks after discharge. Please call the office to arrange this appointment. 3. Antibiotic preventative treatment is required before dental or other invasive procedures. Please ask your surgeon about this at your first postoperative visit. Your hip replacement contains metal which may activate metal detectors. You may wish to carry a letter from your surgeon to communicate this to security personnel. If you experience chest pain, shortness of breath or severe painful calf swelling, go to the nearest emergency room to be evaluated. Please call our office once your situation is stabilized. Plan discussed with: Patient Date of Service: August 05, 2024 Billing Provider: SUNDEEP MUHAMMAD MD Common Visit Codes: NOT BILLABLE NAMRATA TORRES NP August 05, 2024 08:01
--- NOTE | 2024-08-05 12:55 | DVHPN2 ---
Progress Note - Dictate Date Seen: August 05, 2024 Medical Necessity Reason Pt with a Central, PICC or Fol: Yes The following are medically ne: [place] Catheter Subjective Patient is feeling much better. Downgraded to Telemetry Has wound vac. vital signs Vital Sign Date Time Temp Pulse Resp B/P (MAP) Pulse Ox O2 Delivery O2 Flow Rate FiO2 08/05/24 12:00 98.6 95 17 143/53 (83) 96 98.6 08/05/24 02:00 Room Air* 0 21 Total Intake and Output 08/04/24 08/04/24 08/05/24 15:00 23:00 07:00 Intake Total 850 ml 1710 ml 1400 ml Output Total 3525 ml 1400 ml Balance 850 ml -1815 ml 0 ml medications Current Medications Medications Dose Ordered Sig/Los Route Start Time Stop Time Status Last Admin Dose Admin Metoprolol Succinate 50 mg DAILY PO 08/02/24 10:00 Hold Patient Own Medication 40 mg DAILY PO 08/02/24 10:00 Cancel Patient Own Medication 0.5 tab BID PO 08/02/24 10:00 Cancel Patient Own Medication 1 tab DAILY PO 08/02/24 10:00 UNV Patient Own Medication 1 tab BID PO 08/02/24 10:00 UNV Clopidogrel Bisulfate 75 mg DAILY PO 08/03/24 10:00 08/05/24 11:07 75 MG Sodium Chloride 10 ml Q8HR IV 08/02/24 14:00 08/05/24 05:48 10 ML Hydromorphone HCl 1 mg Q2HP PRN IV 08/02/24 09:45 Ondansetron HCl 4 mg Q6HP PRN IV 08/02/24 09:45 Docusate Sodium 100 mg Q12HR PO 08/02/24 10:00 08/03/24 21:35 100 MG Acetaminophen/ Hydrocodone Bitart 1 tab Q4HP PRN PO 08/02/24 09:45 08/04/24 15:05 1 TAB Nitroglycerin 0.4 mg Q5MINP PRN SL 08/02/24 09:45 Morphine Sulfate 2 mg Q30M PRN IV 08/02/24 09:45 Atorvastatin Calcium 40 mg HS PO 08/02/24 22:00 08/04/24 21:44 40 MG Benztropine Mesylate 0.5 mg BID PO 08/02/24 22:00 08/05/24 11:17 0.5 MG Fluoxetine HCl 20 mg DAILY PO 08/03/24 10:00 08/05/24 11:07 20 MG Risperidone 3 mg BID PO 08/02/24 22:00 08/05/24 11:16 3 MG Daptomycin 400 mg/ Sodium Chloride 50 ml @ 100 mls/hr DAILY STAT IV 08/02/24 14:11 08/02/24 14:40 Cancel Meropenem 50 ml @ 17 mls/hr Q8HR STAT IV 08/02/24 14:11 08/02/24 17:07 UNV Primidone 250 mg TID PO 08/03/24 06:00 08/05/24 05:50 250 MG Sodium Chloride 1,000 ml @ 100 mls/hr Q10H IV 08/03/24 06:30 08/04/24 23:08 100 MLS/HR Nystatin 1 applic BID TOP 08/03/24 10:00 08/05/24 11:17 1 APPLIC Sodium Chloride 10 ml QSHIFT@10,22 IV 08/03/24 22:00 08/05/24 11:07 10 ML Norepinephrine Bitartrate 250 ml @ 3.75 mls/hr Q24H IV 08/04/24 05:00 08/04/24 05:04 3.75 MLS/HR Acetaminophen 650 mg Q6HP PRN PO 08/04/24 14:30 Cefazolin Sodium/ Dextrose 50 ml @ 50 mls/hr Q8HR IV 08/04/24 22:00 08/05/24 06:02 50 MLS/HR objective HEENT PUPILS ARE REACTIVE NECK IS SUPPLE CV IS S1-S2 REGULAR RATE AND RHYTHM RESPIRATORY DIMINISHED BREATH SOUNDS BASES GI POSITIVE BOWEL SOUND EXTREMITY 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 right hip s/p i and D, with wound vac laboratory and microbiology Laboratory Tests 08/05/24 05:55 08/04/24 04:57 08/02/24 22:55 Test 08/02/24 22:55 Range/Units Serum Glucose 158 H 74-106 mg/dL Assessment/Plan A 64 yo F with right hip joint infection with staphylococcus aureus (MSSA) Hypovolemic shock / septic shock resolved Acute Anemia S/P 2 units of packed RBC S/P Right hip explantation and placement of Antibiotic spacer 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 complicated by wound dehiscence and 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 Johnnie Thapa, she had an abscess may be connecting to the joint, OR notes is not up yet. The old spacer is out and they placed a new spacer Discussed treatment plan with him, she will be discharged with wound VAC for four weeks Antibiotic Status: Cefazolin IV [Started on 08/04 - Ongoing] Zosyn IV [Started on 08/02 - 08/04] Vancomycin IV [Started on 08/02 -08/04] 08/03, Vancomycin Random is 7.2. Plan discussed with Dr. Clement/ RN/ Dr Johnnie Brasher guarded of hip joint, due to large wound. Thank you for consult. Plan discussed with: GABRIELA Eisenberg MD August 05, 2024 12:55
--- NOTE | 2024-08-05 16:22 | DVHPN2 ---
Subjective OVERNIGHT EVENTS NOTED. PATIENT IS FEELING MUCH BETTER, downgraded to telemetry. Changes from previous H/P or p: No Changes Objective Vitals Vital Signs Date Time Temp Pulse Resp B/P (MAP) Pulse Ox O2 Delivery O2 Flow Rate FiO2 08/05/24 13:00 102 12 143/92 (109) 94 08/05/24 12:00 98.6 98.6 08/05/24 08:00 Room Air* 0 21 Intake/Output Intake and Output 08/05/24 07:00 Intake Total 3960 ml Output Total 4925 ml Balance -965 ml Intake Oral 1180 ml IV Total 2500 ml Blood Product 280 ml Output Urine Total 4925 ml # Bowel Movements 5 Exam HEENT PUPILS ARE REACTIVE NECK IS SUPPLE CV IS S1-S2 REGULAR RATE AND RHYTHM RESPIRATORY DIMINISHED BREATH SOUNDS BASES GI POSITIVE BOWEL SOUND EXTREMITY 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 Medications Current Medications Medications Dose Ordered Sig/Los Route Start Time Stop Time Status Last Admin Dose Admin Metoprolol Succinate 50 mg DAILY PO 08/02/24 10:00 Hold Patient Own Medication 40 mg DAILY PO 08/02/24 10:00 Cancel Patient Own Medication 0.5 tab BID PO 08/02/24 10:00 Cancel Patient Own Medication 1 tab DAILY PO 08/02/24 10:00 UNV Patient Own Medication 1 tab BID PO 08/02/24 10:00 UNV Clopidogrel Bisulfate 75 mg DAILY PO 08/03/24 10:00 08/05/24 11:07 75 MG Sodium Chloride 10 ml Q8HR IV 08/02/24 14:00 08/05/24 14:00 10 ML Hydromorphone HCl 1 mg Q2HP PRN IV 08/02/24 09:45 Ondansetron HCl 4 mg Q6HP PRN IV 08/02/24 09:45 Docusate Sodium 100 mg Q12HR PO 08/02/24 10:00 08/03/24 21:35 100 MG Acetaminophen/ Hydrocodone Bitart 1 tab Q4HP PRN PO 08/02/24 09:45 08/04/24 15:05 1 TAB Nitroglycerin 0.4 mg Q5MINP PRN SL 08/02/24 09:45 Morphine Sulfate 2 mg Q30M PRN IV 08/02/24 09:45 Atorvastatin Calcium 40 mg HS PO 08/02/24 22:00 08/04/24 21:44 40 MG Benztropine Mesylate 0.5 mg BID PO 08/02/24 22:00 08/05/24 11:17 0.5 MG Fluoxetine HCl 20 mg DAILY PO 08/03/24 10:00 08/05/24 11:07 20 MG Risperidone 3 mg BID PO 08/02/24 22:00 08/05/24 11:16 3 MG Daptomycin 400 mg/ Sodium Chloride 50 ml @ 100 mls/hr DAILY STAT IV 08/02/24 14:11 08/02/24 14:40 Cancel Meropenem 50 ml @ 17 mls/hr Q8HR STAT IV 08/02/24 14:11 08/02/24 17:07 UNV Primidone 250 mg TID PO 08/03/24 06:00 08/05/24 15:46 250 MG Sodium Chloride 1,000 ml @ 100 mls/hr Q10H IV 08/03/24 06:30 08/04/24 23:08 100 MLS/HR Nystatin 1 applic BID TOP 08/03/24 10:00 08/05/24 11:17 1 APPLIC Sodium Chloride 10 ml QSHIFT@10,22 IV 08/03/24 22:00 08/05/24 11:07 10 ML Norepinephrine Bitartrate 250 ml @ 3.75 mls/hr Q24H IV 08/04/24 05:00 08/04/24 05:04 3.75 MLS/HR Acetaminophen 650 mg Q6HP PRN PO 08/04/24 14:30 Cefazolin Sodium/ Dextrose 50 ml @ 50 mls/hr Q8HR IV 08/04/24 22:00 08/05/24 15:46 50 MLS/HR Laboratory Results Laboratory Tests 08/02/24 22:55 08/04/24 04:57 08/05/24 05:55 Urinalysis Test 08/02/24 21:45 Urine Color Light-yellow (Yellow) Urine Clarity Clear (Clear) Urine pH 5.5 (5.0-9.0) Urine Specific [place] 1.028 (1.001-1.035) Urine Protein Trace (Negative) H Urine Ketones Negative (Negative) Urine Blood 2+ /uL (Negative) H Urine Nitrite Negative (Negative) Urine Bilirubin Negative (Negative) Urine Urobilinogen Normal mg/dL (Negative) Urine Leukocyte Esterase Negative /uL (Negative) Urine RBC 62 /hpf (0 - 4) Urine Microscopic WBC 10 /HPF (0-5) H Urine Squamous Epithelial Cells Few /hpf (<5) Urine Bacteria Few /hpf (None Seen) H Urine Hyaline Casts Few /lpf (0 - 2) Urine Mucus Few (None Seen) Urine Glucose Normal mg/dL (Normal) Microbiology Microbiology Date/Time Source Procedure Growth Status 08/03/24 06:54 Blood Blood Culture - Preliminary NO GROWTH AFTER 48 HOURS OF INCUBATION. Resulted 08/02/24 21:45 Urine - [place] Urine Culture - Final Complete 08/02/24 18:34 Nose MRSA Screen - Final Complete Assessment/Plan Assessment/Plan 63-YEAR-OLD FEMALE WITH A KNOWN HISTORY OF HYPERTENSION, DYSLIPIDEMIA, STATUS POST TAVR, PREVIOUS HISTORY OF BILATERAL TOTAL HIP ARTHROPLASTY, PREVIOUS HISTORY OF RIGHT TOTAL HIP ARTHROPLASTY ABOUT TWO YEARS AGO, STATUS POST EXPLANTATION AND IRRIGATION AND DEBRIDEMENT WITH THE ANTIBIOTIC CEMENT SPACER PLACEMENT FEW TIMES PRESENTED TO THE HOSPITAL FOR ELECTIVE PROCEDURE. 1. HYPOVOLEMIC SHOCK CURRENTLY resolved 2. ACUTE ANEMIA STATUS POST 2 UNITS OF PACKED RBC 3. STATUS POST RIGHT HIP EXPLANTATION AND PLACEMENT OF ANTIBIOTIC SPACER. 4. PREVIOUS HISTORY OF RIGHT HIP SURGERY AND EXPLANTATION IN THE PAST WELL 5. HYPERTENSION 6. DYSLIPIDEMIA 7. STATUS POST TAVR -CONTINUE IV ANTIBIOTICS, FOLLOW UP INFECTIOUS DISEASE AND ORTHOPEDICS RECOMMENDATIONS. -the patient already has a PICC line, arrange IV antibiotics for 6 weeks. -[facility]. Plan discussed with: Patient My Orders Orders - SUAD RUVALCABA MD Procedure Category Date Status Time Discharge DISCHARGE 08/05/24 Transmitted 13:51 Date of Service: August 05, 2024 Billing Provider: SUAD RUVALCABA MD Common Visit Codes: NOT BILLABLE SUAD RUVALCABA MD August 05, 2024 16:21
[2024-08-05] MEDS: ACETAMINOPHEN 325 MG TAB PO PRN (22:18)
[2024-08-05] MEDS: HYDROmorphone HCL 2 MG/ML VL/or syr IV PRN (23:26)
[2024-08-06] VITALS (18 sets, daily range): BP systolic 99–153; BP diastolic 46–75; PULSE 78–102; RESP 11–19; TEMP 97.7–98.7; O2SAT 88–100
--- NOTE | 2024-08-06 11:57 | DVHPN2 ---
Progress Note - Dictate Date Seen: August 06, 2024 Medical Necessity Reason Pt with a Central, PICC or Fol: Yes The following are medically ne: Harrington Catheter Subjective No new acute complaints noted. Has wound vac. vital signs Vital Sign Date Time Temp Pulse Resp B/P (MAP) Pulse Ox O2 Delivery O2 Flow Rate FiO2 08/06/24 10:10 98.7 80 18 153/67 (95) 98 98.7 08/06/24 08:00 Room Air* 0 21 Total Intake and Output 08/05/24 08/05/24 08/06/24 15:00 23:00 07:00 Intake Total 850 ml 1570 ml 1250 ml Output Total 3750 ml 2000 ml Balance 850 ml -2180 ml -750 ml medications Current Medications Medications Dose Ordered Sig/Los Route Start Time Stop Time Status Last Admin Dose Admin Metoprolol Succinate 50 mg DAILY PO 08/02/24 10:00 Hold Patient Own Medication 40 mg DAILY PO 08/02/24 10:00 Cancel Patient Own Medication 0.5 tab BID PO 08/02/24 10:00 Cancel Patient Own Medication 1 tab DAILY PO 08/02/24 10:00 UNV Patient Own Medication 1 tab BID PO 08/02/24 10:00 UNV Clopidogrel Bisulfate 75 mg DAILY PO 08/03/24 10:00 08/06/24 09:12 75 MG Sodium Chloride 10 ml Q8HR IV 08/02/24 14:00 08/06/24 05:07 10 ML Hydromorphone HCl 1 mg Q2HP PRN IV 08/02/24 09:45 08/05/24 23:26 1 MG Ondansetron HCl 4 mg Q6HP PRN IV 08/02/24 09:45 Docusate Sodium 100 mg Q12HR PO 08/02/24 10:00 08/03/24 21:35 100 MG Acetaminophen/ Hydrocodone Bitart 1 tab Q4HP PRN PO 08/02/24 09:45 08/04/24 15:05 1 TAB Nitroglycerin 0.4 mg Q5MINP PRN SL 08/02/24 09:45 Morphine Sulfate 2 mg Q30M PRN IV 08/02/24 09:45 Atorvastatin Calcium 40 mg HS PO 08/02/24 22:00 08/05/24 22:19 40 MG Benztropine Mesylate 0.5 mg BID PO 08/02/24 22:00 08/06/24 09:13 0.5 MG Fluoxetine HCl 20 mg DAILY PO 08/03/24 10:00 08/06/24 09:13 20 MG Risperidone 3 mg BID PO 08/02/24 22:00 08/06/24 09:13 3 MG Daptomycin 400 mg/ Sodium Chloride 50 ml @ 100 mls/hr DAILY STAT IV 08/02/24 14:11 08/02/24 14:40 Cancel Meropenem 50 ml @ 17 mls/hr Q8HR STAT IV 08/02/24 14:11 08/02/24 17:07 UNV Primidone 250 mg TID PO 08/03/24 06:00 08/06/24 05:08 250 MG Sodium Chloride 1,000 ml @ 100 mls/hr Q10H IV 08/03/24 06:30 08/06/24 03:08 100 MLS/HR Nystatin 1 applic BID TOP 08/03/24 10:00 08/06/24 09:14 1 APPLIC Sodium Chloride 10 ml QSHIFT@10,22 IV 08/03/24 22:00 08/06/24 09:15 10 ML Norepinephrine Bitartrate 250 ml @ 3.75 mls/hr Q24H IV 08/04/24 05:00 08/04/24 05:04 3.75 MLS/HR Acetaminophen 650 mg Q6HP PRN PO 08/04/24 14:30 08/05/24 22:18 650 MG Cefazolin Sodium/ Dextrose 50 ml @ 50 mls/hr Q8HR IV 08/04/24 22:00 08/06/24 05:07 50 MLS/HR objective HEENT PUPILS ARE REACTIVE NECK IS SUPPLE CV IS S1-S2 REGULAR RATE AND RHYTHM RESPIRATORY DIMINISHED BREATH SOUNDS BASES GI POSITIVE BOWEL SOUND EXTREMITY NO EDEMA 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 NO MOTOR DEFICIT right hip s/p i and D, with wound vac laboratory and microbiology Laboratory Tests 08/05/24 05:55 08/04/24 04:57 08/02/24 22:55 Test 08/02/24 22:55 Range/Units Serum Glucose 158 H 74-106 mg/dL Assessment/Plan A 64 yo F with right hip joint infection with staphylococcus aureus (MSSA) Hypovolemic shock / septic shock resolved Acute Anemia S/P 2 units of packed RBC S/P Right hip explantation and placement of Antibiotic spacer 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 weekly labs CBC with diff, cmp . fax to [phone] I checked drug interaction to add rifampin, however there is strong interaction with plavix and risperidone hence will hold off. The hard quezada is removed plus the deep hip joint cultures were negative. f/u with me in 1 week. 08/02, Blood culture preliminary showed no growth Repeated preliminary blood culture from 08/03 showed no growth Wound culture from OR 08/01, shows Staphylococcus aureus (MSSA) MRSA Screening came back negative Antibiotic Status: Cefazolin IV [Started on 08/04 - Ongoing] Zosyn IV [Started on 08/02 - 08/04] Vancomycin IV [Started on 08/02 -08/04] 08/03, Vancomycin Random is 7.2. Plan discussed with Dr. Urbano aranda of hip joint Thank you for consult. Plan discussed with: Patient, Other GABRIELA ADAMS MD August 06, 2024 11:57
--- NOTE | 2024-08-06 12:31 | DVHDS2 ---
Discharge Summary Date of Admission August 02, 2024 at 09:45 Date of Discharge: August 05, 2024 Labs/Diagnostic Data: Laboratory Results Test 08/05/24 05:55 08/04/24 04:57 08/03/24 08:28 08/03/24 06:54 Hemoglobin 8.1 g/dL (12.2-16.2) Hematocrit 23.9 % (36.0-46.0) White Blood Count 3.5 10^3/uL (4.4-10.8) Red Blood Count 2.48 10^6/uL (4.0-5.20) Mean Corpuscular Volume 89.5 fL (80.0-100.0) Mean Corpuscular Hemoglobin 30.7 pg (28.0-32.0) Mean Corpuscular Hemoglobin Concent 34.3 g/dL (32.0-36.0) Red Cell Distribution Width 20.6 % (11.8-14.3) Platelet Count 126 10^3/uL (140-450) Mean Platelet Volume 7.4 fL (6.9-10.8) Neutrophils (%) (Auto) 69.2 % (37.0-80.0) Lymphocytes (%) (Auto) 15.6 % (10.0-50.0) Monocytes (%) (Auto) 8.7 % (0.0-12.0) Eosinophils (%) (Auto) 5.9 % (0.0-7.0) Basophils (%) (Auto) 0.6 % (0.0-2.0) Neutrophils # (Auto) 2.4 10 ^3/uL (1.6-8.6) Lymphocytes # (Auto) 0.6 10 ^3/uL (0.4-5.4) Monocytes # (Auto) 0.3 10 ^3/uL (0-1.3) Eosinophils # (Auto) 0.2 10 ^3/uL (0-0.8) Basophils # (Auto) 0 10 ^3/uL (0-0.2) Nucleated Red Blood Cells 0.1 % Creatinine 0.59 mg/dL (0.550-1.02) Glomerular Filtration Rate Calc 101 mL/min (>90) Blood Gas Specimen Type Arterial Blood Gas Sample Site Left radial Blood Gas Patient Temperature 37.0 Arterial Blood Date Drawn [id number] Arterial Blood pH 7.351 (7.350-7.450) Arterial Blood Partial Pressure CO2 47.9 mmHg (32.0-45.0) Arterial Blood Partial Pressure O2 55.6 mmHg (83.0-108.0) Arterial Blood HCO3 25.9 mmol/L (21.0-28.0) Arterial Blood Oxygen Saturation 88.1 % (94.0-98.0) Arterial Blood Base Excess 0.0 mmol/L (-2.0-3.0) Arterial Blood Oxyhemoglobin 87.3 % (94.0-98.0) Arterial Blood Carboxyhemoglobin 0.3 % (0.5-1.5) Arterial Blood Methemoglobin 0.6 % (0.0-1.5) Camilo Test Yes Blood Gas Total Hemoglobin 9.80 g/dL (12.0-16.0) Blood Gas Modality Room air Blood Gas Spontaneous Rate 20 FiO2 % 21.0 Lactic Acid Level 1.1 mmol/L (0.4-2.0) Test 08/03/24 05:14 08/02/24 22:55 08/02/24 21:45 08/02/24 18:51 B-Type Natriuretic Peptide 20.34 pg/mL (0-100) Random Vancomycin Level 7.2 ug/mL (5-10) Sodium Level 135 mmol/L (136-145) Potassium Level 4.7 mmol/L (3.5-5.1) Chloride Level 104 mmol/L (98-107) Carbon Dioxide Level 25 mmol/L (20-31) Anion Gap 6 (5-15) Blood Urea Nitrogen 13 mg/dL (9-23) BUN/Creatinine Ratio 21.3 (10.0-20.0) Serum Glucose 158 mg/dL (74-106) Calcium Level 8.0 mg/dL (8.7-10.4) Urine Color Light-yellow (Yellow) Urine Clarity Clear (Clear) Urine pH 5.5 (5.0-9.0) Urine Specific [place] 1.028 (1.001-1.035) Urine Protein Trace (Negative) Urine Ketones Negative (Negative) Urine Blood 2+ /uL (Negative) Urine Nitrite Negative (Negative) Urine Bilirubin Negative (Negative) Urine Urobilinogen Normal mg/dL (Negative) Urine Leukocyte Esterase Negative /uL (Negative) Urine RBC 62 /hpf (0 - 4) Urine Microscopic WBC 10 /HPF (0-5) Urine Squamous Epithelial Cells Few /hpf (<5) Urine Bacteria Few /hpf (None Seen) Urine Hyaline Casts Few /lpf (0 - 2) Urine Mucus Few (None Seen) Urine Glucose Normal mg/dL (Normal) Prothrombin Time 10.4 sec (9.3-11.8) Prothrombin Time INR 0.98 (0.9-1.15) Activated Partial Thromboplast Time 22.3 SEC (24.5-34.5) Test 08/02/24 12:48 Platelet Estimate Adequate Anisocytosis (manual) Slight Other Laboratory Tests 08/05/24 05:55 08/04/24 04:57 08/02/24 22:55 Brief Hx & Hospital Course: 63-YEAR-OLD FEMALE WITH A KNOWN HISTORY OF HYPERTENSION, DYSLIPIDEMIA, STATUS POST TAVR, PREVIOUS HISTORY OF BILATERAL TOTAL HIP ARTHROPLASTY, PREVIOUS HISTORY OF RIGHT TOTAL HIP ARTHROPLASTY ABOUT TWO YEARS AGO, STATUS POST EXPLANTATION AND IRRIGATION AND DEBRIDEMENT WITH THE ANTIBIOTIC CEMENT SPACER PLACEMENT FEW TIMES PRESENTED TO THE HOSPITAL FOR ELECTIVE PROCEDURE. PATIENT UNDERWENT RIGHT HIP EXPLANTATION AND PLACEMENT OF ANTIBIOTIC SPACER. BLEED POSTOPERATIVELY PATIENT HYPOTENSIVE BECAUSE OF HYPOVOLEMIC SHOCK REQUIRING LEVOPHED WAS KEPT IN [facility]. PATIENT HAS RECEIVED 2 UNITS OF PACKED RBC BECAUSE OF INTRAOPERATIVE BLOOD LOSS ABOUT 1.7 L. PATIENT IS CURRENTLY WAITING FOR WOUND VAC PLACEMENT. PATIENT WILL BE DISCHARGED TO [facility] WITH A RIGHT HIP WOUND VAC PLACEMENT AND IV ANTIBIOTICS CEFEPIME 2 G IV Q.8 HOURS FOR SIX WEEKS. Condition at Discharge: Stable Final Diagnosis/Problems List 63-YEAR-OLD FEMALE WITH A KNOWN HISTORY OF HYPERTENSION, DYSLIPIDEMIA, STATUS POST TAVR, PREVIOUS HISTORY OF BILATERAL TOTAL HIP ARTHROPLASTY, PREVIOUS HISTORY OF RIGHT TOTAL HIP ARTHROPLASTY ABOUT TWO YEARS AGO, STATUS POST EXPLANTATION AND IRRIGATION AND DEBRIDEMENT WITH THE ANTIBIOTIC CEMENT SPACER PLACEMENT FEW TIMES PRESENTED TO THE HOSPITAL FOR ELECTIVE PROCEDURE. 1. HYPOVOLEMIC SHOCK CURRENTLY RESOLVED 2. ACUTE ANEMIA STATUS POST 2 UNITS OF PACKED RBC 3. STATUS POST RIGHT HIP EXPLANTATION AND PLACEMENT OF ANTIBIOTIC SPACER. 4. PREVIOUS HISTORY OF RIGHT HIP SURGERY AND EXPLANTATION IN THE PAST WELL 5. HYPERTENSION 6. DYSLIPIDEMIA 7. STATUS POST TAVR Discharge Disposition: Alf Facility SNF Discharge Will this Physician continue t: No Discharge Instruct/Medications Diet: Cardiac 2g Na,low cholest Activity: See Comment Activity comment: To touch weight bearing as tolerated on right lower extremity Follow Up/Referral: Follow up with the PCP in 1-2 weeks Follow up with infectious disease specialist in 2 weeks Follow up with Orthopedics in 1 week Medications: Cefazolin 1 g IV q.8 hour for 6 weeks IV Discharge Statement: "Patient was advised to return to the ER or call 911 if any headaches, dizziness, shortness of breath, chest pain, abdominal pain, bleeding, fevers, or worsening of medical condition. Patient was counseled about treatment plan, medications, possible side effects, patientverbalized understanding. All questions were answered to the best of my ability. This discharge took greater then 30 minutes in planning, reviewing documentation, counseling the patient, and discussing with other team members." ASSESSMENT ASSESSMENT Assessment 63-YEAR-OLD FEMALE WITH A KNOWN HISTORY OF HYPERTENSION, DYSLIPIDEMIA, STATUS POST TAVR, PREVIOUS HISTORY OF BILATERAL TOTAL HIP ARTHROPLASTY, PREVIOUS HISTORY OF RIGHT TOTAL HIP ARTHROPLASTY ABOUT TWO YEARS AGO, STATUS POST EXPLANTATION AND IRRIGATION AND DEBRIDEMENT WITH THE ANTIBIOTIC CEMENT SPACER PLACEMENT FEW TIMES PRESENTED TO THE HOSPITAL FOR ELECTIVE PROCEDURE. 1. HYPOVOLEMIC SHOCK CURRENTLY RESOLVED 2. ACUTE ANEMIA STATUS POST 2 UNITS OF PACKED RBC 3. STATUS POST RIGHT HIP EXPLANTATION AND PLACEMENT OF ANTIBIOTIC SPACER. 4. PREVIOUS HISTORY OF RIGHT HIP SURGERY AND EXPLANTATION IN THE PAST WELL 5. HYPERTENSION 6. DYSLIPIDEMIA 7. STATUS POST TAVR Date of Service: August 06, 2024 Billing Provider: SUAD RUVALCABA MD Common Visit Codes: NOT BILLABLE SUAD RUVALCABA MD August 06, 2024 12:31
== END 2024-08-06 22:11 | DRG 463 ==
LOC: SUR 06:17 → OVERFLOW 09:45 → DOU IN ICU 18:23 → ICU CENTRL 08-03 10:01 → DOU IN ICU 08-05 05:53 → TELE-CENTR 08-06 09:46
PROVIDERS: ADMIT Hospitalist; ATTEND Hospitalist
PROC: 0JBL0ZZ Excision of Right Upper Leg Subcutaneous Tissue and Fascia, Open Approach (ICD-10-PCS; 2024-08-02)
PROC: 30233N1 Transfusion of Nonautologous Red Blood Cells into Peripheral Vein, Percutaneous Approach (ICD-10-PCS; 2024-08-02)
PROC: 0SP908Z Removal of Spacer from Right Hip Joint, Open Approach (ICD-10-PCS; 2024-08-02)
PROC: 3E0U029 Introduction of Other Anti-infective into Joints, Open Approach (ICD-10-PCS; 2024-08-02)
PROC: 0SP Lower Joints, Removal (ICD-10-PCS; principal; 2024-08-02 08:18)
PROC: 02HV33Z Insertion of Infusion Device into Superior Vena Cava, Percutaneous Approach (ICD-10-PCS; 2024-08-03)
PROC: B548ZZA Ultrasonography of Superior Vena Cava, Guidance (ICD-10-PCS; 2024-08-03)
DX: T84.51XA Infection and inflammatory reaction due to internal right hip prosthesis, initial encounter (principal); A41.01 Sepsis due to Methicillin susceptible Staphylococcus aureus; R57.1 Hypovolemic shock; R65.21 Severe sepsis with septic shock; D62 Acute posthemorrhagic anemia; M00.9 Pyogenic arthritis, unspecified; T81.30XA Disruption of wound, unspecified, initial encounter; Y83.1 Surgical operation with implant of artificial internal device as the cause of abnormal reaction of the patient, or of later complication, without mention of misadventure at the time of the procedure; I10 Essential (primary) hypertension; E78.5 Hyperlipidemia, unspecified; Z96.642 Presence of left artificial hip joint; Y92.89 Other specified places as the place of occurrence of the external cause; Z83.3 Family history of diabetes mellitus; Z80.3 Family history of malignant neoplasm of breast; Z82.3 Family history of stroke; Z82.49 Family history of ischemic heart disease and other diseases of the circulatory system; Z88.0 Allergy status to penicillin; Z79.1 Long term (current) use of non-steroidal anti-inflammatories (NSAID); Z79.899 Other long term (current) drug therapy; Z95.2 Presence of prosthetic heart valve
CPT/HCPCS: 36415; 36569; 36600; 72170; 76937; 80048; 80202; 81001; 82565; 82805; 83605; 83880; 85014; 85018; 85025; 85610; 85730; 86850; 86900; 86901; 86920; 87040; 87070; 87075; 87077; 87081; 87086; 87186; 87205; 97110; 97163; 97530; G0378; J0131; J0330; J1100; J1885; J2003; J2405; J2543; J2704; J3490; P9047

== ENCOUNTER 2024-09-13 11:00 | Emergency (ER) | payer BC ==
[~2024-09-13] VITALS: Ht 162.6 cm; Wt 100.0 kg
--- NOTE | 2024-09-13 11:13 | ED.PDOC ---
Musculoskeletal HPI Comments 64 year old female presents to the ED via EMS with a chief complaint of RT hip pain. Patient had surgery on July [address] Thapa, RT hip, is currently at post acute facility, noticed incision site has discharge, concerned for possible infection. Upon ED arrival, patient's BP was 149/100. PMHx cancer, depression, HTN, HLD, seizures. Denies chest pain, shortness of breath, fever, chills, nausea, vomiting, diarrhea. No other symptoms or modifying factors present at this time. Time Seen by MD: 11:00 Primary Care Provider: ALEXANDRIA Ortiz Notes: Medications, Allergies Allergies: Coded Allergies: Penicillins (Verified Allergy, Unknown, 09/13/24) Home Meds Active Scripts Ibuprofen (Advil) 200 Mg Tab, 800 MG PO TID, #30 TAB Prov:YVON EVANS MD 06/18/24 Reported Medications Atorvastatin Calcium (ATORVASTATIN CALCIUM) 40 Mg Tab, 40 MG PO DAILY, TAB 12/01/23 Risperidone (Risperidone) 3 Mg Tab, 1 TAB PO BID 05/13/23 Metoprolol Succinate (Metoprolol Succinate Er) 50 Mg Tab, 1 TAB PO DAILY Take 1/2 tablet qam 05/13/23 Primidone (Primidone) 125 Mg Tab, 250 MG PO TID, TAB 05/13/23 Fluoxetine Hcl (Fluoxetine Hcl) 20 Mg Tab, 1 TAB PO DAILY, #90 TAB 3 Refills 05/13/23 Benztropine Mesylate (Benztropine Mesylate) 1 Mg Tab, 0.5 TAB PO BID, #60 TAB 0.5 mg tab 05/13/23 Clopidogrel Bisulfate (CLOPIDOGREL) 75 Mg Tab, 1 TAB PO DAILY, #90 TAB 1 Refill 05/13/23 Information Source: Patient, Emergency Med Personnel Mode of Arrival: EMS Location: Right Extremity Location: Hip Timing: Hours Prehospital treatment: None Severity: Moderate Associated signs and symptoms: Hip pain Past Medical History PAST MEDICAL HISTORY: Cancer, Depression, High Lipids, HTN, Seizures Surgical History: Hernia Repair, Hysterectomy Surgical History (Other): RT hip 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 History: Endometrial Cancer, Endometriosis Family History Family History: Reviewed,noncontributory to illness Family History (Other): Family Hx of Dementia Social History Smoker: Non-Smoker Alcohol: Denies ETOH Use Drugs: Denies Drug Use Lives In: Home Constitutional: denies: chills, diaphoresis, fatigue, fever, malaise, sweats, weakness, others EENTM: denies: blurred vision, double vision, ear bleeding, ear discharge, ear drainage, ear pain, ear ringing, eye pain, eye redness, hearing loss, mouth pain, mouth swelling, nasal discharge, nose bleeding, nose congestion, nose pain, photophobia, tearing, throat pain, throat swelling, voice changes, others Respiratory: denies: cough, hemoptysis, orthopnea, SOB at rest, shortness of breath, SOB with excertion, stridor, wheezing, others Cardiovascular: denies: chest pain, dizzy spells, diaphoresis, Dyspnea on e xertion, edema, irregular heart beat, left arm pain, lightheadedness, palpitations, PND, syncope, others Gastrointestinal: denies: abdomen distended, abdominal pain, blood streaked bowels, constipated, diarrhea, dysphagia, difficulty swallowing, hematemesis, melena, nausea, poor appetite, poor fluid intake, rectal bleeding, rectal pain, vomiting, others Genitourinary: denies: abnormal vagina bleeding, burning, dyspareunia, dysuria, flank pain, frequency, hematuria, incontinence, pain, , vagina discharge, urgency, others Neurological: denies: dizziness, fainting, headache, left sided numbness, left sided weakness, numbness, paresthesia, pre-existing deficit, right sided numbness, right sided weakness, seizure, speech problems, tingling, tremors, weakness, others Musculoskeletal: reports: others (RT hip pain); denies: back pain, gout, joint pain, joint swelling, muscle pain, muscle stiffness, neck pain Integumetry: denies: bruises, change in color, change in hair/nails, dryness, laceration, lesions, lumps, rash, wounds, others Allergic/Immunocompromised: denies: Difficulty Healing, Frequent Infections, H saulo, Itching, others Hematologic/Lymphatic: denies: anemia, blood clots, easy bleeding, easy bruising, swollen glands, others Endocrine: denies: excessive hunger, excessive sweating, excessive thirst, excessive urination, flushing, intolerance to cold, intolerance to heat, unexplained weight gain, unexplained weight loss, others Psychiatric: denies: anxiety, bipolar disorder, depression, hopeless, panic disorder, schizophrenia, sleepless, suicidal, others All Other Systems: Reviewed and Negative Physical Exam General Appearance: Moderate Distress, Normal HEENT: Normal ENT Inspection, Pharynx Normal, TMs Normal Neck: Full Range of Motion, Non-Tender, Normal, Normal Inspection Respiratory: Chest Non-Tender, Lungs Clear, No Accessory Muscle Use, No Respiratory Distress, Normal Breath Sounds Cardiovascular: No Edema, No JVD, No Murmur, No Gallop, Normal Peripheral Pulses, Regular Rate/Rhythm Breast Exam: Deferred Gastrointestinal: No Organomegaly, Non Tender, No Pulsatile Mass, Normal Bowel Sounds, Soft Genitalia: Deferred Pelvic: Deferred Rectal: Deferred Extremities: No calf tenderness, Normal capillary refill, Normal inspection, Normal range of motion, Non-tender, No pedal edema Musculoskeletal : Apperance: Normal Neurologic: Alert, agile coach II-XII nml as Tested, No Motor Deficits, Normal Affect, Normal Mood, No Sensory Deficits Cerebellar Function: NOT DONE Reflexes: NOT DONE Skin: Dry, Normal Color, Warm Peripheral Pulses: 3+ Radial (R), 3+ Radial (L) Lymphatic: No Adenopathy Was a procedure done? Was a procedure done?: No Differential Diagnosis EXT Differential Diagnosis: Cellulitis, Sprain, Strain X-Ray, Labs, Meds, VS Vital Signs Date Time Temp Pulse Resp B/P (MAP) Pulse Ox O2 Delivery O2 Flow Rate FiO2 09/13/24 11:50 61 16 93 Room Air* 0 21 09/13/24 11:49 98.1 61 16 136/44 (74) 93 98.1 09/13/24 11:10 98.1 62 20 190/100 (130) 95 98.1 Lab Test 09/13/24 11:43 Range/Units White Blood Count 4.2 L 4.4-10.8 10^3/uL Red Blood Count 3.32 L 4.0-5.20 10^6/uL Hemoglobin 10.1 L 12.2-16.2 g/dL Hematocrit 29.6 L 36.0-46.0 % Mean Corpuscular Volume 89.2 80.0-100.0 fL Mean Corpuscular Hemoglobin 30.4 28.0-32.0 pg Mean Corpuscular Hemoglobin Concent 34.1 32.0-36.0 g/dL Red Cell Distribution Width 19.2 H 11.8-14.3 % Platelet Count 223 140-450 10^3/uL Mean Platelet Volume 7.8 6.9-10.8 fL Neutrophils (%) (Auto) 77.3 37.0-80.0 % Lymphocytes (%) (Auto) 11.7 10.0-50.0 % Monocytes (%) (Auto) 7.2 0.0-12.0 % Eosinophils (%) (Auto) 3.4 0.0-7.0 % Basophils (%) (Auto) 0.4 0.0-2.0 % Neutrophils # (Auto) 3.2 1.6-8.6 10 ^3/uL Lymphocytes # (Auto) 0.5 0.4-5.4 10 ^3/uL Monocytes # (Auto) 0.3 0-1.3 10 ^3/uL Eosinophils # (Auto) 0.1 0-0.8 10 ^3/uL Basophils # (Auto) 0 0-0.2 10 ^3/uL Nucleated Red Blood Cells 0.2 % Sodium Level 136 136-145 mmol/L Potassium Level 4.0 3.5-5.1 mmol/L Chloride Level 101 98-107 mmol/L Carbon Dioxide Level 27 20-31 mmol/L Anion Gap 8 5-15 Blood Urea Nitrogen 12 9-23 mg/dL Creatinine 0.50 L 0.550-1.02 mg/dL Glomerular Filtration Rate Calc 105 >90 mL/min BUN/Creatinine Ratio 24.0 H 10.0-20.0 Serum Glucose 80 74-106 mg/dL Lactic Acid Level 0.9 0.4-2.0 mmol/L Calcium Level 9.5 8.7-10.4 mg/dL Troponin I High Sensitivity 5 </=34 ng/L Current Medications Medications (Trade) Dose Ordered Sig/Los Route Start Time Stop Time Status Last Admin Piperacillin Sod/ Tazobactam Sod 100 ml @ 100 mls/hr ONCE ONCE IV 09/13/24 11:15 09/13/24 12:14 DC 09/13/24 12:10 Sodium Chloride 1,000 ml @ 1,000 mls/hr Q1H ONCE IV 09/13/24 11:15 09/13/24 12:14 DC 09/13/24 12:05 Sodium Chloride 1,000 ml @ 150 mls/hr Q6H40M ONCE IV 09/13/24 11:15 09/13/24 17:54 09/13/24 12:24 Patient alert. Coming from a long term. Vitals stable. Answering questions. Complaining of right hip infection. Was sent from long term by orthopedic surgeon. Had a hip replacement at this hospital recently. Cardiac marker within normal limits. Establish intravenous access. Was given fluids. Was given Zosyn. Was given clindamycin. Explained to the patient. Continue monitoring. Time of 1ST Reevaluation: 11:30 Reevaluation 1ST: Unchanged Patient Education/Counseling: Diagnosis, Treatment, Prognosis Family Education/Counseling: No Family Present Sepsis Sepsis Reasesment Focused Exam Orders: Laboratory Tests 09/13/24 11:43: Lactic Acid Level 0.9 Departure 1 Departure Time of Disposition: 12:34 Impression: Primary Impression: Osteomyelitis Qualified Codes: M86.9 - Osteomyelitis, unspecified Disposition: ADMITTED INPATIENT Admit to: Med Surg Condition: Guarded Critical Care Note Critical Care Time?: No Stability Stability form required: No Heart Score Heart Score: Heart Score Response (Comments) Value History Slightly Suspicious 0 EKG Normal 0 Age 45-64 1 Risk Factors >3 or Hx ASHD 2 Troponin Normal limit 0 Total 3 I personally scribed for MONSE ESCOTO MD ([email or web address]) on 09/13/24 at 11:12. Electronically submitted by Scarlet Melendez ([email or web address]). MONSE ESCOTO MD Sep 13, 2024 11:12
[2024-09-13 11:50] VITALS: PULSE 61; RESP 16; O2SAT 93
[2024-09-13] MEDS: SODIUM CHLORIDE 0.9% 1,000 ML IV ONE ×2 (12:05→12:24)
[2024-09-13 12:07] LABS: Basophils # (auto) 0 10 ^3/uL (0-0.2); Basophils % (auto) 0.4 % (0.0-2.0); Eosinophils # (auto) 0.1 10 ^3/uL (0-0.8); Eosinophils % (auto) 3.4 % (0.0-7.0); Hematocrit 29.6 % (36.0-46.0); Hemoglobin 10.1 g/dL (12.2-16.2); Lymphocytes # (auto) 0.5 10 ^3/uL (0.4-5.4); Lymphocytes % (auto) 11.7 % (10.0-50.0); Mean Corpuscular Hemoglobin 30.4 pg (28.0-32.0); Mean Corpuscular Hgb Conc. 34.1 g/dL (32.0-36.0); Mean Corpuscular Volume 89.2 fL (80.0-100.0); Monocytes # (auto) 0.3 10 ^3/uL (0-1.3); Monocytes % (auto) 7.2 % (0.0-12.0); Neutrophils # (auto) 3.2 10 ^3/uL (1.6-8.6); Neutrophils % (auto) 77.3 % (37.0-80.0); Nucleated Red Blood Cells % 0.2 %; Platelet Count (auto) 223 10^3/uL (140-450); Red Blood Cells 3.32 10^6/uL (4.0-5.20); Red Cell Distribution Width 19.2 % (11.8-14.3); White Blood Cell 4.2 10^3/uL (4.4-10.8)
[2024-09-13] MEDS: PIPERACILLIN-TAZOB 3.375GM 100 ML IV ONE (12:10)
[2024-09-13 12:16] LABS: Chloride 101 mmol/L (98-107); Sodium 136 mmol/L (136-145)
[2024-09-13 12:17] LABS: Anion Gap 8 (5-15); Calcium 9.5 mg/dL (8.7-10.4); Carbon Dioxide 27 mmol/L (20-31)
[2024-09-13 12:22] LABS: Blood Urea Nitrogen 12 mg/dL (9-23); Glucose 80 mg/dL (74-106)
[2024-09-13] MEDS: CLINDAMYCIN 300MG IV 50 ML IV ONE (14:26)
--- NOTE | 2024-09-13 15:16 | DVH ---
CHEST RADIOGRAPH Indication: sob Technique: Single frontal view of the chest was obtained Comparison: XY CHEST XRAY 1 VIEW on DOS: 04/09/24 FINDINGS: Lines and Tubes: Right PICC tip in the SVC Lungs: No focal consolidation. Pleura: No effusion. No pneumothorax. Cardiomediastinal contours: Unremarkable Bones: No acute osseous abnormality. IMPRESSION: No acute cardiopulmonary disease.
--- NOTE | 2024-09-13 15:17 | DVH ---
EXAM: XY PELVIS AP CLINICAL INDICATION: osteo TECHNIQUE: XY PELVIS AP Comparison: XY PELVIS AP on DOS: 08/02/24, XY PELVIS AP on DOS: 03/15/24, XY PELVIS AP on DOS: 12/02/23 FINDINGS/IMPRESSION: There is no evidence of acute fracture or dislocation. Bilateral total hip arthroplasties
--- NOTE | 2024-09-13 16:39 | DVHINCON2 ---
Date Seen: Sep 13, 2024 Referring Physician Orthopedic surgeon and ER physician. Reason for Consultation Right hip pain with a serosanguineous discharge which was noted at nursing facility. History of Present Illness 63-year-old female with a known history of hypertension, dyslipidemia, status post TAVR, history of bilateral total hip arthroplasty, status post right total hip arthroplasty, status post explantation and irrigation and debridement with the antibiotic cement spacer placement was nursing facility noted to have serosanguineous fluid and right hip pain. Eventually patient was sent to ER. Orthopedics was consulted who recommended just antiseptic dressing and discharge the patient back to retirement facility with the continuation of IV antibiotics. Plan of care discussed with patient's has been as Dr. Han Nunez will co-sign the note from nurse practitioner/physician environmental assistant Archie Burton as his note was not reflecting but I will be discussed. As per orthopedics, Dr.samir Thapa patient can be discharged back to retirement facility on antibiotics as previously ordered. Patient does not need any right hip intervention has been orthopedics. Patient is currently agrees to current plan of care. Past Medical History Hypertension Dyslipidemia Past Surgical History Bilateral hip arthroplasty, right hip multiple surgery with explantation and implantation of antibiotic spacer. Family History: Diabetes mellitus G8 FATHER, FH: breast cancer G8 MOTHER FH: stroke G8 FATHER, Hypertension G8 MOTHER G8 FATHER, Allergies: Coded Allergies: Penicillins (Verified Allergy, Unknown, 09/13/24) Home Meds Active Scripts Ibuprofen (Advil) 200 Mg Tab, 800 MG PO TID, #30 TAB Prov:YVON EVANS MD 06/18/24 Reported Medications Atorvastatin Calcium (ATORVASTATIN CALCIUM) 40 Mg Tab, 40 MG PO DAILY, TAB 12/01/23 Risperidone (Risperidone) 3 Mg Tab, 1 TAB PO BID 05/13/23 Metoprolol Succinate (Metoprolol Succinate Er) 50 Mg Tab, 1 TAB PO DAILY Take 1/2 tablet qam 05/13/23 Primidone (Primidone) 125 Mg Tab, 250 MG PO TID, TAB 05/13/23 Fluoxetine Hcl (Fluoxetine Hcl) 20 Mg Tab, 1 TAB PO DAILY, #90 TAB 3 Refills 05/13/23 Benztropine Mesylate (Benztropine Mesylate) 1 Mg Tab, 0.5 TAB PO BID, #60 TAB 0.5 mg tab 05/13/23 Clopidogrel Bisulfate (CLOPIDOGREL) 75 Mg Tab, 1 TAB PO DAILY, #90 TAB 1 Refill 05/13/23 Review of Systems Twelve review of system were negative except mentioned above. Vital Signs Vital Signs Date Time Temp Pulse Resp B/P (MAP) Pulse Ox O2 Delivery O2 Flow Rate FiO2 09/13/24 11:50 61 16 93 Room Air* 0 21 09/13/24 11:49 98.1 136/44 (74) 98.1 Physical Exam HEENT pupils are reactive Neck is supple CV is S1-S2 regular rate and rhythm Has been diminished breath sound bases GI positive bowel sounds. Extremity no edema SLEEVE BASTER no motor deficit Labs/Diagnostic Data Labs Test 09/13/24 11:43 Range/Units White Blood Count 4.2 L 4.4-10.8 10^3/uL Red Blood Count 3.32 L 4.0-5.20 10^6/uL Hemoglobin 10.1 L 12.2-16.2 g/dL Hematocrit 29.6 L 36.0-46.0 % Mean Corpuscular Volume 89.2 80.0-100.0 fL Mean Corpuscular Hemoglobin 30.4 28.0-32.0 pg Mean Corpuscular Hemoglobin Concent 34.1 32.0-36.0 g/dL Red Cell Distribution Width 19.2 H 11.8-14.3 % Platelet Count 223 140-450 10^3/uL Mean Platelet Volume 7.8 6.9-10.8 fL Neutrophils (%) (Auto) 77.3 37.0-80.0 % Lymphocytes (%) (Auto) 11.7 10.0-50.0 % Monocytes (%) (Auto) 7.2 0.0-12.0 % Eosinophils (%) (Auto) 3.4 0.0-7.0 % Basophils (%) (Auto) 0.4 0.0-2.0 % Neutrophils # (Auto) 3.2 1.6-8.6 10 ^3/uL Lymphocytes # (Auto) 0.5 0.4-5.4 10 ^3/uL Monocytes # (Auto) 0.3 0-1.3 10 ^3/uL Eosinophils # (Auto) 0.1 0-0.8 10 ^3/uL Basophils # (Auto) 0 0-0.2 10 ^3/uL Nucleated Red Blood Cells 0.2 % Sodium Level 136 136-145 mmol/L Potassium Level 4.0 3.5-5.1 mmol/L Chloride Level 101 98-107 mmol/L Carbon Dioxide Level 27 20-31 mmol/L Anion Gap 8 5-15 Blood Urea Nitrogen 12 9-23 mg/dL Creatinine 0.50 L 0.550-1.02 mg/dL Glomerular Filtration Rate Calc 105 >90 mL/min BUN/Creatinine Ratio 24.0 H 10.0-20.0 Serum Glucose 80 74-106 mg/dL Lactic Acid Level 0.9 0.4-2.0 mmol/L Calcium Level 9.5 8.7-10.4 mg/dL Troponin I High Sensitivity 5 </=34 ng/L Assessment 63-year-old female with a known history of hypertension, dyslipidemia, status post TAVR, history of bilateral total hip arthroplasty, status post right total hip arthroplasty, status post explantation and irrigation and debridement with the antibiotic cement spacer placement was nursing facility noted to have se rosanguineous fluid and right hip pain. Eventually patient was sent to ER. Orthopedics was consulted who recommended just antiseptic dressing and discharge the patient back to retirement facility with the continuation of IV antibiotics. Plan of care discussed with patient's has been as Dr. Han Thapa who will co-sign the note from nurse practitioner/physician environmental assistant Archie Burton as his note was not reflecting but I will be discussed. As per orthopedics, Dr.samir Thapa patient can be discharged back to retirement facility on antibiotics as previously ordered. Patient does not need any right hip intervention has been orthopedics. Patient is currently agrees to current plan of care. Plan discussed with: Patient Date of Service: Sep 13, 2024 Billing Provider: SUAD RUVALCABA MD Common Visit Codes: NOT BILLABLE SUAD RUVALCABA MD Sep 13, 2024 16:39
--- NOTE | 2024-09-13 18:56 | DVHINCON2 ---
Consult Note Consult Consult Note --- Reason for Consult: Evaluation of incisional drainage at right ETOS antibiotic spacer total hip revision. --- History of Present Illness: The patient is a approx 4 weeks status post Right ETOS antibiotic spacer total hip revision. Patient was referred from the SNF to the emergency department due to concerns of drainage at the right hip incision site. No associated fevers, chills, or systemic symptoms reported. Drainage was noted by SNF staff and prompted ER referral. --- Exam Findings (Orthopedic Evaluation): Inspection of the surgical site revealed serosanguinous drainage form opening size 2mm x 2 mm with mild erythema localized around the Mid aspect of the incision, Drainage appeared superficial, serous in nature, without any clear evidence of sinus tract formation or deep infection at this time of observation. No significant fluctuance, cellulitis, or surrounding induration noted. The majority of the incision appears to have healed appropriately. four nylon sutures were removed today without complication. No purulent drainage observed. X-ray of right hip to Shows possibleETOS right hip with antibiotic spacer --- Assessment: 1. Right hip incision wound with serosanguinous drainage, 4 weeks post- operative PER, cannot r/o sinus trac 2. Suture removal completed 3. Right hip antibiotic spacer with possible ETOS --- Plan: Dressing changed in ER due to noted saturation of it after 4 Nylon suture removal. RECS FOR MEDICINE/HOSPITALIST TEAM Admit patient for monitoring of surgical wound and progression of drainage. Initiate local wound care with application of 4x4 pressure gauze dressing.Consider conversion to KATARZYNA negative pressure wound therapy Order infectious labs: CBC with differential, ESR, CRP. Monitor vitals and wound output closely START IV antibiotics Follow-up on wound status and lab trends within 24 hours and Notify Ortho of any changes or concerns Continue NWB All questions were answered. The patient agrees with the plan of care. case discussed with Dr. Thapa who agrees with above plan Plan discussed with: Patient (bedside ER Nurse), Other Visit Coding Surgery Date of Service if different f: Sep 13, 2024 Billing Provider: LYNNE CORTEZ Surgery Visit Codes: [id number] - INP CONSULT <40 MIN LYNNE CORTEZ Sep 13, 2024 18:56
[2024-09-13 22:20] VITALS: BP 114/64; PULSE 62; RESP 18; TEMP 98.1; O2SAT 96
== END 2024-09-13 22:35 | disposition home or self-care (01) ==
LOC: EDBD 11:00 → ER 11:00
DX: M86.9 Osteomyelitis, unspecified (principal); F32.A Depression, unspecified; I10 Essential (primary) hypertension; E78.5 Hyperlipidemia, unspecified; Z98.890 Other specified postprocedural states; Z90.710 Acquired absence of both cervix and uterus; Z88.0 Allergy status to penicillin; Z79.899 Other long term (current) drug therapy
CPT/HCPCS: 36415; 71045; 72170; 80048; 83605; 84484; 85025; 87040; 96365; 96366; 96367; 99284; J2543; J3490; 96361